=== PATIENT | female | born 1935 | race African-American/Black ===

== ENCOUNTER 2016-03-07 22:12 | Emergency (ER) | payer BC ==
[~2016-03-07] VITALS: Ht 165.1 cm; Wt 87.1 kg
[~2016-03-07 22:12] MED LIST: AML5T PO; CEPH-37 PO
[2016-03-08] MEDS ORDERED: ONDANSETRON HCL 4 MG/2 ML VIAL IV ONE (02:30)
[2016-03-08] MEDS ORDERED: HYDROmorphone HCL 2 MG/ML VL IV ONE (02:30)
[2016-03-08 03:05] LABS: Basophils # (auto) 0.1 uL; Basophils % (auto) 0.9 % (0.0-2.0); Eosinophils # (auto) 0.1 uL; Eosinophils % (auto) 1.3 % (0.0-7.0); Hemoglobin 11.9 g/dL (12.2-16.2); Lymphocytes % (auto) 30.2 % (10.0-50.0); Mean Corpuscular Hemoglobin 28.6 pg (28.0-32.0); Mean Corpuscular Volume 86.6 fL (80.0-100.0); Monocytes # (auto) 0.6 uL; Monocytes % (auto) 9.5 % (0.0-12.0); Neutrophils # (auto) 3.9 uL; Neutrophils % (auto) 58.1 % (37.0-80.0); Platelet Count (auto) 252 10^3/uL (140-450); Red Cell Distribution Width 13.8 % (11.6-16.0); White Blood Cell 6.7 10^3/uL (4.4-10.8)
[2016-03-08 03:25] LABS: BUN/Creatinine Ratio 12.2; Calcium 9.6 mg/dL (8.5-10.1); Potassium 3.5 mmol/L (3.5-5.1)
[2016-03-08 04:18] VITALS: BP 146/80
== END 2016-03-08 04:33 | disposition home or self-care (01) ==
LOC: ER 22:20
DX: M10.9 Gout, unspecified (principal); I10 Essential (primary) hypertension; Z88.5 Allergy status to narcotic agent
CPT/HCPCS: 36415; 73110; 80048; 84550; 85025; 85049; 96374; 96375; 99285; J1170; J2405

== ENCOUNTER → 2016-03-18 | Outpatient (CLI) | payer BC, MEDICARE ==
[~2016-03-18] VITALS: Ht 165.1 cm; Wt 85.7 kg
[~2016-03-18] MED LIST changes: +ASPI81TA27 PO; +HCTZ25T PO; +NOR5T PO
[2016-03-18 09:00] VITALS: BP 155/82
[2016-03-18 09:28] VITALS: BP 115/76
[2016-03-18 12:07] LABS: Basophils # (auto) 0 uL; Basophils % (auto) 0.5 % (0.0-2.0); Eosinophils # (auto) 0.1 uL; Hematocrit 34.1 % (36.0-46.0); Hemoglobin 11.5 g/dL (12.2-16.2); Lymphocytes # (auto) 1.6 uL; Lymphocytes % (auto) 32.1 % (10.0-50.0); Mean Corpuscular Hemoglobin 29.2 pg (28.0-32.0); Mean Corpuscular Hgb Conc. 33.8 g/dL (32.0-36.0); Mean Corpuscular Volume 86.5 fL (80.0-100.0); Mean Platelet Volume 9.5 fL (7.4-10.4); Monocytes # (auto) 0.5 uL; Monocytes % (auto) 9.5 % (0.0-12.0); Neutrophils # (auto) 2.8 uL; Neutrophils % (auto) 55.9 % (37.0-80.0); Platelet Count (auto) 288 10^3/uL (140-450); Red Cell Distribution Width 14.6 % (11.6-16.0); SUSPECT VIEW TRANSMISSION
[2016-03-18 12:25] LABS: Partial Thromboplastin Time 25.5 sec (22.64-33.71); Prothrombin Time 10.3 sec (9.37-12.3)
[2016-03-18 12:40] LABS: BUN/Creatinine Ratio 13.2; Calcium 9.5 mg/dL (8.5-10.1); Potassium 3.3 mmol/L (3.5-5.1)
== END | disposition home or self-care (01) ==
LOC: Rad HDHVI 08:48
PROVIDERS: ATTEND Internal Medicine Cardiovascular Disease
DX: I10 Essential (primary) hypertension (principal); D64.9 Anemia, unspecified; R79.1 Abnormal coagulation profile
CPT/HCPCS: 36415; 71020; 80048; 85025; 85610; 85730; 93005; G0463

== ENCOUNTER → 2016-05-26 | Outpatient (CLI) | payer BC, MEDICARE, OTHER ==
[~2016-05-26] MED LIST changes: -CEPH-37 PO
[2016-05-26 16:45] LABS: BUN/Creatinine Ratio 12.6; Calcium 9.9 mg/dL (8.5-10.1); Potassium 3.6 mmol/L (3.5-5.1); Uric Acid 7.4 mg/dL (2.6-6.0)
== END | disposition home or self-care (01) ==
LOC: LAB 11:32
PROVIDERS: ATTEND Internal Medicine Cardiovascular Disease
DX: I10 Essential (primary) hypertension (principal); M10.9 Gout, unspecified
CPT/HCPCS: 36415; 80048; 84550

== ENCOUNTER → 2016-06-07 | Outpatient (CLI) | payer BC | END | disposition home or self-care (01) | LOC: Rad HDHVI 09:36 | PROVIDERS: ATTEND Internal Medicine Cardiovascular Disease | DX: I20.0 Unstable angina (principal); E78.2 Mixed hyperlipidemia | CPT/HCPCS: 93306 ==

== ENCOUNTER → 2016-09-30 | Outpatient (CLI) | payer BC ==
[~2016-09-30] MED LIST changes: +HYDR-4663 PO; -NOR5T PO
[2016-09-30 16:58] LABS: Basophils # (auto) 0 uL; Basophils % (auto) 0.4 % (0.0-2.0); CONDITION Y; Eosinophils # (auto) 0.1 uL; Eosinophils % (auto) 0.9 % (0.0-7.0); Hematocrit 35.6 % (36.0-46.0); Hemoglobin 12.2 g/dL (12.2-16.2); Lymphocytes # (auto) 1.5 uL; Mean Corpuscular Hemoglobin 30.1 pg (28.0-32.0); Mean Corpuscular Hgb Conc. 34.3 g/dL (32.0-36.0); Mean Corpuscular Volume 87.7 fL (80.0-100.0); Mean Platelet Volume 10.4 fL (7.4-10.4); Monocytes # (auto) 0.7 uL; Monocytes % (auto) 9.3 % (0.0-12.0); Neutrophils # (auto) 5.1 uL; Neutrophils % (auto) 69.4 % (37.0-80.0); Platelet Count (auto) 246 10^3/uL (140-450); White Blood Cell 7.4 10^3/uL (4.4-10.8)
[2016-09-30 17:06] LABS: Urine Bilirubin Negative (Negative); Urine Blood Negative /uL (Negative); Urine Color Yellow (Yellow); Urine Glucose Normal (Normal); Urine Ketone Negative (Negative); Urine Nitrite Negative (Negative); Urine Urobilinogen Normal (Negative)
[2016-09-30 17:23] LABS: Albumin 3.9 g/dL (3.4-5.0); BUN/Creatinine Ratio 14.8; Bilirubin, Total 0.4 mg/dL (0.2-1.0); Calcium 10.2 mg/dL (8.5-10.1); Total Protein 8.4 g/dL (6.4-8.2)
[2016-09-30 17:39] LABS: Potassium 2.9 mmol/L (3.5-5.1)
[2016-09-30 23:06] LABS: Bilirubin, Direct 0.1 mg/dL (0-0.2)
== END | disposition home or self-care (01) ==
LOC: LAB 11:07
PROVIDERS: ATTEND Internal Medicine Cardiovascular Disease
DX: I10 Essential (primary) hypertension (principal); E78.00 Pure hypercholesterolemia, unspecified; K74.1 Hepatic sclerosis; E03.9 Hypothyroidism, unspecified; D64.9 Anemia, unspecified; E55.9 Vitamin D deficiency, unspecified; N39.0 Urinary tract infection, site not specified; M10.9 Gout, unspecified; R73.09 Other abnormal glucose
CPT/HCPCS: 36415; 80048; 80061; 80076; 81003; 82306; 83036; 84443; 84550; 85025

== ENCOUNTER → 2016-10-11 | Outpatient (CLI) | payer BC | END | disposition home or self-care (01) | LOC: LAB 10:33 | PROVIDERS: ATTEND Internal Medicine Cardiovascular Disease | DX: E87.6 Hypokalemia (principal); I11.0 Hypertensive heart disease with heart failure; I25.10 Atherosclerotic heart disease of native coronary artery without angina pectoris; I50.9 Heart failure, unspecified | CPT/HCPCS: 36415; 84132 ==

== ENCOUNTER → 2016-11-04 | Outpatient (CLI) | payer BC | END | disposition home or self-care (01) | LOC: Rad HDHVI 08:09 | PROVIDERS: ATTEND Internal Medicine Cardiovascular Disease | DX: I25.10 Atherosclerotic heart disease of native coronary artery without angina pectoris (principal) | CPT/HCPCS: 93306 ==

== ENCOUNTER → 2016-11-10 | Outpatient (CLI) | payer BC ==
[~2016-11-10] VITALS: Ht 165.1 cm; Wt 82.6 kg
== END | disposition home or self-care (01) ==
LOC: Rad HDHVI 09:16
PROVIDERS: ATTEND Internal Medicine Cardiovascular Disease
DX: Z01.810 Encounter for preprocedural cardiovascular examination (principal); I25.10 Atherosclerotic heart disease of native coronary artery without angina pectoris; M10.9 Gout, unspecified; E78.00 Pure hypercholesterolemia, unspecified; Z95.0 Presence of cardiac pacemaker
CPT/HCPCS: 78452; 93017; 96374; A9500

== ENCOUNTER → 2017-05-29 | Outpatient (CLI) | payer BC ==
[~2017-05-29] MED LIST changes: -HYDR-4663 PO; +HYDR-4683 PO
[2017-05-29 16:08] LABS: Basophils # (auto) 0 uL; Basophils % (auto) 0.8 % (0.0-2.0); Eosinophils # (auto) 0.1 uL; Eosinophils % (auto) 1.8 % (0.0-7.0); Hematocrit 38.2 % (36.0-46.0); Hemoglobin 12.9 g/dL (12.2-16.2); Lymphocytes # (auto) 1.6 uL; Lymphocytes % (auto) 31.3 % (10.0-50.0); Mean Corpuscular Hemoglobin 29.2 pg (28.0-32.0); Mean Corpuscular Hgb Conc. 33.9 g/dL (32.0-36.0); Mean Corpuscular Volume 86.2 fL (80.0-100.0); Monocytes # (auto) 0.5 uL; Neutrophils # (auto) 2.9 uL; Neutrophils % (auto) 56.1 % (37.0-80.0); Nucleated Red Blood Cells % 0.3 %; Platelet Count (auto) 211 10^3/uL (140-450); Red Blood Cells 4.43 10^6/uL (4.0-5.20); Red Cell Distribution Width 16.5 % (11.8-14.3); White Blood Cell 5.2 10^3/uL (4.4-10.8)
[2017-05-29 16:15] LABS: Urine Blood Negative /uL (Negative); Urine Specific Gravity 1.016 (1.001-1.035)
[2017-05-29 16:27] LABS: Alanine Aminotransferase 25 U/L (13-56); Albumin 3.7 g/dL (3.4-5.0); Alkaline Phosphatase 91 U/L (45-117); Anion Gap 5 (5-15); Aspartate Aminotransferase 19 U/L (15-37); BUN/Creatinine Ratio 11.5; Bilirubin, Direct < 0.1 mg/dL (0-0.2); Bilirubin, Total 0.3 mg/dL (0.2-1.0); Blood Urea Nitrogen 18 mg/dL (7-18); Calcium 9.9 mg/dL (8.5-10.1); Carbon Dioxide 29 mmol/L (21-32); Chloride 106 mmol/L (98-107); Cholesterol 200 mg/dL (< 200); GFR African American 41 mL/min; GFR Non-African American 34 mL/min; Glucose 108 mg/dL (74-106); HDL Cholesterol 43 mg/dL (40-59); LDL Cholesterol 139 mg/dL (< 100); Potassium 3.8 mmol/L (3.5-5.1); Sodium 140 mmol/L (136-145); Total Protein 8.3 g/dL (6.4-8.2); Triglycerides 174 mg/dL (< 150); Uric Acid 6.6 mg/dL (2.6-6.0)
== END | disposition home or self-care (01) ==
LOC: LAB 12:44
PROVIDERS: ATTEND Internal Medicine
DX: M10.9 Gout, unspecified (principal); E78.5 Hyperlipidemia, unspecified; D64.9 Anemia, unspecified; I10 Essential (primary) hypertension; E03.9 Hypothyroidism, unspecified; E11.9 Type 2 diabetes mellitus without complications; E55.9 Vitamin D deficiency, unspecified; N39.0 Urinary tract infection, site not specified
CPT/HCPCS: 36415; 80048; 80061; 80076; 81003; 82306; 83036; 84443; 84550; 85025

== ENCOUNTER → 2017-06-20 | Outpatient (CLI) | payer BC ==
[2017-06-20 12:44] LABS: BUN/Creatinine Ratio 12.4; Calcium 9.6 mg/dL (8.5-10.1); Potassium 3.2 mmol/L (3.5-5.1); Uric Acid 7.8 mg/dL (2.6-6.0)
== END | disposition home or self-care (01) ==
LOC: LAB 08:32
PROVIDERS: ATTEND Internal Medicine
DX: M10.9 Gout, unspecified (principal); I10 Essential (primary) hypertension; E11.9 Type 2 diabetes mellitus without complications; E78.5 Hyperlipidemia, unspecified; E03.9 Hypothyroidism, unspecified
CPT/HCPCS: 36415; 80048; 84550

== ENCOUNTER → 2017-10-27 | Outpatient (CLI) | payer BC ==
[2017-10-27 12:21] LABS: Basophils # (auto) 0 uL; Basophils % (auto) 0.9 % (0.0-2.0); Eosinophils # (auto) 0.1 uL; Eosinophils % (auto) 2.6 % (0.0-7.0); Hematocrit 36.2 % (36.0-46.0); Hemoglobin 12.8 g/dL (12.2-16.2); Lymphocytes # (auto) 1.6 uL; Lymphocytes % (auto) 33.7 % (10.0-50.0); Mean Corpuscular Hemoglobin 30.8 pg (28.0-32.0); Mean Corpuscular Hgb Conc. 35.3 g/dL (32.0-36.0); Mean Corpuscular Volume 87.3 fL (80.0-100.0); Monocytes # (auto) 0.5 uL; Monocytes % (auto) 11.4 % (0.0-12.0); Neutrophils # (auto) 2.4 uL; Neutrophils % (auto) 51.4 % (37.0-80.0); Nucleated Red Blood Cells % 0.1 %; Platelet Count (auto) 195 10^3/uL (140-450); Red Blood Cells 4.14 10^6/uL (4.0-5.20); White Blood Cell 4.6 10^3/uL (4.4-10.8)
[2017-10-27 12:53] LABS: Albumin 3.5 g/dL (3.4-5.0); BUN/Creatinine Ratio 10.5; Bilirubin, Total 0.4 mg/dL (0.2-1.0); Calcium 9.7 mg/dL (8.5-10.1); Potassium 3.5 mmol/L (3.5-5.1); Total Protein 7.6 g/dL (6.4-8.2)
== END | disposition home or self-care (01) ==
LOC: LAB 10:51
PROVIDERS: ATTEND Internal Medicine Cardiovascular Disease
DX: E78.5 Hyperlipidemia, unspecified (principal); I10 Essential (primary) hypertension; E11.9 Type 2 diabetes mellitus without complications; D64.9 Anemia, unspecified; M10.9 Gout, unspecified
CPT/HCPCS: 36415; 80053; 80061; 83036; 85025

== ENCOUNTER 2017-11-20 22:21 | Emergency (ER) | payer MEDICARE, OTHER ==
[~2017-11-20] VITALS: Ht 165.1 cm; Wt 88.5 kg
[2017-11-20 23:46] LABS: Basophils # (auto) 0.2 uL; Basophils % (auto) 2.1 % (0.0-2.0); Eosinophils # (auto) 0.1 uL; Eosinophils % (auto) 0.8 % (0.0-7.0); Hematocrit 38.9 % (36.0-46.0); Hemoglobin 13.6 g/dL (12.2-16.2); Lymphocytes # (auto) 1.9 uL; Lymphocytes % (auto) 20.9 % (10.0-50.0); Mean Corpuscular Hemoglobin 30.2 pg (28.0-32.0); Mean Corpuscular Hgb Conc. 34.9 g/dL (32.0-36.0); Mean Corpuscular Volume 86.4 fL (80.0-100.0); Monocytes # (auto) 1.3 uL; Neutrophils # (auto) 5.8 uL; Neutrophils % (auto) 62.2 % (37.0-80.0); Nucleated Red Blood Cells % 0.1 %; Platelet Count (auto) 228 10^3/uL (140-450); Red Blood Cells 4.49 10^6/uL (4.0-5.20); Red Cell Distribution Width 15.4 % (11.8-14.3); White Blood Cell 9.3 10^3/uL (4.4-10.8)
[2017-11-20 23:57] LABS: INR 0.95 (0.9-1.15); Partial Thromboplastin Time 20.3 sec (23.78-33.04); Prothrombin Time 10.2 sec (9.27-12.13)
[2017-11-21] LABS: Albumin 3.6 g/dL (3.4-5.0); Calcium 9.9 mg/dL (8.5-10.1); Magnesium 1.8 mg/dL (1.6-2.6); Potassium 3.1 mmol/L (3.5-5.1)
[2017-11-21 00:08] LABS: Bilirubin, Total 0.3 mg/dL (0.2-1.0); Total Protein 7.9 g/dL (6.4-8.2)
[2017-11-21] MEDS ORDERED: POTASSIUM EFFERVESENT TAB 25 MEQ PO ONE (07:15)
[2017-11-21 07:20] VITALS: BP 127/73
[2017-11-21] MEDS ORDERED: HYDROcodone-ACET 5/325MG TAB PO ONE (08:45)
== END 2017-11-21 12:57 | disposition home or self-care (01) ==
LOC: ER 22:34
DX: R07.89 Other chest pain (principal); R42 Dizziness and giddiness; R51 Headache; I10 Essential (primary) hypertension; M10.9 Gout, unspecified; I25.10 Atherosclerotic heart disease of native coronary artery without angina pectoris; Z88.6 Allergy status to analgesic agent
CPT/HCPCS: 36415; 71046; 80053; 83735; 84484; 85025; 85610; 85730

== ENCOUNTER → 2018-01-02 | Outpatient (CLI) | payer BC, MEDICARE | END | disposition home or self-care (01) | LOC: Rad HDHVI 10:31 | PROVIDERS: ATTEND Internal Medicine Cardiovascular Disease | DX: I65.23 Occlusion and stenosis of bilateral carotid arteries (principal); I10 Essential (primary) hypertension; I49.5 Sick sinus syndrome; R42 Dizziness and giddiness | CPT/HCPCS: 93880 ==

== ENCOUNTER → 2018-01-05 | Outpatient (CLI) | payer BC, MEDICARE ==
[~2018-01-05] MED LIST changes: +IOHEXOL 350 MG/ML 100ML IJ ONE; +SODIUM CHLORIDE 0.9% 250 ML IV ONE
[2018-01-05 08:20] VITALS: BP 150/77
[2018-01-05 10:20] VITALS: BP 150/80
[2018-01-05 14:52] LABS: Potassium 4.5 mmol/L (3.5-5.1)
== END | disposition home or self-care (01) ==
LOC: Rad HDHVI 07:59
PROVIDERS: ATTEND Internal Medicine Cardiovascular Disease
DX: G31.9 Degenerative disease of nervous system, unspecified (principal); G45.9 Transient cerebral ischemic attack, unspecified; I10 Essential (primary) hypertension; I49.5 Sick sinus syndrome; H61.20 Impacted cerumen, unspecified ear; R42 Dizziness and giddiness; E87.6 Hypokalemia; R94.4 Abnormal results of kidney function studies; E55.9 Vitamin D deficiency, unspecified
CPT/HCPCS: 36415; 70496; 82306; 82565; 83735; 84132; 84520; Q9967

== ENCOUNTER → 2018-03-13 | Outpatient (CLI) | payer BC ==
[~2018-03-13] MED LIST changes: -IOHEXOL 350 MG/ML 100ML IJ ONE; -SODIUM CHLORIDE 0.9% 250 ML IV ONE
== END | disposition home or self-care (01) ==
LOC: Rad HDHVI 14:49
PROVIDERS: ATTEND Internal Medicine Cardiovascular Disease
DX: M79.606 Pain in leg, unspecified (principal); M70.52 Other bursitis of knee, left knee; R60.0 Localized edema
CPT/HCPCS: 93970

== ENCOUNTER → 2018-06-11 | Outpatient (CLI) | payer BC ==
[2018-06-11 12:16] LABS: Urine Blood Negative /uL (Negative); Urine Specific Gravity 1.017 (1.001-1.035)
[2018-06-11 12:33] LABS: Basophils # (auto) 0 uL; Basophils % (auto) 0.7 % (0.0-2.0); Eosinophils # (auto) 0.1 uL; Eosinophils % (auto) 1.8 % (0.0-7.0); Hematocrit 39.3 % (36.0-46.0); Hemoglobin 13.3 g/dL (12.2-16.2); Lymphocytes # (auto) 1.7 uL; Lymphocytes % (auto) 34.7 % (10.0-50.0); Mean Corpuscular Hemoglobin 30.1 pg (28.0-32.0); Mean Corpuscular Hgb Conc. 33.7 g/dL (32.0-36.0); Mean Corpuscular Volume 89.2 fL (80.0-100.0); Monocytes # (auto) 0.5 uL; Monocytes % (auto) 10.4 % (0.0-12.0); Neutrophils # (auto) 2.5 uL; Neutrophils % (auto) 52.4 % (37.0-80.0); Nucleated Red Blood Cells % 0.1 %; Platelet Count (auto) 214 10^3/uL (140-450); Red Blood Cells 4.41 10^6/uL (4.0-5.20); White Blood Cell 4.8 10^3/uL (4.4-10.8)
[2018-06-11 12:41] LABS: Free T4 (Free Thyroxine) 0.92 ng/dL (0.89-1.76)
[2018-06-11 18:42] LABS: Chloride 110 mmol/L (98-107); Potassium 3.7 mmol/L (3.5-5.1); Sodium 142 mmol/L (136-145)
[2018-06-11 18:43] LABS: Alanine Aminotransferase 28 U/L (13-56); Albumin 3.9 g/dL (3.4-5.0); Anion Gap 9 (5-15); Aspartate Aminotransferase 22 U/L (15-37); Calcium 10.3 mg/dL (8.5-10.1); Carbon Dioxide 23 mmol/L (21-32); GFR African American 35 mL/min; GFR Non-African American 29 mL/min; Glucose 94 mg/dL (74-106)
[2018-06-11 18:44] LABS: Alkaline Phosphatase 68 U/L (45-117); Bilirubin, Total 0.4 mg/dL (0.2-1.0); Cholesterol 234 mg/dL (< 200); HDL Cholesterol 47 mg/dL (40-59); LDL Cholesterol 149 mg/dL (< 100); Triglycerides 126 mg/dL (< 150)
[2018-06-11 18:45] LABS: Blood Urea Nitrogen 25 mg/dL (7-18)
== END | disposition home or self-care (01) ==
LOC: LAB 09:13
PROVIDERS: ATTEND Internal Medicine Cardiovascular Disease
DX: Z00.00 Encounter for general adult medical examination without abnormal findings (principal); E03.9 Hypothyroidism, unspecified; E55.9 Vitamin D deficiency, unspecified; D51.9 Vitamin B12 deficiency anemia, unspecified; N39.0 Urinary tract infection, site not specified; Z79.899 Other long term (current) drug therapy
CPT/HCPCS: 36415; 80053; 80061; 81003; 82306; 82607; 83036; 84439; 84443; 85025

== ENCOUNTER → 2018-06-19 | Outpatient (CLI) | payer BC | END | disposition home or self-care (01) | LOC: Rad HDHVI 08:03 | PROVIDERS: ATTEND Internal Medicine Cardiovascular Disease | DX: I08.1 Rheumatic disorders of both mitral and tricuspid valves (principal) | CPT/HCPCS: 93306 ==

== ENCOUNTER → 2018-07-05 | Outpatient (CLI) | payer BC ==
[~2018-07-05] VITALS: Ht 165.1 cm; Wt 86.2 kg
== END | disposition home or self-care (01) ==
LOC: Rad HDHVI 07:47
PROVIDERS: ATTEND Internal Medicine Cardiovascular Disease
DX: J40 Bronchitis, not specified as acute or chronic (principal); I10 Essential (primary) hypertension; I73.9 Peripheral vascular disease, unspecified; E78.00 Pure hypercholesterolemia, unspecified; M10.9 Gout, unspecified; R42 Dizziness and giddiness
CPT/HCPCS: 78452; 93017; 96374; A9500

== ENCOUNTER → 2018-08-27 | Outpatient (CLI) | payer BC ==
[~2018-08-27] MED LIST changes: +ASPI-404 PO; -ASPI81TA27 PO; -HYDR-4683 PO; +HYDR-4833 PO
[2018-08-27 12:38] LABS: Alanine Aminotransferase 33 U/L (13-56); Albumin 3.8 g/dL (3.4-5.0); Aspartate Aminotransferase 26 U/L (15-37); Bilirubin, Direct < 0.1 mg/dL (0-0.2); Uric Acid 5.9 mg/dL (2.6-6.0)
[2018-08-27 12:40] LABS: Alkaline Phosphatase 74 U/L (45-117); Bilirubin, Total 0.4 mg/dL (0.2-1.0); Total Protein 8.3 g/dL (6.4-8.2)
== END | disposition home or self-care (01) ==
LOC: Rad HDHVI 09:48
PROVIDERS: ATTEND Internal Medicine
DX: M17.11 Unilateral primary osteoarthritis, right knee (principal); M11.261 Other chondrocalcinosis, right knee; M51.36 Other intervertebral disc degeneration, lumbar region; M51.86 Other intervertebral disc disorders, lumbar region; I70.0 Atherosclerosis of aorta; M10.9 Gout, unspecified; K74.1 Hepatic sclerosis
CPT/HCPCS: 36415; 72100; 73562; 80076; 84550; 93971

== ENCOUNTER → 2018-11-19 | Outpatient (CLI) | payer BC ==
[~2018-11-19] VITALS: Ht 30.5 cm; Wt 87.5 kg
[~2018-11-19] MED LIST changes: +IODIXANOL 320MG/ML 100ML BTL IV ONE; +SODIUM CHLORIDE 0.9% 1,000 ML IV ONE; +SODIUM CHLORIDE 0.9% 1,000 ML IV SCH
[2018-11-19 09:00] VITALS: BP 133/72
--- NOTE | 2018-11-19 09:00 | NUR ---
IN TO CLINIC FOR CT CHEST AFTER EXPERIENCING CHEST DISCOMFORT X 2 WEEKS. DENIES ANY CHEST DISCOMFORT AT THIS TIME. PT HAS KNOWN HISTORY OF RENAL IMPAIRMENT. SAW MONDAY WHEN CT SCAN WAS ORDERED. VS WNL. WITHOUT DISTRESS.
--- NOTE | 2018-11-19 09:30 | NUR ---
START IV HYDRATION TO LEFT AC IV
--- NOTE | 2018-11-19 11:06 | NUR ---
CT PT WENT TO CT SCAN CREA 1.65 MD MAHONEY UPDATED OK TO GO FORWARD WITH CT ORDERED 500ML NS AFTER [address]
[2018-11-19 12:00] VITALS: BP 145/80
--- NOTE | 2018-11-19 12:00 | NUR ---
COMPLETED IV HYDRATION. IV SITE DCD TO LEFT AC, SITE BENIGN. DISCHARGED TO SELF CARE IN NO DISTRESS OR DISCOMFORT. MEDICATION ADMINISTRATION 0.9 NS IV START AT 0933/STOP AT 1150 (TOTAL 750 ML DELIVERED)
== END | disposition home or self-care (01) ==
LOC: Rad HDHVI 08:52
PROVIDERS: ATTEND Internal Medicine Cardiovascular Disease
DX: E07.9 Disorder of thyroid, unspecified (principal); R07.89 Other chest pain; R94.4 Abnormal results of kidney function studies
CPT/HCPCS: 36415; 71260; 82565; G0463; J7030; Q9967; 96360; 96361

== ENCOUNTER → 2018-12-21 | Outpatient (CLI) | payer BC ==
[~2018-12-21] MED LIST changes: -IODIXANOL 320MG/ML 100ML BTL IV ONE; -SODIUM CHLORIDE 0.9% 1,000 ML IV ONE; -SODIUM CHLORIDE 0.9% 1,000 ML IV SCH
[2018-12-21 12:19] LABS: BUN/Creatinine Ratio 11.4; Calcium 10.2 mg/dL (8.5-10.1); Potassium 3.5 mmol/L (3.5-5.1)
== END | disposition home or self-care (01) ==
LOC: LAB 09:24
PROVIDERS: ATTEND Internal Medicine Cardiovascular Disease
DX: I10 Essential (primary) hypertension (principal)
CPT/HCPCS: 36415; 80048

== ENCOUNTER → 2019-01-08 | Outpatient (CLI) | payer BC ==
[2019-01-08 14:31] VITALS: BP 141/69
--- NOTE | 2019-01-08 14:31 | NUR ---
CHF PT ARRIVED TO THE CHF CLINIC FOR ASSESSMENT OF RIGHT KNEE AND CONSTANT PAIN. A/O X 4 0 DISTRESS VSS. BEING TREATED BY PAIN DOCTOR
[2019-01-08 15:33] LABS: Magnesium 1.9 mg/dL (1.6-2.6); Potassium 3.7 mmol/L (3.5-5.1); Uric Acid 5.3 mg/dL (2.6-6.0)
[2019-01-08 15:35] VITALS: BP 140/72
--- NOTE | 2019-01-08 15:35 | NUR ---
Discharge Instructions See e-MAR for any mediations given with this visit. Patient education given on disease process. Patient verbalized understanding. Previous labs reviewed. Patient discharged in stable condition with after care instructions and follow up appointment. SAMPLE OF PAIN OINTMENT APPLIED TO RIGHT KNEE VANCE WRAP ALSO APPLIED TO RIGHT KNEE BY ISAIAS VOSS. PT TO FOLLOW UP TOMORROW AT 1200 FOR U/S OF THE KNEE R/O DVT
== END | disposition home or self-care (01) ==
LOC: CHF HDHVI 14:36
PROVIDERS: ATTEND Internal Medicine Cardiovascular Disease
DX: M10.9 Gout, unspecified (principal); E83.40 Disorders of magnesium metabolism, unspecified; E87.5 Hyperkalemia; R94.4 Abnormal results of kidney function studies; I10 Essential (primary) hypertension; Z98.61 Coronary angioplasty status; Z95.0 Presence of cardiac pacemaker
CPT/HCPCS: 36415; 82565; 83735; 84132; 84520; 84550; G0463

== ENCOUNTER → 2019-01-09 | Outpatient (CLI) | payer BC, MEDICARE ==
[~2019-01-09] VITALS: Ht 165.1 cm; Wt 86.2 kg
[~2019-01-09] MED LIST changes: +KETOROLAC TROMETH 60MG/2ML VIAL ONE; +LIDOCAINE 1% (LOCAL ANESTH.) PF 5ml SDV ONE; +LIDOCAINE 1% HCL (LOCAL ANESTH.) INJ 20ML MDV ID ONE; +TRIAMCINOLONE 40MG/ML 1ML VIAL IX ONE; +TRIAMCINOLONE 40MG/ML 1ML VIAL ONE; +ceFAZolin 1GM 2 GM in D5W 5% 100 ML IV ONE; +ceFAZolin 1GM/50ML 100 ML IV ONE
[2019-01-09 12:00] VITALS: BP 139/72
[2019-01-09 15:58] VITALS: BP 137/81
== END | disposition home or self-care (01) ==
LOC: Rad HDHVI 11:47
PROVIDERS: ATTEND Internal Medicine Cardiovascular Disease
DX: M25.561 Pain in right knee (principal); R60.0 Localized edema; L02.91 Cutaneous abscess, unspecified; I10 Essential (primary) hypertension
CPT/HCPCS: 73700; 87205; 96365; G0463; J0690; J1885; J3301; 87070; J7060

== ENCOUNTER → 2019-11-05 | Outpatient (CLI) | payer BC ==
[~2019-11-05] MED LIST changes: -ASPI-404 PO; +ASPI-543 PO; -KETOROLAC TROMETH 60MG/2ML VIAL ONE; -LIDOCAINE 1% (LOCAL ANESTH.) PF 5ml SDV ONE; -LIDOCAINE 1% HCL (LOCAL ANESTH.) INJ 20ML MDV ID ONE; -TRIAMCINOLONE 40MG/ML 1ML VIAL IX ONE; -TRIAMCINOLONE 40MG/ML 1ML VIAL ONE; -ceFAZolin 1GM 2 GM in D5W 5% 100 ML IV ONE; -ceFAZolin 1GM/50ML 100 ML IV ONE
[2019-11-05 10:39] LABS: BUN/Creatinine Ratio 10.6; Calcium 10.4 mg/dL (8.5-10.1); Magnesium 1.9 mg/dL (1.6-2.6); Potassium 3.9 mmol/L (3.5-5.1)
[2019-11-05 12:09] LABS: Albumin 3.6 g/dL (3.4-5.0); Bilirubin, Direct 0.2 mg/dL (0-0.2)
[2019-11-05 12:12] LABS: Bilirubin, Total 0.4 mg/dL (0.2-1.0)
== END | disposition home or self-care (01) ==
LOC: LAB 09:46
PROVIDERS: ATTEND Internal Medicine Cardiovascular Disease
DX: I10 Essential (primary) hypertension (principal); I49.9 Cardiac arrhythmia, unspecified; E11.9 Type 2 diabetes mellitus without complications; D64.9 Anemia, unspecified; D51.3 Other dietary vitamin B12 deficiency anemia; E55.9 Vitamin D deficiency, unspecified; R00.2 Palpitations; R53.1 Weakness; R30.0 Dysuria
CPT/HCPCS: 36415; 80048; 80061; 80076; 82306; 83036; 83735; 84443

== ENCOUNTER → 2020-05-29 | Outpatient (CLI) | payer BC ==
[~2020-05-29] MED LIST changes: -HCTZ25T PO; +HYDR25TA5 PO
== END | disposition home or self-care (01) ==
LOC: Rad HDHVI 11:15
PROVIDERS: ATTEND Internal Medicine Cardiovascular Disease
DX: I50.33 Acute on chronic diastolic (congestive) heart failure (principal); R00.2 Palpitations
CPT/HCPCS: 93306

== ENCOUNTER → 2020-06-10 | Outpatient (CLI) | payer BC ==
[~2020-06-10] VITALS: Ht 165.1 cm; Wt 86.2 kg
== END | disposition home or self-care (01) ==
LOC: Rad HDHVI 14:02
PROVIDERS: ATTEND Internal Medicine Cardiovascular Disease
DX: I11.0 Hypertensive heart disease with heart failure (principal); I50.33 Acute on chronic diastolic (congestive) heart failure; I25.10 Atherosclerotic heart disease of native coronary artery without angina pectoris; E78.00 Pure hypercholesterolemia, unspecified; R07.9 Chest pain, unspecified; Z95.0 Presence of cardiac pacemaker
CPT/HCPCS: 78452; 93017; 96374; A9500

== ENCOUNTER → 2020-09-21 | Outpatient (CLI) | payer BC ==
[2020-09-21 11:42] LABS: Urine Blood Negative /uL (Negative); Urine Specific Gravity 1.016 (1.001-1.035)
[2020-09-21 11:43] LABS: Basophils # (auto) 0.1 10 ^3/uL (0-0.2); Basophils % (auto) 2.1 % (0.0-2.0); Eosinophils # (auto) 0.1 10 ^3/uL (0-0.8); Eosinophils % (auto) 1.3 % (0.0-7.0); Hematocrit 35.6 % (36.0-46.0); Hemoglobin 12.3 g/dL (12.2-16.2); Lymphocytes # (auto) 2.1 10 ^3/uL (0.4-5.4); Lymphocytes % (auto) 34.7 % (10.0-50.0); Mean Corpuscular Hemoglobin 31.1 pg (28.0-32.0); Mean Corpuscular Hgb Conc. 34.6 g/dL (32.0-36.0); Mean Corpuscular Volume 89.9 fL (80.0-100.0); Monocytes # (auto) 0.6 10 ^3/uL (0-1.3); Monocytes % (auto) 10.7 % (0.0-12.0); Neutrophils % (auto) 51.2 % (37.0-80.0); Nucleated Red Blood Cells % 0.1 %; Red Blood Cells 3.96 10^6/uL (4.0-5.20); Red Cell Distribution Width 15.1 % (11.8-14.3); White Blood Cell 5.9 10^3/uL (4.4-10.8)
[2020-09-21 11:49] LABS: Albumin 3.3 g/dL (3.4-5.0); Calcium 10.3 mg/dL (8.5-10.1); Potassium 4.1 mmol/L (3.5-5.1)
[2020-09-21 11:55] LABS: Bilirubin, Total 0.4 mg/dL (0.2-1.0); Total Protein 7.7 g/dL (6.4-8.2)
[2020-09-21 12:34] LABS: Free T4 (Free Thyroxine) 0.95 ng/dL (0.89-1.76)
== END | disposition home or self-care (01) ==
LOC: LAB 07:59
PROVIDERS: ATTEND Internal Medicine Cardiovascular Disease
DX: D51.3 Other dietary vitamin B12 deficiency anemia (principal); I10 Essential (primary) hypertension; E11.9 Type 2 diabetes mellitus without complications; E55.9 Vitamin D deficiency, unspecified; D64.9 Anemia, unspecified; R00.2 Palpitations; R53.1 Weakness; R30.0 Dysuria
CPT/HCPCS: 36415; 80053; 80061; 81003; 82306; 82607; 83036; 84439; 84443; 85025

== ENCOUNTER → 2021-07-13 | Outpatient (CLI) | payer BC | END | disposition home or self-care (01) | LOC: Rad HDHVI 09:44 | PROVIDERS: ATTEND Internal Medicine Cardiovascular Disease | DX: I08.3 Combined rheumatic disorders of mitral, aortic and tricuspid valves (principal); R07.89 Other chest pain; R06.02 Shortness of breath | CPT/HCPCS: 93306 ==

== ENCOUNTER 2021-07-26 15:49 | Inpatient (IN) | payer MEDICARE, BC ==
[~2021-07-26] VITALS: Ht 165.1 cm; Wt 80.9 kg
[2021-07-26] MEDS: PIPERACILLIN-TAZO 4.5GM 100 ML IV SCH (04:00)
[2021-07-26] MEDS ORDERED: MORPHINE SULFATE 4 MG/ML SYR/VIAL IV ONE (16:30)
[2021-07-26] MEDS ORDERED: SODIUM CHLORIDE 0.9% 500 ML IVB ONE (16:30)
[2021-07-26] MEDS ORDERED: ONDANSETRON HCL 4 MG/2 ML VIAL IV ONE (16:30)
[2021-07-26 16:33] LABS: Basophils # (auto) 0.1 10 ^3/uL (0-0.2); Basophils % (auto) 1.7 % (0.0-2.0); Eosinophils # (auto) 0 10 ^3/uL (0-0.8); Eosinophils % (auto) 0.2 % (0.0-7.0); Hemoglobin 13.5 g/dL (12.2-16.2); Lymphocytes % (auto) 23.1 % (10.0-50.0); Mean Corpuscular Hemoglobin 31.1 pg (28.0-32.0); Mean Corpuscular Hgb Conc. 35.5 g/dL (32.0-36.0); Mean Corpuscular Volume 87.6 fL (80.0-100.0); Monocytes % (auto) 11.9 % (0.0-12.0); Neutrophils # (auto) 5.4 10 ^3/uL (1.6-8.6); Neutrophils % (auto) 63.1 % (37.0-80.0); Nucleated Red Blood Cells % 0.1 %; Red Blood Cells 4.34 10^6/uL (4.0-5.20); Red Cell Distribution Width 14.4 % (11.8-14.3); White Blood Cell 8.5 10^3/uL (4.4-10.8)
[2021-07-26 16:37] LABS: Urine Bacteria FEW /hpf (None Seen); Urine Blood Negative /uL (Negative); Urine Hyaline Cast FEW /lpf (0 - 2); Urine Specific Gravity 1.026 (1.001-1.035); Urine WBC <1 /hpf (0 - 5)
[2021-07-26 16:51] LABS: Albumin 3.6 g/dL (3.4-5.0); Calcium 11.2 mg/dL (8.5-10.1); Potassium 3.6 mmol/L (3.5-5.1)
[2021-07-26 16:55] LABS: BUN/Creatinine Ratio 9.7; Bilirubin, Total 0.6 mg/dL (0.2-1.0)
[2021-07-26] MEDS ORDERED: MORPHINE SULFATE INJ 2 MG/ml SYRG IV PRN (22:00)
[2021-07-26] MEDS ORDERED: D5W/SOD CHL 0.45%/KCL 40MEQ 1,000 ML IV ONE (22:00)
[2021-07-26] MEDS ORDERED: PIPERACILLIN-TAZO 4.5GM 100 ML IV SCH (22:00)
[2021-07-26] MEDS ORDERED: NITROGLYCERIN 0.4 MG SL TAB SL PRN (22:00)
[2021-07-27] MEDS: PIPERACILLIN-TAZO 4.5GM 100 ML IV SCH (04:00)
[2021-07-27 05:00] VITALS: BP_SYST 135; BP_SYST 157; BP_DIAS 59; BP_DIAS 83
[2021-07-27 07:20] VITALS: BP 169/87
[2021-07-27 07:50] VITALS: BP 163/87
[2021-07-27 09:10] VITALS: BP 163/87
[2021-07-27 09:32] LABS: Potassium 3.5 mmol/L (3.5-5.1)
[2021-07-27 09:36] LABS: Albumin 3.3 g/dL (3.4-5.0); BUN/Creatinine Ratio 13.1; Calcium 10.7 mg/dL (8.5-10.1); Phosphorus 2.6 mg/dL (2.5-4.90)
[2021-07-27] MEDS: PANTOPRAZOLE 40 MG/10 ML VIAL INJ IV SCH (09:42)
[2021-07-27] MEDS ORDERED: GASTROGRAFIN 120 ML SOL ONE (10:17)
[2021-07-27 14:39] VITALS: BP 136/69
[2021-07-27] MEDS: PIPERACILLIN-TAZOB 2.25GM 50 ML IV SCH ×2 (16:20→22:31)
[2021-07-27 22:00] VITALS: BP 144/76
[2021-07-28] VITALS (7 sets, daily range): BP systolic 131–168; BP diastolic 58–79
[2021-07-28] MEDS: PIPERACILLIN-TAZOB 2.25GM 50 ML IV SCH ×3 (06:16→23:34)
[2021-07-28] MEDS: PANTOPRAZOLE 40 MG/10 ML VIAL INJ IV SCH (10:38)
[2021-07-28 17:41] LABS: Basophils # (auto) 0.1 10 ^3/uL (0-0.2); Basophils % (auto) 1.4 % (0.0-2.0); Eosinophils # (auto) 0.1 10 ^3/uL (0-0.8); Eosinophils % (auto) 0.6 % (0.0-7.0); Hematocrit 38.5 % (36.0-46.0); Hemoglobin 13.6 g/dL (12.2-16.2); Lymphocytes # (auto) 1.8 10 ^3/uL (0.4-5.4); Lymphocytes % (auto) 19.7 % (10.0-50.0); Mean Corpuscular Hemoglobin 31.3 pg (28.0-32.0); Mean Corpuscular Hgb Conc. 35.4 g/dL (32.0-36.0); Mean Corpuscular Volume 88.5 fL (80.0-100.0); Monocytes # (auto) 1.1 10 ^3/uL (0-1.3); Monocytes % (auto) 12.2 % (0.0-12.0); Neutrophils # (auto) 6.1 10 ^3/uL (1.6-8.6); Neutrophils % (auto) 66.1 % (37.0-80.0); Nucleated Red Blood Cells % 0.1 %; Red Blood Cells 4.35 10^6/uL (4.0-5.20); Red Cell Distribution Width 14.3 % (11.8-14.3); White Blood Cell 9.2 10^3/uL (4.4-10.8)
[2021-07-28 18:02] LABS: Albumin 3.3 g/dL (3.4-5.0); Calcium 10.5 mg/dL (8.5-10.1); Potassium 3.8 mmol/L (3.5-5.1)
[2021-07-28 18:04] LABS: Bilirubin, Total 0.6 mg/dL (0.2-1.0); Total Protein 7.3 g/dL (6.4-8.2)
[2021-07-29 05:00] VITALS: BP 137/71
[2021-07-29 05:58] LABS: Basophils # (auto) 0 10 ^3/uL (0-0.2); Basophils % (auto) 0.6 % (0.0-2.0); Eosinophils # (auto) 0.1 10 ^3/uL (0-0.8); Eosinophils % (auto) 1.8 % (0.0-7.0); Hematocrit 36.3 % (36.0-46.0); Hemoglobin 12.9 g/dL (12.2-16.2); Lymphocytes # (auto) 1.7 10 ^3/uL (0.4-5.4); Lymphocytes % (auto) 26.7 % (10.0-50.0); Mean Corpuscular Hemoglobin 31.7 pg (28.0-32.0); Mean Corpuscular Hgb Conc. 35.5 g/dL (32.0-36.0); Mean Corpuscular Volume 89.3 fL (80.0-100.0); Monocytes # (auto) 0.9 10 ^3/uL (0-1.3); Neutrophils # (auto) 3.7 10 ^3/uL (1.6-8.6); Neutrophils % (auto) 56.9 % (37.0-80.0); Red Blood Cells 4.07 10^6/uL (4.0-5.20); Red Cell Distribution Width 14.4 % (11.8-14.3); White Blood Cell 6.5 10^3/uL (4.4-10.8)
[2021-07-29] MEDS: PIPERACILLIN-TAZOB 2.25GM 50 ML IV SCH ×3 (06:58→23:16)
[2021-07-29 09:00] VITALS: BP 154/80
[2021-07-29] MEDS: PANTOPRAZOLE 40 MG/10 ML VIAL INJ IV SCH (10:18)
[2021-07-29 13:00] VITALS: BP 156/82
[2021-07-29] MEDS ORDERED: MAGNESIUM CITRATE SOLUTION 300 ML BTL PO ONE (15:30)
[2021-07-29 16:51] VITALS: BP 136/73
[2021-07-29 22:00] VITALS: BP 121/67
[2021-07-30 05:00] VITALS: BP 139/65
[2021-07-30] MEDS: PIPERACILLIN-TAZOB 2.25GM 50 ML IV SCH ×3 (07:18→23:29)
[2021-07-30 09:00] VITALS: BP 158/78
[2021-07-30] MEDS: PANTOPRAZOLE 40 MG/10 ML VIAL INJ IV SCH (10:15)
[2021-07-30 13:00] VITALS: BP 128/68
[2021-07-30 17:00] VITALS: BP 127/65
[2021-07-30 21:48] VITALS: BP 142/67
[2021-07-31 05:16] VITALS: BP 138/64
[2021-07-31] MEDS: PIPERACILLIN-TAZOB 2.25GM 50 ML IV SCH (07:01)
[2021-07-31 08:57] VITALS: BP 141/80
[2021-07-31] MEDS: PANTOPRAZOLE 40 MG/10 ML VIAL INJ IV SCH (09:24)
[2021-07-31 11:48] VITALS: BP 141/80
== END 2021-07-31 12:50 | disposition home or self-care (01) | DRG 390 ==
LOC: ER 15:49 → OVERFLOW 21:47 → WEST WING 23:58
PROVIDERS: ADMIT Internal Medicine Cardiovascular Disease; ATTEND Internal Medicine Cardiovascular Disease
PROC: 0D9670Z Drainage of Stomach with Drainage Device, Via Natural or Artificial Opening (ICD-10-PCS; principal; 2021-07-27)
DX: K56.609 Unspecified intestinal obstruction, unspecified as to partial versus complete obstruction (principal); I12.9 Hypertensive chronic kidney disease with stage 1 through stage 4 chronic kidney disease, or unspecified chronic kidney disease; I49.5 Sick sinus syndrome; N18.30 Chronic kidney disease, stage 3 unspecified; Z20.822 Contact with and (suspected) exposure to COVID-19; M10.9 Gout, unspecified; Z82.3 Family history of stroke; Z90.710 Acquired absence of both cervix and uterus
CPT/HCPCS: 36415; 74018; 74176; 74250; 80053; 80069; 81001; 83690; 85025; 93005; 97163; C9113; G0378; J2543

== ENCOUNTER → 2021-08-11 | Outpatient (CLI) | payer BC, MEDICARE ==
[2021-08-11 11:23] LABS: Basophils # (auto) 0 10 ^3/uL (0-0.2); Basophils % (auto) 0.7 % (0.0-2.0); Eosinophils # (auto) 0.1 10 ^3/uL (0-0.8); Eosinophils % (auto) 1.4 % (0.0-7.0); Hematocrit 38.6 % (36.0-46.0); Lymphocytes # (auto) 1.8 10 ^3/uL (0.4-5.4); Lymphocytes % (auto) 34.8 % (10.0-50.0); Mean Corpuscular Hemoglobin 30.4 pg (28.0-32.0); Mean Corpuscular Hgb Conc. 33.8 g/dL (32.0-36.0); Mean Corpuscular Volume 89.9 fL (80.0-100.0); Monocytes # (auto) 0.6 10 ^3/uL (0-1.3); Monocytes % (auto) 10.7 % (0.0-12.0); Neutrophils # (auto) 2.7 10 ^3/uL (1.6-8.6); Neutrophils % (auto) 52.4 % (37.0-80.0); Nucleated Red Blood Cells % 0.1 %; Red Blood Cells 4.29 10^6/uL (4.0-5.20); Red Cell Distribution Width 15.3 % (11.8-14.3); White Blood Cell 5.2 10^3/uL (4.4-10.8)
[2021-08-11 11:51] LABS: Calcium 10.2 mg/dL (8.5-10.1); Potassium 4.2 mmol/L (3.5-5.1)
[2021-08-11 11:53] LABS: BUN/Creatinine Ratio 9.1
== END | disposition home or self-care (01) ==
LOC: LAB 10:44
PROVIDERS: ATTEND Internal Medicine Cardiovascular Disease
DX: D64.9 Anemia, unspecified (principal); I10 Essential (primary) hypertension
CPT/HCPCS: 36415; 80048; 85025

== ENCOUNTER → 2021-08-13 | Outpatient (CLI) | payer BC, MEDICARE ==
[~2021-08-13] MED LIST changes: +READI-CAT 2 (BARIUM SULF)(VANILLA SMOOTHIE) 450ML ONE
== END | disposition home or self-care (01) ==
LOC: Rad HDHVI 09:35
PROVIDERS: ATTEND Internal Medicine Cardiovascular Disease
DX: N28.1 Cyst of kidney, acquired (principal); N28.89 Other specified disorders of kidney and ureter; M47.816 Spondylosis without myelopathy or radiculopathy, lumbar region; R10.9 Unspecified abdominal pain
CPT/HCPCS: 74176

== ENCOUNTER → 2021-10-04 | Outpatient (CLI) | payer BC, MEDICARE ==
[~2021-10-04] MED LIST changes: -READI-CAT 2 (BARIUM SULF)(VANILLA SMOOTHIE) 450ML ONE
[2021-10-04 12:30] VITALS: BP 118/64
[2021-10-04 12:48] VITALS: BP 118/64
== END | disposition home or self-care (01) ==
LOC: CHF HDHVI 10:21
PROVIDERS: ATTEND Internal Medicine Cardiovascular Disease
DX: I25.118 Atherosclerotic heart disease of native coronary artery with other forms of angina pectoris (principal); I10 Essential (primary) hypertension; I73.9 Peripheral vascular disease, unspecified; K21.9 Gastro-esophageal reflux disease without esophagitis; E78.5 Hyperlipidemia, unspecified; M10.9 Gout, unspecified; Z68.31 Body mass index [BMI] 31.0-31.9, adult
CPT/HCPCS: G0166

== ENCOUNTER → 2021-10-06 | Outpatient (CLI) | payer BC, MEDICARE ==
[2021-10-06 10:52] VITALS: BP 146/72
[2021-10-06 11:01] VITALS: BP 134/72
== END | disposition home or self-care (01) ==
LOC: CHF HDHVI 08:33
PROVIDERS: ATTEND Internal Medicine Cardiovascular Disease
DX: I25.118 Atherosclerotic heart disease of native coronary artery with other forms of angina pectoris (principal); I10 Essential (primary) hypertension; M19.90 Unspecified osteoarthritis, unspecified site; M10.9 Gout, unspecified; K21.9 Gastro-esophageal reflux disease without esophagitis; E78.5 Hyperlipidemia, unspecified; I73.9 Peripheral vascular disease, unspecified; Z68.31 Body mass index [BMI] 31.0-31.9, adult
CPT/HCPCS: G0166

== ENCOUNTER → 2021-10-07 | Outpatient (CLI) | payer BC, MEDICARE ==
[2021-10-07 09:19] VITALS: BP 152/78
[2021-10-07 09:47] VITALS: BP 126/78
== END | disposition home or self-care (01) ==
LOC: CHF HDHVI 08:38
PROVIDERS: ATTEND Internal Medicine Cardiovascular Disease
DX: I25.118 Atherosclerotic heart disease of native coronary artery with other forms of angina pectoris (principal); I10 Essential (primary) hypertension; M19.90 Unspecified osteoarthritis, unspecified site; M10.9 Gout, unspecified; K21.9 Gastro-esophageal reflux disease without esophagitis; E78.5 Hyperlipidemia, unspecified; I73.9 Peripheral vascular disease, unspecified; Z86.31 Personal history of diabetic foot ulcer
CPT/HCPCS: G0166

== ENCOUNTER → 2021-10-11 | Outpatient (CLI) | payer BC, MEDICARE ==
[2021-10-11 10:53] VITALS: BP 130/70
[2021-10-11 10:58] VITALS: BP 122/66
== END | disposition home or self-care (01) ==
LOC: CHF HDHVI 08:41
PROVIDERS: ATTEND Internal Medicine Cardiovascular Disease
DX: I25.118 Atherosclerotic heart disease of native coronary artery with other forms of angina pectoris (principal); I10 Essential (primary) hypertension; I73.9 Peripheral vascular disease, unspecified; E78.5 Hyperlipidemia, unspecified; K21.9 Gastro-esophageal reflux disease without esophagitis; M10.9 Gout, unspecified; M19.90 Unspecified osteoarthritis, unspecified site
CPT/HCPCS: G0166

== ENCOUNTER → 2021-10-13 | Outpatient (CLI) | payer BC, MEDICARE ==
[2021-10-13 09:12] VITALS: BP 140/70
[2021-10-13 09:57] VITALS: BP 120/74
== END | disposition home or self-care (01) ==
LOC: CHF HDHVI 08:40
PROVIDERS: ATTEND Internal Medicine Cardiovascular Disease
DX: I25.118 Atherosclerotic heart disease of native coronary artery with other forms of angina pectoris (principal); M19.90 Unspecified osteoarthritis, unspecified site; M10.9 Gout, unspecified; K21.9 Gastro-esophageal reflux disease without esophagitis; E78.5 Hyperlipidemia, unspecified; I73.9 Peripheral vascular disease, unspecified; I10 Essential (primary) hypertension; Z68.31 Body mass index [BMI] 31.0-31.9, adult
CPT/HCPCS: G0166

== ENCOUNTER → 2021-10-14 | Outpatient (CLI) | payer BC, MEDICARE ==
[2021-10-14 11:39] VITALS: BP 136/74
[2021-10-14 11:48] VITALS: BP 120/66
== END | disposition home or self-care (01) ==
LOC: CHF HDHVI 08:35
PROVIDERS: ATTEND Internal Medicine Cardiovascular Disease
DX: I25.118 Atherosclerotic heart disease of native coronary artery with other forms of angina pectoris (principal); I12.9 Hypertensive chronic kidney disease with stage 1 through stage 4 chronic kidney disease, or unspecified chronic kidney disease; N18.30 Chronic kidney disease, stage 3 unspecified; M19.90 Unspecified osteoarthritis, unspecified site; M10.9 Gout, unspecified; K21.9 Gastro-esophageal reflux disease without esophagitis; E78.5 Hyperlipidemia, unspecified; I73.9 Peripheral vascular disease, unspecified; Z68.31 Body mass index [BMI] 31.0-31.9, adult
CPT/HCPCS: G0166

== ENCOUNTER → 2021-10-18 | Outpatient (CLI) | payer BC, MEDICARE ==
[2021-10-18 09:10] VITALS: BP 130/70
[2021-10-18 09:52] VITALS: BP 124/76
== END | disposition home or self-care (01) ==
LOC: CHF HDHVI 08:34
PROVIDERS: ATTEND Internal Medicine Cardiovascular Disease
DX: I25.118 Atherosclerotic heart disease of native coronary artery with other forms of angina pectoris (principal); I10 Essential (primary) hypertension; M19.90 Unspecified osteoarthritis, unspecified site; M10.9 Gout, unspecified; K21.9 Gastro-esophageal reflux disease without esophagitis; E78.5 Hyperlipidemia, unspecified; I73.9 Peripheral vascular disease, unspecified; Z68.31 Body mass index [BMI] 31.0-31.9, adult
CPT/HCPCS: G0166

== ENCOUNTER → 2021-10-27 | Outpatient (CLI) | payer BC, MEDICARE ==
[2021-10-27 11:35] VITALS: BP 140/72
[2021-10-27 11:40] VITALS: BP 122/70
== END | disposition home or self-care (01) ==
LOC: CHF HDHVI 08:28
PROVIDERS: ATTEND Internal Medicine Cardiovascular Disease
DX: I25.118 Atherosclerotic heart disease of native coronary artery with other forms of angina pectoris (principal); I10 Essential (primary) hypertension; M19.90 Unspecified osteoarthritis, unspecified site; M10.9 Gout, unspecified; K21.9 Gastro-esophageal reflux disease without esophagitis; E78.5 Hyperlipidemia, unspecified; I73.9 Peripheral vascular disease, unspecified; Z68.31 Body mass index [BMI] 31.0-31.9, adult
CPT/HCPCS: G0166

== ENCOUNTER → 2021-10-28 | Outpatient (CLI) | payer BC, MEDICARE ==
[2021-10-28 09:10] VITALS: BP 152/78
[2021-10-28 11:27] VITALS: BP 122/66
== END | disposition home or self-care (01) ==
LOC: CHF HDHVI 08:20
PROVIDERS: ATTEND Internal Medicine Cardiovascular Disease
DX: I25.118 Atherosclerotic heart disease of native coronary artery with other forms of angina pectoris (principal); I10 Essential (primary) hypertension; I25.5 Ischemic cardiomyopathy; E78.5 Hyperlipidemia, unspecified; I73.9 Peripheral vascular disease, unspecified; M19.90 Unspecified osteoarthritis, unspecified site; M10.9 Gout, unspecified; K21.9 Gastro-esophageal reflux disease without esophagitis; Z68.31 Body mass index [BMI] 31.0-31.9, adult
CPT/HCPCS: G0166

== ENCOUNTER → 2022-03-28 | Outpatient (CLI) | payer MEDICARE, BC ==
[~2022-03-28] MED LIST changes: +ALLO100T PO; +ASPI-378 OR; +ATOR40TA52 PO; +CARV6.25 PO; +FURO40TA4 PO; +LINA1CAP2 PO; +MECL25TA18 PO; +NORT25CA PO; +PANT1INJ3 PO; +POTA-180 PO; +POTA10TA51 PO; +SACU1TAB PO; +TIMO0.5S28 EACHEYE
== END | disposition home or self-care (01) ==
LOC: Rad HDHVI 09:25
PROVIDERS: ATTEND Internal Medicine Cardiovascular Disease
DX: I10 Essential (primary) hypertension (principal); R07.89 Other chest pain
CPT/HCPCS: 93880

== ENCOUNTER → 2022-04-14 | Outpatient (CLI) | payer BC, MEDICARE | END | disposition home or self-care (01) | LOC: Rad HDHVI 08:54 | PROVIDERS: ATTEND Internal Medicine Cardiovascular Disease | DX: I08.0 Rheumatic disorders of both mitral and aortic valves (principal); R00.2 Palpitations; R06.02 Shortness of breath | CPT/HCPCS: 93306 ==

== ENCOUNTER → 2022-11-01 14:47 | Emergency (ER) | payer MEDICARE, BC ==
[~2022-11-01] VITALS: Ht 165.1 cm; Wt 77.7 kg
[~2022-11-01 14:47] MED LIST changes: +HYDROcodone-ACET 10/325MG TAB PO ONE; +MECL1TAB32 PO; -MECL25TA18 PO; +ONDANSETRON ODT 4 MG TAB PO ONE
[2022-11-01 15:27] VITALS: BP 111/64; PULSE 70; RESP 18; TEMP 98; O2SAT 100
== END | disposition home or self-care (01) ==
LOC: ER 14:47
DX: S39.012A Strain of muscle, fascia and tendon of lower back, initial encounter (principal); I11.0 Hypertensive heart disease with heart failure; I50.9 Heart failure, unspecified; E78.5 Hyperlipidemia, unspecified; R51.9 Headache, unspecified; Z86.73 Personal history of transient ischemic attack (TIA), and cerebral infarction without residual deficits; Z88.6 Allergy status to analgesic agent; W18.09XA Striking against other object with subsequent fall, initial encounter; Y93.89 Activity, other specified; Y92.89 Other specified places as the place of occurrence of the external cause; Y99.8 Other external cause status
CPT/HCPCS: 70450; 72131; 73562; 99284; Q0162

== ENCOUNTER 2022-12-20 16:38 | Inpatient (IN) | payer MEDICARE, BC ==
[~2022-12-20] VITALS: Ht 165.1 cm; Wt 75.0 kg
[~2022-12-20 16:38] MED LIST changes: -HYDROcodone-ACET 10/325MG TAB PO ONE; -ONDANSETRON ODT 4 MG TAB PO ONE
[2022-12-20 17:26] LABS: Basophils # (auto) 0.1 10 ^3/uL (0-0.2); Eosinophils # (auto) 0 10 ^3/uL (0-0.8); Eosinophils % (auto) 0.4 % (0.0-7.0); Hematocrit 37.5 % (36.0-46.0); Hemoglobin 12.8 g/dL (12.2-16.2); Lymphocytes # (auto) 1.2 10 ^3/uL (0.4-5.4); Mean Corpuscular Hemoglobin 30.9 pg (28.0-32.0); Mean Corpuscular Hgb Conc. 34.2 g/dL (32.0-36.0); Mean Corpuscular Volume 90.3 fL (80.0-100.0); Monocytes # (auto) 0.5 10 ^3/uL (0-1.3); Monocytes % (auto) 10.8 % (0.0-12.0); Neutrophils # (auto) 3.2 10 ^3/uL (1.6-8.6); Neutrophils % (auto) 63.8 % (37.0-80.0); Nucleated Red Blood Cells % 0.1 %; Red Blood Cells 4.16 10^6/uL (4.0-5.20)
[2022-12-20 17:44] LABS: Alanine Aminotransferase 21 U/L (7-40); Albumin 4.7 g/dL (3.2-4.8); Alkaline Phosphatase 83 U/L (46-116); Anion Gap 12 (5-15); Aspartate Aminotransferase 30 U/L (13-40); BUN/Creatinine Ratio 6.9 (10.0-20.0); Bilirubin, Total 0.8 mg/dL (0.2-1.0); Blood Urea Nitrogen 21 mg/dL (9-23); Calcium 11.2 mg/dL (8.5-10.1); Carbon Dioxide 24 mmol/L (20-30); Chloride 106 mmol/L (98-107); Glucose 146 mg/dL (74-106); Sodium 142 mmol/L (136-145); Total Protein 7.9 g/dL (5.7-8.2)
[2022-12-20] MEDS ORDERED: MORPHINE SULFATE INJ 2 MG/ml SYRG IV PRN (18:45)
[2022-12-20] MEDS ORDERED: DOCUSATE SOD 100 MG CAP PO PRN (18:45)
[2022-12-20] MEDS ORDERED: NITROGLYCERIN 0.4 MG SL TAB SL PRN (18:45)
[2022-12-20] MEDS ORDERED: HYDROcodone-ACET 5/325MG TAB PO PRN (18:45)
[2022-12-20] MEDS ORDERED: ONDANSETRON HCL 4 MG/2 ML VIAL IV PRN (18:45)
[2022-12-20] MEDS ORDERED: LACTULOSE 20Gm/30ML SOLN PO ONE (18:45)
[2022-12-20] MEDS ORDERED: ACETAMINOPHEN 325 MG TAB PO PRN (18:45)
[2022-12-20] MEDS ORDERED: HYDROcodone-ACET 10/325MG TAB PO PRN (18:45)
[2022-12-20] MEDS ORDERED: MECLIZINE HCL 25 MG TAB PO PRN (19:15)
[2022-12-20] MEDS ORDERED: APIX2.5T PO (19:42)
[2022-12-20] MEDS ORDERED: CARVEDILOL 3.125 MG TAB PO SCH (22:00)
[2022-12-20] MEDS ORDERED: SACUBITRIL-VALSARTAN 24mg/26mg TAB PO SCH (22:00)
[2022-12-20] MEDS ORDERED: SENNA 8.6 MG TAB PO SCH (22:00)
[2022-12-20] MEDS ORDERED: APIXABAN 2.5 MG TAB PO SCH (22:00)
[2022-12-20] MEDS ORDERED: ATORVASTATIN 20 MG TAB PO SCH (22:00)
[2022-12-21 03:32] VITALS: TEMP 97.4; O2SAT 98
[2022-12-21 06:19] LABS: Basophils # (auto) 0.1 10 ^3/uL (0-0.2); Basophils % (auto) 1.2 % (0.0-2.0); Eosinophils # (auto) 0 10 ^3/uL (0-0.8); Eosinophils % (auto) 0.6 % (0.0-7.0); Hematocrit 35.1 % (36.0-46.0); Hemoglobin 12.1 g/dL (12.2-16.2); Lymphocytes # (auto) 1.9 10 ^3/uL (0.4-5.4); Lymphocytes % (auto) 32.6 % (10.0-50.0); Mean Corpuscular Hemoglobin 31.1 pg (28.0-32.0); Mean Corpuscular Hgb Conc. 34.5 g/dL (32.0-36.0); Mean Corpuscular Volume 90.2 fL (80.0-100.0); Monocytes # (auto) 0.6 10 ^3/uL (0-1.3); Monocytes % (auto) 10.1 % (0.0-12.0); Neutrophils # (auto) 3.2 10 ^3/uL (1.6-8.6); Neutrophils % (auto) 55.5 % (37.0-80.0); Nucleated Red Blood Cells % 0.1 %; Red Blood Cells 3.89 10^6/uL (4.0-5.20); Red Cell Distribution Width 14.8 % (11.8-14.3); White Blood Cell 5.7 10^3/uL (4.4-10.8)
[2022-12-21 06:20] LABS: Alanine Aminotransferase 20 U/L (7-40); Albumin 4.5 g/dL (3.2-4.8); Alkaline Phosphatase 84 U/L (46-116); Anion Gap 9 (5-15); Aspartate Aminotransferase 25 U/L (13-40); BUN/Creatinine Ratio 9.3 (10.0-20.0); Bilirubin, Total 0.6 mg/dL (0.2-1.0); Blood Urea Nitrogen 29 mg/dL (9-23); Carbon Dioxide 24 mmol/L (20-30); Chloride 105 mmol/L (98-107); Glucose 117 mg/dL (74-106); Sodium 138 mmol/L (136-145)
[2022-12-21 06:21] LABS: Total Protein 7.6 g/dL (5.7-8.2)
[2022-12-21 06:43] VITALS: BP 123/69; PULSE 69; RESP 18
[2022-12-21] MEDS ORDERED: NORTRIPTYLINE HCL 10 MG CAP PO SCH (10:00)
[2022-12-21] MEDS ORDERED: PANTOPRAZOLE 40 MG TAB PO SCH (10:00)
[2022-12-21] MEDS ORDERED: ASPirin-EC 81 mg tab PO SCH (10:00)
[2022-12-21] MEDS ORDERED: POTASSIUM CHL 20 Meq TABLET PO SCH (10:00)
[2022-12-21] MEDS ORDERED: FUROSEMIDE 40 MG TAB PO SCH (10:00)
== END 2022-12-21 09:32 | disposition left against medical advice (07) | DRG 682 ==
LOC: ER 16:38 → TELE 19:06
PROVIDERS: ADMIT Nurse Practitioner Family; ATTEND Nurse Practitioner Family
DX: N17.9 Acute kidney failure, unspecified (principal); G93.41 Metabolic encephalopathy; I13.0 Hypertensive heart and chronic kidney disease with heart failure and stage 1 through stage 4 chronic kidney disease, or unspecified chronic kidney disease; K56.41 Fecal impaction; N18.4 Chronic kidney disease, stage 4 (severe); R29.6 Repeated falls; I25.10 Atherosclerotic heart disease of native coronary artery without angina pectoris; I50.9 Heart failure, unspecified; E78.5 Hyperlipidemia, unspecified; Z53.29 Procedure and treatment not carried out because of patient's decision for other reasons; M54.50 Low back pain, unspecified; R26.9 Unspecified abnormalities of gait and mobility; M10.9 Gout, unspecified; Z86.73 Personal history of transient ischemic attack (TIA), and cerebral infarction without residual deficits; Z88.5 Allergy status to narcotic agent; Z79.899 Other long term (current) drug therapy; Z79.82 Long term (current) use of aspirin; Z90.710 Acquired absence of both cervix and uterus; Z95.0 Presence of cardiac pacemaker
CPT/HCPCS: 36415; 70450; 72100; 74176; 80053; 83735; 83880; 85025; 93005; G0378

== ENCOUNTER 2024-02-07 15:51 | Inpatient (IN) | payer OTHER, MEDICARE, BC ==
[~2024-02-07] VITALS: Ht 165.1 cm; Wt 65.1 kg
[~2024-02-07 15:51] MED LIST changes: +APIX2.5T PO; -CARV6.25 PO; +CARV6.2517 PO; +MECL-90 PO; -MECL1TAB32 PO; +POTA-36 PO; -POTA10TA51 PO
--- NOTE | 2024-02-07 16:40 | ED.PDOC ---
Altered Mental Status HPI Comments 88Y F with PMHx CHF, HLD, VT, CKD stage 4, CVA with lt sided deficits, parathyroid nodule, and UTI presents to ED via EMS for chief complaint ALOC. Per family, pt has been on hospice for one year. Today, family decided to call 911 because pt's mental status has been deteriorating for one week. Systolic BP began to decrease to 80s today and urine output has decreased as well. Pt was discharged from [facility] on 01/03/2024 after being admitted for seven days for UTI. Pt was given Rocephin injection. Per pt's granddaughter, pt returned back to normal mental status after the discharge and was able to communicate. Now, pt is unable to communicate and has not been able to feed herself for one week. Pt's granddaughter is the fish boning machine feeder and the hospice nurse visits biweekly. Allergies include Codeine. Chief Complaint: ALOC Time Seen by MD: 16:15 Primary Care Provider: UTO Reviewed Notes: Nurses Notes, Client Care Coordinator Notes, Medications, Allergies Allergies: Coded Allergies: Codeine (Verified Allergy, Unknown, 11/10/16) Home Meds Active Scripts Amlodipine Besylate (NORVASC TABLET) 5 Mg Tb, 10 MG PO DAILY, #30 Prov:PAULINO WATSON MD 10/13/15 Reported Medications Apixaban Base (ELIQUIS) 2.5 Mg Tab, 1 TAB PO BID 12/20/22 Pantoprazole Sodium (PANTOPRAZOLE SODIUM) 40 Mg Inj, 20 MG PO DAILY, INJ 01/18/22 Furosemide (Furosemide) 40 Mg Tab, 40 MG PO DAILY for 30 Days 01/18/22 Aspirin (Aspir-Low) 81 Mg Tab, 81 MG PO DAILY for 30 Days, MG 01/18/22 Potassium Chloride (POTASSIUM CHLORIDE CR) 10 Meq Tb, 40 MEQ PO DAILY, TAB 01/18/22 Timolol Maleate (Timolol Maleate Ophthalmi) 0.5 % Elayne, 1 DROP EACHEYE QAM, #5 ML 5 Refills 01/18/22 Aspirin (JEANNE ASPIRIN EC LOW DOSE) 81 Mg Tab, 325 MG OR, TAB 01/18/22 Allopurinol (Allopurinol) 100 Mg Tab, 100 MG PO DAILY for 30 Days, MG 01/18/22 Linaclotide Base (Linzess) 72 Mcg Cap, 145 MCG PO, CAP 01/18/22 Atorvastatin Calcium (ATORVASTATIN CALCIUM) 40 Mg Tab, 1 TAB PO DAILY, #30 TAB 5 Refills 01/18/22 Nortriptyline Hcl (PAMELOR CAPSULE) 25 Mg Cp, 10 MG PO DAILY, CAP 01/18/22 Meclizine Hcl (Meclizine Hcl) 25 Mg Tab, 25 MG PO DAILYPRN PRN for DIZZINESS for 30 Days, MG 01/18/22 Carvedilol (Coreg) 6.25 Mg Tab, 1 TAB PO BID, #180 TAB 3 Refills 01/18/22 Potassium Chloride (Potassium Chloride ER) 20 Meq Tab, 1 TAB PO BID 01/16/22 Furosemide (Furosemide) 40 Mg Tab, 1 TAB PO DAILY 01/16/22 Sacubitril-Valsartan (Entresto 24-26 mg) 1 Tab Tab, 1 TAB PO BID 01/16/22 Hydrocodone-Acetaminophen ([place] 5/325MG) 1 Tab Tb, 1 TAB PO Q4HPRN PRN for MILD PAIN 03/18/16 Hctz (Hydrochlorothiazide) 25 Mg Tab, 50 MG PO, TAB 03/18/16 Aspirin (Aspir-Low) 81 Mg Tab, 81 MG PO DAILY for 30 Days, MG 03/18/16 Information Source: Patient, Relative (GrandChild), Emergency Med Personnel Mode of Arrival: EMS Brought in by: EMS Severity: Moderate, Unable to Care for Self Timing: Days Duration: Since onset Prehospital treatment: Oxygen Quality: Decreased Alertness, Change in Behavior, Not Eating Recent: None History of: CVA, Indwelling Bustos Associated Signs and Symptoms: Other Past Medical History PAST MEDICAL HISTORY: CHF, CKF, CVA, Gout, High Lipids, HTN, VT, Thyroid, UTI'S Surgical History: Hysterectomy, Pacemaker, PTCA SPRAY STAINER History: No Pertinent SPRAY STAINER History Family History Family History: Unknown Social History Smoker: Non-Smoker Alcohol: Denies ETOH Use Drugs: Denies Drug Use Lives In: Home Unable to Obtain due to: Altered Mental Status Physical Exam General Appearance: Cachectic, Other (Patient moribund comatose not responsive) HEENT: Other (Very dry) Neck: Normal Inspection Respiratory: Lungs Clear, No Accessory Muscle Use, No Respiratory Distress, Normal Breath Sounds Cardiovascular: No Edema, No JVD, No Murmur, No Gallop, Normal Peripheral Pulses, Regular Rate/Rhythm Breast Exam: Deferred Gastrointestinal: No Organomegaly, Non Tender, No Pulsatile Mass, Normal Bowel Sounds, Soft Genitalia: Deferred Pelvic: Deferred Rectal: Deferred Extremities: Decreased range of motion, Normal capillary refill, Normal inspection, No pedal edema, Other (Right-sided deficits from a stroke) Musculoskeletal : Apperance: Normal Neurologic: Alert, Flacid, Motor Weakness, Normal Affect, Normal Mood, No Sensory Deficits, Other (Patient unconscious) Cerebellar Function: Normal, Unable to Test Reflexes: Normal, None Skin: Dry, Normal Color, Warm Peripheral Pulses: 1+ carotid (R), 1+ carotid (L) Lymphatic: No Adenopathy EKG EKG : Pulse Rate (adult): 79 Cardiac Rhythm: Paced Was a procedure done? Was a procedure done?: No Differential Diagnosis (ALOC) Differential Diagnosis: Dehydration, Hypoglycemia, DKA, Encephalopathy, Sepsis, Seizure, CVA, Mass Lesion, Drug Overdose, Heart Failure, Renal Failure X-Ray, Labs, Meds, VS Vital Signs Date Time Temp Pulse Resp B/P (MAP) Pulse Ox O2 Delivery O2 Flow Rate FiO2 02/07/24 18:12 79 02/07/24 17:10 78 02/07/24 16:44 81 30 98 Nasal Cannula* 5 40 02/07/24 16:09 79 02/07/24 15:51 96.3 90 12 63/45 (51) 100 Lab Test 02/07/24 17:56 02/07/24 17:26 Range/Units White Blood Count 10.5 4.4-10.8 10^3/uL Red Blood Count 3.51 L 4.0-5.20 10^6/uL Hemoglobin 10.9 L 12.2-16.2 g/dL Hematocrit 33.3 L 36.0-46.0 % Mean Corpuscular Volume 94.8 80.0-100.0 fL Mean Corpuscular Hemoglobin 30.9 28.0-32.0 pg Mean Corpuscular Hemoglobin Concent 32.6 32.0-36.0 g/dL Red Cell Distribution Width 16.2 H 11.8-14.3 % Platelet Count 185 140-450 10^3/uL Mean Platelet Volume 11.2 H 6.9-10.8 fL Neutrophils (%) (Auto) 81.4 H 37.0-80.0 % Lymphocytes (%) (Auto) 7.3 L 10.0-50.0 % Monocytes (%) (Auto) 11.1 0.0-12.0 % Eosinophils (%) (Auto) 0.0 0.0-7.0 % Basophils (%) (Auto) 0.2 0.0-2.0 % Neutrophils # (Auto) 8.6 1.6-8.6 10 ^3/uL Lymphocytes # (Auto) 0.8 0.4-5.4 10 ^3/uL Monocytes # (Auto) 1.2 0-1.3 10 ^3/uL Eosinophils # (Auto) 0 0-0.8 10 ^3/uL Basophils # (Auto) 0 0-0.2 10 ^3/uL Nucleated Red Blood Cells 0.4 % Sodium Level Pending Potassium Level Pending Chloride Level Pending Carbon Dioxide Level Pending Anion Gap Pending Blood Urea Nitrogen Pending Creatinine Pending Glomerular Filtration Rate Calc Pending BUN/Creatinine Ratio Pending Serum Glucose Pending Calcium Level Pending Magnesium Level Pending Total Bilirubin Pending Aspartate Amino Transferase (AST) Pending Alanine Aminotransferase (ALT) Pending Alkaline Phosphatase Pending Total Protein Pending Albumin Pending Troponin I High Sensitivity 311 *H </=34 ng/L Current Medications Medications (Trade) Dose Ordered Sig/Sheila Route Start Time Stop Time Status Last Admin Sodium Chloride 500 ml @ 500 mls/hr Q1H ONCE IVB 02/07/24 16:45 02/07/24 17:44 DC 02/07/24 17:06 Sodium Chloride 1,000 ml @ 150 mls/hr Q6H40M ONCE IV 02/07/24 16:45 02/07/24 23:24 02/07/24 18:18 [place] [id number] Ph: [phone] DIAGNOSTIC IMAGING Diagnostic Imaging Report : [id number] Signed PATIENT: MAY MARLOW ACCT: [id number] UNIT: [id number] : 1935 LOC: ER ROOM / BED: / AGE / SEX: 88 / F ADM STATUS: REG ER SERVICE [id number] ORDERING PHYSICIAN: NARGIS WEAVER MD PROCEDURE(s): CXRP - CHEST PORTABLE REASON: Altered level of consciousness ORDER NUMBER(s): [id number], ACCESSION NUMBER(s): [id number] EXAM: XY CHEST PORTABLE TECHNIQUE: Single frontal chest radiograph CLINICAL HISTORY: Altered level of consciousness COMPARISON: CXRP on DOS: 01/16/22 Findings/Impression: Frontal chest radiograph demonstrates no acute osseous or superficial soft tissue abnormalities. Left chest wall dual chamber pacemaker. The trachea is midline. The cardiac silhouette and mediastinum are within normal limits. No pneumothorax, pleural effusions, or consolidations. ATED BY: MICHELLE HILL DO DICTATED DATE/TIME: 02/07/241717 SIGNED BY: MICHELLE HILL DO SIGNED DATE/TIME: 02/07/241717 CC: [place] [id number] Ph: [phone] DIAGNOSTIC IMAGING Diagnostic Imaging Report : [id number] Signed PATIENT: MAY MARLOW ACCT: [id number] UNIT: [id number] : 1935 LOC: ER ROOM / BED: / AGE / SEX: 88 / F ADM STATUS: REG ER SERVICE 33 ORDERING PHYSICIAN: NARGIS WEAVER MD PROCEDURE(s): HWOCT - HEAD WITHOUT CONTRAST REASON: Altered level of consciousness ORDER NUMBER(s): [id number], ACCESSION NUMBER(s): [id number] EXAM: CT HEAD WITHOUT CONTRAST HISTORY: Altered level of consciousness COMPARISON: CT HEAD WITHOUT CONTRAST on DOS: 12/20/22, CT LS SPINE WO CONTRAST on DOS: 11/01/22 TECHNIQUE: Axial images of the head were obtained and reformatted in coronal and sagittal planes. All CT scans at this medical facility are performed using dose modulation techniques as appropriate to a performed exam including the following: Automated exposure control was utilized; adjustment of the MA and/or KV according to patient size; and use of iterative reconstruction technique. CT Dose: CTDI volume is 51 mGy. Dose-length product is 817 mGy*cm FINDINGS: There is stable small chronic infarct in the right basal ganglia. There are severe chronic small-vessel white matter ischemic changes. There is no evidence of acute intracranial hemorrhage, mass, mass effect midline shift. There is no hydrocephalus or extra-axial fluid collection. The visualized paranasal sinuses and mastoid air cells are clear. The calvarium is intact. 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 IMPRESSION: 1. No acute intracranial process. 2. Stable small chronic infarct in the right basal ganglia. HS:Y ATED BY: GEORGE TUCKER MD DICTATED DATE/TIME: 02/07/241716 SIGNED BY: GEORGE TUCKER MD SIGNED DATE/TIME: 02/07/241716 CC: X-Ray, Labs, Meds, VS Comment Course in the emergency department patient came by ambulance because of altered level of consciousness Her blood pressure is 63/45 she has a pacemaker and multiple issue like hypertension CHF myocardial infarction chronic UTIs glaucoma GERD she had a st roke with a right deficit and pacemaker At this time patient is moribund and unconscious The chest x-ray is negative except for pacemaker EKG is paced at [address] shows an old infarct of the right basilar ganglia Laboratory [place] [id number] with 81% neutrophils H&H 10.9 and 33 and a platelet count 185 Troponin 311 The rest is pending Dr. Dempsey to follow up Time of 1ST Reevaluation: 16:45 Reevaluation 1ST: Unchanged Time of 2ND Reevaluation: 18:26 Reevaluation 2ND: Unchanged Patient Education/Counseling: Diagnosis, Treatment, Prognosis, Other Family Education/Counseling: Diagnosis, Treatment, Prognosis, No Family Present Departure 1 Departure Time of Disposition: 18:28 Impression: Primary Impression: Altered mental status Qualified Codes: R40.1 - Stupor Additional Impressions: Metabolic encephalopathy Cachexia Cardiac pacemaker in situ History of CVA with residual deficit History of myocardial infarction Elevated troponin Disposition: ADMITTED INPATIENT Admit to: Tele Condition: Guarded Critical Care Note Critical Care Time?: Yes (30 min-critical care time only) Stability Stability form required: Yes Unstable for transfer: Telemetry monitoring (Telemetry monitoring required), May require CPR (possible rapid decline) Heart Score Heart Score: Heart Score Response (Comments) Value History Moderate Suspicious 1 EKG Repolarization Disturb 1 Age >65 2 Risk Factors >3 or Hx ASHD 2 Troponin >3 x's Normal limit 2 Total 8 I personally scribed for NARGIS WEAVER MD ([email or web address]) on 02/07/24 at 16:39. Electronically submitted by Anna Lozoya ([email or web address]). I personally scribed for NARGIS WEAVER MD ([email or web address]) on 02/07/24 at 17:49. Electronically submitted by Cherry Shah ([email or web address]). NARGIS WEAVER MD Feb 07, 2024 16:39
[2024-02-07 16:44] VITALS: PULSE 81; RESP 30; O2SAT 98
[2024-02-07] MEDS: SODIUM CHLORIDE 0.9% 500 ML IVB ONE (17:06)
--- NOTE | 2024-02-07 17:18 | DVH ---
EXAM: CT HEAD WITHOUT CONTRAST HISTORY: Altered level of consciousness COMPARISON: CT HEAD WITHOUT CONTRAST on DOS: 12/20/22, CT LS SPINE WO CONTRAST on DOS: 11/01/22 TECHNIQUE: Axial images of the head were obtained and reformatted in coronal and sagittal planes. All CT scans at this medical facility are performed using dose modulation techniques as appropriate t o a performed exam including the following: Automated exposure control was utilized; adjustment of th e MA and/or KV according to patient size; and use of iterative reconstruction technique. CT Dose: CTDI volume is 51 mGy. Dose-length product is 817 mGy*cm FINDINGS: There is stable small chronic infarct in the right basal ganglia. There are severe chronic small-vess el white matter ischemic changes. There is no evidence of acute intracranial hemorrhage, mass, mass e ffect midline shift. There is no hydrocephalus or extra-axial fluid collection. The visualized paranasal sinuses and mastoid air cells are clear. The calvarium is intact. 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 IMPRESSION: 1. No acute intracranial process. 2. Stable small chronic infarct in the right basal ganglia. HS:Y
--- NOTE | 2024-02-07 17:20 | DVH ---
EXAM: XY CHEST PORTABLE TECHNIQUE: Single frontal chest radiograph CLINICAL HISTORY: Altered level of consciousness COMPARISON: CXRP on DOS: 01/16/22 Findings/Impression: Frontal chest radiograph demonstrates no acute osseous or superficial soft tissue abnormalities. Left chest wall dual chamber pacemaker. The trachea is midline. The cardiac silhouette and mediastinum are within normal limits. No pneumothorax, pleural effusions, or consolidations.
[2024-02-07 18:11] LABS: Basophils # (auto) 0 10 ^3/uL (0-0.2); Basophils % (auto) 0.2 % (0.0-2.0); Eosinophils # (auto) 0 10 ^3/uL (0-0.8); Hematocrit 33.3 % (36.0-46.0); Hemoglobin 10.9 g/dL (12.2-16.2); Lymphocytes # (auto) 0.8 10 ^3/uL (0.4-5.4); Lymphocytes % (auto) 7.3 % (10.0-50.0); Mean Corpuscular Hemoglobin 30.9 pg (28.0-32.0); Mean Corpuscular Hgb Conc. 32.6 g/dL (32.0-36.0); Mean Corpuscular Volume 94.8 fL (80.0-100.0); Monocytes # (auto) 1.2 10 ^3/uL (0-1.3); Monocytes % (auto) 11.1 % (0.0-12.0); Neutrophils # (auto) 8.6 10 ^3/uL (1.6-8.6); Neutrophils % (auto) 81.4 % (37.0-80.0); Nucleated Red Blood Cells % 0.4 %; Platelet Count (auto) 185 10^3/uL (140-450); Red Blood Cells 3.51 10^6/uL (4.0-5.20); Red Cell Distribution Width 16.2 % (11.8-14.3); White Blood Cell 10.5 10^3/uL (4.4-10.8)
[2024-02-07] MEDS: SODIUM CHLORIDE 0.9% 1,000 ML IV ONE (18:18)
[2024-02-07 18:23] LABS: Albumin 4.3 g/dL (3.2-4.8); Alkaline Phosphatase 56 U/L (46-116); Anion Gap 15 (5-15); Aspartate Aminotransferase 15 U/L (13-40); Bilirubin, Total 0.5 mg/dL (0.2-1.0); Carbon Dioxide 25 mmol/L (20-31); Potassium 4.7 mmol/L (3.5-5.1); Total Protein 7.5 g/dL (5.7-8.2)
[2024-02-07 18:30] LABS: BUN/Creatinine Ratio 40.1 (10.0-20.0)
[2024-02-07 19:00] LABS: Alanine Aminotransferase < 9 U/L (7-40); Chloride 124 mmol/L (98-107); Glucose 106 mg/dL (74-106); Magnesium 3.5 mg/dL (1.6-2.6)
[2024-02-07 19:03] LABS: Blood Urea Nitrogen 160 mg/dL (9-23); Calcium 20.2 mg/dL (8.7-10.4); Sodium 164 mmol/L (136-145)
[2024-02-07] MEDS ORDERED: ONDANSETRON HCL 4 MG/2 ML VIAL IV PRN (19:45)
[2024-02-07] MEDS ORDERED: ACETAMINOPHEN 325 MG TAB PO PRN (19:45)
[2024-02-07 21:03] LABS: Urine Bacteria MANY /hpf (None Seen); Urine Blood TRACE /uL (Negative); Urine Budding Yeast MODERATE /hpf (None Seen); Urine Clarity Turbid (Clear); Urine Color Colorless (Yellow); Urine Mucus FEW (None Seen); Urine Protein, UAD TRACE (Negative); Urine Specific Gravity 1.015 (1.001-1.035); Urine Squamous Epithelial Cell FEW /hpf (<5); Urine Urobilinogen Normal (Negative); Urine WBC 129 /hpf (0 - 5)
[2024-02-07] MEDS: cefTRIAXone 1GM/50ML D5W 50 ML IV ONE (21:03)
[2024-02-07] MEDS: SOD CHL 0.45% 1,000 ML IV ONE (21:03)
[2024-02-07 21:14] LABS: Amphetamine Screen, Urine Neg (NEGATIVE); Barbiturate Scree,Urine Neg (NEGATIVE); Benzodiazephine Screen, Urine Neg (NEGATIVE); Cannabinoid Screen, Urine Neg (NEGATIVE); Cocaine Screen, Urine Neg (NEGATIVE); Opiate Scree,Urine Neg (NEGATIVE); Phencyclidine Screen, Urine Neg (NEGATIVE)
[2024-02-07] MEDS: APIXABAN 2.5 MG TAB PO SCH (21:35)
[2024-02-07] MEDS: ATORVASTATIN 20 MG TAB PO SCH (21:35)
[2024-02-07] MEDS: ALBUMIN 5% 250 ML IV ONE (23:17)
[2024-02-07 23:37] LABS: Base Excess -3.4 mmol/L (-2.0-3.0)
[2024-02-08] VITALS (37 sets, daily range): BP systolic 84–230; BP diastolic 49–91; PULSE 60–115; RESP 18–28; TEMP 96.8–99.1; O2SAT 91–100
[2024-02-08] MEDS: D5W/SOD CHL 0.45% 1,000 ML IV SCH (04:37)
--- NOTE | 2024-02-08 04:47 | DVHHP2 ---
History of Present Illness Reason for Visit: Altered mental status History of Present Illness 80-year-old female presents for evaluation of altered mental status. Patient is currently on hospice. Per ED records patient been deteriorating over the past one-week and family opted to cancel hospice services and bring patient for evaluation. Patient reportedly has been having decreased urine output and oral intake. Patient is lethargic oriented x1. No further history could be obtained at the moment. Past Medical History dyslipidemia, gallop, CVA, chronic kidney disease, CHF, hypertension, Past Surgical History Pacemaker, PTCA and hysterectomy Family History Noncontributory Smoke: No ALCOHOL: none Drugs: None Lives: with Family Review of Systems Review of Systems Review of systems are currently negative otherwise addressed in HPI Allergies: Coded Allergies: Codeine (Verified Allergy, Unknown, 11/10/16) Medications Current Medications Medications Dose Ordered Sig/Sheila Route Start Time Stop Time Status Last Admin Dose Admin Ceftriaxone Sodium 50 ml @ 100 mls/hr DAILY@09 IV 02/08/24 09:00 Aspirin 162 mg DAILY PO 02/08/24 10:00 Apixaban 2.5 mg BID PO 02/07/24 22:00 Atorvastatin Calcium 40 mg HS PO 02/07/24 22:00 Ondansetron HCl 4 mg Q4HP PRN IV 02/07/24 19:45 Acetaminophen 650 mg Q6HP PRN PO 02/07/24 19:45 Dextrose/Sodium Chloride 1,000 ml @ 80 mls/hr [id number] IV 02/08/24 04:30 Exam Vital Signs Vital Signs Date Time Temp Pulse Resp B/P (MAP) Pulse Ox O2 Delivery O2 Flow Rate FiO2 02/08/24 03:26 97.9 60 25 103/52 (69) 97 97.9 02/07/24 19:25 Nasal Cannula* 4 36 Exam Gen: 88-year-old female in mild distress, lethargic Skin: Warm, dry, normal color and texture, no rash. HEENT: Normocephalic atraumatic, mucous membranes moist and pink. Neck: Cervical and supraclavicular nodes normal without enlargement, trachea is midline, thyroid gland is normal without masses. Pulmonary: Clear to auscultation and percussion bilaterally. Cardiac: Regular rate and rhythm. No murmur Abdomen: Soft, nontender, nondistended, bowel sounds present all 4 quadrants, no guarding, no rigidity, no organomegaly. Extremities: No cyanosis, clubbing, no edema Neuro: Cranial nerves II through XII grossly intact, normal affect and speech, no focal motor deficits. Labs/Xrays ORDERING PHYSICIAN: NARGIS WEAVER MD PROCEDURE(s): CXRP - CHEST PORTABLE REASON: Altered level of consciousness ORDER NUMBER(s): [id number], ACCESSION NUMBER(s): [id number] EXAM: XY CHEST PORTABLE TECHNIQUE: Single frontal chest radiograph CLINICAL HISTORY: Altered level of consciousness COMPARISON: CXRP on DOS: 01/16/22 Findings/Impression: Frontal chest radiograph demonstrates no acute osseous or superficial soft tissue abnormalities. Left chest wall dual chamber pacemaker. The trachea is midline. The cardiac silhouette and mediastinum are within normal limits. No pneumothorax, pleural effusions, or consolidations. RING PHYSICIAN: NARGIS WEAVER MD PROCEDURE(s): HWOCT - HEAD WITHOUT CONTRAST REASON: Altered level of consciousness ORDER NUMBER(s): [id number], ACCESSION NUMBER(s): [id number] EXAM: CT HEAD WITHOUT CONTRAST HISTORY: Altered level of consciousness COMPARISON: CT HEAD WITHOUT CONTRAST on DOS: 12/20/22, CT LS SPINE WO CONTRAST on DOS: 11/01/22 TECHNIQUE: Axial images of the head were obtained and reformatted in coronal and sagittal planes. All CT scans at this medical facility are performed using dose modulation techniques as appropriate to a performed exam including the following: Automated exposure control was utilized; adjustment of the MA and/or KV according to patient size; and use of iterative reconstruction technique. CT Dose: CTDI volume is 51 mGy. Dose-length product is 817 mGy*cm FINDINGS: There is stable small chronic infarct in the right basal ganglia. There are severe chronic small-vessel white matter ischemic changes. There is no evidence of acute intracranial hemorrhage, mass, mass effect midline shift. There is no hydrocephalus or extra-axial fluid collection. The visualized paranasal sinuses and mastoid air cells are clear. The calvarium is intact. 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 IMPRESSION: 1. No acute intracranial process. 2. Stable small chronic infarct in the right basal ganglia. HS:Y Labs Test 02/08/24 00:17 02/07/24 23:29 02/07/24 23:05 02/07/24 17:56 Range/Units Sodium Level 164 *H 136-145 mmol/L Blood Gas Specimen Type Arterial Blood Gas Sample Site Right radial Blood Gas Patient Temperature 37.0 Arterial Blood Date Drawn [id number] Arterial Blood pH 7.421 7.350-7.450 Arterial Blood Partial Pressure CO2 32.0 32.0-45.0 mmHg Arterial Blood Partial Pressure O2 67.2 L 83.0-108.0 mmHg Arterial Blood HCO3 20.3 L 21.0-28.0 mmol/L Arterial Blood Oxygen Saturation 91.6 L 94.0-98.0 % Arterial Blood Base Excess -3.4 L -2.0-3.0 mmol/L Arterial Blood Oxyhemoglobin 90.8 L 94.0-98.0 % Arterial Blood Carboxyhemoglobin 0.3 L 0.5-1.5 % Arterial Blood Methemoglobin 0.6 0.0-1.5 % Jonas Test Modified Blood Gas Total Hemoglobin 10.20 L 12.0-16.0 g/dL Blood Gas Liter Flow 4.00 Blood Gas Modality Nasal cannula FiO2 % 36.0 Troponin I High Sensitivity 283 *H </=34 ng/L White Blood Count 10.5 4.4-10.8 10^3/uL Red Blood Count 3.51 L 4.0-5.20 10^6/uL Hemoglobin 10.9 L 12.2-16.2 g/dL Hematocrit 33.3 L 36.0-46.0 % Mean Corpuscular Volume 94.8 80.0-100.0 fL Mean Corpuscular Hemoglobin 30.9 28.0-32.0 pg Mean Corpuscular Hemoglobin Concent 32.6 32.0-36.0 g/dL Red Cell Distribution Width 16.2 H 11.8-14.3 % Platelet Count 185 140-450 10^3/uL Mean Platelet Volume 11.2 H 6.9-10.8 fL Neutrophils (%) (Auto) 81.4 H 37.0-80.0 % Lymphocytes (%) (Auto) 7.3 L 10.0-50.0 % Monocytes (%) (Auto) 11.1 0.0-12.0 % Eosinophils (%) (Auto) 0.0 0.0-7.0 % Basophils (%) (Auto) 0.2 0.0-2.0 % Neutrophils # (Auto) 8.6 1.6-8.6 10 ^3/uL Lymphocytes # (Auto) 0.8 0.4-5.4 10 ^3/uL Monocytes # (Auto) 1.2 0-1.3 10 ^3/uL Eosinophils # (Auto) 0 0-0.8 10 ^3/uL Basophils # (Auto) 0 0-0.2 10 ^3/uL Nucleated Red Blood Cells 0.4 % Potassium Level 4.7 3.5-5.1 mmol/L Chloride Level 124 H 98-107 mmol/L Carbon Dioxide Level 25 20-31 mmol/L Anion Gap 15 5-15 Blood Urea Nitrogen 160 *H 9-23 mg/dL Creatinine 3.99 H 0.550-1.02 mg/dL Glomerular Filtration Rate Calc 10 >90 mL/min BUN/Creatinine Ratio 40.1 H 10.0-20.0 Serum Glucose 106 74-106 mg/dL Calcium Level 20.2 *H 8.7-10.4 mg/dL Magnesium Level 3.5 H 1.6-2.6 mg/dL Total Bilirubin 0.5 0.2-1.0 mg/dL Aspartate Amino Transferase (AST) 15 13-40 U/L Alanine Aminotransferase (ALT) < 9 7-40 U/L Alkaline Phosphatase 56 46-116 U/L Total Protein 7.5 5.7-8.2 g/dL Albumin 4.3 3.2-4.8 g/dL Test 02/07/24 17:43 Range/Units Urine Color Colorless Yellow Urine Clarity Turbid H Clear Urine pH 5.0 5.0-9.0 Urine Specific [place] 1.015 1.001-1.035 Urine Protein Trace H Negative Urine Ketones Negative Negative Urine Blood Trace H Negative /uL Urine Nitrite Negative Negative Urine Bilirubin Negative Negative Urine Urobilinogen Normal Negative mg/dL Urine Leukocyte Esterase 3+ Negative /uL Urine RBC 1 0 - 4 /hpf Urine WBC 129 0 - 5 /hpf Urine Squamous Epithelial Cells Few <5 /hpf Urine Bacteria Many H None Seen /hpf Urine Mucus Few None Seen Urine Yeast (Budding) Moderate None Seen /hpf Urine Glucose Normal Normal mg/dL Urine Opiates Screen Neg NEGATIVE Urine Fentanyl Screen Neg NEGATIVE Urine Barbiturates Screen Neg NEGATIVE Urine Phencyclidine Screen Neg NEGATIVE Urine Amphetamines Screen Neg NEGATIVE Urine Benzodiazepines Screen Neg NEGATIVE Urine Cocaine Screen Neg NEGATIVE Urine Cannabinoids Screen Neg NEGATIVE Assessment/Plan Assessment/Plan Assessment Metabolic encephalopathy Acute on chronic renal failure Electrolyte imbalance History of CVA with left-sided deficits Plan Admit the patient to [facility] to the hospitalist Nephrology consultation Maintenance IV fluids Q.6 hours sodium checks Continue treatment per orders. Plan discussed with: Other My Orders Orders - PALAK PERRY Procedure Category Date Status Time Ceftriaxone 1gm/50ml PHA 02/08/24 In Process D5w (Rocephin) 09:00 Urine Bacterial DAGMAR 02/07/24 In Process Culture 19:31 Sodium LAB 02/08/24 Logged 06:00 Sodium LAB 02/08/24 Logged 12:00 Sodium LAB 02/08/24 Logged 18:00 Aspirin Tablet PHA 02/08/24 In Process 10:00 Apixaban (Eliquis) PHA 02/07/24 In Process 22:00 Atorvastatin (Lipitor) PHA 02/07/24 In Process 22:00 Admit ADMIT 02/07/24 Transmitted 19:31 Renal DIET 02/08/24 Transmitted Standard(2gna,3gk,Lopho) Breakfast Ondansetron Hcl PHA 02/07/24 In Process (Zofran) 19:45 Complete Blood Count LAB 02/08/24 Logged 04:00 Comprehensive LAB 02/08/24 Logged Metabolic Panel 04:00 Condition: Fair REAL 02/07/24 In Process 19:31 Acetaminophen Tablet PHA 02/07/24 In Process (Tylenol Tablet) 19:45 Bedrest With Bathroom REAL 02/07/24 In Process Privileg 19:31 Abg W/ Co-Ox RT 02/07/24 Logged 23:09 D5w/Sod Chl 0.45% PHA 02/08/24 In Process (D5w 1/2ns) 04:30 Free Water REAL 02/08/24 In Process 04:18 *Dr. [facility] CONS 02/08/24 Transmitted -[place] 04:20 * Wound Consult CONS 02/08/24 Transmitted Date of Service: Feb 07, 2024 Billing Provider: PERRY,OZIEL AGACNP Common Visit Codes: [id number] INP/OBS CARE (HIGH) [facility] Feb 08, 2024 04:47
[2024-02-08 06:58] LABS: Basophils # (auto) 0 10 ^3/uL (0-0.2); Eosinophils # (auto) 0 10 ^3/uL (0-0.8); Hematocrit 32.2 % (36.0-46.0); Hemoglobin 10.7 g/dL (12.2-16.2); Lymphocytes # (auto) 0.7 10 ^3/uL (0.4-5.4); Lymphocytes % (auto) 10.8 % (10.0-50.0); Mean Corpuscular Hemoglobin 32.2 pg (28.0-32.0); Mean Corpuscular Hgb Conc. 33.1 g/dL (32.0-36.0); Mean Corpuscular Volume 97.3 fL (80.0-100.0); Monocytes # (auto) 0.7 10 ^3/uL (0-1.3); Monocytes % (auto) 10.9 % (0.0-12.0); Neutrophils # (auto) 4.8 10 ^3/uL (1.6-8.6); Neutrophils % (auto) 78.3 % (37.0-80.0); Nucleated Red Blood Cells % 0.1 %; Platelet Count (auto) 114 10^3/uL (140-450); Red Blood Cells 3.31 10^6/uL (4.0-5.20); White Blood Cell 6.1 10^3/uL (4.4-10.8)
[2024-02-08 07:07] LABS: Alanine Aminotransferase 14 U/L (7-40); Albumin 3.8 g/dL (3.2-4.8); Anion Gap 16 (5-15); Aspartate Aminotransferase 19 U/L (13-40); BUN/Creatinine Ratio 37.8 (10.0-20.0); Bilirubin, Total 0.4 mg/dL (0.2-1.0); Carbon Dioxide 21 mmol/L (20-31); Glucose 104 mg/dL (74-106); Total Protein 6.3 g/dL (5.7-8.2)
[2024-02-08 07:08] LABS: Alkaline Phosphatase 44 U/L (46-116); Chloride 126 mmol/L (98-107)
[2024-02-08 07:10] LABS: Blood Urea Nitrogen 142 mg/dL (9-23); Sodium 163 mmol/L (136-145)
[2024-02-08 07:11] LABS: Calcium 18.3 mg/dL (8.7-10.4)
--- NOTE | 2024-02-08 09:52 | DVHINCON2 ---
Date of service: Feb 08, 2024 Referring Physician Oswald Seo, nurse practitioner Reason for Consultation Acute kidney injury History of Present Illness Patient is 88-year-old female with past medical history of CHF, CKD, CVA, Gout, High Lipids, HTN, [place], Thyroid, and UTI'S who was admitted to the hospital for altered level of consciousness. On admission patient found to have elevated BUN creatinine nephrology is consulted for acute kidney injury Past Medical History CHF, CKD, CVA, Gout, High Lipids, HTN, [place], Thyroid, and UTI'S Past Surgical History Surgical History: Hysterectomy, Pacemaker, PTCA Allergies: Coded Allergies: Codeine (Verified Allergy, Unknown, 11/10/16) Home Meds Active Scripts Amlodipine Besylate (NORVASC TABLET) 5 Mg Tb, 10 MG PO DAILY, #30 Prov:PAULINO WATSON MD 10/13/15 Reported Medications Apixaban Base (ELIQUIS) 2.5 Mg Tab, 1 TAB PO BID 12/20/22 Pantoprazole Sodium (PANTOPRAZOLE SODIUM) 40 Mg Inj, 20 MG PO DAILY, INJ 01/18/22 Furosemide (Furosemide) 40 Mg Tab, 40 MG PO DAILY for 30 Days 01/18/22 Aspirin (Aspir-Low) 81 Mg Tab, 81 MG PO DAILY for 30 Days, MG 01/18/22 Potassium Chloride (POTASSIUM CHLORIDE CR) 10 Meq Tb, 40 MEQ PO DAILY, TAB 01/18/22 Timolol Maleate (Timolol Maleate Ophthalmi) 0.5 % Elayne, 1 DROP EACHEYE QAM, #5 ML 5 Refills 01/18/22 Aspirin (JEANNE ASPIRIN EC LOW DOSE) 81 Mg Tab, 325 MG OR, TAB 01/18/22 Allopurinol (Allopurinol) 100 Mg Tab, 100 MG PO DAILY for 30 Days, MG 01/18/22 Linaclotide Base (Linzess) 72 Mcg Cap, 145 MCG PO, CAP 01/18/22 Atorvastatin Calcium (ATORVASTATIN CALCIUM) 40 Mg Tab, 1 TAB PO DAILY, #30 TAB 5 Refills 01/18/22 Nortriptyline Hcl (PAMELOR CAPSULE) 25 Mg Cp, 10 MG PO DAILY, CAP 01/18/22 Meclizine Hcl (Meclizine Hcl) 25 Mg Tab, 25 MG PO DAILYPRN PRN for DIZZINESS for 30 Days, MG 01/18/22 Carvedilol (Coreg) 6.25 Mg Tab, 1 TAB PO BID, #180 TAB 3 Refills 01/18/22 Potassium Chloride (Potassium Chloride ER) 20 Meq Tab, 1 TAB PO BID 01/16/22 Furosemide (Furosemide) 40 Mg Tab, 1 TAB PO DAILY 01/16/22 Sacubitril-Valsartan (Entresto 24-26 mg) 1 Tab Tab, 1 TAB PO BID 01/16/22 Hydrocodone-Acetaminophen ([place] 5/325MG) 1 Tab Tb, 1 TAB PO Q4HPRN PRN for MILD PAIN 03/18/16 Hctz (Hydrochlorothiazide) 25 Mg Tab, 50 MG PO, TAB 03/18/16 Aspirin (Aspir-Low) 81 Mg Tab, 81 MG PO DAILY for 30 Days, MG 03/18/16 Current Medications Current Medications Medications (Trade) Dose Ordered Sig/Sheila Route PRN Reason Start Time Stop Time Status Last Admin Ceftriaxone Sodium 50 ml @ 100 mls/hr DAILY@09 IV 02/08/24 09:00 02/08/24 11:38 Aspirin 162 mg DAILY PO 02/08/24 10:00 Apixaban (Eliquis) 2.5 mg BID PO 02/07/24 22:00 Atorvastatin Calcium (Lipitor) 40 mg HS PO 02/07/24 22:00 Ondansetron HCl (Zofran) 4 mg Q4HP PRN IV NAUSEA / VOMITING 02/07/24 19:45 Acetaminophen (Tylenol Tablet) 650 mg Q6HP PRN PO PAIN SCALE 1-3 OR TEMP>100.4 02/07/24 19:45 Dextrose/Sodium Chloride 1,000 ml @ 80 mls/hr [id number] IV 02/08/24 04:30 02/08/24 09:43 DC 02/08/24 04:37 Dextrose 1,000 ml @ 100 mls/hr Q10H IV 02/08/24 09:45 02/08/24 11:38 Norepinephrine Bitartrate 250 ml @ 1.875 mls/ hr Q24H IV 02/08/24 14:00 Ipratropium Nuevo (Atrovent Medneb) 0.5 mg Q6HPRN PRN NEB SHORTNESS OF BREATH 02/08/24 14:30 Family History: Cancer G8 BROTHER (BONE) Stroke G8 FATHER Review of Systems Can not be obtain H&P Exam Vital Signs/I&O Vital Sign Date Time Temp Pulse Resp B/P (MAP) Pulse Ox O2 Delivery O2 Flow Rate FiO2 02/08/24 13:57 70 18 92 Nasal Cannula* 4 36 02/08/24 09:00 98.8 106/58 (74) 98.8 Intake and Output 02/07/24 02/08/24 19:00 07:00 Intake Total 500 ml 2230 ml Output Total 250 ml Balance 500 ml 1980 ml Intake Oral 0 ml IV Total 500 ml 2230 ml Output Urine Total 250 ml # Bowel Movements 1 Physical Exam Patient is nonresponsive Lungs clear to auscultation bilaterally Cardiac exam regular rate and rhythm GI soft nontender Bustos catheter Extremities no clubbing cyanosis or edema Neuro patient unresponsive Labs/Diagnostic Data Labs/Diagnostic Data Laboratory Tests Test 02/08/24 15:00 02/08/24 14:20 02/08/24 13:10 02/08/24 13:00 Range/Units Prothrombin Time 11.9 H 9.3-11.8 sec Prothrombin Time INR 1.13 0.9-1.15 Activated Partial Thromboplast Time 20.2 L 24.5-34.5 SEC White Blood Count 10.5 # 4.4-10.8 10^3/uL Red Blood Count 3.38 L 4.0-5.20 10^6/uL Hemoglobin 10.5 L 12.2-16.2 g/dL Hematocrit 35.1 L 36.0-46.0 % Mean Corpuscular Volume 103.7 #H 80.0-100.0 fL Mean Corpuscular Hemoglobin 31.1 28.0-32.0 pg Mean Corpuscular Hemoglobin Concent 29.9 L 32.0-36.0 g/dL Red Cell Distribution Width 17.5 H 11.8-14.3 % Platelet Count 120 L 140-450 10^3/uL Mean Platelet Volume 11.5 H 6.9-10.8 fL Neutrophils (%) (Auto) 80.3 H 37.0-80.0 % Lymphocytes (%) (Auto) 9.6 L 10.0-50.0 % Monocytes (%) (Auto) 9.9 0.0-12.0 % Eosinophils (%) (Auto) 0.1 0.0-7.0 % Basophils (%) (Auto) 0.1 0.0-2.0 % Neutrophils # (Auto) 8.5 1.6-8.6 10 ^3/uL Lymphocytes # (Auto) 1.0 0.4-5.4 10 ^3/uL Monocytes # (Auto) 1.0 0-1.3 10 ^3/uL Eosinophils # (Auto) 0 0-0.8 10 ^3/uL Basophils # (Auto) 0 0-0.2 10 ^3/uL Nucleated Red Blood Cells 0.3 % Sodium Level 160 H 136-145 mmol/L Potassium Level 4.1 3.5-5.1 mmol/L Chloride Level 126 H 98-107 mmol/L Carbon Dioxide Level 20 20-31 mmol/L Anion Gap 14 5-15 Blood Urea Nitrogen 147 *H 9-23 mg/dL Creatinine 3.81 H 0.550-1.02 mg/dL Glomerular Filtration Rate Calc 11 >90 mL/min BUN/Creatinine Ratio 38.6 H 10.0-20.0 Serum Glucose 101 74-106 mg/dL Lactic Acid Level 3.1 *H 0.4-2.0 mmol/L Calcium Level 17.9 *H 8.7-10.4 mg/dL Total Bilirubin 0.3 0.2-1.0 mg/dL Aspartate Amino Transferase (AST) 18 13-40 U/L Alanine Aminotransferase (ALT) 13 7-40 U/L Alkaline Phosphatase 45 L 46-116 U/L Total Protein 6.0 5.7-8.2 g/dL Albumin 3.5 3.2-4.8 g/dL Blood Gas Specimen Type Arterial Blood Gas Sample Site Left radial Blood Gas Patient Temperature 37.0 Arterial Blood Date Drawn [id number] Arterial Blood pH 7.380 7.350-7.450 Arterial Blood Partial Pressure CO2 27.9 L 32.0-45.0 mmHg Arterial Blood Partial Pressure O2 60.3 L 83.0-108.0 mmHg Arterial Blood HCO3 16.1 L 21.0-28.0 mmol/L Arterial Blood Oxygen Saturation 89.5 L 94.0-98.0 % Arterial Blood Base Excess -7.8 L -2.0-3.0 mmol/L Arterial Blood Oxyhemoglobin 89.1 L 94.0-98.0 % Arterial Blood Carboxyhemoglobin 0.1 L 0.5-1.5 % Arterial Blood Methemoglobin 0.4 0.0-1.5 % Jonas Test Modified Blood Gas Total Hemoglobin 10.20 L 12.0-16.0 g/dL Blood Gas Liter Flow 15.00 Blood Gas Modality Mask - nrb FiO2 % 100.0 POC Glucose 102 70-106 mg/dl Test 02/08/24 12:10 02/08/24 12:00 02/08/24 05:50 02/08/24 05:40 Range/Units Sodium Level 160 H 163 *H 136-145 mmol/L Vitamin D 25-Hydroxy 66.4 30.0-100 ng/mL Lactic Acid Level 2.6 *H 0.4-2.0 mmol/L White Blood Count 6.1 # 4.4-10.8 10^3/uL Red Blood Count 3.31 L 4.0-5.20 10^6/uL Hemoglobin 10.7 L 12.2-16.2 g/dL Hematocrit 32.2 L 36.0-46.0 % Mean Corpuscular Volume 97.3 80.0-100.0 fL Mean Corpuscular Hemoglobin 32.2 H 28.0-32.0 pg Mean Corpuscular Hemoglobin Concent 33.1 32.0-36.0 g/dL Red Cell Distribution Width 16.0 H 11.8-14.3 % Platelet Count 114 L 140-450 10^3/uL Mean Platelet Volume 11.3 H 6.9-10.8 fL Neutrophils (%) (Auto) 78.3 37.0-80.0 % Lymphocytes (%) (Auto) 10.8 10.0-50.0 % Monocytes (%) (Auto) 10.9 0.0-12.0 % Eosinophils (%) (Auto) 0.0 0.0-7.0 % Basophils (%) (Auto) 0.0 0.0-2.0 % Neutrophils # (Auto) 4.8 1.6-8.6 10 ^3/uL Lymphocytes # (Auto) 0.7 0.4-5.4 10 ^3/uL Monocytes # (Auto) 0.7 0-1.3 10 ^3/uL Eosinophils # (Auto) 0 0-0.8 10 ^3/uL Basophils # (Auto) 0 0-0.2 10 ^3/uL Nucleated Red Blood Cells 0.1 % Potassium Level 4.0 3.5-5.1 mmol/L Chloride Level 126 H 98-107 mmol/L Carbon Dioxide Level 21 20-31 mmol/L Anion Gap 16 H 5-15 Blood Urea Nitrogen 142 #*H 9-23 mg/dL Creatinine 3.76 H 0.550-1.02 mg/dL Glomerular Filtration Rate Calc 11 >90 mL/min BUN/Creatinine Ratio 37.8 H 10.0-20.0 Serum Glucose 104 74-106 mg/dL Uric Acid 13.6 H 3.1-7.8 mg/dL Calcium Level 18.3 *H 8.7-10.4 mg/dL Phosphorus Level 2.5 2.4-5.1 mg/dL Magnesium Level 3.1 H 1.6-2.6 mg/dL Total Bilirubin 0.4 0.2-1.0 mg/dL Aspartate Amino Transferase (AST) 19 13-40 U/L Alanine Aminotransferase (ALT) 14 7-40 U/L Alkaline Phosphatase 44 L 46-116 U/L B-Type Natriuretic Peptide 244.96 0-100 pg/mL Total Protein 6.3 5.7-8.2 g/dL Albumin 3.8 3.2-4.8 g/dL Parathyroid Hormone (Intact) 616.5 H 18.4-80.1 pg/mL Test 02/08/24 00:17 02/07/24 23:29 02/07/24 23:05 02/07/24 21:09 Range/Units Sodium Level 164 *H 136-145 mmol/L Blood Gas Specimen Type Arterial Blood Gas Sample Site Right radial Blood Gas Patient Temperature 37.0 Arterial Blood Date Drawn [id number] Arterial Blood pH 7.421 7.350-7.450 Arterial Blood Partial Pressure CO2 32.0 32.0-45.0 mmHg Arterial Blood Partial Pressure O2 67.2 L 83.0-108.0 mmHg Arterial Blood HCO3 20.3 L 21.0-28.0 mmol/L Arterial Blood Oxygen Saturation 91.6 L 94.0-98.0 % Arterial Blood Base Excess -3.4 L -2.0-3.0 mmol/L Arterial Blood Oxyhemoglobin 90.8 L 94.0-98.0 % Arterial Blood Carboxyhemoglobin 0.3 L 0.5-1.5 % Arterial Blood Methemoglobin 0.6 0.0-1.5 % Jonas Test Modified Blood Gas Total Hemoglobin 10.20 L 12.0-16.0 g/dL Blood Gas Liter Flow 4.00 Blood Gas Modality Nasal cannula FiO2 % 36.0 Troponin I High Sensitivity 283 *H 281 *H </=34 ng/L Test 02/07/24 17:56 02/07/24 17:43 02/07/24 17:26 Range/Units White Blood Count 10.5 4.4-10.8 10^3/uL Red Blood Count 3.51 L 4.0-5.20 10^6/uL Hemoglobin 10.9 L 12.2-16.2 g/dL Hematocrit 33.3 L 36.0-46.0 % Mean Corpuscular Volume 94.8 80.0-100.0 fL Mean Corpuscular Hemoglobin 30.9 28.0-32.0 pg Mean Corpuscular Hemoglobin Concent 32.6 32.0-36.0 g/dL Red Cell Distribution Width 16.2 H 11.8-14.3 % Platelet Count 185 140-450 10^3/uL Mean Platelet Volume 11.2 H 6.9-10.8 fL Neutrophils (%) (Auto) 81.4 H 37.0-80.0 % Lymphocytes (%) (Auto) 7.3 L 10.0-50.0 % Monocytes (%) (Auto) 11.1 0.0-12.0 % Eosinophils (%) (Auto) 0.0 0.0-7.0 % Basophils (%) (Auto) 0.2 0.0-2.0 % Neutrophils # (Auto) 8.6 1.6-8.6 10 ^3/uL Lymphocytes # (Auto) 0.8 0.4-5.4 10 ^3/uL Monocytes # (Auto) 1.2 0-1.3 10 ^3/uL Eosinophils # (Auto) 0 0-0.8 10 ^3/uL Basophils # (Auto) 0 0-0.2 10 ^3/uL Nucleated Red Blood Cells 0.4 % Sodium Level 164 *H 136-145 mmol/L Potassium Level 4.7 3.5-5.1 mmol/L Chloride Level 124 H 98-107 mmol/L Carbon Dioxide Level 25 20-31 mmol/L Anion Gap 15 5-15 Blood Urea Nitrogen 160 *H 9-23 mg/dL Creatinine 3.99 H 0.550-1.02 mg/dL Glomerular Filtration Rate Calc 10 >90 mL/min BUN/Creatinine Ratio 40.1 H 10.0-20.0 Serum Glucose 106 74-106 mg/dL Calcium Level 20.2 *H 8.7-10.4 mg/dL Magnesium Level 3.5 H 1.6-2.6 mg/dL Total Bilirubin 0.5 0.2-1.0 mg/dL Aspartate Amino Transferase (AST) 15 13-40 U/L Alanine Aminotransferase (ALT) < 9 7-40 U/L Alkaline Phosphatase 56 46-116 U/L Total Protein 7.5 5.7-8.2 g/dL Albumin 4.3 3.2-4.8 g/dL Urine Color Colorless Yellow Urine Clarity Turbid H Clear Urine pH 5.0 5.0-9.0 Urine Specific [place]gil 1.015 1.001-1.035 Urine Protein Trace H Negative Urine Ketones Negative Negative Urine Blood Trace H Negative /uL Urine Nitrite Negative Negative Urine Bilirubin Negative Negative Urine Urobilinogen Normal Negative mg/dL Urine Leukocyte Esterase 3+ Negative /uL Urine RBC 1 0 - 4 /hpf Urine WBC 129 0 - 5 /hpf Urine Squamous Epithelial Cells Few <5 /hpf Urine Bacteria Many H None Seen /hpf Urine Mucus Few None Seen Urine Yeast (Budding) Moderate None Seen /hpf Urine Glucose Normal Normal mg/dL Urine Opiates Screen Neg NEGATIVE Urine Fentanyl Screen Neg NEGATIVE Urine Barbiturates Screen Neg NEGATIVE Urine Phencyclidine Screen Neg NEGATIVE Urine Amphetamines Screen Neg NEGATIVE Urine Benzodiazepines Screen Neg NEGATIVE Urine Cocaine Screen Neg NEGATIVE Urine Cannabinoids Screen Neg NEGATIVE Troponin I High Sensitivity 311 *H </=34 ng/L Assessment Acute kidney injury superimposed Chronic Kidney Disease stage IV secondary hemodynamic mediated Hypernatremia due to dehydration Encephalopathy Hypercalcemia Dehydration CVA NSTEMI Anemia of chronic kidney disease Recommendations Closely monitor fluid and electrolytes Avoid nephrotoxic medications Consents for Shmuel catheter and hemodialysis Hemodialysis tomorrow with low calcium bath Bustos catheter Strict I&Os IVF D5W at 100 cc/hour Avoid rapid correction of serum sodium Check urine electrolytes and urine protein excretion Check kidney ultrasound Check 25 hydroxyvitamin D and PTH level Cardiology consult Urology consult We will continue to follow Patient seen and examined by myself in the day OU. I discussed my plan of care with the patient's daughter and the primary nurse at the bedside I would like to thank Oswald for the consult, will follow up Plan discussed with: Spouse, Other (Nurse) OVI REYNOLDS MD Feb 08, 2024 09:52
[2024-02-08] MEDS: ASPirin 81 mg TAB PO SCH (10:00)
[2024-02-08 10:22] LABS: Phosphorus 2.5 mg/dL (2.4-5.1)
--- NOTE | 2024-02-08 10:22 | DVH ---
INDICATION: grayson TECHNIQUE: Multiple real-time sonographic images of the kidneys and bladder were obtained. COMPARISON: Renal ultrasound 12/27/2022 FINDINGS: The right kidney measures 7.5 cm in length. There is increased echogenicity of the right kidney. Thin merry cortex. No hydronephrosis. Right mid and upper pole renal cysts, the largest measuring 3.4 cm. The left kidney measures 6.4 cm in length. There is increased al echogenicity of the left kidney. No hydronephrosis. No large intraluminal masses are seen in the bladder. Bustos catheter within the urinary bladder. IMPRESSION: 1. No hydronephrosis bilaterally. 2. Findings suggestive of CKD. 3. Right renal simple appearing cysts measuring up to 3.4 cm. HS:Y
[2024-02-08 10:40] LABS: Magnesium 3.1 mg/dL (1.6-2.6)
[2024-02-08] MEDS ORDERED: CALCITONIN 200 UNIT/SPRAY NASAL ONE (11:15)
[2024-02-08] MEDS: D5W 5% 1,000 ML IV SCH (11:38)
[2024-02-08] MEDS: cefTRIAXone 1GM/50ML D5W 50 ML IV SCH (11:38)
--- NOTE | 2024-02-08 12:01 | DVHPNRES ---
Progress Note Date Seen: Feb 08, 2024 Resident Creating Document: JARROD CONLEY RESIDENT Has the PT tested + for MRSA If YES, has PT been informed?: No Medical Necessity Reason Pt with a Central, PICC or Fol: Yes The following are medically ne: Central Line, Lowery Catheter Reason for lowery catheter: Bladder Retention/Obstruc, Strict I&O, Total Immobilization Subjective Patient reports: Other (Unable to determine) Other Systems: Ros unavailable as patient remained disoriented. Objective vital signs Vital Sign Date Time Temp Pulse Resp B/P (MAP) Pulse Ox O2 Delivery O2 Flow Rate FiO2 02/08/24 09:00 98.8 70 19 106/58 (74) 92 98.8 02/08/24 04:26 Nasal Cannula* 4 36 Total Intake and Output 02/07/24 02/07/24 02/08/24 15:00 23:00 07:00 Intake Total 1080 ml 1650 ml Output Total 250 ml Balance 1080 ml 1400 ml medications Current Medications Medications Dose Ordered Sig/Sheila Route Start Time Stop Time Status Last Admin Dose Admin Ceftriaxone Sodium 50 ml @ 100 mls/hr DAILY@09 IV 02/08/24 09:00 02/08/24 11:38 100 MLS/HR Aspirin 162 mg DAILY PO 02/08/24 10:00 Apixaban 2.5 mg BID PO 02/07/24 22:00 Atorvastatin Calcium 40 mg HS PO 02/07/24 22:00 Ondansetron HCl 4 mg Q4HP PRN IV 02/07/24 19:45 Acetaminophen 650 mg Q6HP PRN PO 02/07/24 19:45 Dextrose 1,000 ml @ 100 mls/hr Q10H IV 02/08/24 09:45 02/08/24 11:38 100 MLS/HR Examination: GENERAL:Normal (Sedated and intubated), HEENT:Normal, NECK:Normal, LUNGS:Abnormal (Basal rales), CVS:Abnormal (Hypovolemia, low volume pulse.), ABDOMEN:Normal, MSK:Abnormal (Gross diffuse loss of muscle mass), SKIN:Abnormal (Dry, low turgor,), NEURO:Abnormal (Negative Babinski, positive for light reflex and corneal reflex, intact brainstem and reflexes. Otherwise patient's GCS less than 8. Can not communicate on verbal stimulation and pain stimulation. ), :Abnormal (On Lowery's catheter, home catheter change) laboratory and microbiology Laboratory Tests 02/08/24 05:50 Test 02/08/24 05:50 Range/Units Serum Glucose 104 74-106 mg/dL Microbiology Date/Time Source Procedure Growth Status 02/07/24 17:43 Voided Urine Urine Culture - Preliminary Resulted Labs and/or images reviewed: Labs reviewed by me, Image(s) reviewed by me Problem List/Assessment/Plan Problem List/Assessment/Plan Assessment: Ms. Godfrey, An 88-year-old female with a history of CHF, CKD, CVA, gout, high lipids, HTN, CA, thyroid issues, parathyroid mass and recurrent UTIs, who was currently on hospice, presented with altered mental status progressively developing over the past week, her condition had been deteriorating, with decreased urine output and oral intake. The family decided to revoke hospice services for the 2nd time ( previously for similar situation) and brought her in to ED for further evaluation. Her surgical history includes a hysterectomy, pacemaker implantation, and PTCA. On admission, she was found to be lethargic and oriented to person only: During the course of the hospitalization patient became even more lethargic brainstem functions intact yet GCS was less than 8. Elevated BUN and creatinine levels were noted, prompting a nephrology consult for acute kidney injury. She could not provide any history, further limited history/ROS obtained at the moment was extracted from family discussion. she was found to have septic shock hypotensive, needing pressor and unable to maintain /protect airways needing intubation sedation and higher level of care. Patient remains in the COLT level of care. Plan: #1 urinary tract infection : No microbiology in file, patient was on Lowery's catheter, catheter change, patient IV ceftriaxone, follow up blood culture and urine culture. #2 severe sepsis secondary to above : Lactic acidosis, SIRS response. Other workup unremarkable. Likely developing sepsis since last week as patient's family describes gradually progressive encephalopathy. #3 septic shock needing vasopressor support: status post sepsis dose of IV fluid. Was On Levophed 20, weaned down to Levophed 6 at this point, several failed Tries A-line was not in place but target MAP above 65 Mm of Hg. #4 Altered level of conscious secondary to toxic/metabolic encephalopathy: M ultifactorial, could be due to poor hydration, uremia, sepsis, electrolyte disturbances. UDS negative. #5 JOSE due to VMN> Progress to acute renal failure: Nephrology on board appreciate input, temporary dialysis catheter in and needs further dialysis. #6 known CKD: baseline of creatinine around 3.1 #7 sick sinus syndrome status post Biotronik pacemaker : Dual-chamber, atrial sensed ventricular paced, noted in the EKG/ telemetry paced around 60-70. #8 Type 2 NSTEMI, demand mediated: mildly elevated troponin without EKG changes likely due to septic shock and intravascular volume depletion #9 thrombocytopenia, mild: >100 K. Could be due to uremic thrombocytopenia. Trend thrombocytopenia, patient on Lovenox, if platelet trend further down hold Lovenox. #10 mixed normochromic/ hypochromic, normocytic/ macrocytic anemia: Likely anemia of chronic disease complexed with multivitamin deficiency. #11 Severe hypercalcemia: IV fluid, calcitonin subcutaneous to continue, likely dialysis we will be helpful, check phosphate, avoid l Ringer l lactate #12 lactic acidosis: Likely due to end-organ damage, hypoxia and hypovolemia. Status post IV fluid, lipase is trending up likely will benefit from hemodialysis, renal failure, hypotension likely contributory. #13 uremic encephalopathy: elevated uric acid , BUN 147 , likely encephalopathy related to that, check TTE/echo for uremic pericarditis. #14 history of recurrent stroke: Last stroke in September 09, 2023, previously patient has several stroke. Unable to assess further #15 Chronic bed-bound: Air mattress, Q 2hr position change to avoid pressure ulcers. #16 moderate protein energy malnutrition : Patient has been ongoing weight loss, poor oral intake. Continue multivitamin, multimodal and high-protein supplemented diet when possible. #17 patient intubated and sedated : D.O.U status, target RASS -1. Likelysedated. #18 known dyslipidemia: Atorvastatin 40 mg daily. #19 Known coronary artery disease status post PTCA : Type 2 NSTEMI, no recent history of chest pain noted by the family. No EKG changes continue telemetry. #20 history of hysterectomy #21 left-sided hemiparesis status post partial recovery: Known residual weakness. continue aspirin and atorvastatin , patient is bed-bound already poor prognosis and poor muscle mass. #22 Hypovolemic hypernatremia : Slow correction of sodium with Slow free water 100 cc/hour of D5 water, presented with 164, improved to 158 continue similar treatment. Not to exceed correction more than 8 mEq in 24 hour to avoid cerebral edema. #23 history of gout: No recent flare-up. Uric acid is high, needs hemodialysis. #24 right parathyroid mass: Noted by patient's family, needs further workup if family decides to aggressive treatment as compared to retrieval of hospice. #25 likely atrial fibrillation: On apixaban 2.5 p.o. b.i.d. Status post pacemaker. #26 Acute hemorrhagic stroke ruled out: CT negative for any intracranial bleeding or acute pathology. But further workup needed including repeat MRI to classify stroke. Unable to do physical exam/ neurological exam, GCS less than 8 as per patient's family for past 3 days. #27 extremely poor prognosis: Based on multiple organ failure and comorbidities , life expectancy in days to weeks. had extensive discussion with the family but family is considering aggressive treatment even if it prolonged patient's suffering. Continue ongoing goals of care discussion with the family. #28 Secondary hyperphosphatemia: likely due to multiorgan failure and renal insufficiency , PTH to monitor. #29 Hypermagnesemia likely due to renal failure. PUD prophylaxis: protonix 40mg IV daily. DVT prophylaxis: Therapeutic dose Levonox 40mg/ B.i.d.. In lieu of home apixaban Barriers to discharge: Medical diagnosis and managment in progress. Patient lives with family. Independent/need supportive device/wheelchair/person support for ADL. PT and SW consult as needed. PCP: Has not followed with PCP for past 3 years as patient was on hospice care. Specialist Relevent To Admission: Hospice , Dr. Karimi. Case discussed with Dr. Solis. Code Status: Full Code. Discussion needed total 29 minutes bedside. Critical care time spent 47 minutes. POA: granddaughter Ray. Plan discussed with: Patient, Other (Granddaughter, POA, family, primary team, RN.) My Orders My Orders Orders - JARROD CONLEY RESIDENT Procedure Category Date Status Time Blood Culture DAGMAR 02/08/24 Logged 09:17 Calcitonin Nasal PHA 02/08/24 Pending [place] (Fortical Nasal 11:15 Swallow Eval Follow Up REAL 02/08/24 Transmitted 11:58 * Swallow Request ST 02/08/24 Transmitted 11:58 Npo (Nothing By DIET 02/08/24 Transmitted Mouth) Diet Lunch Transfer Orders XFER 02/08/24 Transmitted 11:58 Coding Note Date of Service: Feb 08, 2024 Comment #1 : No microbiology in file, patient was on Lowery's catheter, catheter change, patient IV ceftriaxone, follow up blood culture and urine culture. #2 severe sepsis secondary to above : Lactic acidosis, SIRS response. Other workup unremarkable. Likely developing sepsis since last week as patient's family describes gradually progressive encephalopathy. #3 : status post sepsis dose of IV fluid. Was On Levophed 20, weaned down to Levophed 6 at this point, several failed Tries A-line was not in place but target MAP above 65 Mm of Hg. #4 Altered level of conscious secondary to toxic/metabolic encephalopathy: M ultifactorial, could be due to poor hydration, uremia, sepsis, electrolyte disturbances. UDS negative. #5 : Nephrology on board appreciate input, temporary dialysis catheter in and needs further dialysis. #6 : baseline of creatinine around 3.1 #7 : Dual-chamber, atrial sensed ventricular paced, noted in the EKG/ telemetry paced around 60-70. Neuro #Acute toxic metabolic encephalopathy #uremic encephalopathy #history of recurrent stroke #left-sided hemiparesis status post partial recovery #Acute hemorrhagic stroke ruled out Pulm # acute hypoxemic respiratory failure #patient intubated and sedated Card #distributive shock from septic shock requiring vasopressor support #Type 2 NSTEMI, demand mediated #likely atrial fibrillation #known dyslipidemia #Known coronary artery disease status post PTCA #sick sinus syndrome status post Biotronik pacemaker Renal #JOSE due to VMN> Progress to acute renal failure #Oligouria # lactic acidosis #Hypovolemic hypernatremia #Secondary hyperphosphatemia #known CKD #Hypermagnesemia LELE #Severe hypercalcemia #moderate protein energy malnutrition ID #urinary tract infection / Urosepsis #septic shock needing vasopressor support Heme/Onc # thrombocytopenia, mild # mixed normochromic/ hypochromic, normocytic/ macrocytic anemia #right parathyroid mass Endo/Rheum/Skin #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
[2024-02-08 13:04] LABS: Lactic Acid w/Reflex 2.6 mmol/L (0.4-2.0)
[2024-02-08] MEDS: SODIUM CHLORIDE 0.9% 1,700 ML IV ONE (13:10)
[2024-02-08] MEDS: NOREPINEPHRINE 8 MG/250ML KIT 250 ML IV ONE (13:15)
[2024-02-08] MEDS: NOREPINEPHRINE 8 MG/250ML KIT 250 ML IV SCH (13:15)
[2024-02-08 13:18] LABS: Base Excess -7.8 mmol/L (-2.0-3.0)
[2024-02-08 14:34] LABS: Basophils # (auto) 0 10 ^3/uL (0-0.2); Basophils % (auto) 0.1 % (0.0-2.0); Eosinophils # (auto) 0 10 ^3/uL (0-0.8); Eosinophils % (auto) 0.1 % (0.0-7.0); Hematocrit 35.1 % (36.0-46.0); Hemoglobin 10.5 g/dL (12.2-16.2); Lymphocytes % (auto) 9.6 % (10.0-50.0); Mean Corpuscular Hemoglobin 31.1 pg (28.0-32.0); Mean Corpuscular Hgb Conc. 29.9 g/dL (32.0-36.0); Mean Corpuscular Volume 103.7 fL (80.0-100.0); Monocytes % (auto) 9.9 % (0.0-12.0); Neutrophils # (auto) 8.5 10 ^3/uL (1.6-8.6); Neutrophils % (auto) 80.3 % (37.0-80.0); Nucleated Red Blood Cells % 0.3 %; Platelet Count (auto) 120 10^3/uL (140-450); Red Blood Cells 3.38 10^6/uL (4.0-5.20); Red Cell Distribution Width 17.5 % (11.8-14.3); White Blood Cell 10.5 10^3/uL (4.4-10.8)
[2024-02-08 14:46] LABS: Alanine Aminotransferase 13 U/L (7-40); Albumin 3.5 g/dL (3.2-4.8); Anion Gap 14 (5-15); Aspartate Aminotransferase 18 U/L (13-40); BUN/Creatinine Ratio 38.6 (10.0-20.0); Carbon Dioxide 20 mmol/L (20-31); Glucose 101 mg/dL (74-106); Potassium 4.1 mmol/L (3.5-5.1)
[2024-02-08 14:47] LABS: Bilirubin, Total 0.3 mg/dL (0.2-1.0)
[2024-02-08 14:49] LABS: Alkaline Phosphatase 45 U/L (46-116); Chloride 126 mmol/L (98-107); Sodium 160 mmol/L (136-145)
[2024-02-08 14:50] LABS: Blood Urea Nitrogen 147 mg/dL (9-23); Calcium 17.9 mg/dL (8.7-10.4)
[2024-02-08 15:26] LABS: INR 1.13 (0.9-1.15); Partial Thromboplastin Time 20.2 SEC (24.5-34.5); Prothrombin Time 11.9 sec (9.3-11.8)
[2024-02-08] MEDS: ETOMIDATE (2MG/ML) 20ML VIAL IV ONE ×2 (16:33→16:37)
[2024-02-08] MEDS: ROCURONIUM 10MG/ML 10ML VIAL IV ONE (16:38)
[2024-02-08] MEDS ORDERED: LORazepam 2MG/ML-1ML VIAL IV PRN (17:00)
[2024-02-08] MEDS ORDERED: fentaNYL Drip 2500mCg/250mlNS 250 ML IV SCH (17:00)
[2024-02-08] MEDS ORDERED: MIDAZOLAM DRIP 50 mg/50mL 50 ML IV SCH (17:00)
[2024-02-08] MEDS ORDERED: MORPHINE SULFATE 4 MG/ML SYR/VIAL IV PRN (17:00)
--- NOTE | 2024-02-08 17:05 | DVH ---
EXAM: XY CHEST XRAY 1 VIEW TECHNIQUE: Single frontal chest radiograph CLINICAL HISTORY: pt intubated and right medhat placement. COMPARISON: XY CHEST PORTABLE on DOS: 02/07/24, CXRP on DOS: 01/16/22 Findings/Impression: Frontal chest radiograph demonstrates no acute osseous or superficial soft tissue abnormalities. Left chest wall dual chamber pacemaker. Endotracheal tube terminates 5.1 cm from the zeny. Right sided IJ catheter terminates near the supe rior cavoatrial junction. The trachea is midline. The cardiac silhouette and mediastinum are within normal limits. Left mid to lower lung field patchy airspace opacities may be due an infectious etiology and/or aspir ation. No pneumothorax, pleural effusions, or consolidations.
[2024-02-08] MEDS: fentaNYL Drip 2500mCg/250mlNS 250 ML IV SCH (17:34)
[2024-02-08 17:36] LABS: Protein, Urine 37.8 mg/dL (1-14)
[2024-02-08 17:38] LABS: Creatinine, Urine 16.13 mg/dL (30.0-125.0); Urine Protein/Creatinine Ratio 2.34
[2024-02-08] MEDS: LIDOCAINE 2% (LOCAL ANESTH.) PF 5ml SDV ONE (17:56)
[2024-02-08] MEDS: CALCITONIN 400unit/2ml Vial (200unit/ml) SC SCH (19:03)
--- NOTE | 2024-02-08 20:30 | DVHNC2 ---
Intubation Indication: Altered Mental Status, Airway Protection Prep: Preoxygenation Pretreated with: Sedation Medicated with: Other Intubation Approach: Orotracheal Intubation size: cm (7) Informed consent obtained: Yes Risks/benefits/alt described: Yes Notes ~4pm patient hypoxic requiring bag mask. bag mask able to get max 87% spO2. intubated with etom 0.3mg/kg and concepcion 1mg/kg. 7cm ETT tube inserted via aid of video laryngoscopy. large amounts of gastric contents observed in larynx. observed ETT pass vocal cords into trachea. successful intubation in 1st try. AC vent 400/20/5/100% and started versed/fent for sedation with RASS -3 goal - Caesar Solis MD Date of Service: Feb 08, 2024 Billing Provider: CAESAR MCQUEEN MD Common Visit Codes: PROCEDURE ONLY Procedure Codes: [id number] CAESAR MCQUEEN MD Feb 08, 2024 20:30
[2024-02-08 20:41] LABS: Base Excess -8.7 mmol/L (-2.0-3.0)
--- NOTE | 2024-02-08 20:46 | DVHNC2 ---
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 Physician Indication: Hypotension, Other Room prepared for procedure: Yes Tie Binder performed hand hygien: Yes Maximal sterile barrier precau: Mask/Eye shield, Cap, Sterlie gloves, Large sterlie drape Skin Preparation: Chlorhexidine gluconate Skin preparation completely dr: Yes Insertion site: Right, Internal jugular Central line catheter type: Dialysis non-tunneled Number of lumens: 2, Other (HD medhat catheter) Central line exchanged over a: No Antiseptic ointment applied to: Yes Post Assessment: Chest X-Ray, Proper placement Informed consent obtained: Yes Risks/benefits/alt described: Yes Notes ULTRASOUND-GUIDED RIGHT INTERNAL JUGULAR CENTRAL VENOUS CANNULATION CPT Codes: 01029 (ultrasound guidance) 82422 (insertion of non-tunneled centrally inserted central venous catheter) 20141 (CXR interpretation) DATE: 02/08/24 PHYSICIAN: Caesar Solis PREOPERATIVE DIAGNOSIS: hypotensive shock, Azotemia POSTOPERATIVE DIAGNOSIS: hypotensive shock, Azotemia PROCEDURE PERFORMED: Limited Ultrasound-guided Right internal jugular central line placement. ANESTHESIA: 2 mL of 1% lidocaine plain. ESTIMATED BLOOD LOSS: less than 5 mL. SPECIMENS: None. COMPLICATIONS: None. INDICATIONS FOR PROCEDURE: The patient is in need of HD reynaldo cath for likey HD during this admission. DESCRIPTION OF PROCEDURE IN DETAIL: The patient was lying in the Trendelenburg position with head turned 30 degrees away from the insertion site. The skin was thoroughly sponged with chlorhexidine and allowed to dry. All persons involved were shielded with hair nets, face masks and sterile gowns. With sterile-gloved hands the right neck area was draped with the large disposable sterile field provided in the pre-manufactured kit. The skin and subcutaneous tissues superficial to the RIGHT internal jugular vein were anesthetized with 2 mL of 1% lidocaine. The RIGHT internal jugular vein was identified on ultrasound from the angle of the mandible down into the supraclavicular fossa using the linear ultrasound probe in the transverse orientation. The carotid artery was identified and avoided utilizing color-flow. The internal jugular vein was then placed in the center of the ultrasound field and compressed for patency. A movement artifact was identified as the needle was advanced through the skin and advanced toward the vessel. A real time hyperechoic signal revealed visualization of vascular needle entry into the lumen as blood was noted to flashback in the syringe. The needle was then held in place while the guide wire was advanced. The needle was then removed. Direct visualization of guide wire location within the vein was noted on ultrasound indicating proper placement and was document in the electronic medical record chart. A skin dilator was advanced over the guidewire and removed, and the Reynaldo HD catheter double-lumen catheter was then advanced over the guide wire into proper position. The guide wire was removed and discarded. The ports were aspirated which showed good blood return and then carefully flushed with normal saline. The catheter was stabilized and sutured to the skin with 2-0 silk at 4 anchor points. A sterile bio-patch and dressing was placed over the catheter, including the insertion site. The patient tolerated the procedure well. A chest x-ray was ordered for position confirmation. I reviewed the image immediately after it was taken at bedside. Post-procedure chest x-ray demonstrates the central line in the superior vena and no evidence of any pneumothorax. Caesar Solis MD Date of Service: Feb 08, 2024 Billing Provider: CAESAR MCQUEEN MD Common Visit Codes: PROCEDURE ONLY Procedure Codes: [id number] NON-TUNNEL CV CATH CAESAR MCQUEEN MD Feb 08, 2024 20:46
--- NOTE | 2024-02-08 21:52 | DVH ---
CHEST RADIOGRAPH Indication: right IJ cath for HD access,OGT placement Technique: Single frontal view of the chest was obtained Comparison: XY CHEST XRAY 1 VIEW on DOS: 02/08/24, XY CHEST PORTABLE on DOS: 02/07/24, CXRP on DOS: 1 03/18/21 Findings/ IMPRESSION: Left-sided cardiac device with intact leads. Enteric tube appears in proper position. Right IJ CVC p rojects terminating in the SVC. Endotracheal tube projects terminating 5 cm superior to the zeny.. Patchy opacities throughout the left lung concerning for multifocal pneumonia.
[2024-02-08] MEDS: PANTOPRAZOLE 40 MG/10 ML VIAL INJ IV ONE (22:22)
[2024-02-08 22:24] LABS: Potassium 4.2 mmol/L (3.5-5.1)
[2024-02-08 22:25] LABS: Anion Gap 13 (5-15)
[2024-02-08 22:39] LABS: BUN/Creatinine Ratio 41.5 (10.0-20.0)
[2024-02-08 22:42] LABS: Carbon Dioxide 20 mmol/L (20-31); Chloride 121 mmol/L (98-107); Glucose 241 mg/dL (74-106); Sodium 154 mmol/L (136-145)
[2024-02-08 22:45] LABS: Blood Urea Nitrogen 158 mg/dL (9-23); Lactic Acid w/Reflex 3.2 mmol/L (0.4-2.0)
[2024-02-09] VITALS (78 sets, daily range): BP systolic 80–122; BP diastolic 50–80; PULSE 83–114; RESP 16–24; TEMP 97.7–99; O2SAT 92–100
[2024-02-09] MEDS: NOREPINEPHRINE 8 MG/250ML KIT 250 ML IV SCH (02:40)
[2024-02-09] MEDS: VASOPRESSIN 20 UNITS in SODIUM CHL 0.9% 99 ML IV SCH (04:07)
[2024-02-09 05:07] LABS: Basophils # (auto) 0 10 ^3/uL (0-0.2); Basophils % (auto) 0.1 % (0.0-2.0); Eosinophils # (auto) 0 10 ^3/uL (0-0.8); Hematocrit 29.1 % (36.0-46.0); Hemoglobin 9.3 g/dL (12.2-16.2); Lymphocytes % (auto) 8.1 % (10.0-50.0); Mean Corpuscular Hemoglobin 30.9 pg (28.0-32.0); Mean Corpuscular Hgb Conc. 31.8 g/dL (32.0-36.0); Mean Corpuscular Volume 97.1 fL (80.0-100.0); Monocytes # (auto) 0.8 10 ^3/uL (0-1.3); Monocytes % (auto) 6.3 % (0.0-12.0); Neutrophils # (auto) 10.8 10 ^3/uL (1.6-8.6); Neutrophils % (auto) 85.5 % (37.0-80.0); Nucleated Red Blood Cells % 0.1 %; Platelet Count (auto) 115 10^3/uL (140-450); Red Cell Distribution Width 16.3 % (11.8-14.3); White Blood Cell 12.7 10^3/uL (4.4-10.8)
[2024-02-09 05:09] LABS: Potassium 4.2 mmol/L (3.5-5.1)
[2024-02-09 05:10] LABS: Anion Gap 13 (5-15)
[2024-02-09 05:23] LABS: BUN/Creatinine Ratio 40.3 (10.0-20.0)
--- NOTE | 2024-02-09 05:28 | DVH ---
CHEST RADIOGRAPH Indication: MECHANICALLY VENTILATED, INTUBATED Technique: Single frontal view of the chest was obtained Comparison: XY CHEST PORTABLE on DOS: 02/08/24 FINDINGS: Lines and Tubes: Endotracheal tube terminates 4.3 cm above the zeny. Right central venous catheter terminates in the superior vena cava. There is a dual lead pacemaker with right atrial and ventricul ar leads. The enteric tube courses below the left hemidiaphragm and the tip extends outside the field of view. Lungs: Patchy left upper and lower lobe airspace disease. Right lung is clear. Pleura: No effusion. No pneumothorax. Cardiomediastinal contours: Unremarkable Bones: No acute osseous abnormality. IMPRESSION: 1. No significant change in left upper and lower lung zone airspace disease. 2. Support lines and tubes unchanged.
[2024-02-09 05:30] LABS: Carbon Dioxide 18 mmol/L (20-31); Chloride 117 mmol/L (98-107); Glucose 287 mg/dL (74-106); Magnesium 2.8 mg/dL (1.6-2.6); Sodium 148 mmol/L (136-145)
[2024-02-09 05:32] LABS: Blood Urea Nitrogen 153 mg/dL (9-23); Calcium 15.3 mg/dL (8.7-10.4)
[2024-02-09 06:45] LABS: Base Excess -9.5 mmol/L (-2.0-3.0)
[2024-02-09] MEDS: SODIUM CHL 0.9% 1000 ML BAG XX ONE ×2 (07:00)
[2024-02-09] MEDS: ENOXAPARIN SOD 60 MG/0.6 ML SYRINGE SC SCH (08:50)
[2024-02-09] MEDS: PANTOPRAZOLE 40 MG/10 ML VIAL INJ IV SCH (08:50)
--- NOTE | 2024-02-09 11:22 | MEDREC ---
[facility] Intervention Section I [facility] Intervention: Review courses of therapy (PATIENT IS INTUBATED IN THE ICU, CURRENTLY ON PRESSORS. PATIENT HAS ELEVATED LACTIC ACID, WBC, AND HEART RATE. THE PRELIMINARY CULTURE SHOWS GRAM NEGATIVE RODS. THE CHEST X-RAY TODAY SHOWS PATCHY LEFT UPPER AND LOWER AIRSPACE DISEASE. PLEASE CONSIDER ESCALATING ANTIBIOTIC TO BROAD SPECTRUM FOR EMPIRIC TREATMENT GIVEN PATIENT'S CURRENT CONDITIONS) CROW HANKS Feb 09, 2024 11:22
--- NOTE | 2024-02-09 13:42 | ECG ---
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
--- NOTE | 2024-02-09 14:12 | DVHPN2 ---
Progress Note Date Seen: Feb 09, 2024 Has the PT tested + for MRSA If YES, has PT been informed?: No Medical Necessity Reason Pt with a Central, PICC or Fol: Yes The following are medically ne: Central Line, Lowery Catheter Reason for lowery catheter: Bladder Retention/Obstruc, Strict I&O, Total Immobilization Subjective Review of Systems: RESPIRATORY:Abnormal Other Systems: Patient seen and examined by myself today in follow-up, patient remained intubated on ventilator Objective vital signs Vital Sign Date Time Temp Pulse Resp B/P (MAP) Pulse Ox O2 Delivery O2 Flow Rate FiO2 02/09/24 12:25 110 20 122/80 (94) 97 40 02/09/24 12:00 Mechanical Ventilator+ 02/09/24 11:00 98.6 209.5 02/08/24 14:51 4 Total Intake and Output 02/08/24 02/08/24 02/09/24 15:00 23:00 07:00 Intake Total 22.50 ml 815.00 ml 975.000 ml Output Total 300 ml 320 ml Balance 22.50 ml 515.00 ml 655.000 ml medications Current Medications Medications Dose Ordered Sig/Sheila Route Start Time Stop Time Status Last Admin Dose Admin Ceftriaxone Sodium 50 ml @ 100 mls/hr DAILY@09 IV 02/08/24 09:00 02/09/24 08:47 100 MLS/HR Aspirin 162 mg DAILY PO 02/08/24 10:00 02/09/24 10:27 162 MG Atorvastatin Calcium 40 mg HS PO 02/07/24 22:00 02/08/24 22:22 40 MG Ondansetron HCl 4 mg Q4HP PRN IV 02/07/24 19:45 Acetaminophen 650 mg Q6HP PRN PO 02/07/24 19:45 Norepinephrine Bitartrate 250 ml @ 1.875 mls/ hr Q24H IV 02/08/24 14:00 02/09/24 05:33 16.875 MLS/HR Ipratropium [place] 0.5 mg Q6HPRN PRN NEB 02/08/24 14:30 Norepinephrine Bitartrate 250 ml @ 3.75 mls/hr Q24H IV 02/08/24 17:00 Vasopressin 20 units/Sodium Chloride 100 ml @ 9 mls/hr Q11H7M IV 02/08/24 17:00 Midazolam HCl 50 ml @ 1 mls/hr Q24H IV 02/08/24 17:00 Fentanyl Citrate 250 ml @ 2.5 mls/hr Q24H IV 02/08/24 17:00 02/08/24 17:34 2.5 MLS/HR Lorazepam 2 mg Q2HP PRN IV 02/08/24 17:00 Morphine Sulfate 2 mg Q4HP PRN IV 02/08/24 17:00 Pantoprazole Sodium 40 mg DAILY IV 02/09/24 10:00 02/09/24 08:50 40 MG Enoxaparin Sodium 50 mg DAILY SC 02/09/24 10:00 02/09/24 08:50 50 MG Enteral Nutritional Formula 1,000 ml 30ML/HR GT 02/09/24 13:30 UNV Purified Water 160 ml Q6HR GT 02/09/24 18:00 UNV Sodium Bicarbonate 50 ml/ Dextrose 1,050 ml @ 100 mls/hr [id number] IV 02/09/24 14:15 UNV Examination: LUNGS:Normal, CVS:Normal, MSK:Normal laboratory and microbiology Laboratory Tests 02/09/24 04:34 Test 02/09/24 04:34 Range/Units Serum Glucose 287 H 74-106 mg/dL Microbiology Date/Time Source Procedure Growth Status 02/08/24 17:17 Sputum Gram Stain Pending Resulted 02/08/24 17:17 Sputum Respiratory Culture - Preliminary Resulted 02/08/24 12:10 Blood Blood Culture - Preliminary NO GROWTH AFTER 24 HOURS OF INCUBATION. 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 Recommendations Hemodialysis today Hypernatremia appropriately improving Lowery catheter Strict I&Os IVF D5W with 50 mEq sodium bicarb at 100 cc/hour Avoid rapid correction of serum sodium kidney ultrasound reported bilateral small echogenic kidney Cardiology consult We will continue to follow Plan discussed with: Daughter, Other (Nurse) My Orders My Orders Orders - OVI REYNOLDS MD Procedure Category Date Status Time Dialysis Nursing [facility] 02/09/24 In Process Message 07:00 Document Fluid Input REAL 02/09/24 In Process And Outpu 07:00 Epoetin Kuldip-Epbx PHA 02/09/24 In Process (Retacrit) 21:00 Hemodialysis Orders ORDERS 02/09/24 Transmitted 07:00 Dialysis Nursing REAL 02/09/24 In Process Message 07:00 Document Fluid Input REAL 02/09/24 In Process And Outpu 07:00 Epoetin Kuldip-Epbx PHA 02/09/24 In Process (Retacrit) 21:00 D5w 5% (Dextrose 5%) PHA 02/09/24 Logged W/Sodium Bicarb 50m 14:15 OVI REYNOLDS MD Feb 09, 2024 14:12
[2024-02-09] MEDS ORDERED: VANCOMYCIN PER PHARMACY 0 MG IV SCH (14:15)
[2024-02-09] MEDS: SODIUM BICARB 50mEq/50ml Vial 50 ML in D5W 5% 1,000 ML IV SCH (15:32)
[2024-02-09] MEDS: VANCOMYCIN 750MG VIAL 750 MG in D5W 5% 100 ML IV ONE (15:33)
[2024-02-09] MEDS: MIDAZOLAM DRIP 50 mg/50mL 50 ML IV SCH (16:38)
[2024-02-09] MEDS: PIPERACILLIN-TAZOB 2.25GM 50 ML IV SCH (16:38)
[2024-02-09] MEDS: CALCITONIN 400unit/2ml Vial (200unit/ml) SC SCH (17:20)
[2024-02-09] MEDS: FREE WATER GT SCH (17:20)
--- NOTE | 2024-02-09 17:29 | DVHNC2 ---
DEVIN CONLEY RESIDENT 02/09/24 1729: Procedure - ULTRASOUND-GUIDED RIGHT Femoral Vein CENTRAL VENOUS CANNULATION CPT Codes: 91395 (ultrasound guidance) 17773 (insertion of non-tunneled centrally inserted central venous catheter) PHYSICIAN: Devin Conley MD PREOPERATIVE DIAGNOSIS: Severe sepsis with poor venous access POSTOPERATIVE DIAGNOSIS: Severe sepsis with poor venous access PROCEDURE PERFORMED: Limited Ultrasound-guided Right femoral central line placement. ANESTHESIA: 2 mL of 1% lidocaine plain. ESTIMATED BLOOD LOSS: less than 5 mL. SPECIMENS: None. COMPLICATIONS: None. INDICATIONS FOR PROCEDURE: The patient is in need of large bore IV access for administration of fluids, including blood products and vasoactive drugs, and possibly CVP monitoring for hemodynamic instability. DESCRIPTION OF PROCEDURE IN DETAIL: The patient was lying in the reverse Trendelenburg position. The skin was thoroughly sponged with chlorhexidine and allowed to dry. All persons involved were shielded with hair nets, face masks and sterile gowns. With sterile-gloved hands the right neck area was draped with the large disposable sterile field provided in the pre-manufactured kit. The skin and subcutaneous tissues superficial to the RIGHT femoral vein were anesthetized with 2 mL of 1% lidocaine. The RIGHT femoral vein was identified on ultrasound using the linear ultrasound probe in the transverse orientation. The femoral artery was identified and avoided utilizing color-flow. The femoral vein was then placed in the center of the ultrasound field and compressed for patency. A movement artifact was identified as the needle was advanced through the skin and advanced toward the vessel. A real time hyperechoic signal revealed visualization of vascular needle entry into the lumen as blood was noted to flashback in the syringe. The needle was then held in place while the guide wire was advanced. The needle was then removed. Direct visualization of guide wire location within the vein was noted on ultrasound indicating proper placement and was document in the electronic medical record chart. A skin dilator was advanced over the guidewire and removed, and the triple-lumen catheter was then advanced over the guide wire into proper position. The guide wire was removed and discarded. The ports were aspirated which showed good blood return and then carefully flushed with normal saline. The catheter was stabilized and sutured to the skin with 2-0 silk at 2 anchor points. A sterile bio-patch and dressing was placed over the catheter, including the insertion site. The patient tolerated the procedure well. An image recording of the procedure accompanies the chart. CAESAR MCQUEEN MD 02/12/24 1138: Procedure - R femoral CVC Date of Service: Feb 08, 2024 Billing Provider: CAESAR MCQUEEN MD Common Visit Codes: PROCEDURE ONLY Procedure Codes: [id number] NON-TUNNEL CV CATH DEVIN CONLEY Feb 09, 2024 17:29 CAESAR CMQUEEN MD Feb 12, 2024 11:38
[2024-02-09 17:59] LABS: Rapid Influenza A Negative (Negative); Rapid Influenza B Negative (Negative)
[2024-02-09] MEDS: EPOETIN ALFA-EPBX 10,000 UNIT/1ML VIAL SC ONE (21:00)
[2024-02-09] MEDS: EPOETIN ALFA-EPBX 4,000 UNIT/ML VIAL SC ONE (21:00)
--- NOTE | 2024-02-09 22:14 | DVHPNRES ---
Progress Note Date Seen: Feb 09, 2024 Resident Creating Document: MARIS CASTRO RESIDENT Has the PT tested + for MRSA If YES, has PT been informed?: No Medical Necessity Reason Pt with a Central, PICC or Fol: Yes The following are medically ne: Central Line, Lowery Catheter Reason for lowery catheter: Strict I&O Subjective Review of Systems Ms. Godfrey, An 88-year-old female with a history of CHF, CKD, CVA, gout, high lipids, HTN, NH, thyroid issues, parathyroid mass and recurrent UTIs, who was currently on hospice, presented with altered mental status progressively developing over the past week, her condition had been deteriorating, with decreased urine output and oral intake. The family decided to revoke hospice services for the 2nd time ( previously for similar situation) and brought her in to ED for further evaluation. Her surgical history includes a hysterectomy, pacemaker implantation, and PTCA. On admission, she was found to be lethargic and oriented to person only: During the course of the hospitalization patient became even more lethargic brainstem functions intact yet GCS was less than 8. Elevated BUN and creatinine levels were noted, prompting a nephrology consult for acute kidney injury. She could not provide any history, further limited history/ROS obtained at the moment was extracted from family discussion. she was found to have septic shock hypotensive, needing pressor and unable to maintain /protect airways needing intubation sedation and higher level of care. On arrival patient's temperature was 96.3 F, pulse 90 bpm, respiratory rate 12, blood pressure 63/45, 92 on room air. She received IV fluids and her blood pressure improved 103/55. Patient was saturating 99 on 5 L supplementation. 02/07 around noon patient's blood pressure dropped to 65/42 mmHg and therefore she was intubated right femoral CVC was placed in right IJ CVC for hemodialysis was placed. Patient received SC calcitonin 2 doses of 200 mg on 02/07. She has been receiving D5W for the correction of hypernatremia. Patient seen and examined at bedside. She is tachycardic at 109 beats per minute, saturating 95 on FiO2 of 30%. Blood pressure is 107/68. Patient's hypernatremia was overcorrected more than 10 for 24 hours, DC D5W. Started free water through NG 150 mL q.6 hour. Chest x-ray shows left-sided pneumonia, possible aspiration as it was not present on arrival. Started IV Zosyn and vancomycin. Vanco DC ed based on culture results. Started calcitonin 200 units SC q.12. Hepatitis panel pending. Hemodialysis tomorrow 02/09 Objective vital signs Vital Sign Date Time Temp Pulse Resp B/P (MAP) Pulse Ox O2 Delivery O2 Flow Rate FiO2 02/09/24 20:07 84/54 02/09/24 19:59 100 20 100 30 02/09/24 17:52 Mechanical Ventilator+ 02/09/24 11:00 98.6 209.5 02/08/24 14:51 4 Total Intake and Output 02/08/24 02/08/24 02/09/24 15:00 23:00 07:00 Intake Total 22.50 ml 815.00 ml 975.000 ml Output Total 300 ml 320 ml Balance 22.50 ml 515.00 ml 655.000 ml medications Current Medications Medications Dose Ordered Sig/Sheila Route Start Time Stop Time Status Last Admin Dose Admin Aspirin 162 mg DAILY PO 02/08/24 10:00 02/09/24 10:27 162 MG Atorvastatin Calcium 40 mg HS PO 02/07/24 22:00 02/08/24 22:22 40 MG Ondansetron HCl 4 mg Q4HP PRN IV 02/07/24 19:45 Acetaminophen 650 mg Q6HP PRN PO 02/07/24 19:45 Norepinephrine Bitartrate 250 ml @ 1.875 mls/ hr Q24H IV 02/08/24 14:00 02/09/24 05:33 16.875 MLS/HR Ipratropium [place] 0.5 mg Q6HPRN PRN NEB 02/08/24 14:30 Norepinephrine Bitartrate 250 ml @ 3.75 mls/hr Q24H IV 02/08/24 17:00 02/09/24 20:07 15 MLS/HR Vasopressin 20 units/Sodium Chloride 100 ml @ 9 mls/hr Q11H7M IV 02/08/24 17:00 Midazolam HCl 50 ml @ 1 mls/hr Q24H IV 02/08/24 17:00 Fentanyl Citrate 250 ml @ 2.5 mls/hr Q24H IV 02/08/24 17:00 02/08/24 17:34 2.5 MLS/HR Lorazepam 2 mg Q2HP PRN IV 02/08/24 17:00 Morphine Sulfate 2 mg Q4HP PRN IV 02/08/24 17:00 Pantoprazole Sodium 40 mg DAILY IV 02/09/24 10:00 02/09/24 08:50 40 MG Enoxaparin Sodium 50 mg DAILY SC 02/09/24 10:00 02/09/24 08:50 50 MG Enteral Nutritional Formula 1,000 ml 30ML/HR GT 02/09/24 13:30 Purified Water 160 ml Q6HR GT 02/09/24 18:00 02/09/24 17:20 160 ML Sodium Bicarbonate 50 ml/ Dextrose 1,050 ml @ 100 mls/hr [id number] IV 02/09/24 14:15 02/09/24 15:32 100 MLS/HR Piperacillin Sod/ Tazobactam Sod 50 ml @ 12.5 mls/hr Q12HR IV 02/09/24 14:15 02/09/24 16:38 12.5 MLS/HR Calcitonin [place] 200 unit Q12H SC 02/09/24 18:00 02/09/24 17:20 200 UNIT Examination Patient lying in bed, intubated and sedated. General: Thin looking, cachectic, afebrile, palor, mucosae are dry Cardiovascular: Regular S1 and S2. No murmurs, gallops or rubs. No JVD elevation. No pedal edema Respiratory: Left-sided crepitations heard. Saturating 95 on FiO2 of 20%. Abdomen: Soft, nontender, nondistended, normoactive bowel sounds, no rebound tenderness, no organomegaly, no masses. Lowery catheter seen. Genitourinary: Deferred MSK/skin: Skin is dry and warm Neurological: Pupils are isocoric and reactive. laboratory and microbiology Laboratory Tests 02/09/24 04:34 Test 02/09/24 04:34 Range/Units Serum Glucose 287 H 74-106 mg/dL Microbiology Date/Time Source Procedure Growth Status 02/08/24 17:17 Sputum Gram Stain - Final Resulted 02/08/24 17:17 Sputum Respiratory Culture - Preliminary Resulted 02/08/24 14:05 Nose MRSA Screen - Final Complete 02/08/24 12:10 Blood Blood Culture - Preliminary NO GROWTH AFTER 24 HOURS OF INCUBATION. 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 Continue aspirin [address] Stable small chronic infarct in the right basal ganglia. No acute intracranial process. 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 EF 45%. RESPIRATORY Left-sided lobar pneumonia, possible aspiration, Gram-positive and Gram-negative Sepsis secondary to pneumonia and UTI Prelim respiratory culture shows Gram-negative rods G stain shows Gram-positive cocci in chains and pairs, Gram-positive rods DC vanco, continue Zosyn starting 02/08 MRSA screen negative Continue ipratropium nebulized treatment q.6 p.r.n. GI F/U hepatitis panel Hx of 1.0 cm left adrenal nodule Steatosis /KIDNEY Acute cystitis JOSE likely secondary to VMN on ESRD Acute tubular necrosis Prelim urine culture shows greater than 1 lac CFU mixed melissa 3 colony types possible contamination. Repeat urine culture ordered. FENA greater than 2% Right renal simple appearing cysts measuring up to 3.4 cm. Hemodialysis tomorrow 02/09 ENDOCRINE Right parathyroid mass METABOLIC Non-anion gap metabolic acidosis likely secondary to hyperchloremia and uremia with the respiratory alkalosis Hypovolemic hypernatremia Humoral Hypercalcemia of malignancy Secondary hyperphosphatemia due to ESRD Hypomagnesemia Gout vs CPPD - chondrocalcinosis seen in knee x-ray in 2022 Patient received IV fluid D5W with 50 mEq sodium bicarb at 100 cc/hour on 02/07 morning of 02/08. Discontinued on 02/08 since over-correction of hyponatremia was noticed. Continue with free water through NG 150 mL q.6 hourly. Patient received 2 doses of SC calcitonin 200 mg on 02/07. Continue calcitonin 200 mg sc twice daily Continue bicarb at 100 mL/hour ID Sepsis secondary to pneumonia and the UTI HEM-ONCO Right parathyroid mass Thrombocytopenia Anemia, likely normocytic due to ESRD OBGYN History of Hysterectomy Protein energy malnutrition LINES Intubated on 02/07 Right IJ CVC for hemodialysis placed 02/07 Right-sided Femoral CVC placed 02/07 Lowery catheter NUTRITION: Nepro started 02/08 DVT: Renal dosing Lovenox Goals of care/advance care planning; discussed with the daughter and granddaughter at the bedside, modified DNR, PUD prophylaxis: Pantoprazole 40 mg IV daily DVT prophylaxis enoxaparin 50 mg sc daily renal dosing, patient takes Eliquis at home Plan discussed with Dr. Salazar. Hemodialysis tomorrow 02/09. DC D5w, free water supplementation 160ml q6hr Plan discussed with patient's daughter and granddaughter over the bedside for more than 30 minutes which all questions have been answered Goals of care have been discussed with the patient's family at the bedside for more than 25 minutes, modified DNR status Critical time including chart review, discussion with the patient's family excluding procedures included 86 minutes Plan discussed with: Patient, Daughter (At the bedside), Other (Granddaughter at the bedside) My Orders My Orders Orders - MARIS CASTRO Procedure Category Date Status Time Piperacillin-Tazob PHA 02/09/24 In Process 2.25gm (Zosyn 2.25gm) 14:15 Consult For Nutrition NOURISH 02/09/24 Transmitted 14:04 Mrsa Screen DAGMAR 02/09/24 Logged 14:04 Calcitonin Injectable PHA 02/09/24 In Process (Miacalcin Injecta 18:00 Vancomycin Per REAL 02/09/24 In Process Pharmacy Protoc 15:07 Date of Service: Feb 09, 2024 Billing Provider: RAYMOND SALAZAR MD Common Visit Codes: [id number] CARE 30-74 MIN MARIS CASTRO Feb 09, 2024 22:14 RAYMOND SALAZAR MD Feb 10, 2024 00:11
[2024-02-10] VITALS (101 sets, daily range): BP systolic 68–209; BP diastolic 27–86; PULSE 61–113; RESP 16–21; TEMP 95.9–99.7; O2SAT 87–100
[2024-02-10] MEDS: IPRATROPIUM BROM 0.5 MG/2.5ML INH SOL NEB PRN (05:37)
--- NOTE | 2024-02-10 05:43 | DVH ---
CHEST RADIOGRAPH Indication: f/u Technique: Single frontal view of the chest was obtained Comparison: XY CHEST PORTABLE on DOS: 02/09/24, XY CHEST PORTABLE on DOS: 02/08/24, XY CHEST XRAY 1 V IEW on DOS: 02/08/24 IMPRESSION: Heart appears normal in size. Support lines and tubes appear unchanged in satisfactory position. Th e right lung appears relatively clear. Patchy opacities in the left lung appear similar to prior exam ination. No sizable effusion. Dual lead left cardiac device.
[2024-02-10 05:57] LABS: Base Excess -6.6 mmol/L (-2.0-3.0)
[2024-02-10 06:01] LABS: Basophils # (auto) 0.1 10 ^3/uL (0-0.2); Basophils % (auto) 0.4 % (0.0-2.0); Eosinophils # (auto) 0.1 10 ^3/uL (0-0.8); Eosinophils % (auto) 0.6 % (0.0-7.0); Hematocrit 26.3 % (36.0-46.0); Hemoglobin 8.6 g/dL (12.2-16.2); Lymphocytes % (auto) 6.9 % (10.0-50.0); Mean Corpuscular Hemoglobin 31.1 pg (28.0-32.0); Mean Corpuscular Hgb Conc. 32.6 g/dL (32.0-36.0); Mean Corpuscular Volume 95.4 fL (80.0-100.0); Monocytes # (auto) 1.2 10 ^3/uL (0-1.3); Neutrophils # (auto) 12.4 10 ^3/uL (1.6-8.6); Neutrophils % (auto) 84.1 % (37.0-80.0); Nucleated Red Blood Cells % 0.1 %; Platelet Count (auto) 99 10^3/uL (140-450); Red Blood Cells 2.75 10^6/uL (4.0-5.20); Red Cell Distribution Width 15.8 % (11.8-14.3); White Blood Cell 14.8 10^3/uL (4.4-10.8)
[2024-02-10 06:43] LABS: Alanine Aminotransferase 11 U/L (7-40); Alkaline Phosphatase 57 U/L (46-116); Anion Gap 15 (5-15); Aspartate Aminotransferase 19 U/L (13-40); BUN/Creatinine Ratio 42.2 (10.0-20.0); Glucose 94 mg/dL (74-106); Magnesium 2.6 mg/dL (1.6-2.6); Potassium 3.9 mmol/L (3.5-5.1)
[2024-02-10 06:52] LABS: Albumin 3.1 g/dL (3.2-4.8); Bilirubin, Total 0.3 mg/dL (0.2-1.0); Carbon Dioxide 19 mmol/L (20-31); Chloride 113 mmol/L (98-107); Phosphorus 1.8 mg/dL (2.4-5.1); Sodium 147 mmol/L (136-145); Total Protein 5.5 g/dL (5.7-8.2)
[2024-02-10 06:54] LABS: Blood Urea Nitrogen 145 mg/dL (9-23); Calcium 14.2 mg/dL (8.7-10.4)
--- NOTE | 2024-02-10 09:23 | DVHPN2 ---
Progress Note Date Seen: Feb 10, 2024 Has the PT tested + for MRSA If YES, has PT been informed?: No Medical Necessity Reason Pt with a Central, PICC or Fol: Yes The following are medically ne: Central Line, Lowery Catheter Reason for lowery catheter: Strict I&O Subjective Other Systems: Patient seen and examined by myself today in follow-up, patient remained intubated on ventilator Patient examined hemodialysis, blood pressure stable Objective vital signs Vital Sign Date Time Temp Pulse Resp B/P (MAP) Pulse Ox O2 Delivery O2 Flow Rate FiO2 02/10/24 09:08 96 20 92/58 (69) 99 30 02/10/24 07:00 98.2 208.8 02/10/24 06:00 Mechanical Ventilator+ 02/08/24 14:51 4 Total Intake and Output 02/09/24 02/09/24 02/10/24 15:00 23:00 07:00 Intake Total 519.375 ml 710.0 ml 125.0 ml Output Total 200 ml Balance 519.375 ml 510.0 ml 125.0 ml medications Current Medications Medications Dose Ordered Sig/Sheila Route Start Time Stop Time Status Last Admin Dose Admin Aspirin 162 mg DAILY PO 02/08/24 10:00 02/10/24 09:09 162 MG Atorvastatin Calcium 40 mg HS PO 02/07/24 22:00 02/09/24 21:44 40 MG Ondansetron HCl 4 mg Q4HP PRN IV 02/07/24 19:45 Acetaminophen 650 mg Q6HP PRN PO 02/07/24 19:45 Norepinephrine Bitartrate 250 ml @ 1.875 mls/ hr Q24H IV 02/08/24 14:00 02/09/24 05:33 16.875 MLS/HR Ipratropium [place] 0.5 mg Q6HPRN PRN NEB 02/08/24 14:30 02/10/24 05:37 0.5 MG Norepinephrine Bitartrate 250 ml @ 3.75 mls/hr Q24H IV 02/08/24 17:00 02/09/24 20:07 15 MLS/HR Vasopressin 20 units/Sodium Chloride 100 ml @ 9 mls/hr Q11H7M IV 02/08/24 17:00 Midazolam HCl 50 ml @ 1 mls/hr Q24H IV 02/08/24 17:00 Fentanyl Citrate 250 ml @ 2.5 mls/hr Q24H IV 02/08/24 17:00 02/08/24 17:34 2.5 MLS/HR Lorazepam 2 mg Q2HP PRN IV 02/08/24 17:00 Morphine Sulfate 2 mg Q4HP PRN IV 02/08/24 17:00 Pantoprazole Sodium 40 mg DAILY IV 02/09/24 10:00 02/10/24 09:08 40 MG Enoxaparin Sodium 50 mg DAILY SC 02/09/24 10:00 02/10/24 09:08 50 MG Enteral Nutritional Formula 1,000 ml 30ML/HR GT 02/09/24 13:30 Piperacillin Sod/ Tazobactam Sod 50 ml @ 12.5 mls/hr Q12HR IV 02/09/24 14:15 02/10/24 09:09 12.5 MLS/HR Calcitonin [place] 200 unit Q12H SC 02/09/24 18:00 02/10/24 06:14 200 UNIT Examination: LUNGS:Normal, CVS:Normal, MSK:Normal laboratory and microbiology Laboratory Tests 02/10/24 05:29 Test 02/10/24 05:29 Range/Units Serum Glucose 94 74-106 mg/dL Microbiology Date/Time Source Procedure Growth Status 02/09/24 02:25 Urine - [place] Urine Culture - Preliminary Resulted 02/08/24 17:17 Sputum Gram Stain - Final Resulted 02/08/24 17:17 Sputum Respiratory Culture - Preliminary Resulted 02/08/24 14:05 Nose MRSA Screen - Final Complete 02/08/24 12:10 Blood Blood Culture - Preliminary NO GROWTH AFTER 24 HOURS OF INCUBATION. 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
[2024-02-10] MEDS: PHENYLEPHRINE IV 250 ML IV ONE (12:58)
--- NOTE | 2024-02-10 12:59 | DVHPN2 ---
Subjective Intubated and sedated Changes from previous H/P or p: Changes Objective Vitals Vital Signs Date Time Temp Pulse Resp B/P (MAP) Pulse Ox O2 Delivery O2 Flow Rate FiO2 02/10/24 11:27 98 20 140/73 (95) 97 30 02/10/24 10:45 97.2 207.0 02/10/24 10:00 Mechanical Ventilator+ 02/08/24 14:51 4 Intake/Output Intake and Output 02/10/24 07:00 Intake Total 1354.375 ml Output Total 200 ml Balance 1154.375 ml Intake Oral 160 ml IV Total 1194.375 ml Output Urine Total 200 ml # Bowel Movements 2 General Appearance: Other (Sedated) Lungs: Clear to auscultation, Normal air movement Cardiovascular: Regular rate, Normal S1, Normal S2 Extremities: No edema Medications Current Medications Medications Dose Ordered Sig/Sheila Route Start Time Stop Time Status Last Admin Dose Admin Aspirin 162 mg DAILY PO 02/08/24 10:00 02/10/24 09:09 162 MG Atorvastatin Calcium 40 mg HS PO 02/07/24 22:00 02/09/24 21:44 40 MG Ondansetron HCl 4 mg Q4HP PRN IV 02/07/24 19:45 Acetaminophen 650 mg Q6HP PRN PO 02/07/24 19:45 Norepinephrine Bitartrate 250 ml @ 1.875 mls/ hr Q24H IV 02/08/24 14:00 02/09/24 05:33 16.875 MLS/HR Ipratropium [place] 0.5 mg Q6HPRN PRN NEB 02/08/24 14:30 02/10/24 05:37 0.5 MG Norepinephrine Bitartrate 250 ml @ 3.75 mls/hr Q24H IV 02/08/24 17:00 02/09/24 20:07 15 MLS/HR Vasopressin 20 units/Sodium Chloride 100 ml @ 9 mls/hr Q11H7M IV 02/08/24 17:00 Midazolam HCl 50 ml @ 1 mls/hr Q24H IV 02/08/24 17:00 Fentanyl Citrate 250 ml @ 2.5 mls/hr Q24H IV 02/08/24 17:00 02/08/24 17:34 2.5 MLS/HR Lorazepam 2 mg Q2HP PRN IV 02/08/24 17:00 Morphine Sulfate 2 mg Q4HP PRN IV 02/08/24 17:00 Pantoprazole Sodium 40 mg DAILY IV 02/09/24 10:00 02/10/24 09:08 40 MG Enoxaparin Sodium 50 mg DAILY SC 02/09/24 10:00 02/10/24 09:08 50 MG Enteral Nutritional Formula 1,000 ml 30ML/HR GT 02/09/24 13:30 Piperacillin Sod/ Tazobactam Sod 50 ml @ 12.5 mls/hr Q12HR IV 02/09/24 14:15 02/10/24 09:09 12.5 MLS/HR Calcitonin [place] 200 unit Q12H SC 02/09/24 18:00 02/10/24 06:14 200 UNIT Laboratory Results Laboratory Tests 02/10/24 05:29 Chemistry Test 02/09/24 22:22 02/10/24 05:29 Calcium Level 11.5 mg/dL (8.7-10.4) H 14.2 mg/dL (8.7-10.4) *H Albumin 3.1 g/dL (3.2-4.8) L Magnesium Level 2.6 mg/dL (1.6-2.6) Phosphorus Level 1.8 mg/dL (2.4-5.1) L Total Protein 5.5 g/dL (5.7-8.2) L Cardiac Markers Test 02/09/24 22:22 B-Type Natriuretic Peptide 506.89 pg/mL (0-100) LFT Test 02/10/24 05:29 Alanine Aminotransferase (ALT) 11 U/L (7-40) Alkaline Phosphatase 57 U/L (46-116) Aspartate Amino Transferase (AST) 19 U/L (13-40) Total Bilirubin 0.3 mg/dL (0.2-1.0) Urinalysis Test 02/07/24 17:43 02/08/24 17:16 Urine Color Colorless (Yellow) Urine Clarity Turbid (Clear) H Urine pH 5.0 (5.0-9.0) Urine Specific [place] 1.015 (1.001-1.035) Urine Protein Trace (Negative) H Urine Ketones Negative (Negative) Urine Blood Trace /uL (Negative) H Urine Nitrite Negative (Negative) Urine Bilirubin Negative (Negative) Urine Urobilinogen Normal mg/dL (Negative) Urine Leukocyte Esterase 3+ /uL (Negative) Urine RBC 1 /hpf (0 - 4) Urine WBC 129 /hpf (0 - 5) Urine Squamous Epithelial Cells Few /hpf (<5) Urine Bacteria Many /hpf (None Seen) H Urine Mucus Few (None Seen) Urine Yeast (Budding) Moderate /hpf (None Seen) Urine Glucose Normal mg/dL (Normal) Urine Creatinine 16.13 mg/dL (30.0-125.0) L Urine Protein/Creatinine Ratio 2.34 Urine Sodium 117 mmol/L (40-220) Urine Total Protein 37.8 mg/dL (1-14) H Blood Gas Results Test 02/10/24 05:49 Arterial Blood pH 7.400 (7.350-7.450) FiO2 % 30.0 Microbiology Microbiology Date/Time Source Procedure Growth Status 02/09/24 02:25 Urine - [place] Urine Culture - Preliminary Resulted 02/08/24 17:17 Sputum Gram Stain - Final Resulted 02/08/24 17:17 Sputum Respiratory Culture - Preliminary Resulted 02/08/24 14:05 Nose MRSA Screen - Final Complete 02/08/24 12:10 Blood Blood Culture - Preliminary NO GROWTH AFTER 48 HOURS OF INCUBATION. Resulted Assessment/Plan Assessment/Plan Acute hypoxic respiratory failure Acute kidney injury due to possibly acute tubular necrosis/end-stage kidney disease, needs dialysis Right parathyroid hormone Metabolic acidosis Sepsis and septic shock due to UTI and pneumonia UTI Pneumonia Thrombocytopenia due to sepsis Protein calorie malnutrition Hypernatremia Hypercalcemia Plan The patient needs dialysis Dialysis catheter to be replaced today since the current 1 is malfunctioning Vasopressors as needed Sedation as needed Discussed with her grand daughter at the bedside Full code IV antibiotics: Zosyn Plan discussed with: Daughter Date of Service: Feb 10, 2024 Billing Provider: LUNA DENIS MD Common Visit Codes: [id number] CARE 30-74 MIN LUNA DENIS MD Feb 10, 2024 12:59
[2024-02-10] MEDS: PHENYLEPHRINE IV 250 ML IV SCH (13:45)
[2024-02-10 14:06] LABS: Eosinophils # (auto) 0.1 10 ^3/uL (0-0.8); Eosinophils % (auto) 0.7 % (0.0-7.0); Mean Corpuscular Hgb Conc. 33.3 g/dL (32.0-36.0); Monocytes # (auto) 0.4 10 ^3/uL (0-1.3); Red Cell Distribution Width 15.8 % (11.8-14.3)
[2024-02-10 14:08] LABS: Basophils # (auto) 0 10 ^3/uL (0-0.2); Basophils % (auto) 0.4 % (0.0-2.0); Hematocrit 23.9 % (36.0-46.0); Hemoglobin 7.9 g/dL (12.2-16.2); Lymphocytes # (auto) 1.1 10 ^3/uL (0.4-5.4); Lymphocytes % (auto) 9.4 % (10.0-50.0); Mean Corpuscular Volume 93.1 fL (80.0-100.0); Monocytes % (auto) 3.7 % (0.0-12.0); Neutrophils # (auto) 9.9 10 ^3/uL (1.6-8.6); Neutrophils % (auto) 85.8 % (37.0-80.0); Nucleated Red Blood Cells % 0.2 %; Platelet Count (auto) 31 10^3/uL (140-450); Red Blood Cells 2.56 10^6/uL (4.0-5.20); White Blood Cell 11.5 10^3/uL (4.4-10.8)
[2024-02-10 14:37] LABS: Platelet Estimate Decreased
[2024-02-10 14:38] LABS: Anisocytosis Slight
--- NOTE | 2024-02-10 15:52 | DVHNC2 ---
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 Indication: Hypotension, CVP monitoring Room prepared for procedure: Yes Manager [employer] performed hand hygien: Yes Maximal sterile barrier precau: Mask/Eye shield, Sterile gown Skin Preparation: Chlorhexidine gluconate Skin preparation completely dr: Yes Insertion site: Right, Femoral Central line catheter type: Dialysis non-tunneled Number of lumens: 2 Central line exchanged over a: Yes Antiseptic ointment applied to: Yes Date of Service: Feb 10, 2024 Billing Provider: CARLOS GARCIA MD Common Visit Codes: [id number] INP/OBS CARE (HIGH) Secondary Visit Codes: [id number] STANDBY SERVICE Consultation Codes: [id number] CONSULT <35MIN Procedure Codes: [id number] NON-TUNNEL CV CATH CARLOS GARCIA MD Feb 10, 2024 15:52
--- NOTE | 2024-02-10 15:53 | DVHNC2 ---
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 Indication: Hypotension Room prepared for procedure: Yes Skirt Clipper performed hand hygien: Yes Maximal sterile barrier precau: Mask/Eye shield, Sterile gown Skin Preparation: Chlorhexidine gluconate Skin preparation completely dr: Yes Insertion site: Right, Internal jugular Central line catheter type: Dialysis non-tunneled Number of lumens: 2 Central line exchanged over a: Yes Antiseptic ointment applied to: Yes Post Assessment: Chest X-Ray Date of Service: Feb 10, 2024 Billing Provider: CARLOS GARCIA MD Common Visit Codes: [id number] INP/OBS CARE (HIGH) Secondary Visit Codes: [id number] STANDBY SERVICE Consultation Codes: [id number] CONSULT <35MIN Procedure Codes: [id number] NON-TUNNEL CV CATH CARLOS GARCIA MD Feb 10, 2024 15:53
--- NOTE | 2024-02-10 15:54 | DVHNC2 ---
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 Indication: Hypotension, CVP monitoring Room prepared for procedure: Yes Child Psychology Teacher performed hand hygien: Yes Maximal sterile barrier precau: Mask/Eye shield, Sterile gown Skin Preparation: Chlorhexidine gluconate Skin preparation completely dr: Yes Insertion site: Left, Femoral Central line catheter type: [id number] dialysis Number of lumens: 3 Antiseptic ointment applied to: Yes Date of Service: Feb 10, 2024 Billing Provider: CARLOS GARCIA MD Common Visit Codes: [id number] INP/OBS CARE (HIGH) Secondary Visit Codes: [id number] STANDBY SERVICE Consultation Codes: [id number] CONSULT <35MIN Procedure Codes: [id number] NON-TUNNEL CV CATH CARLOS GARCIA MD Feb 10, 2024 15:54
[2024-02-10] MEDS: PIPERACILLIN-TAZOB 2.25GM 50 ML IV SCH (17:00)
[2024-02-10 17:35] LABS: Sodium 144 mmol/L (136-145)
[2024-02-10 17:36] LABS: Anion Gap 9 (5-15); Carbon Dioxide 24 mmol/L (20-31)
[2024-02-10 17:41] LABS: BUN/Creatinine Ratio 37.3 (10.0-20.0)
[2024-02-10 17:48] LABS: Chloride 111 mmol/L (98-107); Glucose 158 mg/dL (74-106); Potassium 3.3 mmol/L (3.5-5.1)
[2024-02-10 17:49] LABS: Blood Urea Nitrogen 76 mg/dL (9-23); Calcium 10.9 mg/dL (8.7-10.4)
--- NOTE | 2024-02-10 17:55 | DVHINCON2 ---
Date of service: Feb 10, 2024 Referring Physician Sera Salazar MD Reason for Consultation Acute hypoxic respiratory failure requiring mechanical ventilator. History of Present Illness An 88-year-old woman with PMHx of congestive heart failure, CKD, CVA, Gout, hyperlipidemia, hypertension, WI, thyroid, and UTIs who presented to ED on 02/07/24 for evaluation of altered mental status. Patient is currently on hospice. Per ED records, patient had been deteriorating over the past one-week and family opted to cancel hospice services and bring patient for evaluation. Patient reportedly has been having decreased urine output and oral intake. On admission patient was found to have acute kidney injury w/ elevated BUN and creatinine. Patient was admitted for further care, and pulmonary consultation is requested for evaluation and management of acute hypoxic respiratory failure requiring mechanical ventilator. Review of Systems: 14-point review of systems negative unless otherwise noted above. Past Medical History: Congestive heart failure, CKD, CVA, Gout, hyperlipidemia, hypertension, WI, thyroid, and UTIs Past Surgical History: Pacemaker, PTCA and hysterectomy Medications: Reviewed. Allergies: Codeine. Family History: Cancer and stroke. Social History: Nonsmoker. No alcohol or illicit drug use. Family History: Cancer G8 BROTHER (BONE) Stroke G8 FATHER Allergies: Coded Allergies: Codeine (Verified Allergy, Unknown, 11/10/16) Home Meds Active Scripts Amlodipine Besylate (NORVASC TABLET) 5 Mg Tb, 10 MG PO DAILY, #30 Prov:PAULINO WATSON MD 10/13/15 Reported Medications Apixaban Base (ELIQUIS) 2.5 Mg Tab, 1 TAB PO BID 12/20/22 Pantoprazole Sodium (PANTOPRAZOLE SODIUM) 40 Mg Inj, 20 MG PO DAILY, INJ 01/18/22 Furosemide (Furosemide) 40 Mg Tab, 40 MG PO DAILY for 30 Days 01/18/22 Aspirin (Aspir-Low) 81 Mg Tab, 81 MG PO DAILY for 30 Days, MG 01/18/22 Potassium Chloride (POTASSIUM CHLORIDE CR) 10 Meq Tb, 40 MEQ PO DAILY, TAB 01/18/22 Timolol Maleate (Timolol Maleate Ophthalmi) 0.5 % Elayne, 1 DROP EACHEYE QAM, #5 ML 5 Refills 01/18/22 Aspirin (JEANNE ASPIRIN EC LOW DOSE) 81 Mg Tab, 325 MG OR, TAB 01/18/22 Allopurinol (Allopurinol) 100 Mg Tab, 100 MG PO DAILY for 30 Days, MG 01/18/22 Linaclotide Base (Linzess) 72 Mcg Cap, 145 MCG PO, CAP 01/18/22 Atorvastatin Calcium (ATORVASTATIN CALCIUM) 40 Mg Tab, 1 TAB PO DAILY, #30 TAB 5 Refills 01/18/22 Nortriptyline Hcl (PAMELOR CAPSULE) 25 Mg Cp, 10 MG PO DAILY, CAP 01/18/22 Meclizine Hcl (Meclizine Hcl) 25 Mg Tab, 25 MG PO DAILYPRN PRN for DIZZINESS for 30 Days, MG 01/18/22 Carvedilol (Coreg) 6.25 Mg Tab, 1 TAB PO BID, #180 TAB 3 Refills 01/18/22 Potassium Chloride (Potassium Chloride ER) 20 Meq Tab, 1 TAB PO BID 01/16/22 Furosemide (Furosemide) 40 Mg Tab, 1 TAB PO DAILY 01/16/22 Sacubitril-Valsartan (Entresto 24-26 mg) 1 Tab Tab, 1 TAB PO BID 01/16/22 Hydrocodone-Acetaminophen ([place] 5/325MG) 1 Tab Tb, 1 TAB PO Q4HPRN PRN for MILD PAIN 03/18/16 Hctz (Hydrochlorothiazide) 25 Mg Tab, 50 MG PO, TAB 03/18/16 Aspirin (Aspir-Low) 81 Mg Tab, 81 MG PO DAILY for 30 Days, MG 03/18/16 Current Medications Current Medications Medications (Trade) Dose Ordered Sig/Sheila Route PRN Reason Start Time Stop Time Status Last Admin Purified Water 160 ml Q6HR GT 02/09/24 18:00 02/09/24 23:04 DC 02/09/24 17:20 Calcitonin Immaculata (Miacalcin Injectable) 200 unit Q12H SC 02/09/24 18:00 02/10/24 06:14 Piperacillin Sod/ Tazobactam Sod 50 ml @ 12.5 mls/hr Q8H IV 02/10/24 17:00 Phenylephrine HCl 250 ml @ 30 mls/hr Q8H20M IV 02/10/24 13:45 02/10/24 13:45 Vital Signs Vital Signs Date Time Temp Pulse Resp B/P (MAP) Pulse Ox O2 Delivery O2 Flow Rate FiO2 02/10/24 17:24 111/52 02/10/24 15:32 80 20 100 30 02/10/24 14:00 Mechanical Ventilator+ 02/10/24 13:45 96.6 205.9 02/08/24 14:51 4 Physical Exam Gen.: Patient lying in bed in medical ICU. Sedated, intubated on mechanical ventilator. Head: Normocephalic, atraumatic. Eyes: PERRLA. Ears: Normal external anatomy. Throat: Endotracheal tube and orogastric tube in place. Neck: Supple, trachea midline. Chest: Transmitted breath sounds bilaterally. Decreased air entry bilaterally. No wheezing. Bibasilar crackles. Cardiovascular: Positive S1, positive S2. Regular rate and rhythm. Abdomen: Positive bowel sounds in all 4 quadrants. Soft, nontender, nondistended. : Bustos in place. Normal external genitalia. Rectal: Deferred. Skin: Warm, dry. Intact. Extremities: 2+ radial pulses bilaterally. No lower extremity edema. Neuro: Sedated. Labs/Diagnostic Data Labs Test 02/10/24 17:15 02/10/24 13:39 02/10/24 05:49 02/10/24 05:29 Range/Units White Blood Count 11.5 H 4.4-10.8 10^3/uL Red Blood Count 2.56 L 4.0-5.20 10^6/uL Hemoglobin 7.9 L 12.2-16.2 g/dL Hematocrit 23.9 L 36.0-46.0 % Mean Corpuscular Volume 93.1 80.0-100.0 fL Mean Corpuscular Hemoglobin 31.0 28.0-32.0 pg Mean Corpuscular Hemoglobin Concent 33.3 32.0-36.0 g/dL Red Cell Distribution Width 15.8 H 11.8-14.3 % Platelet Count 31 L 140-450 10^3/uL Mean Platelet Volume 8.4 6.9-10.8 fL Neutrophils (%) (Auto) 85.8 H 37.0-80.0 % Lymphocytes (%) (Auto) 9.4 L 10.0-50.0 % Monocytes (%) (Auto) 3.7 0.0-12.0 % Eosinophils (%) (Auto) 0.7 0.0-7.0 % Basophils (%) (Auto) 0.4 0.0-2.0 % Neutrophils # (Auto) 9.9 H 1.6-8.6 10 ^3/uL Lymphocytes # (Auto) 1.1 0.4-5.4 10 ^3/uL Monocytes # (Auto) 0.4 0-1.3 10 ^3/uL Eosinophils # (Auto) 0.1 0-0.8 10 ^3/uL Basophils # (Auto) 0 0-0.2 10 ^3/uL Nucleated Red Blood Cells 0.2 % Platelet Estimate Decreased Anisocytosis (manual) Slight Doug Cells Many Blood Gas Specimen Type Arterial Blood Gas Sample Site Left radial Blood Gas Patient Temperature 37.0 Arterial Blood Date Drawn [id number] Arterial Blood pH 7.400 7.350-7.450 Arterial Blood Partial Pressure CO2 28.6 L 32.0-45.0 mmHg Arterial Blood Partial Pressure O2 93.7 83.0-108.0 mmHg Arterial Blood HCO3 17.3 L 21.0-28.0 mmol/L Arterial Blood Oxygen Saturation 96.7 94.0-98.0 % Arterial Blood Base Excess -6.6 L -2.0-3.0 mmol/L Arterial Blood Oxyhemoglobin 95.8 94.0-98.0 % Arterial Blood Carboxyhemoglobin 0.3 L 0.5-1.5 % Arterial Blood Methemoglobin 0.6 0.0-1.5 % Jonas Test Modified Blood Gas Total Hemoglobin 8.80 L 12.0-16.0 g/dL Blood Gas Set Respiration Rate 20.0 Blood Gas Modality Vent - ac FiO2 % 30.0 Blood Gas Tidal Volume 400.0 Blood Gas PEEP or CPAP 5.0 Lactic Acid Level 2.0 0.4-2.0 mmol/L Phosphorus Level 1.8 L 2.4-5.1 mg/dL Magnesium Level 2.6 1.6-2.6 mg/dL Total Bilirubin 0.3 0.2-1.0 mg/dL Aspartate Amino Transferase (AST) 19 13-40 U/L Alanine Aminotransferase (ALT) 11 7-40 U/L Alkaline Phosphatase 57 46-116 U/L Total Protein 5.5 L 5.7-8.2 g/dL Albumin 3.1 L 3.2-4.8 g/dL Test 02/09/24 22:22 02/09/24 17:09 02/09/24 04:34 02/08/24 20:23 Range/Units B-Type Natriuretic Peptide 506.89 0-100 pg/mL Influenza Type A Antigen Negative Negative Influenza Type B Antigen Negative Negative Blood Gas Spontaneous Rate 20 Specimen Drawn By plumber maintenance agustina whatley Blood Gas Critical Value Read Back yes Blood Gas Notified Whom Blood Gas Notified Time [id number] Blood Gas Notified By plumber maintenance agustina whatley Test 02/08/24 17:31 02/08/24 17:16 02/08/24 15:00 02/08/24 13:10 Range/Units POC Glucose 110 H 70-106 mg/dl Urine Creatinine 16.13 L 30.0-125.0 mg/dL Urine Protein/Creatinine Ratio 2.34 Urine Sodium 117 40-220 mmol/L Urine Total Protein 37.8 H 1-14 mg/dL Prothrombin Time 11.9 H 9.3-11.8 sec Prothrombin Time INR 1.13 0.9-1.15 Activated Partial Thromboplast Time 20.2 L 24.5-34.5 SEC Blood Gas Liter Flow 15.00 Test 02/08/24 12:10 02/08/24 05:50 02/08/24 05:40 02/07/24 23:05 Range/Units Vitamin D 25-Hydroxy 66.4 30.0-100 ng/mL Uric Acid 13.6 H 3.1-7.8 mg/dL Parathyroid Hormone (Intact) 616.5 H 18.4-80.1 pg/mL Troponin I High Sensitivity 283 *H </=34 ng/L Test 02/07/24 17:43 Range/Units Urine Color Colorless Yellow Urine Clarity Turbid H Clear Urine pH 5.0 5.0-9.0 Urine Specific [place] 1.015 1.001-1.035 Urine Protein Trace H Negative Urine Ketones Negative Negative Urine Blood Trace H Negative /uL Urine Nitrite Negative Negative Urine Bilirubin Negative Negative Urine Urobilinogen Normal Negative mg/dL Urine Leukocyte Esterase 3+ Negative /uL Urine RBC 1 0 - 4 /hpf Urine WBC 129 0 - 5 /hpf Urine Squamous Epithelial Cells Few <5 /hpf Urine Bacteria Many H None Seen /hpf Urine Mucus Few None Seen Urine Yeast (Budding) Moderate None Seen /hpf Urine Glucose Normal Normal mg/dL Urine Opiates Screen Neg NEGATIVE Urine Fentanyl Screen Neg NEGATIVE Urine Barbiturates Screen Neg NEGATIVE Urine Phencyclidine Screen Neg NEGATIVE Urine Amphetamines Screen Neg NEGATIVE Urine Benzodiazepines Screen Neg NEGATIVE Urine Cocaine Screen Neg NEGATIVE Urine Cannabinoids Screen Neg NEGATIVE Microbiology Date/Time Source Procedure Growth Status 02/09/24 02:25 Urine - [place] Urine Culture - Preliminary Resulted 02/08/24 17:17 Sputum Gram Stain - Final Resulted 02/08/24 17:17 Sputum Respiratory Culture - Preliminary Resulted 02/08/24 14:05 Nose MRSA Screen - Final Complete 02/08/24 12:10 Blood Blood Culture - Preliminary NO GROWTH AFTER 48 HOURS OF INCUBATION. Resulted Assessment Impression: Acute hypoxic respiratory failure On mechanical ventilator Metabolic encephalopathy Acute on chronic renal failure History of CVA with left-sided deficits Metabolic acidosis Plan: s/p intubation on mechanical ventilator. CXR image and report reviewed. Devices in place. Patchy opacities in the left lung. ABG reviewed, compensated. Metabolic acidosis w/ respiratory compensation. On AC mode; RR 20, VT 400, PEEP 5, FiO2 30% Titrate FIO2 to keep O2 saturation above 90%. VAP bundle. Daily ABG and CXR while intubated Sedate for ventilator synchrony - on Fentanyl Antibiotics - Zosyn. F/u cultures. Monitor WBC - 14.8 K IV fluid hydration D5 + bicarb Monitor lactic acid -2.0 On pressors for hemodynamic support Levophed 6 mcg/min Titrate to keep mean arterial pressure greater than 65 mmHg. Plan for hemodialysis today Follow up Nephrology recs Monitor renal function Monitor electrolytes. Supplement as necessary. Monitor ins and outs. GI prophylaxis. DVT prophylaxis. Prognosis: Poor given patient's multiple co-morbidities. Condition: Critical Rest of plan per hospitalist and other consultants. A total of 35 minutes of critical care time was spent reviewing the patient record, examining the patient, making a diagnostic and therapeutic plan, discussing this plan with the medical personnel, following up on diagnostic studies and following the patient for clinical stability excluding any and all procedures. At least 50% of this time was spent in direct, [id number] contact. Thank you, Dr. Salazar, for allowing me to participate in this patient's care. Further recommendations will depend on the patient's clinical course. Please do not hesitate to contact me if you have any questions or concerns. This medical document was created using an electronic medical record system with [employer] dictation system. Although these documentations are being carefully reviewed, there may still be some phonetic and typographical changes. The errors are purely typographical, due to imperfection on the software program, and do not reflect any compromise in the patient's medical care. Plan discussed with: Daughter, Other (SHANIKA Bains/MD Salazar) LAKSHMI LAYTON MD Feb 10, 2024 17:55
--- NOTE | 2024-02-10 19:19 | DVH ---
EXAM: XY CHEST PORTABLE TECHNIQUE: Single frontal chest radiograph CLINICAL HISTORY: CHECK PLACEMENT OF ET AND OG TUBE COMPARISON: XY CHEST XRAY 1 VIEW on DOS: 02/10/24, XY CHEST PORTABLE on DOS: 02/09/24, XY CHEST CARINA BLE on DOS: 02/08/24 Findings/Impression: Frontal chest radiograph demonstrates no acute osseous or superficial soft tissue abnormalities. Left chest wall dual chamber pacemaker. Endotracheal tube terminates 5.4 cm from the zeny. Enteric tube is overlying the plane of the stoma ch. Right sided IJ catheter terminates near the superior cavoatrial junction. The trachea is midline. The cardiac silhouette and mediastinum are within normal limits. Simiar opacities in the left lung. No pneumothorax or pleural effusions.
[2024-02-10 19:31] LABS: Hematocrit 22.7 % (36.0-46.0); Hemoglobin 7.4 g/dL (12.2-16.2)
[2024-02-10 19:45] LABS: INR 1.11 (0.9-1.15); Prothrombin Time 11.7 sec (9.3-11.8)
[2024-02-10] MEDS: EPOETIN ALFA-EPBX 10,000 UNIT/1ML VIAL SC ONE (21:00)
[2024-02-10] MEDS: EPOETIN ALFA-EPBX 4,000 UNIT/ML VIAL SC ONE (21:00)
[2024-02-10] MEDS: POTASSIUM CHL 20MEQ/100ML 100 ML IV ONE (22:27)
[2024-02-11] VITALS (117 sets, daily range): BP systolic 74–205; BP diastolic 26–95; PULSE 61–121; RESP 15–21; TEMP 96.1–99.1; O2SAT 71–100
[2024-02-11 00:57] LABS: Hematocrit 25.6 % (36.0-46.0); Hemoglobin 8.1 g/dL (12.2-16.2)
--- NOTE | 2024-02-11 05:49 | DVH ---
CHEST RADIOGRAPH Indication: vent Technique: Single frontal view of the chest was obtained Comparison: XY CHEST PORTABLE on DOS: 02/10/24, XY CHEST XRAY 1 VIEW on DOS: 02/10/24, XY CHEST [place]INA BLE on DOS: 02/09/24 IMPRESSION: The heart appears normal in size with a dual lead left cardiac device. Support lines and tubes appea r unchanged in satisfactory position. There appears to be possible gastric distention of the stomach. Patchy airspace opacities in the left lung appear similar to mildly improved. No discrete pneumothor ax. The right lung appears clear.
[2024-02-11 07:30] LABS: Base Excess -5.1 mmol/L (-2.0-3.0)
[2024-02-11 09:23] LABS: Basophils # (auto) 0 10 ^3/uL (0-0.2)
[2024-02-11 09:30] LABS: Basophils % (auto) 0.2 % (0.0-2.0); Eosinophils # (auto) 0.2 10 ^3/uL (0-0.8); Eosinophils % (auto) 1.5 % (0.0-7.0); Hematocrit 21.8 % (36.0-46.0); Lymphocytes # (auto) 1.4 10 ^3/uL (0.4-5.4); Lymphocytes % (auto) 9.5 % (10.0-50.0); Mean Corpuscular Hemoglobin 31.4 pg (28.0-32.0); Mean Corpuscular Hgb Conc. 30.7 g/dL (32.0-36.0); Mean Corpuscular Volume 102.3 fL (80.0-100.0); Neutrophils # (auto) 11.6 10 ^3/uL (1.6-8.6); Neutrophils % (auto) 81.8 % (37.0-80.0); Nucleated Red Blood Cells % 0.3 %; Platelet Count (auto) 66 10^3/uL (140-450); Red Blood Cells 2.13 10^6/uL (4.0-5.20); Red Cell Distribution Width 16.8 % (11.8-14.3); White Blood Cell 14.2 10^3/uL (4.4-10.8)
[2024-02-11 09:36] LABS: Hemoglobin 6.7 g/dL (12.2-16.2)
[2024-02-11 09:50] LABS: Alanine Aminotransferase 14 U/L (7-40); Alkaline Phosphatase 89 U/L (46-116); Anion Gap 12 (5-15); Aspartate Aminotransferase 40 U/L (13-40); BUN/Creatinine Ratio 26.7 (10.0-20.0); Bilirubin, Total 0.3 mg/dL (0.2-1.0); Glucose 103 mg/dL (74-106); Magnesium 2.2 mg/dL (1.6-2.6); Potassium 4.9 mmol/L (3.5-5.1); Sodium 143 mmol/L (136-145)
[2024-02-11 09:51] LABS: Albumin 2.5 g/dL (3.2-4.8); Blood Urea Nitrogen 64 mg/dL (9-23); Carbon Dioxide 19 mmol/L (20-31); Chloride 112 mmol/L (98-107); Total Protein 4.8 g/dL (5.7-8.2)
--- NOTE | 2024-02-11 11:30 | DVHPN2 ---
Subjective Intubated and sedated Hb 6.7 Changes from previous H/P or p: Changes Objective Vitals Vital Signs Date Time Temp Pulse Resp B/P (MAP) Pulse Ox O2 Delivery O2 Flow Rate FiO2 02/11/24 11:22 96.8 101 20 112/55 96.8 02/11/24 09:35 99 30 02/11/24 08:00 Mechanical Ventilator+ Intake/Output Intake and Output 02/11/24 07:00 Intake Total 4967.75 ml Output Total 425 ml Balance 4542.75 ml Intake Oral 30 ml IV Total 4937.75 ml Output Urine Total 425 ml # Bowel Movements 1 General Appearance: Other (Sedated) Lungs: Clear to auscultation, Normal air movement Cardiovascular: Regular rate, Normal S1, Normal S2 Extremities: No edema Medications Current Medications Medications Dose Ordered Sig/Sheila Route Start Time Stop Time Status Last Admin Dose Admin Aspirin 162 mg DAILY PO 02/08/24 10:00 02/10/24 09:09 162 MG Atorvastatin Calcium 40 mg HS PO 02/07/24 22:00 02/10/24 22:27 40 MG Ondansetron HCl 4 mg Q4HP PRN IV 02/07/24 19:45 Acetaminophen 650 mg Q6HP PRN PO 02/07/24 19:45 Norepinephrine Bitartrate 250 ml @ 1.875 mls/ hr Q24H IV 02/08/24 14:00 02/11/24 06:33 56.25 MLS/HR Ipratropium [place] 0.5 mg Q6HPRN PRN NEB 02/08/24 14:30 02/10/24 05:37 0.5 MG Norepinephrine Bitartrate 250 ml @ 3.75 mls/hr Q24H IV 02/08/24 17:00 02/11/24 02:28 56.25 MLS/HR Vasopressin 20 units/Sodium Chloride 100 ml @ 9 mls/hr Q11H7M IV 02/08/24 17:00 Midazolam HCl 50 ml @ 1 mls/hr Q24H IV 02/08/24 17:00 02/11/24 05:19 4 MLS/HR Fentanyl Citrate 250 ml @ 2.5 mls/hr Q24H IV 02/08/24 17:00 02/11/24 07:45 12.5 MLS/HR Lorazepam 2 mg Q2HP PRN IV 02/08/24 17:00 Morphine Sulfate 2 mg Q4HP PRN IV 02/08/24 17:00 Pantoprazole Sodium 40 mg DAILY IV 02/09/24 10:00 02/11/24 10:08 40 MG Enoxaparin Sodium 50 mg DAILY SC 02/09/24 10:00 02/10/24 09:08 50 MG Enteral Nutritional Formula 1,000 ml 30ML/HR GT 02/09/24 13:30 Calcitonin [place] 200 unit Q12H SC 02/09/24 18:00 02/10/24 06:14 200 UNIT Piperacillin Sod/ Tazobactam Sod 50 ml @ 12.5 mls/hr Q8H IV 02/10/24 17:00 02/11/24 10:09 12.5 MLS/HR Phenylephrine HCl 250 ml @ 30 mls/hr Q8H20M IV 02/10/24 13:45 02/11/24 01:25 30 MLS/HR Laboratory Results Laboratory Tests 02/11/24 08:33 Chemistry Test 02/10/24 17:15 02/11/24 08:33 Calcium Level 10.9 mg/dL (8.7-10.4) H 11.0 mg/dL (8.7-10.4) H Albumin 2.5 g/dL (3.2-4.8) L Magnesium Level 2.2 mg/dL (1.6-2.6) Total Protein 4.8 g/dL (5.7-8.2) L Coagulation Test 02/10/24 18:57 Prothrombin Time 11.7 sec (9.3-11.8) Prothrombin Time INR 1.11 (0.9-1.15) LFT Test 02/11/24 08:33 Alanine Aminotransferase (ALT) 14 U/L (7-40) Alkaline Phosphatase 89 U/L (46-116) Aspartate Amino Transferase (AST) 40 U/L (13-40) Total Bilirubin 0.3 mg/dL (0.2-1.0) Urinalysis Test 02/07/24 17:43 02/08/24 17:16 Urine Color Colorless (Yellow) Urine Clarity Turbid (Clear) H Urine pH 5.0 (5.0-9.0) Urine Specific [place] 1.015 (1.001-1.035) Urine Protein Trace (Negative) H Urine Ketones Negative (Negative) Urine Blood Trace /uL (Negative) H Urine Nitrite Negative (Negative) Urine Bilirubin Negative (Negative) Urine Urobilinogen Normal mg/dL (Negative) Urine Leukocyte Esterase 3+ /uL (Negative) Urine RBC 1 /hpf (0 - 4) Urine WBC 129 /hpf (0 - 5) Urine Squamous Epithelial Cells Few /hpf (<5) Urine Bacteria Many /hpf (None Seen) H Urine Mucus Few (None Seen) Urine Yeast (Budding) Moderate /hpf (None Seen) Urine Glucose Normal mg/dL (Normal) Urine Creatinine 16.13 mg/dL (30.0-125.0) L Urine Protein/Creatinine Ratio 2.34 Urine Sodium 117 mmol/L (40-220) Urine Total Protein 37.8 mg/dL (1-14) H Blood Gas Results Test 02/11/24 06:54 Arterial Blood pH 7.428 (7.350-7.450) FiO2 % 30.0 Microbiology Microbiology Date/Time Source Procedure Growth Status 02/09/24 02:25 Urine - [place] Urine Culture - Preliminary Resulted 02/08/24 17:17 Sputum Gram Stain - Final Resulted 02/08/24 17:17 Sputum Respiratory Culture - Preliminary Resulted 02/08/24 14:05 Nose MRSA Screen - Final Complete 02/08/24 12:10 Blood Blood Culture - Preliminary NO GROWTH AFTER 48 HOURS OF INCUBATION. Resulted Assessment/Plan Assessment/Plan Acute hypoxic respiratory failure Acute kidney injury due to possibly acute tubular necrosis/end-stage kidney disease, needs dialysis Right parathyroid hormone Metabolic acidosis Sepsis and septic shock due to UTI and pneumonia UTI Pneumonia Thrombocytopenia due to sepsis Protein calorie malnutrition Hypernatremia Hypercalcemia Plan 02/10/24: The patient needs dialysis Dialysis catheter to be replaced today since the current 1 is malfunctioning Vasopressors as needed Sedation as needed Discussed with her grand daughter at the bedside Full code IV antibiotics: Zosyn 02/11/24: Transfuse one unit RBCs HD per nephrology Sedation as needed Vasopressors as needed Discussed with granddaughter at the bedside Plan discussed with: Daughter My Orders Orders - LUNA DENIS MD Procedure Category Date Status Time Chest Portable XY 02/11/24 Resulted 06:00 Abg W/ Co-Ox RT 02/11/24 Logged 06:00 Phenylephrine Iv PHA 02/10/24 In Process (Phenylephrine/Ns) 13:45 Chest Portable XY 02/10/24 Resulted 16:13 Date of Service: Feb 11, 2024 Billing Provider: LUNA DENIS MD Common Visit Codes: [id number] INP/OBS CARE(HIGH) LUNA DENIS MD Feb 11, 2024 11:30
--- NOTE | 2024-02-11 11:55 | DVHPN2 ---
Progress Note Date Seen: Feb 11, 2024 Has the PT tested + for MRSA If YES, has PT been informed?: No Medical Necessity Reason Pt with a Central, PICC or Fol: Yes The following are medically ne: Central Line, Lowery Catheter Reason for lowery catheter: Strict I&O Subjective Review of Systems: RESPIRATORY:Abnormal Other Systems: Patient seen and examined by myself in follow-up today, patient remained intubated on ventilator Objective vital signs Vital Sign Date Time Temp Pulse Resp B/P (MAP) Pulse Ox O2 Delivery O2 Flow Rate FiO2 02/11/24 11:28 106 20 137/61 (86) 100 30 02/11/24 11:22 96.8 96.8 02/11/24 08:00 Mechanical Ventilator+ Total Intake and Output 02/10/24 02/10/24 02/11/24 15:00 23:00 07:00 Intake Total 1752.75 ml 1133.25 ml 2081.75 ml Output Total 325 ml 100 ml Balance 1752.75 ml 808.25 ml 1981.75 ml medications Current Medications Medications Dose Ordered Sig/Sheila Route Start Time Stop Time Status Last Admin Dose Admin Aspirin 162 mg DAILY PO 02/08/24 10:00 02/10/24 09:09 162 MG Atorvastatin Calcium 40 mg HS PO 02/07/24 22:00 02/10/24 22:27 40 MG Ondansetron HCl 4 mg Q4HP PRN IV 02/07/24 19:45 Acetaminophen 650 mg Q6HP PRN PO 02/07/24 19:45 Norepinephrine Bitartrate 250 ml @ 1.875 mls/ hr Q24H IV 02/08/24 14:00 02/11/24 06:33 56.25 MLS/HR Ipratropium [place] 0.5 mg Q6HPRN PRN NEB 02/08/24 14:30 02/10/24 05:37 0.5 MG Norepinephrine Bitartrate 250 ml @ 3.75 mls/hr Q24H IV 02/08/24 17:00 02/11/24 02:28 56.25 MLS/HR Vasopressin 20 units/Sodium Chloride 100 ml @ 9 mls/hr Q11H7M IV 02/08/24 17:00 Midazolam HCl 50 ml @ 1 mls/hr Q24H IV 02/08/24 17:00 02/11/24 05:19 4 MLS/HR Fentanyl Citrate 250 ml @ 2.5 mls/hr Q24H IV 02/08/24 17:00 02/11/24 07:45 12.5 MLS/HR Lorazepam 2 mg Q2HP PRN IV 02/08/24 17:00 Morphine Sulfate 2 mg Q4HP PRN IV 02/08/24 17:00 Pantoprazole Sodium 40 mg DAILY IV 02/09/24 10:00 02/11/24 10:08 40 MG Enoxaparin Sodium 50 mg DAILY SC 02/09/24 10:00 02/10/24 09:08 50 MG Enteral Nutritional Formula 1,000 ml 30ML/HR GT 02/09/24 13:30 Calcitonin [place] 200 unit Q12H SC 02/09/24 18:00 02/10/24 06:14 200 UNIT Piperacillin Sod/ Tazobactam Sod 50 ml @ 12.5 mls/hr Q8H IV 02/10/24 17:00 02/11/24 10:09 12.5 MLS/HR Phenylephrine HCl 250 ml @ 30 mls/hr Q8H20M IV 02/10/24 13:45 02/11/24 01:25 30 MLS/HR Examination: LUNGS:Normal, CVS:Normal, MSK:Normal laboratory and microbiology Laboratory Tests 02/11/24 08:33 Test 02/11/24 08:33 Range/Units Serum Glucose 103 74-106 mg/dL Microbiology Date/Time Source Procedure Growth Status 02/09/24 02:25 Urine - [place] Urine Culture - Preliminary Resulted 02/08/24 17:17 Sputum Gram Stain - Final Resulted 02/08/24 17:17 Sputum Respiratory Culture - Preliminary Resulted 02/08/24 14:05 Nose MRSA Screen - Final Complete 02/08/24 12:10 Blood Blood Culture - Preliminary NO GROWTH AFTER 48 HOURS OF INCUBATION. 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
[2024-02-11] MEDS: Nepro With Carb Steady 1 Liter Bottle GT SCH (12:18)
--- NOTE | 2024-02-11 12:21 | DVHSR ---
APPROVED REPORT EXAM: LIMITED Two-dimensional and M-mode echocardiogram with Doppler and color Doppler. Blood Pressure: 131/74 mmHg INDICATION PPM, last ef 45 Surgery/Intervention Pacemaker: RISK FACTORS Height: 5'5", Weight: 107 DIMENSIONS LVDd3.4 (3.8-5.7cm)LA (2D) (1.9-4.0cm)Aortic Root3.7 (2.0-3.7cm) LVDs2.5 (2.5-4.0cm)LA (MM) (1.9-4.0cm)Aortic Cusp Exc1.5 (1.5-2.0cm) EF (%) 55.0 (55-70%)Rt. Atrium (1.9-4.0cm)Asc. Aorta cm IVSd1.7 (0.7-1.1cm)RV (D) (1.8-2.4cm) PWd1.4 (0.7-1.1cm) Mitral Valve MitralMitral Stenosis E wave1.34m/sMV Mean GR.mmHg E/A ratio0.02D MVAcm2 Aortic Valve Aortic ValveAortic Stenosis LVOT Diameter1.7 (1.8-2.4cm)Doppler AVAcm2 Tricuspid Valve TR Velocity3.33m/s [id number] Other Information Quality : Technically LimitedRhythm : Technically limited study due to body habitus, patient position and on vent. Conclusion MODERATE DEGREE LVH AND MODERATE DEGREE LV DIASTOLIC DYSFUNCTION LV EJECTION FRACTION IS 65% DYSKINESIS OF IVS MODERATELY DILATED RV AND IS HYPOKINETIC NORMAL VALVES NO EFFUSION MODERATE DEGREE PULMONARY HYPERTENSION RVSP IS 52 MM OF HG AND IS VERY HIGH PACEMAKER IN RIGHT CARDIAC CHAMBERS
--- NOTE | 2024-02-11 12:38 | MEDREC ---
[facility] Intervention Section I [facility] Intervention: Review courses of therapy (PRELIMINARY URINE CULTURE RESULTS ( >100,000 CFU/mL Yeast) - PLASE CONSIDER ADDING ANTIFUNGAL AGENT) KADE FENTON PHARMACIST Feb 11, 2024 12:38
--- NOTE | 2024-02-11 21:13 | DVHPN2 ---
Progress Note - Dictate Date Seen: Feb 11, 2024 Has the PT tested + for MRSA If YES, has PT been informed?: No Medical Necessity Reason Pt with a Central, PICC or Fol: Yes The following are medically ne: Central Line, Lowery Catheter Reason for lowery catheter: Strict I&O Subjective Patient seen and examined at bedside. Sedated, intubated on mechanical ventilator. Overnight events reviewed. vital signs Vital Sign Date Time Temp Pulse Resp B/P (MAP) Pulse Ox O2 Delivery O2 Flow Rate FiO2 02/11/24 20:30 97.3 95 20 123/55 (77) 100 207.1 02/11/24 20:14 30 02/11/24 20:00 Mechanical Ventilator+ Total Intake and Output 02/10/24 02/10/24 02/11/24 15:00 23:00 07:00 Intake Total 1752.75 ml 1133.25 ml 2262.95 ml Output Total 325 ml 100 ml Balance 1752.75 ml 808.25 ml 2162.95 ml medications Current Medications Medications Dose Ordered Sig/Sheila Route Start Time Stop Time Status Last Admin Dose Admin Aspirin 162 mg DAILY PO 02/08/24 10:00 02/10/24 09:09 162 MG Atorvastatin Calcium 40 mg HS PO 02/07/24 22:00 02/10/24 22:27 40 MG Ondansetron HCl 4 mg Q4HP PRN IV 02/07/24 19:45 Acetaminophen 650 mg Q6HP PRN PO 02/07/24 19:45 Norepinephrine Bitartrate 250 ml @ 1.875 mls/ hr Q24H IV 02/08/24 14:00 02/11/24 12:09 26.25 MLS/HR Ipratropium [place] 0.5 mg Q6HPRN PRN NEB 02/08/24 14:30 02/10/24 05:37 0.5 MG Norepinephrine Bitartrate 250 ml @ 3.75 mls/hr Q24H IV 02/08/24 17:00 02/11/24 02:28 56.25 MLS/HR Vasopressin 20 units/Sodium Chloride 100 ml @ 9 mls/hr Q11H7M IV 02/08/24 17:00 Midazolam HCl 50 ml @ 1 mls/hr Q24H IV 02/08/24 17:00 02/11/24 17:43 4 MLS/HR Fentanyl Citrate 250 ml @ 2.5 mls/hr Q24H IV 02/08/24 17:00 02/11/24 07:45 12.5 MLS/HR Lorazepam 2 mg Q2HP PRN IV 02/08/24 17:00 Morphine Sulfate 2 mg Q4HP PRN IV 02/08/24 17:00 Pantoprazole Sodium 40 mg DAILY IV 02/09/24 10:00 02/11/24 10:08 40 MG Enoxaparin Sodium 50 mg DAILY SC 02/09/24 10:00 02/10/24 09:08 50 MG Enteral Nutritional Formula 1,000 ml 30ML/HR GT 02/09/24 13:30 02/11/24 12:18 1,000 ML Calcitonin [place] 200 unit Q12H SC 02/09/24 18:00 02/11/24 17:55 200 UNIT Piperacillin Sod/ Tazobactam Sod 50 ml @ 12.5 mls/hr Q8H IV 02/10/24 17:00 02/11/24 17:45 12.5 MLS/HR Phenylephrine HCl 250 ml @ 30 mls/hr Q8H20M IV 02/10/24 13:45 02/11/24 01:25 30 MLS/HR Dexmedetomidine HCl 400 mcg/ Dextrose 100 ml @ 2.435 mls/ hr Q24H IV 02/11/24 20:30 objective Gen.: Patient lying in bed in medical ICU. Sedated, intubated on mechanical ventilator. Head: Normocephalic, atraumatic. Eyes: PERRLA. Ears: Normal external anatomy. Throat: Endotracheal tube and orogastric tube in place. Neck: Supple, trachea midline. Chest: Transmitted breath sounds bilaterally. Decreased air entry bilaterally. No wheezing. Bibasilar crackles. Cardiovascular: Positive S1, positive S2. Regular rate and rhythm. Abdomen: Positive bowel sounds in all 4 quadrants. Soft, nontender, nondistended. : Lowery in place. Normal external genitalia. Rectal: Deferred. Skin: Warm, dry. Intact. Extremities: 2+ radial pulses bilaterally. No lower extremity edema. Neuro: Sedated. laboratory and microbiology Laboratory Tests 02/11/24 08:33 Test 02/11/24 08:33 Range/Units Serum Glucose 103 74-106 mg/dL Assessment/Plan Impression: Acute hypoxic respiratory failure On mechanical ventilator Metabolic encephalopathy Acute on chronic renal failure History of CVA with left-sided deficits Metabolic acidosis Events: Remains on vent support On AC mode; RR 20, VT 400, PEEP 5, FiO2 30% Sedated on Fentanyl, Versed On pressors for hemodynamic support Levophed 12 mcg/min Titrate to keep mean arterial pressure greater than 65 mmHg. Off Bernard-Synephrine ABG reviewed, compensated. Hemodialysis in the AM. Continue antibiotics Taper sedation as tolerated CPAP with PS 8, PEEP 5 in AM. Precedex OK for agitation Labs and imaging reviewed. Rest of plan as noted below. Plan: s/p intubation on mechanical ventilator. CXR image and report reviewed. Devices in place. Patchy opacities in the left lung. ABG reviewed, compensated. Metabolic acidosis w/ respiratory compensation. On AC mode; RR 20, VT 400, PEEP 5, FiO2 30% Titrate FIO2 to keep O2 saturation above 90%. VAP bundle. Daily ABG and CXR while intubated Sedate for ventilator synchrony Antibiotics - Zosyn. F/u cultures. Monitor WBC - 14.2 K IV fluid hydration D5 + bicarb Monitor lactic acid On pressors for hemodynamic support Titrate to keep mean arterial pressure greater than 65 mmHg. Hemodialysis per Nephrology Nephrology recs appreciated Monitor renal function Monitor electrolytes. Supplement as necessary. Monitor ins and outs. GI prophylaxis. DVT prophylaxis. Prognosis: Poor given patient's multiple co-morbidities. Condition: Critical Rest of plan per hospitalist and other consultants. A total of 35 minutes of critical care time was spent reviewing the patient record, examining the patient, making a diagnostic and therapeutic plan, discussing this plan with the medical personnel, following up on diagnostic studies and following the patient for clinical stability excluding any and all procedures. At least 50% of this time was spent in direct, [id number] contact. Thank you, Dr. Salazar, for allowing me to participate in this patient's care. Further recommendations will depend on the patient's clinical course. Please do not hesitate to contact me if you have any questions or concerns. This medical document was created using an electronic medical record system with [employer] system. Although these documentations are being carefully reviewed, there may still be some phonetic and typographical changes. The errors are purely typographical, due to imperfection on the software program, and do not reflect any compromise in the patient's medical care. Dietary Evaluation Review Comments: 1. Continue TF as tolerated 2. Consider adding Cheng BID and Prostat QDAY once medically appropriate for wound healing Expected Outcomes/Goals: 1. Pt will meet >75% estimated needs within 2-3 days Plan discussed with: Other (SHANIKA Cardona) Critical Care Time(min): 35 LAKSHMI LAYTON MD Feb 11, 2024 21:13
[2024-02-12] VITALS (105 sets, daily range): BP systolic 81–209; BP diastolic 30–81; PULSE 77–113; RESP 18–27; TEMP 97–99.1; O2SAT 91–100
--- NOTE | 2024-02-12 04:45 | DVH ---
CHEST RADIOGRAPH Indication: vent Technique: Single frontal view of the chest was obtained Comparison: XY CHEST PORTABLE on DOS: 02/11/24 FINDINGS: Lines and Tubes: The endotracheal tube terminates 5.3 cm above the zeny. Right central venous jacinto ter terminates in the superior vena cava. Dual lead pacemaker with right atrial and ventricular leads . The enteric tube terminates stomach. Lungs: Patchy left upper and lower lobe airspace disease, decreased since prior study. The right lung remains clear. Pleura: No effusion. No pneumothorax. Cardiomediastinal contours: Unremarkable Bones: No acute osseous abnormality. IMPRESSION: 1. Stable position of the support lines and tubes. 2. Patchy left airspace disease, decreased since prior study.
[2024-02-12 05:22] LABS: Basophils # (auto) 0 10 ^3/uL (0-0.2); Eosinophils # (auto) 0.1 10 ^3/uL (0-0.8); White Blood Cell 12.1 10^3/uL (4.4-10.8)
[2024-02-12 05:24] LABS: Eosinophils % (auto) 0.5 % (0.0-7.0); Hematocrit 24.1 % (36.0-46.0); Hemoglobin 7.9 g/dL (12.2-16.2); Lymphocytes # (auto) 0.6 10 ^3/uL (0.4-5.4); Lymphocytes % (auto) 5.3 % (10.0-50.0); Mean Corpuscular Hemoglobin 31.3 pg (28.0-32.0); Mean Corpuscular Volume 94.9 fL (80.0-100.0); Monocytes # (auto) 0.8 10 ^3/uL (0-1.3); Monocytes % (auto) 6.9 % (0.0-12.0); Neutrophils # (auto) 10.5 10 ^3/uL (1.6-8.6); Neutrophils % (auto) 87.3 % (37.0-80.0); Nucleated Red Blood Cells % 0.2 %; Platelet Count (auto) 60 10^3/uL (140-450); Red Blood Cells 2.53 10^6/uL (4.0-5.20); Red Cell Distribution Width 15.2 % (11.8-14.3)
[2024-02-12 05:39] LABS: Alanine Aminotransferase 12 U/L (7-40); Anion Gap 13 (5-15); Aspartate Aminotransferase 19 U/L (13-40); BUN/Creatinine Ratio 34.3 (10.0-20.0); Bilirubin, Total 0.4 mg/dL (0.2-1.0); Carbon Dioxide 21 mmol/L (20-31); Glucose 97 mg/dL (74-106); Potassium 3.8 mmol/L (3.5-5.1)
[2024-02-12 06:08] LABS: Albumin 2.6 g/dL (3.2-4.8); Alkaline Phosphatase 164 U/L (46-116); Calcium 10.9 mg/dL (8.7-10.4); Chloride 112 mmol/L (98-107); Sodium 146 mmol/L (136-145); Total Protein 4.7 g/dL (5.7-8.2)
[2024-02-12 06:09] LABS: Blood Urea Nitrogen 87 mg/dL (9-23)
[2024-02-12] MEDS: SODIUM CHL 0.9% 1000 ML BAG XX ONE (08:00)
[2024-02-12 09:24] LABS: Hepatitis A Ab IgM Negative; Hepatitis B Core IgM Negative (Negative); Hepatitis B Surface Antigen Negative (Negative); Hepatitis C Antibody Negative (Negative)
[2024-02-12] MEDS ORDERED: ALBUMIN 25% 100 ML IV SCH (10:00)
[2024-02-12] MEDS: ALBUMIN 25% 50 ML IV SCH (10:19)
[2024-02-12] MEDS: SOD CHL 0.45% 1,000 ML IV SCH (10:30)
--- NOTE | 2024-02-12 10:34 | DVHPN2 ---
Progress Note Date Seen: Feb 12, 2024 Has the PT tested + for MRSA If YES, has PT been informed?: No Medical Necessity Reason Pt with a Central, PICC or Fol: Yes The following are medically ne: Central Line, Lowery Catheter Reason for lowery catheter: Strict I&O Subjective Patient reports: Feels worse, Other Review of Systems: HEENT:Abnormal Objective vital signs Vital Sign Date Time Temp Pulse Resp B/P (MAP) Pulse Ox O2 Delivery O2 Flow Rate FiO2 02/12/24 09:54 77 22 114/46 (68) 100 30 02/12/24 08:45 98.8 209.8 02/12/24 08:00 Mechanical Ventilator+ Total Intake and Output 02/11/24 02/11/24 02/12/24 15:00 23:00 07:00 Intake Total 367.50 ml 871.750 ml 335.00 ml Output Total 150 ml 860 ml Balance 367.50 ml 721.750 ml -525.00 ml medications Current Medications Medications Dose Ordered Sig/Sheila Route Start Time Stop Time Status Last Admin Dose Admin Atorvastatin Calcium 40 mg HS PO 02/07/24 22:00 02/11/24 21:33 40 MG Ondansetron HCl 4 mg Q4HP PRN IV 02/07/24 19:45 Acetaminophen 650 mg Q6HP PRN PO 02/07/24 19:45 Norepinephrine Bitartrate 250 ml @ 1.875 mls/ hr Q24H IV 02/08/24 14:00 02/12/24 07:02 26.25 MLS/HR Ipratropium [place] 0.5 mg Q6HPRN PRN NEB 02/08/24 14:30 02/10/24 05:37 0.5 MG Norepinephrine Bitartrate 250 ml @ 3.75 mls/hr Q24H IV 02/08/24 17:00 02/11/24 02:28 56.25 MLS/HR Vasopressin 20 units/Sodium Chloride 100 ml @ 9 mls/hr Q11H7M IV 02/08/24 17:00 Midazolam HCl 50 ml @ 1 mls/hr Q24H IV 02/08/24 17:00 02/11/24 17:43 4 MLS/HR Fentanyl Citrate 250 ml @ 2.5 mls/hr Q24H IV 02/08/24 17:00 02/11/24 07:45 12.5 MLS/HR Lorazepam 2 mg Q2HP PRN IV 02/08/24 17:00 Morphine Sulfate 2 mg Q4HP PRN IV 02/08/24 17:00 Pantoprazole Sodium 40 mg DAILY IV 02/09/24 10:00 02/11/24 10:08 40 MG Enoxaparin Sodium 50 mg DAILY SC 02/09/24 10:00 02/10/24 09:08 50 MG Enteral Nutritional Formula 1,000 ml 30ML/HR GT 02/09/24 13:30 02/11/24 12:18 1,000 ML Calcitonin [place] 200 unit Q12H SC 02/09/24 18:00 02/12/24 05:54 200 UNIT Piperacillin Sod/ Tazobactam Sod 50 ml @ 12.5 mls/hr Q8H IV 02/10/24 17:00 02/12/24 01:06 12.5 MLS/HR Phenylephrine HCl 250 ml @ 30 mls/hr Q8H20M IV 02/10/24 13:45 02/11/24 01:25 30 MLS/HR Dexmedetomidine HCl 400 mcg/ Dextrose 100 ml @ 2.435 mls/ hr Q24H IV 02/11/24 20:30 Albumin Human 100 ml @ 100 mls/hr Q1HR IV 02/12/24 10:00 02/12/24 11:59 Cancel Albumin Human 50 ml @ 100 mls/hr Q8H IV 02/12/24 10:00 02/12/24 18:29 Examination: GENERAL:Abnormal, HEENT:Abnormal, CVS:Abnormal laboratory and microbiology Laboratory Tests 02/12/24 04:46 Test 02/12/24 04:46 Range/Units Serum Glucose 97 74-106 mg/dL Microbiology Date/Time Source Procedure Growth Status 02/09/24 02:25 Urine - Lowery Port Urine Culture - Preliminary Resulted 02/08/24 17:17 Sputum Gram Stain - Final Complete 02/08/24 17:17 Respiratory Culture - Final Enterobacter hormaechei Complete 02/08/24 14:05 Nose MRSA Screen - Final Complete 02/08/24 12:10 Blood Blood Culture - Preliminary NO GROWTH AFTER 72 HOURS OF INCUBATION. Resulted Problem List/Assessment/Plan Problem List/Assessment/Plan Acute kidney injury superimposed Chronic Kidney Disease stage IV secondary hemodynamic mediated, ATN, feNa > 2% Hypernatremia due to dehydration Encephalopathy Hypercalcemia due to primary hyperparathyroidism rule out parathyroid adenoma Dehydration Septic shock CVA NSTEMI Anemia of chronic kidney disease primary Hyperparathyroidism continue HD, no evidence of renal recovery HD today hypotonic fluids clinically volume depleted BP pressor support high ca and high PTH concerning for primary hyperparathyroid c/p calcitonin rec NM parathyroid scan if not done palliative /hospice candidate Plan discussed with: Other My Orders My Orders Orders - KEENAN TRUONG MD Procedure Category Date Status Time Albumin 25% (Albutein) PHA 02/12/24 In Process 10:00 Dietary Evaluation Review Comments: 1. Continue TF as tolerated 2. Consider adding Cheng BID and Prostat QDAY once medically appropriate for wound healing Expected Outcomes/Goals: 1. Pt will meet >75% estimated needs within 2-3 days Critical Care Time (mins): 35 KEENAN TRUONG MD Feb 12, 2024 10:34
[2024-02-12 13:49] LABS: Base Excess -1.8 mmol/L (-2.0-3.0)
--- NOTE | 2024-02-12 14:44 | MEDREC ---
[facility] Intervention Section I [facility] Intervention: Deescalate AB based on CS (PLEASE CONSIDER TO SWITCH ANTIBIOTIC ACCORDING TO SPUTUM CULTURE RESULTS) KADE FENTON PHARMACIST Feb 12, 2024 14:44
[2024-02-12] MEDS: FLUCONAZOLE 200MG/100ML 100 ML IV SCH (17:30)
[2024-02-12] MEDS: FLUCONAZOLE 200MG/100ML 100 ML IV ONE (18:38)
--- NOTE | 2024-02-12 19:03 | DVHPNRES ---
Progress Note Date Seen: Feb 12, 2024 Resident Creating Document: MARIS CASTRO RESIDENT Has the PT tested + for MRSA If YES, has PT been informed?: No Medical Necessity Reason Pt with a Central, PICC or Fol: Yes The following are medically ne: Central Line, Lowery Catheter Reason for lowery catheter: Strict I&O Subjective Review of Systems Ms. Godfrey, An 88-year-old female with a history of CHF, CKD, CVA, gout, high lipids, HTN, HI, thyroid issues, parathyroid mass and recurrent UTIs, who was currently on hospice, presented with altered mental status progressively developing over the past week, her condition had been deteriorating, with decreased urine output and oral intake. The family decided to revoke hospice services for the 2nd time ( previously for similar situation) and brought her in to ED for further evaluation. Her surgical history includes a hysterectomy, pacemaker implantation, and PTCA. On admission, she was found to be lethargic and oriented to person only: During the course of the hospitalization patient became even more lethargic brainstem functions intact yet GCS was less than 8. Elevated BUN and creatinine levels were noted, prompting a nephrology consult for acute kidney injury. She could not provide any history, further limited history/ROS obtained at the moment was extracted from family discussion. she was found to have septic shock hypotensive, needing pressor and unable to maintain /protect airways needing intubation sedation and higher level of care. On arrival patient's temperature was 96.3 F, pulse 90 bpm, respiratory rate 12, blood pressure 63/45, 92 on room air. She received IV fluids and her blood pressure improved 103/55. Patient was saturating 99 on 5 L supplementation. 02/07 around noon patient's blood pressure dropped to 65/42 mmHg and therefore she was intubated right femoral CVC was placed in right IJ CVC for hemodialysis was placed. Patient received SC calcitonin 2 doses of 200 mg on 02/07. She has been receiving D5W for the correction of hypernatremia. 02/08 - Patient seen and examined at bedside. She is tachycardic at 109 beats per minute, saturating 95 on FiO2 of 30%. Blood pressure is 107/68. Patient's hypernatremia was overcorrected more than 10 for 24 hours, DC D5W. Started free water through NG 150 mL q.6 hour. Chest x-ray shows left-sided pneumonia, possible aspiration as it was not present on arrival. Started IV Zosyn and vancomycin. Vanco DC ed based on culture results. Started calcitonin 200 units SC q.12. Hepatitis panel pending. Hemodialysis tomorrow 02/09 02/11 - seen and examined over the bedside. She underwent hemodialysis on 02/09 and 02/11. She was transfused 1 packed RBC over the weekend. She has been off sedation since 4:00 a.m.. Safe 500 mL bolus during the hemodialysis session. Occult blood is positive. DC aspirin. Pending parathyroid scan. Echo completed 02/10 shows LVEF 65%. Moderate degree LV diastolic dysfunction. Moderate degree LVH. Moderately dilated RV. Normal valves. RVSP is 52 mmHg. Objective vital signs Vital Sign Date Time Temp Pulse Resp B/P (MAP) Pulse Ox O2 Delivery O2 Flow Rate FiO2 02/12/24 16:40 141/60 02/12/24 16:10 97 20 100 30 02/12/24 16:00 Mechanical Ventilator+ 02/12/24 15:45 97.3 207.1 Total Intake and Output 02/11/24 02/11/24 02/12/24 14:59 22:59 06:59 Intake Total 517.45 ml 873.625 ml 338.125 ml Output Total 150 ml 860 ml Balance 517.45 ml 723.625 ml -521.875 ml medications Current Medications Medications Dose Ordered Sig/Sheila Route Start Time Stop Time Status Last Admin Dose Admin Acetaminophen 650 mg Q6HP PRN PO 02/07/24 19:45 Ipratropium [place] 0.5 mg Q6HPRN PRN NEB 02/08/24 14:30 02/10/24 05:37 0.5 MG Norepinephrine Bitartrate 250 ml @ 3.75 mls/hr Q24H IV 02/08/24 17:00 02/12/24 16:40 18.75 MLS/HR Vasopressin 20 units/Sodium Chloride 100 ml @ 9 mls/hr Q11H7M IV 02/08/24 17:00 Midazolam HCl 50 ml @ 1 mls/hr Q24H IV 02/08/24 17:00 02/11/24 17:43 4 MLS/HR Fentanyl Citrate 250 ml @ 2.5 mls/hr Q24H IV 02/08/24 17:00 02/11/24 07:45 12.5 MLS/HR Morphine Sulfate 2 mg Q4HP PRN IV 02/08/24 17:00 Pantoprazole Sodium 40 mg DAILY IV 02/09/24 10:00 02/12/24 10:24 40 MG Enoxaparin Sodium 50 mg DAILY SC 02/09/24 10:00 02/10/24 09:08 50 MG Enteral Nutritional Formula 1,000 ml 30ML/HR GT 02/09/24 13:30 02/12/24 17:10 1,000 ML Piperacillin Sod/ Tazobactam Sod 50 ml @ 12.5 mls/hr Q8H IV 02/10/24 17:00 02/12/24 16:39 12.5 MLS/HR Dexmedetomidine HCl 400 mcg/ Dextrose 100 ml @ 2.435 mls/ hr Q24H IV 02/11/24 20:30 Albumin Human 100 ml @ 100 mls/hr Q1HR IV 02/12/24 10:00 02/12/24 11:59 Cancel Sodium Chloride 1,000 ml @ 75 mls/hr [id number] IV 02/12/24 10:30 02/12/24 10:30 75 MLS/HR Fluconazole 100 ml @ 100 mls/hr DAILY IV 02/12/24 17:30 Examination Patient lying in bed, intubated and sedated. RASS -4. General: Thin looking, cachectic, afebrile, palor, mucosae are dry Cardiovascular: Regular S1 and S2. No murmurs, gallops or rubs. No JVD elevation. 1+ pitting edema. Right IJ Shmuel seen. Respiratory: Left-sided crepitations heard. Saturating 95 on FiO2 of 20%. Abdomen: Soft, nontender, nondistended, normoactive bowel sounds, no rebound tenderness, no organomegaly, no masses. Lowery catheter seen. Stage II decubitus ulcer. Erythema noticed. Genitourinary: Deferred MSK/skin: Skin is dry and warm Neurological: Pupils are isocoric and reactive. laboratory and microbiology Laboratory Tests 02/12/24 04:46 Test 02/12/24 04:46 Range/Units Serum Glucose 97 74-106 mg/dL Microbiology Date/Time Source Procedure Growth Status 02/09/24 02:25 Urine - Lowery Port Urine Culture - Preliminary Resulted 02/08/24 17:17 Sputum Gram Stain - Final Complete 02/08/24 17:17 Respiratory Culture - Final Enterobacter hormaechei Complete 02/08/24 14:05 Nose MRSA Screen - Final Complete 02/08/24 12:10 Blood Blood Culture - Preliminary NO GROWTH AFTER 72 HOURS OF INCUBATION. 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 Discontinued aspirin 162 mg daily given the positive occult blood and the low hemoglobin Head CT Stable small chronic infarct in the right basal ganglia. No acute intracranial process. 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 Moderate degree LV diastolic dysfunction. Moderate degree LVH. Moderately dilated RV. Normal valves. RVSP is 52 mmHg. RESPIRATORY Left-sided lobar pneumonia, possible aspiration, Gram-positive and Gram-negative with Enterobacter Sepsis secondary to pneumonia and UTI Final respiratory culture shows Enterobacter sensitive to Cipro, levofloxacin, meropenem, TMP SMX G stain shows Gram-positive cocci in chains and pairs, Gram-positive rods DC vanco, discontinue Zosyn starting 02/08 till 02/11 Started meropenem 02/11 MRSA screen negative Continue ipratropium nebulized treatment q.6 p.r.n. GI F/U hepatitis panel Hx of 1.0 cm left adrenal nodule Steatosis Positive occult blood Continue pantoprazole 40 mg IV daily /KIDNEY Acute cystitis JOSE likely secondary to VMN on ESRD undergoing hemodialysis Acute tubular necrosis Prelim urine culture shows greater than 1 lac CFU mixed melissa 3 colony types possible contamination. Repeat urine culture ordered. Repeat urine culture 02/08 shows >100,000 CFU/mL Yeast Identification to follow. FENA greater than 2% Right renal simple appearing cysts measuring up to 3.4 cm. Hemodialysis 02/09 and 02/11 ENDOCRINE Right parathyroid mass Hypercalcemia Parathyroid scan pending Corrected Calcium 12, downtrending METABOLIC Non-anion gap metabolic acidosis likely secondary to hyperchloremia and uremia with the respiratory alkalosis Hypovolemic hypernatremia Humoral Hypercalcemia of malignancy Secondary hyperphosphatemia due to ESRD Hypomagnesemia Gout vs CPPD - chondrocalcinosis seen in knee x-ray in 2022 Patient received IV fluid D5W with 50 mEq sodium bicarb at 100 cc/hour on 02/07 morning of 02/08. Discontinued on 02/08 since over-correction of hyponatremia was noticed. Continue with free water through NG 150 mL q.6 hourly. Patient received 2 doses of SC calcitonin 200 mg on 02/07. Continue calcitonin 200 mg sc twice daily Continue bicarb at 100 mL/hour ID Sepsis secondary to pneumonia and the UTI HEM-ONCO Right parathyroid mass Thrombocytopenia Anemia, likely normocytic due to ESRD OBGYN History of Hysterectomy Protein energy malnutrition LINES Intubated on 02/07 Right IJ CVC for hemodialysis placed 02/09 Right-sided Femoral dialysis non tunneled placed 02/09 Left Femoral CVC 02/09 Lowery catheter Drips: Levophed 8, patient is off sedation NUTRITION: Nepro started 02/08 DVT: Renal dosing Lovenox Goals of care/advance care planning; discussed with the daughter and granddaughter at the bedside, modified DNR, PUD prophylaxis: Pantoprazole 40 mg IV daily DVT prophylaxis enoxaparin 50 mg sc daily renal dosing, patient takes Eliquis at home Plan discussed with Dr. Machuca. Plan discussed with patient's granddaughter over the bedside for more than 30 minutes which all questions have been answered Goals of care have been discussed with the patient's family at the bedside for more than 25 minutes, modified DNR status Critical time including chart review, discussion with the patient's family excluding procedures included 86 minutes Plan discussed with: Patient, Other (Granddaughter at the bedside) My Orders My Orders Orders - MARIS CASTRO RESIDENT Procedure Category Date Status Time Abg W/ Co-Ox RT 02/12/24 Logged 09:30 Cover Wound With Foam REAL 02/12/24 In Process Dressing 13:34 Parathyroid NM 02/12/24 Logged 16:57 Dietary Evaluation Review Comments: 1. Continue TF as tolerated 2. Consider adding Cheng BID and Prostat QDAY once medically appropriate for wound healing Expected Outcomes/Goals: 1. Pt will meet >75% estimated needs within 2-3 days Date of Service: Feb 12, 2024 Billing Provider: PALAK MACHUCA MD Common Visit Codes: 10195-[id number] CARE 30-74 MIN, 55103-[id number] CARE-EACH +30MIN MARIS CASTRO Feb 12, 2024 19:03 PALAK MACHUCA MD Feb 13, 2024 13:17
[2024-02-12] MEDS: EPOETIN ALFA-EPBX 10,000 UNIT/1ML VIAL SC ONE (21:09)
[2024-02-12] MEDS: MEROPENEM 500MG IVPB 50 ML IV SCH (22:00)
[2024-02-13] VITALS (111 sets, daily range): BP systolic 99–155; BP diastolic 30–67; PULSE 67–84; RESP 11–30; TEMP 97–98.6; O2SAT 95–100
--- NOTE | 2024-02-13 04:55 | DVH ---
CHEST RADIOGRAPH Indication: f/u Technique: Single frontal view of the chest was obtained Comparison: XY CHEST PORTABLE on DOS: 02/12/24, XY CHEST PORTABLE on DOS: 02/11/24, XY CHEST PORTABLE on DOS: 02/10/24, XY CHEST XRAY 1 VIEW on DOS: 02/10/24, XY CHEST PORTABLE on DOS: 02/09/24, XY CHES T PORTABLE on DOS: 02/12/24 FINDINGS: Lines and Tubes: The endotracheal tube terminates 5.3 cm above the zeny. Right central venous jacinto ter terminates in the superior vena cava. Dual lead pacemaker with right atrial and ventricular leads . The enteric tube terminates stomach. Lungs: Patchy left upper and lower lobe airspace disease, decreased since prior study. The right lung remains clear. Pleura: No effusion. No pneumothorax. Cardiomediastinal contours: Unremarkable Bones: No acute osseous abnormality. IMPRESSION: 1. Stable position of the support lines and tubes. 2. Patchy left airspace disease, decreased since prior study.
[2024-02-13 06:16] LABS: Alanine Aminotransferase 11 U/L (7-40); Anion Gap 8 (5-15); Aspartate Aminotransferase 19 U/L (13-40); BUN/Creatinine Ratio 26.4 (10.0-20.0); Bilirubin, Total 0.4 mg/dL (0.2-1.0); Calcium 9.9 mg/dL (8.7-10.4); Carbon Dioxide 25 mmol/L (20-31); Magnesium 1.7 mg/dL (1.6-2.6); Sodium 141 mmol/L (136-145)
[2024-02-13 06:17] LABS: Base Excess -2.2 mmol/L (-2.0-3.0)
[2024-02-13 06:22] LABS: Albumin 2.6 g/dL (3.2-4.8); Alkaline Phosphatase 216 U/L (46-116); Blood Urea Nitrogen 48 mg/dL (9-23); Chloride 108 mmol/L (98-107); Glucose 123 mg/dL (74-106); Potassium 2.6 mmol/L (3.5-5.1); Total Protein 4.5 g/dL (5.7-8.2)
[2024-02-13] MEDS: MAGNESIUM SULFATE 1GM/100ML 100 ML IV ONE (09:31)
[2024-02-13] MEDS: POTASSIUM CHL 20MEQ/100ML 100 ML IV SCH (09:46)
[2024-02-13 10:50] LABS: Hematocrit 19.1 % (36.0-46.0); Mean Corpuscular Hemoglobin 31.3 pg (28.0-32.0); Mean Corpuscular Hgb Conc. 33.4 g/dL (32.0-36.0); Mean Corpuscular Volume 93.7 fL (80.0-100.0); Platelet Count (auto) 34 10^3/uL (140-450); Red Blood Cells 2.03 10^6/uL (4.0-5.20); White Blood Cell 7.4 10^3/uL (4.4-10.8)
[2024-02-13 10:54] LABS: Hemoglobin 6.4 g/dL (12.2-16.2)
[2024-02-13 10:55] LABS: Basophils % (manual) 0 (0.0-2.0); Blast Cells 0; Eosinophils % (manual) 0 (0-7); Metamyelocytes % 0; Myelocytes % 0; Promyelocytes % 0; Reactive Lymphocytes 0
--- NOTE | 2024-02-13 10:56 | DVHPN2 ---
Progress Note Date Seen: Feb 13, 2024 Has the PT tested + for MRSA If YES, has PT been informed?: No Medical Necessity Reason Pt with a Central, PICC or Fol: Yes The following are medically ne: Central Line, Lowery Catheter Reason for lowery catheter: Strict I&O Subjective Patient reports: Other (Remains intubated currently undergoing CPAP trial) Review of Systems: RESPIRATORY:Abnormal, GI:Abnormal Objective vital signs Vital Sign Date Time Temp Pulse Resp B/P (MAP) Pulse Ox O2 Delivery O2 Flow Rate FiO2 02/13/24 10:01 76 20 133/49 (77) 100 30 02/13/24 09:00 97.7 207.9 02/13/24 08:00 Mechanical Ventilator+ Total Intake and Output 02/12/24 02/12/24 02/13/24 15:00 23:00 07:00 Intake Total 646.25 ml 926.25 ml 840.0 ml Output Total 150 ml 175 ml Balance 646.25 ml 776.25 ml 665.0 ml medications Current Medications Medications Dose Ordered Sig/Sheila Route Start Time Stop Time Status Last Admin Dose Admin Acetaminophen 650 mg Q6HP PRN PO 02/07/24 19:45 Ipratropium [place] 0.5 mg Q6HPRN PRN NEB 02/08/24 14:30 02/10/24 05:37 0.5 MG Norepinephrine Bitartrate 250 ml @ 3.75 mls/hr Q24H IV 02/08/24 17:00 02/12/24 16:40 18.75 MLS/HR Vasopressin 20 units/Sodium Chloride 100 ml @ 9 mls/hr Q11H7M IV 02/08/24 17:00 Midazolam HCl 50 ml @ 1 mls/hr Q24H IV 02/08/24 17:00 02/11/24 17:43 4 MLS/HR Fentanyl Citrate 250 ml @ 2.5 mls/hr Q24H IV 02/08/24 17:00 02/11/24 07:45 12.5 MLS/HR Morphine Sulfate 2 mg Q4HP PRN IV 02/08/24 17:00 Pantoprazole Sodium 40 mg DAILY IV 02/09/24 10:00 02/13/24 10:05 40 MG Enoxaparin Sodium 50 mg DAILY SC 02/09/24 10:00 02/10/24 09:08 50 MG Enteral Nutritional Formula 1,000 ml 30ML/HR GT 02/09/24 13:30 02/12/24 17:10 1,000 ML Dexmedetomidine HCl 400 mcg/ Dextrose 100 ml @ 2.435 mls/ hr Q24H IV 02/11/24 20:30 Albumin Human 100 ml @ 100 mls/hr Q1HR IV 02/12/24 10:00 02/12/24 11:59 Cancel Sodium Chloride 1,000 ml @ 75 mls/hr [id number] IV 02/12/24 10:30 02/12/24 23:50 75 MLS/HR Fluconazole 100 ml @ 100 mls/hr DAILY IV 02/12/24 17:30 02/13/24 10:05 100 MLS/HR Meropenem 50 ml @ 17 mls/hr Q12HR IV 02/12/24 22:00 02/13/24 09:58 17 MLS/HR Potassium Chloride 100 ml @ 50 mls/hr Q2H IV 02/13/24 08:00 02/13/24 13:59 02/13/24 09:46 50 MLS/HR Examination: GENERAL:Abnormal, LUNGS:Abnormal, CVS:Abnormal, ABDOMEN:Abnormal laboratory and microbiology Laboratory Tests 02/13/24 04:50 Test 02/13/24 04:50 Range/Units Serum Glucose 123 H 74-106 mg/dL Microbiology Date/Time Source Procedure Growth Status 02/09/24 02:25 Urine - [place]y [place] Urine Culture - Final Yeast, not Ellen albicans Complete 02/08/24 17:17 Sputum Gram Stain - Final Complete 02/08/24 17:17 Respiratory Culture - Final Enterobacter hormaechei Complete 02/08/24 14:05 Nose MRSA Screen - Final Complete 02/08/24 12:10 Blood Blood Culture - Preliminary NO GROWTH AFTER 72 HOURS OF INCUBATION. Resulted Problem List/Assessment/Plan Problem List/Assessment/Plan Acute kidney injury superimposed Chronic Kidney Disease stage IV secondary hemodynamic mediated, ATN, feNa > 2% Hypernatremia due to dehydration Encephalopathy Hypercalcemia due to primary hyperparathyroidism rule out parathyroid adenoma Dehydration Septic shock CVA NSTEMI Anemia of chronic kidney disease primary Hyperparathyroidism continue HD, no evidence of renal recovery-> next treatment is tentatively Monday or based on clinical assessment Blood pressure improved yesterday with IV fluids. We will hold off today and evaluate. Patient undergoing CPAP trial today. BP pressor support high ca and high PTH concerning for primary hyperparathyroid c/p calcitonin rec NM parathyroid scan if not done palliative /hospice candidate Plan discussed with: Other My Orders My Orders Orders - KEENAN TRUONG MD Procedure Category Date Status Time Potassium Chl PHA 02/13/24 In Process 20meq/100ml 08:00 Dietary Evaluation Review Comments: 1. Continue TF as tolerated 2. Consider adding Cheng BID and Prostat QDAY once medically appropriate for wound healing Expected Outcomes/Goals: 1. Pt will meet >75% estimated needs within 2-3 days Critical Care Time (mins): 33 KEENAN TRUONG MD Feb 13, 2024 10:56
[2024-02-13 11:53] LABS: Band Neutrophils % (manual) 1; Lymphocytes % (manual) 7 (10.0-50.0); Monocytes % (manual) 8 (0-12); Platelet Estimate Decreased
[2024-02-13] MEDS: SODIUM CHL 0.9% 1000 ML BAG XX ONE (14:30)
--- NOTE | 2024-02-13 15:30 | DVH ---
ULTRASOUND SOFT TISSUE HEAD AND NECK CLINICAL INDICATION: Parathyroid disease TECHNIQUE: Multiple real time sonographic images of the thyroid were obtained. Comparison: None FINDINGS: The right thyroid gland is suboptimally visualized secondary to overlying catheter and bandage. The left thyroid gland measures approximately 3.3 x 1.5 x 2.1 cm. The isthmus measures 0.5 cm. IMPRESSION: Right thyroid gland is suboptimally visualized. Heterogeneous left thyroid gland and isthmus with inspector publications discrete nodule. [employer] TI-RADS Categories and Recommendations (2017): TR1: 0 points, Benign, No FNA TR2: 2 points, Not suspicious, No FNA TR3: 3 points, Mildly suspicious, FNA if > or = 2.5 cm, Follow if > or = 1.5 cm TR4: 4-6 points, Moderately Suspicious, FNA if > or = 1.5 cm, Follow if > or = 1.0 cm TR5: 7+ points, Highly Suspicious, FNA if > or = 1.0 cm, Follow if > or = 0.5 cm Follow-up ultrasound guidelines: TR5: yearly for 5 years, if no growth or change in TI-RADS level TR4: at 1, 2, 3 and 5 years, if no growth or change in TI-RADS level TR3: at 1, 3 and 5 years, if no growth or change in TI-RADS level If increased but below threshold for FNA, repeat in one year. Source: ACR Thyroid Imaging, Reporting and Data System (TI-RADS): White Paper of the ACR TI-RADS Committee. Harinder et al., J Am Dashawn Radiol 2017;14:587-595.
--- NOTE | 2024-02-13 15:32 | DVHPNRES ---
Progress Note Date Seen: Feb 13, 2024 Resident Creating Document: MARIS CASTRO RESIDENT Has the PT tested + for MRSA If YES, has PT been informed?: No Medical Necessity Reason Pt with a Central, PICC or Fol: Yes The following are medically ne: Central Line, Lowery Catheter Reason for lowery catheter: Strict I&O Subjective Review of Systems Ms. Godfrey, An 88-year-old female with a history of CHF, CKD, CVA, gout, high lipids, HTN, MD, thyroid issues, parathyroid mass and recurrent UTIs, who was currently on hospice, presented with altered mental status progressively developing over the past week, her condition had been deteriorating, with decreased urine output and oral intake. The family decided to revoke hospice services for the 2nd time ( previously for similar situation) and brought her in to ED for further evaluation. Her surgical history includes a hysterectomy, pacemaker implantation, and PTCA. On admission, she was found to be lethargic and oriented to person only: During the course of the hospitalization patient became even more lethargic brainstem functions intact yet GCS was less than 8. Elevated BUN and creatinine levels were noted, prompting a nephrology consult for acute kidney injury. She could not provide any history, further limited history/ROS obtained at the moment was extracted from family discussion. she was found to have septic shock hypotensive, needing pressor and unable to maintain /protect airways needing intubation sedation and higher level of care. On arrival patient's temperature was 96.3 F, pulse 90 bpm, respiratory rate 12, blood pressure 63/45, 92 on room air. She received IV fluids and her blood pressure improved 103/55. Patient was saturating 99 on 5 L supplementation. 02/07 around noon patient's blood pressure dropped to 65/42 mmHg and therefore she was intubated right femoral CVC was placed in right IJ CVC for hemodialysis was placed. Patient received SC calcitonin 2 doses of 200 mg on 02/07. She has been receiving D5W for the correction of hypernatremia. 02/08 - Patient seen and examined at bedside. She is tachycardic at 109 beats per minute, saturating 95 on FiO2 of 30%. Blood pressure is 107/68. Patient's hypernatremia was overcorrected more than 10 for 24 hours, DC D5W. Started free water through NG 150 mL q.6 hour. Chest x-ray shows left-sided pneumonia, possible aspiration as it was not present on arrival. Started IV Zosyn and vancomycin. Vanco DC ed based on culture results. Started calcitonin 200 units SC q.12. Hepatitis panel pending. Hemodialysis tomorrow 02/09 02/11 - seen and examined over the bedside. She underwent hemodialysis on 02/09 and 02/11. She was transfused 1 packed RBC over the weekend. She has been off sedation since 4:00 a.m.. Safe 500 mL bolus during the hemodialysis session. Occult blood is positive. DC aspirin. Pending parathyroid scan. Echo completed 02/10 shows LVEF 65%. Moderate degree LV diastolic dysfunction. Moderate degree LVH. Moderately dilated RV. Normal valves. RVSP is 52 mmHg. 02/12 - patient seen and examined at bedside. She is on Levophed for, off sedation. Underwent CPAP trial today from 10:00 a.m. to 2:00 p.m.. She is not responding to commands. Chest x-ray shows stable left-sided infiltrate. Thyroid ultrasound is pending. 1 unit of packed RBCs ordered. ABG showed respiratory alkalosis with metabolic compensation. Received Mag and K supplementation. Repeat CBC, Mag, K pending Objective vital signs Vital Sign Date Time Temp Pulse Resp B/P (MAP) Pulse Ox O2 Delivery O2 Flow Rate FiO2 02/13/24 15:06 97.5 77 24 155/67 97.5 02/13/24 14:13 100 30 02/13/24 08:00 Mechanical Ventilator+ Total Intake and Output 02/12/24 02/12/24 02/13/24 15:00 23:00 07:00 Intake Total 646.25 ml 926.25 ml 840.0 ml Output Total 150 ml 175 ml Balance 646.25 ml 776.25 ml 665.0 ml medications Current Medications Medications Dose Ordered Sig/Sheila Route Start Time Stop Time Status Last Admin Dose Admin Acetaminophen 650 mg Q6HP PRN PO 02/07/24 19:45 Ipratropium [place] 0.5 mg Q6HPRN PRN NEB 02/08/24 14:30 02/10/24 05:37 0.5 MG Norepinephrine Bitartrate 250 ml @ 3.75 mls/hr Q24H IV 02/08/24 17:00 02/12/24 16:40 18.75 MLS/HR Vasopressin 20 units/Sodium Chloride 100 ml @ 9 mls/hr Q11H7M IV 02/08/24 17:00 Midazolam HCl 50 ml @ 1 mls/hr Q24H IV 02/08/24 17:00 02/11/24 17:43 4 MLS/HR Fentanyl Citrate 250 ml @ 2.5 mls/hr Q24H IV 02/08/24 17:00 02/11/24 07:45 12.5 MLS/HR Morphine Sulfate 2 mg Q4HP PRN IV 02/08/24 17:00 Pantoprazole Sodium 40 mg DAILY IV 02/09/24 10:00 02/13/24 10:05 40 MG Enoxaparin Sodium 50 mg DAILY SC 02/09/24 10:00 Hold 02/10/24 09:08 50 MG Enteral Nutritional Formula 1,000 ml 30ML/HR GT 02/09/24 13:30 02/12/24 17:10 1,000 ML Dexmedetomidine HCl 400 mcg/ Dextrose 100 ml @ 2.435 mls/ hr Q24H IV 02/11/24 20:30 Albumin Human 100 ml @ 100 mls/hr Q1HR IV 02/12/24 10:00 02/12/24 11:59 Cancel Sodium Chloride 1,000 ml @ 75 mls/hr [id number] IV 02/12/24 10:30 02/13/24 13:26 75 MLS/HR Fluconazole 100 ml @ 100 mls/hr DAILY IV 02/12/24 17:30 02/13/24 10:05 100 MLS/HR Meropenem 50 ml @ 17 mls/hr Q12HR IV 02/12/24 22:00 02/13/24 09:58 17 MLS/HR Examination Patient lying in bed, intubated and sedated. RASS -4. General: Thin looking, cachectic, afebrile, palor, mucosae are dry Cardiovascular: Regular S1 and S2. No murmurs, gallops or rubs. No JVD elevation. 1+ pitting edema. Right IJ Shmuel seen. Respiratory: Left-sided crepitations heard. Saturating 99 on FiO2 of 30%. Abdomen: Soft, nontender, nondistended, absent bowel sounds, no rebound tenderness, no organomegaly, no masses. Lowery catheter seen. Stage II decubitus ulcer. Erythema noticed. Genitourinary: Deferred MSK/skin: Skin is dry and warm Neurological: Pupils are isocoric and reactive. laboratory and microbiology Laboratory Tests 02/13/24 10:10 02/13/24 04:50 Test 02/13/24 04:50 Range/Units Serum Glucose 123 H 74-106 mg/dL Microbiology Date/Time Source Procedure Growth Status 02/09/24 02:25 Urine - [place] Urine Culture - Final Yeast, not Ellen albicans Complete 02/08/24 17:17 Sputum Gram Stain - Final Complete 02/08/24 17:17 Respiratory Culture - Final Enterobacter hormaechei Complete 02/08/24 14:05 Nose MRSA Screen - Final Complete 02/08/24 12:10 Blood Blood Culture - Final NO GROWTH AFTER 5 DAYS OF INCUBATION. 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 Discontinued aspirin 162 mg daily given the positive occult blood and the low hemoglobin Head CT Stable small chronic infarct in the right basal ganglia. No acute intracranial process. 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 Moderate degree LV diastolic dysfunction. Moderate degree LVH. Moderately dilated RV. Normal valves. RVSP is 52 mmHg. RESPIRATORY Left-sided lobar pneumonia, possible aspiration, Gram-positive and Gram-negative with Enterobacter Sepsis secondary to pneumonia and UTI Final respiratory culture shows Enterobacter sensitive to Cipro, levofloxacin, meropenem, TMP SMX G stain shows Gram-positive cocci in chains and pairs, Gram-positive rods DC vanco, discontinue Zosyn starting 02/08 till 02/11 Started meropenem 02/11 MRSA screen negative Continue ipratropium nebulized treatment q.6 p.r.n. Underwent CPAP trial 02/12 from 10:00 a.m. to 2:00 p.m.. Patient is nonresponsive to commands. GI F/U hepatitis panel Hx of 1.0 cm left adrenal nodule Steatosis Positive occult blood Continue pantoprazole 40 mg IV daily /KIDNEY Acute cystitis JOSE likely secondary to VMN on ESRD undergoing hemodialysis Acute tubular necrosis Prelim urine culture shows greater than 1 lac CFU mixed melissa 3 colony types possible contamination. Repeat urine culture ordered. Repeat urine culture 02/08 shows >100,000 CFU/mL Yeast Identification to follow. FENA greater than 2% Right renal simple appearing cysts measuring up to 3.4 cm. Hemodialysis 02/09 and 02/11, receiving Retacrit 36288 units post dialysis. ENDOCRINE Right parathyroid mass Hypercalcemia Thyroid ultrasound pending Corrected Calcium 12, downtrending METABOLIC Non-anion gap metabolic acidosis likely secondary to hyperchloremia and uremia with the respiratory alkalosis Hypovolemic hypernatremia Humoral Hypercalcemia of malignancy Secondary hyperphosphatemia due to ESRD Hypomagnesemia, hypokalemia Gout vs CPPD - chondrocalcinosis seen in knee x-ray in 2022 Patient received IV fluid D5W with 50 mEq sodium bicarb at 100 cc/hour on 02/07 morning of 02/08. Discontinued on 02/08 since over-correction of hyponatremia was noticed. Continue with free water through NG 150 mL q.6 hourly. Patient received 2 doses of SC calcitonin 200 mg on 02/07. Continue calcitonin 200 mg sc twice daily Continue bicarb at 100 mL/hour ID Sepsis secondary to pneumonia and the UTI HEM-ONCO Right parathyroid mass Thrombocytopenia Anemia, likely normocytic due to ESRD - transfused 1 packed RBC 02/12 and 02/10 OBGYN History of Hysterectomy Protein energy malnutrition LINES Intubated on 02/07 Right IJ CVC for hemodialysis placed 02/09 Right-sided Femoral dialysis non tunneled placed 02/09 Left Femoral CVC 02/09 Lowery catheter Drips: Levophed 4 from 8, patient is off sedation NUTRITION: Nepro started 02/08 DVT: Renal dosing Lovenox on hold given the low hemoglobin and positive occult Goals of care/advance care planning; discussed with the daughter and granddaughter at the bedside, modified DNR, PUD prophylaxis: Pantoprazole 40 mg IV daily DVT prophylaxis on hold-enoxaparin 50 mg sc daily renal dosing, patient takes Eliquis at home Plan discussed with Dr. Machuca. Plan discussed with patient's granddaughter over the phone in which all questions have been answered Goals of care have been discussed with the patient's family at the bedside for more than 25 minutes, modified DNR status Critical time including chart review, CPAP trial, discussion with the patient's family excluding procedures included 83 minutes Plan discussed with: Patient, Other (Granddaughter over the phone) My Orders My Orders Orders - MARIS CASTRO Procedure Category Date Status Time Chest Xray 1 View XY 02/13/24 Resulted 04:00 Abg W/ Co-Ox RT 02/13/24 Logged 04:00 Meropenem 500mg Ivpb PHA 02/12/24 In Process (Merrem 500mg/Ns) 22:00 Thyroid US 02/13/24 Taken 14:09 Dietary Evaluation Review Comments: 1. Nepr @30ml/hr is supporting 100% of pt's protein needs, and 116% of pt's energy needs. 2. Advance to Renal Standard 2 gNa 3K low Phos diet when pt is off vent and pass speech eval. Expected Outcomes/Goals: Improved nutrition status and Gradual weight gains Date of Service: Feb 13, 2024 Billing Provider: PALAK MACHUCA MD Common Visit Codes: 18314-[id number] CARE 30-74 MIN, 22284-XLANDNHA CARE-EACH +30MIN MARIS CASTRO Feb 13, 2024 15:32 PALAK MACHUCA MD Feb 14, 2024 15:12
[2024-02-13 16:51] LABS: Basophils # (auto) 0 10 ^3/uL (0-0.2); Basophils % (auto) 0.1 % (0.0-2.0); Hemoglobin 8.9 g/dL (12.2-16.2); Lymphocytes # (auto) 0.4 10 ^3/uL (0.4-5.4); Lymphocytes % (auto) 5.1 % (10.0-50.0)
[2024-02-13 16:53] LABS: Eosinophils # (auto) 0.1 10 ^3/uL (0-0.8); Eosinophils % (auto) 0.7 % (0.0-7.0); Hematocrit 25.8 % (36.0-46.0); Mean Corpuscular Hemoglobin 31.5 pg (28.0-32.0); Mean Corpuscular Hgb Conc. 34.7 g/dL (32.0-36.0); Mean Corpuscular Volume 90.7 fL (80.0-100.0); Monocytes # (auto) 0.4 10 ^3/uL (0-1.3); Monocytes % (auto) 4.9 % (0.0-12.0); Neutrophils # (auto) 7.7 10 ^3/uL (1.6-8.6); Neutrophils % (auto) 89.2 % (37.0-80.0); Nucleated Red Blood Cells % 0.1 %; Platelet Count (auto) 35 10^3/uL (140-450); Red Blood Cells 2.84 10^6/uL (4.0-5.20); Red Cell Distribution Width 15.3 % (11.8-14.3); White Blood Cell 8.6 10^3/uL (4.4-10.8)
[2024-02-13 16:58] LABS: Potassium 4.2 mmol/L (3.5-5.1)
[2024-02-13 17:05] LABS: Magnesium 1.9 mg/dL (1.6-2.6)
[2024-02-13] MEDS: EPOETIN ALFA-EPBX 10,000 UNIT/1ML VIAL SC ONE (21:00)
[2024-02-14] VITALS (105 sets, daily range): BP systolic 86–164; BP diastolic 38–76; PULSE 60–144; RESP 10–25; TEMP 95.2–99.3; O2SAT 85–100
[2024-02-14 05:20] LABS: Basophils # (auto) 0 10 ^3/uL (0-0.2); Basophils % (auto) 0.1 % (0.0-2.0); Eosinophils # (auto) 0.1 10 ^3/uL (0-0.8); Hemoglobin 8.4 g/dL (12.2-16.2); Lymphocytes # (auto) 0.5 10 ^3/uL (0.4-5.4); Nucleated Red Blood Cells % 0.1 %
[2024-02-14 05:22] LABS: Eosinophils % (auto) 0.9 % (0.0-7.0); Lymphocytes % (auto) 5.7 % (10.0-50.0); Mean Corpuscular Hemoglobin 31.5 pg (28.0-32.0); Mean Corpuscular Hgb Conc. 34.8 g/dL (32.0-36.0); Mean Corpuscular Volume 90.6 fL (80.0-100.0); Monocytes # (auto) 0.5 10 ^3/uL (0-1.3); Monocytes % (auto) 5.2 % (0.0-12.0); Neutrophils # (auto) 8.1 10 ^3/uL (1.6-8.6); Neutrophils % (auto) 88.1 % (37.0-80.0); Platelet Count (auto) 34 10^3/uL (140-450); Red Blood Cells 2.65 10^6/uL (4.0-5.20); Red Cell Distribution Width 16.2 % (11.8-14.3); White Blood Cell 9.2 10^3/uL (4.4-10.8)
[2024-02-14 05:38] LABS: Alanine Aminotransferase 14 U/L (7-40); Anion Gap 9 (5-15); Aspartate Aminotransferase 19 U/L (13-40); BUN/Creatinine Ratio 24.7 (10.0-20.0); Bilirubin, Total 0.6 mg/dL (0.2-1.0); Calcium 10.1 mg/dL (8.7-10.4); Carbon Dioxide 23 mmol/L (20-31); Glucose 103 mg/dL (74-106); Magnesium 1.8 mg/dL (1.6-2.6); Potassium 3.7 mmol/L (3.5-5.1); Sodium 140 mmol/L (136-145)
--- NOTE | 2024-02-14 05:40 | DVH ---
CHEST RADIOGRAPH Indication: Follow up Technique: Single frontal view of the chest was obtained Comparison: XY CHEST XRAY 1 VIEW on DOS: 02/13/24, XY CHEST PORTABLE on DOS: 02/12/24, XY CHEST CARINA BLE on DOS: 02/11/24, XY CHEST PORTABLE on DOS: 02/10/24, XY CHEST XRAY 1 VIEW on DOS: 02/10/24, XY C HEST XRAY 1 VIEW on DOS: 02/13/24 FINDINGS: Lines and Tubes: The endotracheal tube terminates 5.3 cm above the zeny. Right central venous jacinto ter terminates in the superior vena cava. Dual lead pacemaker with right atrial and ventricular leads . The enteric tube terminates stomach. Lungs: Patchy left upper and lower lobe airspace disease, decreased since prior study. The right lung remains clear. Pleura: No effusion. No pneumothorax. Cardiomediastinal contours: Unremarkable Bones: No acute osseous abnormality. IMPRESSION: 1. Stable position of the support lines and tubes. 2. Patchy left airspace disease, decreased since prior study.
[2024-02-14 07:00] LABS: Albumin 2.4 g/dL (3.2-4.8); Alkaline Phosphatase 190 U/L (46-116); Blood Urea Nitrogen 49 mg/dL (9-23); Chloride 108 mmol/L (98-107); Total Protein 4.3 g/dL (5.7-8.2)
[2024-02-14] MEDS: POTASSIUM CHL 20MEQ/100ML 100 ML IV ONE (08:39)
--- NOTE | 2024-02-14 09:17 | DVHPN2 ---
Progress Note Date Seen: Feb 14, 2024 Has the PT tested + for MRSA If YES, has PT been informed?: No Medical Necessity Reason Pt with a Central, PICC or Fol: Yes The following are medically ne: Central Line, Lowery Catheter Reason for lowery catheter: Strict I&O Subjective Review of Systems: RESPIRATORY:Abnormal Other Systems: Patient seen and examined by myself today in follow-up Patient examined hemodialysis, blood pressure stable Objective vital signs Vital Sign Date Time Temp Pulse Resp B/P (MAP) Pulse Ox O2 Delivery O2 Flow Rate FiO2 02/14/24 08:00 76 20 118/52 (74) 95 30 02/14/24 06:45 99.1 210.4 02/14/24 06:00 Mechanical Ventilator+ Total Intake and Output 02/13/24 02/13/24 02/14/24 15:00 23:00 07:00 Intake Total 1080.0 ml 1000.00 ml 701.25 ml Output Total 200 ml 350 ml Balance 1080.0 ml 800.00 ml 351.25 ml medications Current Medications Medications Dose Ordered Sig/Sheila Route Start Time Stop Time Status Last Admin Dose Admin Acetaminophen 650 mg Q6HP PRN PO 02/07/24 19:45 Ipratropium [place] 0.5 mg Q6HPRN PRN NEB 02/08/24 14:30 02/10/24 05:37 0.5 MG Norepinephrine Bitartrate 250 ml @ 3.75 mls/hr Q24H IV 02/08/24 17:00 02/13/24 17:40 3.75 MLS/HR Vasopressin 20 units/Sodium Chloride 100 ml @ 9 mls/hr Q11H7M IV 02/08/24 17:00 Midazolam HCl 50 ml @ 1 mls/hr Q24H IV 02/08/24 17:00 02/11/24 17:43 4 MLS/HR Fentanyl Citrate 250 ml @ 2.5 mls/hr Q24H IV 02/08/24 17:00 02/11/24 07:45 12.5 MLS/HR Morphine Sulfate 2 mg Q4HP PRN IV 02/08/24 17:00 Pantoprazole Sodium 40 mg DAILY IV 02/09/24 10:00 02/14/24 08:40 40 MG Enoxaparin Sodium 50 mg DAILY SC 02/09/24 10:00 Hold 02/10/24 09:08 50 MG Enteral Nutritional Formula 1,000 ml 30ML/HR GT 02/09/24 13:30 02/12/24 17:10 1,000 ML Dexmedetomidine HCl 400 mcg/ Dextrose 100 ml @ 2.435 mls/ hr Q24H IV 02/11/24 20:30 Albumin Human 100 ml @ 100 mls/hr Q1HR IV 02/12/24 10:00 02/12/24 11:59 Cancel Sodium Chloride 1,000 ml @ 75 mls/hr [id number] IV 02/12/24 10:30 02/14/24 06:17 75 MLS/HR Fluconazole 100 ml @ 100 mls/hr DAILY IV 02/12/24 17:30 02/14/24 08:39 100 MLS/HR Meropenem 50 ml @ 17 mls/hr Q12HR IV 02/12/24 22:00 02/13/24 21:53 17 MLS/HR Examination: LUNGS:Normal, CVS:Normal, MSK:Normal laboratory and microbiology Laboratory Tests 02/14/24 04:48 Test 02/14/24 04:48 Range/Units Serum Glucose 103 74-106 mg/dL Microbiology Date/Time Source Procedure Growth Status 02/09/24 02:25 Urine - [place] Urine Culture - Final Yeast, not Ellen albicans Complete 02/08/24 17:17 Sputum Gram Stain - Final Complete 02/08/24 17:17 Respiratory Culture - Final Enterobacter hormaechei Complete 02/08/24 14:05 Nose MRSA Screen - Final Complete 02/08/24 12:10 Blood Blood Culture - Final NO GROWTH AFTER 5 DAYS OF INCUBATION. Complete Problem List/Assessment/Plan Problem List/Assessment/Plan Acute kidney injury superimposed Chronic Kidney Disease stage IV secondary hemodynamic mediated, ATN, feNa > 2% Acute respiratory failure, intubated on ventilator Hypernatremia due to dehydration Encephalopathy Hypercalcemia due to primary hyperparathyroidism rule out parathyroid adenoma Dehydration Septic shock Metabolic acidosis CVA NSTEMI Anemia of chronic kidney disease Hyperparathyroidism secondary to chronic kidney disease Recommendations Continue with UF 1-2 L as tolerated Epogen 37115 IV with hemodialysis Lowery catheter Strict I&Os kidney ultrasound reported bilateral small echogenic kidney Cardiology consult We will continue to follow Plan discussed with: Daughter, Other (Nurse) Dietary Evaluation Review Comments: 1. Nepr @30ml/hr is supporting 100% of pt's protein needs, and 116% of pt's energy needs. 2. Advance to Renal Standard 2 gNa 3K low Phos diet when pt is off vent and pass speech eval. Expected Outcomes/Goals: Improved nutrition status and Gradual weight gains OVI REYNOLDS MD Feb 14, 2024 09:17
[2024-02-14] MEDS: HEPARIN SODIUM (PORCINE) 5000 UNITS/ML 1ML VIAL IV ONE (09:45)
[2024-02-14] MEDS: NOREPINEPHRINE 8 MG/250ML KIT 250 ML IV SCH (10:00)
[2024-02-14 11:10] LABS: Base Excess -1.3 mmol/L (-2.0-3.0)
--- NOTE | 2024-02-14 13:57 | DVHPNRES ---
Progress Note Date Seen: Feb 14, 2024 Resident Creating Document: MARIS CASTRO RESIDENT Has the PT tested + for MRSA If YES, has PT been informed?: No Medical Necessity Reason Pt with a Central, PICC or Fol: Yes The following are medically ne: Central Line, Lowery Catheter Reason for lowery catheter: Strict I&O Subjective Review of Systems Ms. Godfrey, An 88-year-old female with a history of CHF, CKD, CVA, gout, high lipids, HTN, AL, thyroid issues, parathyroid mass and recurrent UTIs, who was currently on hospice, presented with altered mental status progressively developing over the past week, her condition had been deteriorating, with decreased urine output and oral intake. The family decided to revoke hospice services for the 2nd time ( previously for similar situation) and brought her in to ED for further evaluation. Her surgical history includes a hysterectomy, pacemaker implantation, and PTCA. On admission, she was found to be lethargic and oriented to person only: During the course of the hospitalization patient became even more lethargic brainstem functions intact yet GCS was less than 8. Elevated BUN and creatinine levels were noted, prompting a nephrology consult for acute kidney injury. She could not provide any history, further limited history/ROS obtained at the moment was extracted from family discussion. she was found to have septic shock hypotensive, needing pressor and unable to maintain /protect airways needing intubation sedation and higher level of care. On arrival patient's temperature was 96.3 F, pulse 90 bpm, respiratory rate 12, blood pressure 63/45, 92 on room air. She received IV fluids and her blood pressure improved 103/55. Patient was saturating 99 on 5 L supplementation. 02/07 around noon patient's blood pressure dropped to 65/42 mmHg and therefore she was intubated right femoral CVC was placed in right IJ CVC for hemodialysis was placed. Patient received SC calcitonin 2 doses of 200 mg on 02/07. She has been receiving D5W for the correction of hypernatremia. 02/08 - Patient seen and examined at bedside. She is tachycardic at 109 beats per minute, saturating 95 on FiO2 of 30%. Blood pressure is 107/68. Patient's hypernatremia was overcorrected more than 10 for 24 hours, DC D5W. Started free water through NG 150 mL q.6 hour. Chest x-ray shows left-sided pneumonia, possible aspiration as it was not present on arrival. Started IV Zosyn and vancomycin. Maritzao ND ed based on culture results. Started calcitonin 200 units SC q.12. Hepatitis panel pending. Hemodialysis tomorrow 02/09 02/11 - seen and examined over the bedside. She underwent hemodialysis on 02/09 and 02/11. She was transfused 1 packed RBC over the weekend. She has been off sedation since 4:00 a.m.. Safe 500 mL bolus during the hemodialysis session. Occult blood is positive. DC aspirin. Pending parathyroid scan. Echo completed 02/10 shows LVEF 65%. Moderate degree LV diastolic dysfunction. Moderate degree LVH. Moderately dilated RV. Normal valves. RVSP is 52 mmHg. 02/12 - patient seen and examined at bedside. She is on Levophed for, off sedation. Underwent CPAP trial today from 10:00 a.m. to 2:00 p.m.. She is not responding to commands. Chest x-ray shows stable left-sided infiltrate. Thyroid ultrasound is pending. 1 unit of packed RBCs ordered. ABG showed respiratory alkalosis with metabolic compensation. Received Mag and K supplementation. Repeat CBC, Mag, K wnl 02/14 - night temperature 99.1. Patient is satting 91 on 30%. Undergoing hemodialysis today. WBC trending down to 9.2. Chest x-ray shows stable left- sided opacity. Thyroid ultrasound shows heterogeneous left thyroid gland and isthmus with discrete nodule. Patient is on Levophed to off sedation. CPAP trial for exercise today. Lactulose started 30 mL once daily Objective vital signs Vital Sign Date Time Temp Pulse Resp B/P (MAP) Pulse Ox O2 Delivery O2 Flow Rate FiO2 02/14/24 11:59 30 02/14/24 11:59 20 93 Mechanical Ventilator+ 02/14/24 11:45 98.1 77 100/46 (64) 208.6 Total Intake and Output 02/13/24 02/13/24 02/14/24 15:00 23:00 07:00 Intake Total 1080.0 ml 1000.00 ml 701.25 ml Output Total 200 ml 350 ml Balance 1080.0 ml 800.00 ml 351.25 ml medications Current Medications Medications Dose Ordered Sig/Sheila Route Start Time Stop Time Status Last Admin Dose Admin Acetaminophen 650 mg Q6HP PRN PO 02/07/24 19:45 Ipratropium Foss 0.5 mg Q6HPRN PRN NEB 02/08/24 14:30 02/10/24 05:37 0.5 MG Vasopressin 20 units/Sodium Chloride 100 ml @ 9 mls/hr Q11H7M IV 02/08/24 17:00 Midazolam HCl 50 ml @ 1 mls/hr Q24H IV 02/08/24 17:00 02/11/24 17:43 4 MLS/HR Fentanyl Citrate 250 ml @ 2.5 mls/hr Q24H IV 02/08/24 17:00 02/11/24 07:45 12.5 MLS/HR Morphine Sulfate 2 mg Q4HP PRN IV 02/08/24 17:00 Pantoprazole Sodium 40 mg DAILY IV 02/09/24 10:00 02/14/24 08:40 40 MG Enoxaparin Sodium 50 mg DAILY SC 02/09/24 10:00 Hold 02/10/24 09:08 50 MG Enteral Nutritional Formula 1,000 ml 30ML/HR GT 02/09/24 13:30 02/12/24 17:10 1,000 ML Dexmedetomidine HCl 400 mcg/ Dextrose 100 ml @ 2.435 mls/ hr Q24H IV 02/11/24 20:30 Albumin Human 100 ml @ 100 mls/hr Q1HR IV 02/12/24 10:00 02/12/24 11:59 Cancel Sodium Chloride 1,000 ml @ 75 mls/hr [id number] IV 02/12/24 10:30 02/14/24 06:17 75 MLS/HR Fluconazole 100 ml @ 100 mls/hr DAILY IV 02/12/24 17:30 02/14/24 08:39 100 MLS/HR Meropenem 50 ml @ 17 mls/hr Q12HR IV 02/12/24 22:00 02/14/24 12:00 17 MLS/HR Norepinephrine Bitartrate 250 ml @ 3.75 mls/hr Q24H IV 02/14/24 10:00 02/14/24 10:00 3.75 MLS/HR Heparin Sodium (Porcine) 5,000 units LACIE PRN XX 02/14/24 11:00 Lactulose 30 ml DAILY PO 02/15/24 10:00 Examination Patient lying in bed, intubated and sedated. RASS -5. General: Thin looking, cachectic, afebrile, palor, mucosae are dry Cardiovascular: Regular S1 and S2. No murmurs, gallops or rubs. No JVD elevation. 1+ pitting edema. Right IJ Shmuel seen. Respiratory: Left-sided crepitations heard. Saturating 91 on FiO2 of 30%. Abdomen: Soft, nontender, nondistended, absent bowel sounds, no rebound tenderness, no organomegaly, no masses. Lowery catheter seen. Stage II decubitus ulcer. Erythema noticed. Genitourinary: Deferred MSK/skin: Skin is dry and warm Neurological: Pupils are isocoric and reactive. laboratory and microbiology Laboratory Tests 02/14/24 04:48 Test 02/14/24 04:48 Range/Units Serum Glucose 103 74-106 mg/dL Microbiology Date/Time Source Procedure Growth Status 02/09/24 02:25 Urine - Lowery Port Urine Culture - Final Yeast, not Ellen albicans Complete 02/08/24 17:17 Sputum Gram Stain - Final Complete 02/08/24 17:17 Respiratory Culture - Final Enterobacter hormaechei Complete 02/08/24 14:05 Nose MRSA Screen - Final Complete 02/08/24 12:10 Blood Blood Culture - Final NO GROWTH AFTER 5 DAYS OF INCUBATION. 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 Discontinued aspirin 162 mg daily given the positive occult blood and the low hemoglobin Head CT Stable small chronic infarct in the right basal ganglia. No acute intracranial process. 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 Moderate degree LV diastolic dysfunction. Moderate degree LVH. Moderately dilated RV. Normal valves. RVSP is 52 mmHg. RESPIRATORY Left-sided lobar pneumonia, possible aspiration, Gram-positive and Gram-negative with Enterobacter Sepsis secondary to pneumonia and UTI Final respiratory culture shows Enterobacter sensitive to Cipro, levofloxacin, meropenem, TMP SMX G stain shows Gram-positive cocci in chains and pairs, Gram-positive rods DC vanco, discontinue Zosyn starting 02/08 till 02/11 Started meropenem 02/11 and started IV fluconazole 02/11 MRSA screen negative Continue ipratropium nebulized treatment q.6 p.r.n. Underwent CPAP trial 02/12 and 02/13 from 10:00 a.m. to 2:00 p.m.. Patient is nonresponsive to commands. GI F/U hepatitis panel Hx of 1.0 cm left adrenal nodule Steatosis Positive occult blood Continue pantoprazole 40 mg IV daily Lactulose 30 mL once daily /KIDNEY Acute cystitis JOSE likely secondary to VMN on ESRD undergoing hemodialysis Acute tubular necrosis Prelim urine culture shows greater than 1 lac CFU mixed melissa 3 colony types possible contamination. Repeat urine culture ordered. Repeat urine culture 02/08 shows >100,000 CFU/mL Yeast Identification to follow. FENA greater than 2% Right renal simple appearing cysts measuring up to 3.4 cm. Hemodialysis 02/09 and 02/11, 02/13 receiving Retacrit 91624 units post dialysis. ENDOCRINE Right parathyroid mass Hypercalcemia Left-sided thyroid nodule Thyroid ultrasound 02/12 shows heterogeneous left thyroid gland and isthmus with a discrete nodule Corrected Calcium 11, downtrending METABOLIC Non-anion gap metabolic acidosis likely secondary to hyperchloremia and uremia with the respiratory alkalosis Hypovolemic hypernatremia Humoral Hypercalcemia of malignancy Secondary hyperphosphatemia due to ESRD Hypomagnesemia, hypokalemia Gout vs CPPD - chondrocalcinosis seen in knee x-ray in 2022 Patient received IV fluid D5W with 50 mEq sodium bicarb at 100 cc/hour on 02/07 morning of 02/08. Discontinued on 02/08 since over-correction of hyponatremia was noticed. Continue with free water through NG 150 mL q.6 hourly. Patient received 2 doses of SC calcitonin 200 mg on 02/07. Received calcitonin 200 mg sc twice daily from 01/21 till 02/11 Discontinued IV bicarb at 100 mL/hour ID Sepsis secondary to pneumonia and the UTI HEM-ONCO Right parathyroid mass Thrombocytopenia Anemia, likely normocytic due to ESRD - transfused 1 packed RBC 02/12 and 02/10 OBGYN History of Hysterectomy Protein energy malnutrition LINES Intubated on 02/07 Right IJ CVC for hemodialysis placed 02/09 Right-sided Femoral dialysis non tunneled placed 02/09 Left Femoral CVC 02/09 Lowery catheter Drips: Levophed 2, patient is off sedation NUTRITION: Nepro started 02/08 DVT: Renal dosing Lovenox on hold given the low hemoglobin and positive occult Goals of care/advance care planning; discussed with the daughter and granddaughter at the bedside, modified DNR, PUD prophylaxis: Pantoprazole 40 mg IV daily DVT prophylaxis on hold-enoxaparin 50 mg sc daily renal dosing, patient takes Eliquis at home Plan discussed with Dr. Sanderson Plan discussed with patient's granddaughter over the bedside in which all questions have been answered Goals of care have been discussed with the patient's family at the bedside for more than 25 minutes, modified DNR status Critical time including chart review, CPAP trial, discussion with the patient's family excluding procedures included 86 minutes Plan discussed with: Patient, Other (Granddaughter at the bedside) My Orders My Orders Orders - MARIS CASTRO Procedure Category Date Status Time Thyroid US 02/13/24 Resulted 14:09 Chest Xray 1 View XY 02/14/24 Resulted 04:00 Abg W/ Co-Ox RT 02/14/24 Logged 04:00 Norepinephrine 8 PHA 02/14/24 In Process Mg/250ml Kit 10:00 Lactulose Oral PHA 02/15/24 In Process 10:00 Abg W/ Co-Ox RT 02/14/24 Logged 13:14 Dietary Evaluation Review Comments: 1. Nepr @30ml/hr is supporting 100% of pt's protein needs, and 116% of pt's energy needs. 2. Advance to Renal Standard 2 gNa 3K low Phos diet when pt is off vent and pass speech eval. Expected Outcomes/Goals: Improved nutrition status and Gradual weight gains Date of Service: Feb 14, 2024 Billing Provider: RONIT SANDERSON MD Common Visit Codes: [id number] CARE 30-74 MIN MARIS CASTRO Feb 14, 2024 13:57 RONIT SANDERSON MD Feb 14, 2024 22:28
--- NOTE | 2024-02-14 21:06 | DVHPN2 ---
Progress Note - Dictate Date Seen: Feb 14, 2024 Has the PT tested + for MRSA If YES, has PT been informed?: No Medical Necessity Reason Pt with a Central, PICC or Fol: Yes The following are medically ne: Central Line, Lowery Catheter Reason for lowery catheter: Strict I&O Subjective Patient seen and examined at bedside. Sedated, intubated on mechanical ventilator. Overnight events reviewed. vital signs Vital Sign Date Time Temp Pulse Resp B/P (MAP) Pulse Ox O2 Delivery O2 Flow Rate FiO2 02/14/24 20:15 97.7 70 20 125/60 (81) 100 207.9 02/14/24 20:10 30 02/14/24 20:00 Mechanical Ventilator+ Total Intake and Output 02/13/24 02/13/24 02/14/24 15:00 23:00 07:00 Intake Total 1080.0 ml 1000.00 ml 780.00 ml Output Total 200 ml 350 ml Balance 1080.0 ml 800.00 ml 430.00 ml medications Current Medications Medications Dose Ordered Sig/Sheila Route Start Time Stop Time Status Last Admin Dose Admin Acetaminophen 650 mg Q6HP PRN PO 02/07/24 19:45 Ipratropium [place] 0.5 mg Q6HPRN PRN NEB 02/08/24 14:30 02/10/24 05:37 0.5 MG Vasopressin 20 units/Sodium Chloride 100 ml @ 9 mls/hr Q11H7M IV 02/08/24 17:00 Midazolam HCl 50 ml @ 1 mls/hr Q24H IV 02/08/24 17:00 02/11/24 17:43 4 MLS/HR Fentanyl Citrate 250 ml @ 2.5 mls/hr Q24H IV 02/08/24 17:00 02/11/24 07:45 12.5 MLS/HR Morphine Sulfate 2 mg Q4HP PRN IV 02/08/24 17:00 Pantoprazole Sodium 40 mg DAILY IV 02/09/24 10:00 02/14/24 08:40 40 MG Enoxaparin Sodium 50 mg DAILY SC 02/09/24 10:00 Hold 02/10/24 09:08 50 MG Enteral Nutritional Formula 1,000 ml 30ML/HR GT 02/09/24 13:30 02/14/24 19:33 1,000 ML Dexmedetomidine HCl 400 mcg/ Dextrose 100 ml @ 2.435 mls/ hr Q24H IV 02/11/24 20:30 Albumin Human 100 ml @ 100 mls/hr Q1HR IV 02/12/24 10:00 02/12/24 11:59 Cancel Sodium Chloride 1,000 ml @ 75 mls/hr [id number] IV 02/12/24 10:30 02/14/24 17:43 75 MLS/HR Fluconazole 100 ml @ 100 mls/hr DAILY IV 02/12/24 17:30 02/14/24 08:39 100 MLS/HR Meropenem 50 ml @ 17 mls/hr Q12HR IV 02/12/24 22:00 02/14/24 12:00 17 MLS/HR Norepinephrine Bitartrate 250 ml @ 3.75 mls/hr Q24H IV 02/14/24 10:00 02/14/24 10:00 3.75 MLS/HR Heparin Sodium (Porcine) 5,000 units LACIE PRN XX 02/14/24 11:00 Lactulose 30 ml DAILY PO 02/15/24 10:00 objective Gen.: Patient lying in bed in medical ICU. Sedated, intubated on mechanical ventilator. Head: Normocephalic, atraumatic. Eyes: PERRLA. Ears: Normal external anatomy. Throat: Endotracheal tube and orogastric tube in place. Neck: Supple, trachea midline. Chest: Transmitted breath sounds bilaterally. Decreased air entry bilaterally. No wheezing. Bibasilar crackles. Cardiovascular: Positive S1, positive S2. Regular rate and rhythm. Abdomen: Positive bowel sounds in all 4 quadrants. Soft, nontender, nondistended. : Lowery in place. Normal external genitalia. Rectal: Deferred. Skin: Warm, dry. Intact. Extremities: 2+ radial pulses bilaterally. No lower extremity edema. Neuro: Sedated. laboratory and microbiology Laboratory Tests 02/14/24 04:48 Test 02/14/24 04:48 Range/Units Serum Glucose 103 74-106 mg/dL Assessment/Plan Impression: Acute hypoxic respiratory failure On mechanical ventilator Metabolic encephalopathy Acute on chronic renal failure History of CVA with left-sided deficits Metabolic acidosis Events: Remains on vent support On AC mode; RR 20, VT 400, PEEP 5, FiO2 30% ABG reviewed. Alkalemia. Pt overbreathing the ventilator. Off sedation. On pressors for hemodynamic support On Levophed Titrate to keep mean arterial pressure greater than 65 mmHg. ABG reviewed, compensated. Hemodialysis per Nephrology Continue antibiotics and antifungals. Taper sedation as tolerated CPAP with PS 8, PEEP 5 in AM. Precedex OK for agitation Labs and imaging reviewed. Rest of plan as noted below. Plan: s/p intubation on mechanical ventilator. CXR image and report reviewed. Devices in place. Patchy opacities in the left lung. ABG reviewed, compensated. Metabolic acidosis w/ respiratory compensation. On AC mode; RR 20, VT 400, PEEP 5, FiO2 30% Titrate FIO2 to keep O2 saturation above 90%. VAP bundle. Daily ABG and CXR while intubated Sedate for ventilator synchrony Antibiotics - Zosyn. F/u cultures. Monitor WBC - 14.2 K IV fluid hydration D5 + bicarb Monitor lactic acid On pressors for hemodynamic support Titrate to keep mean arterial pressure greater than 65 mmHg. Hemodialysis per Nephrology Nephrology recs appreciated Monitor renal function Monitor electrolytes. Supplement as necessary. Monitor ins and outs. GI prophylaxis. DVT prophylaxis. Prognosis: Poor given patient's multiple co-morbidities. Condition: Critical Rest of plan per hospitalist and other consultants. A total of 35 minutes of critical care time was spent reviewing the patient record, examining the patient, making a diagnostic and therapeutic plan, discussing this plan with the medical personnel, following up on diagnostic studies and following the patient for clinical stability excluding any and all procedures. At least 50% of this time was spent in direct, [id number] contact. Thank you, Dr. Salazar, for allowing me to participate in this patient's care. Further recommendations will depend on the patient's clinical course. Please do not hesitate to contact me if you have any questions or concerns. This medical document was created using an electronic medical record system with [employer] dictation system. Although these documentations are being carefully reviewed, there may still be some phonetic and typographical changes. The errors are purely typographical, due to imperfection on the software program, and do not reflect any compromise in the patient's medical care. Dietary Evaluation Review Comments: 1. Nepr @30ml/hr is supporting 100% of pt's protein needs, and 116% of pt's energy needs. 2. Advance to Renal Standard 2 gNa 3K low Phos diet when pt is off vent and pass speech eval. Expected Outcomes/Goals: Improved nutrition status and Gradual weight gains Plan discussed with: Other (RN Gem, RT, MD) Critical Care Time(min): 35 LAKSHMI LAYTON MD Feb 14, 2024 21:06
[2024-02-15] VITALS (101 sets, daily range): BP systolic 109–163; BP diastolic 48–81; PULSE 60–191; RESP 12–22; TEMP 96.4–97.7; O2SAT 99–100
[2024-02-15 05:29] LABS: Platelet Count (auto) 30 10^3/uL (140-450)
[2024-02-15 05:31] LABS: Hematocrit 22.1 % (36.0-46.0); Hemoglobin 7.8 g/dL (12.2-16.2); Mean Corpuscular Hemoglobin 31.8 pg (28.0-32.0); Mean Corpuscular Hgb Conc. 35.1 g/dL (32.0-36.0); Mean Corpuscular Volume 90.7 fL (80.0-100.0); Red Blood Cells 2.44 10^6/uL (4.0-5.20); Red Cell Distribution Width 15.8 % (11.8-14.3); White Blood Cell 9.2 10^3/uL (4.4-10.8)
[2024-02-15 05:42] LABS: Alanine Aminotransferase 10 U/L (7-40); Anion Gap 8 (5-15); Aspartate Aminotransferase 19 U/L (13-40); BUN/Creatinine Ratio 20.9 (10.0-20.0); Calcium 9.6 mg/dL (8.7-10.4); Carbon Dioxide 25 mmol/L (20-31); Chloride 106 mmol/L (98-107); Glucose 82 mg/dL (74-106); Magnesium 1.7 mg/dL (1.6-2.6); Sodium 139 mmol/L (136-145)
[2024-02-15 05:43] LABS: Bilirubin, Total 0.4 mg/dL (0.2-1.0)
[2024-02-15 05:44] LABS: Basophils % (manual) 0 (0.0-2.0); Blast Cells 0; Eosinophils % (manual) 0 (0-7); Metamyelocytes % 0; Myelocytes % 0; Promyelocytes % 0; Reactive Lymphocytes 0
[2024-02-15 05:46] LABS: Blood Urea Nitrogen 32 mg/dL (9-23); Potassium 3.4 mmol/L (3.5-5.1)
[2024-02-15 05:47] LABS: Albumin 2.4 g/dL (3.2-4.8); Alkaline Phosphatase 155 U/L (46-116); Total Protein 4.2 g/dL (5.7-8.2)
--- NOTE | 2024-02-15 06:03 | DVH ---
CHEST RADIOGRAPH Indication: Follow up Technique: Single frontal view of the chest was obtained COMPARISON: XY CHEST XRAY 1 VIEW on DOS: 02/14/24, XY CHEST XRAY 1 VIEW on DOS: 02/13/24, XY CHEST PO RTABLE on DOS: 02/12/24, XY CHEST PORTABLE on DOS: 02/11/24, XY CHEST PORTABLE on DOS: 02/10/24 FINDINGS: Lines and Tubes: Endotracheal tube and enteric catheter and right central venous catheter in satisfac tory position. Left chest wall pacemaker. Lungs: Patchy bilateral airspace disease, [id number]. Pleura: No effusion. No pneumothorax. Cardiomediastinal contours: Unremarkable Bones: Unremarkable IMPRESSION: Lines and tubes in satisfactory position. No significant interval change.
[2024-02-15] MEDS: MAGNESIUM SULFATE 1GM/100ML 100 ML IV ONE (06:26)
[2024-02-15] MEDS: POTASSIUM CHL 20MEQ/100ML 100 ML IV ONE (06:26)
[2024-02-15 06:37] LABS: Base Excess -0.4 mmol/L (-2.0-3.0)
[2024-02-15 07:58] LABS: Band Neutrophils % (manual) 1; Lymphocytes % (manual) 17 (10.0-50.0); Monocytes % (manual) 1 (0-12)
[2024-02-15 07:59] LABS: Platelet Estimate Decreased
[2024-02-15] MEDS: LACTULOSE 20Gm/30ML SOLN PO SCH (10:37)
--- NOTE | 2024-02-15 12:47 | DVH ---
US BI LAT UPPER DVT 02/15/2024 11:52 AM Clinical History: R/O DVT LEFT UPPER ARM, SWELLING Comparison: None TECHNIQUE: Duplex Doppler evaluation of the venous systems of the upper extremities including color D oppler and spectral/pulsed waveform analysis was performed. FINDINGS: RIGHT UPPER EXTREMITY: The internal jugular vein is not seen due to overlying bandage. The subclavian vein is patent on color Doppler evaluation without intraluminal thrombus and demonstra jennie waveform variability. The visualized portion of the brachiocephalic vein is patent on color Doppler evaluation without intr aluminal thrombus and demonstrates waveform variability. The axillary vein demonstrates appropriate compressibility and waveform variability. The brachial veins demonstrate appropriate compressibility and patency on Doppler evaluation. The radial and ulnar veins show patency on doppler evaluation. The basilic vein demonstrates appropriate compressibility and patency on Doppler evaluation. The cephalic vein was not identified. LEFT UPPER EXTREMITY: The internal jugular vein demonstrates appropriate compressibility and waveform variability. The subclavian vein is patent on color Doppler evaluation without intraluminal thrombus and demonstra jennie waveform variability. The visualized portion of the brachiocephalic vein is patent on color Doppler evaluation without intr aluminal thrombus and demonstrates waveform variability. The axillary vein demonstrates appropriate compressibility and waveform variability. The brachial veins demonstrate appropriate compressibility and patency on Doppler evaluation. The radial and ulnar veins show patency on doppler evaluation. The basilic vein demonstrates appropriate compressibility and patency on Doppler evaluation. The cephalic vein demonstrates occlusive thrombophlebitis. IMPRESSION: Right upper extremity: No DVT. The internal jugular and cephalic vein could not be evaluated. Left upper extremity: Occlusive thrombophlebitis of the cephalic vein with moderate subcutaneous risa a in the arm noted. The findings were discussed the nurse in charge of the patient by the electronics engineering technologist upon co mpletion of the exam.
--- NOTE | 2024-02-15 12:57 | DVHPN2 ---
Progress Note Date Seen: Feb 15, 2024 Has the PT tested + for MRSA If YES, has PT been informed?: No Medical Necessity Reason Pt with a Central, PICC or Fol: Yes The following are medically ne: Central Line, Lowery Catheter Reason for lowery catheter: Strict I&O Subjective Review of Systems: RESPIRATORY:Abnormal Other Systems: Since lap by myself today in follow-up, patient remained intubated on ventilator Objective vital signs Vital Sign Date Time Temp Pulse Resp B/P (MAP) Pulse Ox O2 Delivery O2 Flow Rate FiO2 02/15/24 11:56 70 20 150/68 (95) 100 30 02/15/24 08:00 97.7 207.9 02/15/24 08:00 Mechanical Ventilator+ Total Intake and Output 02/14/24 02/14/24 02/15/24 15:00 23:00 07:00 Intake Total 766.000 ml 600 ml 695 ml Output Total 300 ml 300 ml Balance 766.000 ml 300 ml 395 ml medications Current Medications Medications Dose Ordered Sig/Sheila Route Start Time Stop Time Status Last Admin Dose Admin Acetaminophen 650 mg Q6HP PRN PO 02/07/24 19:45 Ipratropium Center 0.5 mg Q6HPRN PRN NEB 02/08/24 14:30 02/10/24 05:37 0.5 MG Vasopressin 20 units/Sodium Chloride 100 ml @ 9 mls/hr Q11H7M IV 02/08/24 17:00 Midazolam HCl 50 ml @ 1 mls/hr Q24H IV 02/08/24 17:00 02/11/24 17:43 4 MLS/HR Fentanyl Citrate 250 ml @ 2.5 mls/hr Q24H IV 02/08/24 17:00 02/11/24 07:45 12.5 MLS/HR Morphine Sulfate 2 mg Q4HP PRN IV 02/08/24 17:00 Pantoprazole Sodium 40 mg DAILY IV 02/09/24 10:00 02/15/24 10:36 40 MG Enoxaparin Sodium 50 mg DAILY SC 02/09/24 10:00 Hold 02/10/24 09:08 50 MG Enteral Nutritional Formula 1,000 ml 30ML/HR GT 02/09/24 13:30 02/14/24 19:33 1,000 ML Dexmedetomidine HCl 400 mcg/ Dextrose 100 ml @ 2.435 mls/ hr Q24H IV 02/11/24 20:30 Albumin Human 100 ml @ 100 mls/hr Q1HR IV 02/12/24 10:00 02/12/24 11:59 Cancel Sodium Chloride 1,000 ml @ 75 mls/hr [id number] IV 02/12/24 10:30 02/15/24 06:26 75 MLS/HR Fluconazole 100 ml @ 100 mls/hr DAILY IV 02/12/24 17:30 02/15/24 10:37 100 MLS/HR Meropenem 50 ml @ 17 mls/hr Q12HR IV 02/12/24 22:00 02/15/24 10:51 17 MLS/HR Norepinephrine Bitartrate 250 ml @ 3.75 mls/hr Q24H IV 02/14/24 10:00 02/14/24 10:00 3.75 MLS/HR Heparin Sodium (Porcine) 5,000 units LACIE PRN XX 02/14/24 11:00 Lactulose 30 ml DAILY PO 02/15/24 10:00 02/15/24 10:37 30 ML Bumetanide 1 mg DAILY IV 02/16/24 10:00 UNV Examination: LUNGS:Normal, CVS:Normal, MSK:Normal laboratory and microbiology Laboratory Tests 02/15/24 04:50 Test 02/15/24 04:50 Range/Units Serum Glucose 82 74-106 mg/dL Microbiology Date/Time Source Procedure Growth Status 02/09/24 02:25 Urine - Lowery Port Urine Culture - Final Yeast, not Ellen albicans Complete 02/08/24 17:17 Sputum Gram Stain - Final Complete 02/08/24 17:17 Respiratory Culture - Final Enterobacter hormaechei Complete 02/08/24 14:05 Nose MRSA Screen - Final Complete 02/08/24 12:10 Blood Blood Culture - Final NO GROWTH AFTER 5 DAYS OF INCUBATION. 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 Nepr @30ml/hr is supporting 100% of pt's protein needs, and 116% of pt's energy needs. 2. Advance to Renal Standard 2 gNa 3K low Phos diet when pt is off vent and pass speech eval. Expected Outcomes/Goals: Improved nutrition status and Gradual weight gains OVI REYNOLDS MD Feb 15, 2024 12:57
--- NOTE | 2024-02-15 13:17 | DVHPNRES ---
Progress Note Date Seen: Feb 15, 2024 Resident Creating Document: MARIS CASTRO RESIDENT Has the PT tested + for MRSA If YES, has PT been informed?: No Medical Necessity Reason Pt with a Central, PICC or Fol: Yes The following are medically ne: Central Line, Lowery Catheter Reason for lowery catheter: Strict I&O Subjective Review of Systems Ms. Godfrey, An 88-year-old female with a history of CHF, CKD, CVA, gout, high lipids, HTN, PA, thyroid issues, parathyroid mass and recurrent UTIs, who was currently on hospice, presented with altered mental status progressively developing over the past week, her condition had been deteriorating, with decreased urine output and oral intake. The family decided to revoke hospice services for the 2nd time ( previously for similar situation) and brought her in to ED for further evaluation. Her surgical history includes a hysterectomy, pacemaker implantation, and PTCA. On admission, she was found to be lethargic and oriented to person only: During the course of the hospitalization patient became even more lethargic brainstem functions intact yet GCS was less than 8. Elevated BUN and creatinine levels were noted, prompting a nephrology consult for acute kidney injury. She could not provide any history, further limited history/ROS obtained at the moment was extracted from family discussion. she was found to have septic shock hypotensive, needing pressor and unable to maintain /protect airways needing intubation sedation and higher level of care. On arrival patient's temperature was 96.3 F, pulse 90 bpm, respiratory rate 12, blood pressure 63/45, 92 on room air. She received IV fluids and her blood pressure improved 103/55. Patient was saturating 99 on 5 L supplementation. 02/07 around noon patient's blood pressure dropped to 65/42 mmHg and therefore she was intubated right femoral CVC was placed in right IJ CVC for hemodialysis was placed. Patient received SC calcitonin 2 doses of 200 mg on 02/07. She has been receiving D5W for the correction of hypernatremia. 02/08 - Patient seen and examined at bedside. She is tachycardic at 109 beats per minute, saturating 95 on FiO2 of 30%. Blood pressure is 107/68. Patient's hypernatremia was overcorrected more than 10 for 24 hours, DC D5W. Started free water through NG 150 mL q.6 hour. Chest x-ray shows left-sided pneumonia, possible aspiration as it was not present on arrival. Started IV Zosyn and vancomycin. Vanco DC ed based on culture results. Started calcitonin 200 units SC q.12. Hepatitis panel pending. Hemodialysis tomorrow 02/09 02/11 - seen and examined over the bedside. She underwent hemodialysis on 02/09 and 02/11. She was transfused 1 packed RBC over the weekend. She has been off sedation since 4:00 a.m.. Safe 500 mL bolus during the hemodialysis session. Occult blood is positive. DC aspirin. Pending parathyroid scan. Echo completed 02/10 shows LVEF 65%. Moderate degree LV diastolic dysfunction. Moderate degree LVH. Moderately dilated RV. Normal valves. RVSP is 52 mmHg. 02/12 - patient seen and examined at bedside. She is on Levophed for, off sedation. Underwent CPAP trial today from 10:00 a.m. to 2:00 p.m.. She is not responding to commands. Chest x-ray shows stable left-sided infiltrate. Thyroid ultrasound is pending. 1 unit of packed RBCs ordered. ABG showed respiratory alkalosis with metabolic compensation. Received Mag and K supplementation. Repeat CBC, Mag, K wnl 02/13 - night temperature 99.1. Patient is satting 91 on 30%. Undergoing hemodialysis today. WBC trending down to 9.2. Chest x-ray shows stable left- sided opacity. Thyroid ultrasound shows heterogeneous left thyroid gland and isthmus with discrete nodule. Patient is on Levophed to off sedation. No CPAP trial. Lactulose started 30 mL once daily 02/14 - not responsive to commands. Off sedation since 02/11. CPAP trial terminated within 1 minute due to apnea. CT head completed, shows new age indeterminate referral right cerebellum infarct. patient is Left upper extremity: Occlusive thrombophlebitis of the cephalic vein with moderate subcutaneous edema in the arm noted. Started nystatin 5 cc swish and swallow. Decreased respiratory rate to 18. Patient had a bowel movement overnight. Objective vital signs Vital Sign Date Time Temp Pulse Resp B/P (MAP) Pulse Ox O2 Delivery O2 Flow Rate FiO2 02/15/24 11:56 70 20 150/68 (95) 100 30 02/15/24 08:00 97.7 207.9 02/15/24 08:00 Mechanical Ventilator+ Total Intake and Output 02/14/24 02/14/24 02/15/24 15:00 23:00 07:00 Intake Total 766.000 ml 600 ml 695 ml Output Total 300 ml 300 ml Balance 766.000 ml 300 ml 395 ml medications Current Medications Medications Dose Ordered Sig/Sheila Route Start Time Stop Time Status Last Admin Dose Admin Acetaminophen 650 mg Q6HP PRN PO 02/07/24 19:45 Ipratropium [place] 0.5 mg Q6HPRN PRN NEB 02/08/24 14:30 02/10/24 05:37 0.5 MG Vasopressin 20 units/Sodium Chloride 100 ml @ 9 mls/hr Q11H7M IV 02/08/24 17:00 Midazolam HCl 50 ml @ 1 mls/hr Q24H IV 02/08/24 17:00 02/11/24 17:43 4 MLS/HR Fentanyl Citrate 250 ml @ 2.5 mls/hr Q24H IV 02/08/24 17:00 02/11/24 07:45 12.5 MLS/HR Morphine Sulfate 2 mg Q4HP PRN IV 02/08/24 17:00 Pantoprazole Sodium 40 mg DAILY IV 02/09/24 10:00 02/15/24 10:36 40 MG Enoxaparin Sodium 50 mg DAILY SC 02/09/24 10:00 Hold 02/10/24 09:08 50 MG Enteral Nutritional Formula 1,000 ml 30ML/HR GT 02/09/24 13:30 02/14/24 19:33 1,000 ML Dexmedetomidine HCl 400 mcg/ Dextrose 100 ml @ 2.435 mls/ hr Q24H IV 02/11/24 20:30 Albumin Human 100 ml @ 100 mls/hr Q1HR IV 02/12/24 10:00 02/12/24 11:59 Cancel Sodium Chloride 1,000 ml @ 75 mls/hr [id number] IV 02/12/24 10:30 02/15/24 06:26 75 MLS/HR Fluconazole 100 ml @ 100 mls/hr DAILY IV 02/12/24 17:30 02/15/24 10:37 100 MLS/HR Meropenem 50 ml @ 17 mls/hr Q12HR IV 02/12/24 22:00 02/15/24 10:51 17 MLS/HR Norepinephrine Bitartrate 250 ml @ 3.75 mls/hr Q24H IV 02/14/24 10:00 02/14/24 10:00 3.75 MLS/HR Heparin Sodium (Porcine) 5,000 units LACIE PRN XX 02/14/24 11:00 Lactulose 30 ml DAILY PO 02/15/24 10:00 02/15/24 10:37 30 ML Bumetanide 1 mg DAILY IV 02/16/24 10:00 Examination Patient lying in bed, intubated and sedated. RASS -5. General: Thin looking, cachectic, afebrile, palor, mucosae are dry. Oral thrush on tongue. Cardiovascular: Regular S1 and S2. No murmurs, gallops or rubs. No JVD elevation. 1+ pitting edema. Right IJ Shmuel seen. Respiratory: Left-sided crepitations heard. Saturating 91 on FiO2 of 30%. Abdomen: Soft, nontender, nondistended, absent bowel sounds, no rebound tenderness, no organomegaly, no masses. Lowery catheter seen. Stage II decubitus ulcer. Erythema noticed. Genitourinary: Deferred MSK/skin: Skin is dry and warm Neurological: Pupils are isocoric and reactive. laboratory and microbiology Laboratory Tests 02/15/24 04:50 Test 02/15/24 04:50 Range/Units Serum Glucose 82 74-106 mg/dL Microbiology Date/Time Source Procedure Growth Status 02/09/24 02:25 Urine - [place] Urine Culture - Final Yeast, not Ellen albicans Complete 02/08/24 17:17 Sputum Gram Stain - Final Complete 02/08/24 17:17 Respiratory Culture - Final Enterobacter hormaechei Complete 02/08/24 14:05 Nose MRSA Screen - Final Complete 02/08/24 12:10 Blood Blood Culture - Final NO GROWTH AFTER 5 DAYS OF INCUBATION. 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 Discontinued aspirin 162 mg daily given the positive occult blood and the low hemoglobin Head CT Stable small chronic infarct in the right basal ganglia. No acute intracranial process. 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 Moderate degree LV diastolic dysfunction. Moderate degree LVH. Moderately dilated RV. Normal valves. RVSP is 52 mmHg. RESPIRATORY Left-sided lobar pneumonia, possible aspiration, Gram-positive and Gram-negative with Enterobacter Sepsis secondary to pneumonia and UTI Final respiratory culture shows Enterobacter sensitive to Cipro, levofloxacin, meropenem, TMP SMX G stain shows Gram-positive cocci in chains and pairs, Gram-positive rods DC vanco, discontinue Zosyn starting 02/08 till 02/11 Started meropenem 02/11 and started IV fluconazole 02/14 MRSA screen negative Continue ipratropium nebulized treatment q.6 p.r.n. Underwent CPAP trial 02/12 from 10:00 a.m. to 2:00 p.m.. Patient is nonresponsive to commands. 02/14 CPAP trial terminated within 1 minute due to apnea. GI F/U hepatitis panel Hx of 1.0 cm left adrenal nodule Steatosis Positive occult blood Continue pantoprazole 40 mg IV daily Lactulose 30 mL once daily /KIDNEY Acute cystitis JOSE likely secondary to VMN on ESRD undergoing hemodialysis Acute tubular necrosis Prelim urine culture shows greater than 1 lac CFU mixed melissa 3 colony types possible contamination. Repeat urine culture ordered. Repeat urine culture 02/08 shows >100,000 CFU/mL Yeast Identification to follow. FENA greater than 2% Right renal simple appearing cysts measuring up to 3.4 cm. Hemodialysis 02/09 and 02/11, 02/13 receiving Retacrit 25280 units post dialysis. ENDOCRINE Right parathyroid mass Hypercalcemia Left-sided thyroid nodule Thyroid ultrasound 02/12 shows heterogeneous left thyroid gland and isthmus with a discrete nodule Corrected Calcium 11, downtrending METABOLIC Non-anion gap metabolic acidosis likely secondary to hyperchloremia and uremia with the respiratory alkalosis Hypovolemic hypernatremia Humoral Hypercalcemia of malignancy Secondary hyperphosphatemia due to ESRD Hypomagnesemia, hypokalemia Gout vs CPPD - chondrocalcinosis seen in knee x-ray in 2022 Patient received IV fluid D5W with 50 mEq sodium bicarb at 100 cc/hour on 02/07 morning of 02/08. Discontinued on 02/08 since over-correction of hyponatremia was noticed. Continue with free water through NG 150 mL q.6 hourly. Patient received 2 doses of SC calcitonin 200 mg on 02/07. Received calcitonin 200 mg sc twice daily from 01/21 till 02/11 Discontinued IV bicarb at 100 mL/hour ID Sepsis secondary to pneumonia and the UTI Oral thrush Started nystatin swish and swallow 5 cc 02/14 HEM-ONCO Right parathyroid mass Thrombocytopenia Anemia, likely normocytic due to ESRD - transfused 1 packed RBC 02/12 and 02/10 OBGYN History of Hysterectomy Protein energy malnutrition LINES Intubated on 02/07 Right IJ CVC for hemodialysis placed 02/09 Right-sided Femoral dialysis non tunneled placed 02/09 Left Femoral CVC 02/09 Lowery catheter Drips: Levophed 0, patient is off sedation NUTRITION: Nepro started 02/08 DVT: Renal dosing Lovenox on hold given the low hemoglobin and positive occult Goals of care/advance care planning; discussed with the daughter and granddaughter at the bedside, modified DNR, PUD prophylaxis: Pantoprazole 40 mg IV daily DVT prophylaxis on hold-enoxaparin 50 mg sc daily renal dosing, patient takes Eliquis at home Plan discussed with Dr. Machuca. Hemodialysis tomorrow Plan discussed with patient's granddaughter over the bedside in which all questions have been answered Goals of care have been discussed with the patient's family at the bedside for more than 25 minutes, modified DNR status Critical time including chart review, discussion with the patient's family excluding procedures included 54 minutes Plan discussed with: Patient, Other (Granddaughter at the bedside) My Orders My Orders Orders - MARIS CASTRO RESIDENT Procedure Category Date Status Time Chest Portable XY 02/15/24 Resulted 04:00 Abg W/ Co-Ox RT 02/15/24 Logged 04:00 Bi Lat Upper Dvt US 02/15/24 Resulted 11:16 Dietary Evaluation Review Comments: 1. Nepr @30ml/hr is supporting 100% of pt's protein needs, and 116% of pt's energy needs. 2. Advance to Renal Standard 2 gNa 3K low Phos diet when pt is off vent and pass speech eval. Expected Outcomes/Goals: Improved nutrition status and Gradual weight gains Date of Service: Feb 15, 2024 Billing Provider: PALAK MACHUCA MD Common Visit Codes: 45831-[id number] CARE 30-74 MIN MARIS CASTRO RESIDENT Feb 15, 2024 13:17 PALAK MACHUCA MD Feb 16, 2024 14:39
--- NOTE | 2024-02-15 15:47 | DVH ---
EXAM: CT HEAD WITHOUT CONTRAST HISTORY: ALOC COMPARISON: CT HEAD WITHOUT CONTRAST on DOS: 02/07/24, CT HEAD WITHOUT CONTRAST on DOS: 12/20/22 TECHNIQUE: Axial images of the head were obtained and reformatted in coronal and sagittal planes. All CT scans at this medical facility are performed using dose modulation techniques as appropriate t o a performed exam including the following: Automated exposure control was utilized; adjustment of th e MA and/or KV according to patient size; and use of iterative reconstruction technique. CT Dose: CTDI volume is 54 mGy. Dose-length product is 957 mGy*cm FINDINGS: There is a small hypodense area in the peripheral right cerebellum compatible with an age-indetermina te infarct ( axial image 15). There is a stable small chronic infarct in the right basal ganglia. The re are severe chronic small-vessel white matter ischemic changes. There is no evidence of acute intra cranial hemorrhage, mass, mass effect midline shift. There is no hydrocephalus or extra-axial fluid c ollection. The visualized paranasal sinuses and mastoid air cells are clear. The calvarium is intact. 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 IMPRESSION: 1. Small hypodense area in the peripheral right cerebellum compatible with an age-indeterminate infa rct. Further evaluation with MRI brain with diffusion-weighted imaging is recommended. 2. Chronic ischemic changes as described above. HS:Y
[2024-02-15] MEDS: BUMETANIDE 2.5mg/10ml (0.25 mg/ml) INJ IV ONE (16:05)
[2024-02-15] MEDS ORDERED: DEXTROSE (50%) 50ML SYRG IV PRN (18:45)
[2024-02-15] MEDS ORDERED: FLUCONAZOLE 200MG/100ML 100 ML IV ONE (19:00)
[2024-02-15] MEDS: NYSTATIN (MOUTH-THROAT) 500,000 UNITS/5 ML SUSP MT ONE (20:20)
[2024-02-15] MEDS: NYSTATIN (MOUTH-THROAT) 500,000 UNITS/5 ML SUSP MT SCH (22:14)
[2024-02-16] VITALS (106 sets, daily range): BP systolic 100–172; BP diastolic 45–98; PULSE 60–76; RESP 10–25; TEMP 97.2–99.3; O2SAT 95–100
[2024-02-16] MEDS: ACCU-CHEK COMFORT CURVE STRIP VI SCH
--- NOTE | 2024-02-16 05:18 | DVH ---
CHEST RADIOGRAPH Indication: Portable Technique: Single frontal view of the chest was obtained COMPARISON: XY CHEST PORTABLE on DOS: 02/15/24, XY CHEST XRAY 1 VIEW on DOS: 02/14/24, XY CHEST XRAY 1 VIEW on DOS: 02/13/24, XY CHEST PORTABLE on DOS: 02/12/24, XY CHEST PORTABLE on DOS: 02/11/24, XY C HEST PORTABLE on DOS: 02/15/24 FINDINGS: Lines and Tubes: Endotracheal tube and enteric catheter and right central venous catheter in satisfac tory position. Left chest wall pacemaker. Lungs: Patchy bilateral airspace disease, [id number]. Pleura: No effusion. No pneumothorax. Cardiomediastinal contours: Unremarkable Bones: Unremarkable IMPRESSION: Lines and tubes in satisfactory position. No significant interval change.
[2024-02-16 06:52] LABS: Basophils # (auto) 0 10 ^3/uL (0-0.2); Eosinophils # (auto) 0 10 ^3/uL (0-0.8); Eosinophils % (auto) 0.4 % (0.0-7.0); Mean Corpuscular Volume 93.2 fL (80.0-100.0); Monocytes # (auto) 0.4 10 ^3/uL (0-1.3); Nucleated Red Blood Cells % 0.1 %
[2024-02-16 06:58] LABS: Basophils % (auto) 0.2 % (0.0-2.0); Hematocrit 26.2 % (36.0-46.0); Hemoglobin 8.9 g/dL (12.2-16.2); Lymphocytes # (auto) 0.9 10 ^3/uL (0.4-5.4); Lymphocytes % (auto) 9.5 % (10.0-50.0); Mean Corpuscular Hemoglobin 31.7 pg (28.0-32.0); Monocytes % (auto) 3.9 % (0.0-12.0); Neutrophils # (auto) 7.7 10 ^3/uL (1.6-8.6); Red Blood Cells 2.81 10^6/uL (4.0-5.20); Red Cell Distribution Width 16.1 % (11.8-14.3)
[2024-02-16] MEDS: SODIUM CHL 0.9% 1000 ML BAG XX ONE (07:00)
[2024-02-16 07:11] LABS: Alanine Aminotransferase 13 U/L (7-40); Anion Gap 10 (5-15); BUN/Creatinine Ratio 17.3 (10.0-20.0); Carbon Dioxide 22 mmol/L (20-31); Glucose 92 mg/dL (74-106); Magnesium 2.1 mg/dL (1.6-2.6); Sodium 139 mmol/L (136-145)
[2024-02-16 07:12] LABS: Aspartate Aminotransferase 21 U/L (13-40)
[2024-02-16 07:16] LABS: Albumin 2.6 g/dL (3.2-4.8); Alkaline Phosphatase 152 U/L (46-116); Bilirubin, Total 0.3 mg/dL (0.2-1.0); Blood Urea Nitrogen 31 mg/dL (9-23); Chloride 107 mmol/L (98-107); Potassium 3.3 mmol/L (3.5-5.1); Total Protein 4.8 g/dL (5.7-8.2)
[2024-02-16 08:33] LABS: Base Excess -1.7 mmol/L (-2.0-3.0)
[2024-02-16] MEDS: BUMETANIDE 2.5mg/10ml (0.25 mg/ml) INJ IV SCH (08:48)
[2024-02-16] MEDS: POTASSIUM CHL 20MEQ/100ML 100 ML IV SCH (09:05)
[2024-02-16 09:16] LABS: Platelet Count (auto) 44 10^3/uL (140-450); Platelet Estimate Decreased
[2024-02-16] MEDS ORDERED: FLUCONAZOLE 200MG/100ML 100 ML IV SCH (10:00)
--- NOTE | 2024-02-16 15:45 | DVHPN2 ---
Progress Note Date Seen: Feb 16, 2024 Has the PT tested + for MRSA If YES, has PT been informed?: No Medical Necessity Reason Pt with a Central, PICC or Fol: Yes The following are medically ne: Central Line, Lowery Catheter Reason for lowery catheter: Strict I&O Subjective Review of Systems Pt is intubated on mechanical ventilator. HD today Objective vital signs Vital Sign Date Time Temp Pulse Resp B/P (MAP) Pulse Ox O2 Delivery O2 Flow Rate FiO2 02/16/24 14:12 70 18 139/71 (93) 100 30 02/16/24 12:00 Mechanical Ventilator+ 02/16/24 08:00 99.0 99.0 Total Intake and Output 02/15/24 02/15/24 02/16/24 15:00 23:00 07:00 Intake Total 851 ml 600 ml 833 ml Output Total 500 ml 550 ml Balance 851 ml 100 ml 283 ml medications Current Medications Medications Dose Ordered Sig/Sheila Route Start Time Stop Time Status Last Admin Dose Admin Acetaminophen 650 mg Q6HP PRN PO 02/07/24 19:45 Ipratropium [place] 0.5 mg Q6HPRN PRN NEB 02/08/24 14:30 02/10/24 05:37 0.5 MG Midazolam HCl 50 ml @ 1 mls/hr Q24H IV 02/08/24 17:00 02/11/24 17:43 4 MLS/HR Fentanyl Citrate 250 ml @ 2.5 mls/hr Q24H IV 02/08/24 17:00 02/11/24 07:45 12.5 MLS/HR Morphine Sulfate 2 mg Q4HP PRN IV 02/08/24 17:00 Pantoprazole Sodium 40 mg DAILY IV 02/09/24 10:00 02/16/24 08:47 40 MG Enteral Nutritional Formula 1,000 ml 30ML/HR GT 02/09/24 13:30 02/14/24 19:33 1,000 ML Dexmedetomidine HCl 400 mcg/ Dextrose 100 ml @ 2.435 mls/ hr Q24H IV 02/11/24 20:30 Albumin Human 100 ml @ 100 mls/hr Q1HR IV 02/12/24 10:00 02/12/24 11:59 Cancel Sodium Chloride 1,000 ml @ 75 mls/hr [id number] IV 02/12/24 10:30 02/16/24 11:23 75 MLS/HR Fluconazole 100 ml @ 100 mls/hr DAILY IV 02/12/24 17:30 02/16/24 08:47 100 MLS/HR Norepinephrine Bitartrate 250 ml @ 3.75 mls/hr Q24H IV 02/14/24 10:00 02/14/24 10:00 3.75 MLS/HR Heparin Sodium (Porcine) 5,000 units LACIE PRN XX 02/14/24 11:00 Lactulose 30 ml DAILY PO 02/15/24 10:00 02/15/24 10:37 30 ML Bumetanide 1 mg DAILY IV 02/16/24 10:00 02/16/24 08:48 1 MG Epoetin Kuldip-epbx 10,000 unit [id number]@2100 SC 02/16/24 21:00 Diagnostic Test (Pha) 1 strip Q6HR 02/16/24 00:00 02/16/24 11:35 1 STRIP Dextrose 50 ml UD PRN IV 02/15/24 18:45 Nystatin 5 ml QID MT 02/15/24 22:00 02/16/24 11:35 5 ML Fluconazole 100 ml @ 100 mls/hr DAILY IV 02/16/24 10:00 UNV Potassium Chloride 100 ml @ 50 mls/hr Q2H IV 02/16/24 08:45 02/16/24 11:12 50 MLS/HR Levofloxacin 50 ml @ 50 mls/hr Q48H IV 02/16/24 16:00 Examination Gen: Intubated on mechanical ventilation Pulm: Decreased air entry bilaterally. CVS: RRR Ext: + edema Neuro: unable to follow commands, no longer on sedation laboratory and microbiology Laboratory Tests 02/16/24 05:35 Test 02/16/24 05:35 Range/Units Serum Glucose 92 74-106 mg/dL Microbiology Date/Time Source Procedure Growth Status 02/09/24 02:25 Urine - [place] Urine Culture - Final Yeast, not Ellen albicans Complete 02/08/24 17:17 Sputum Gram Stain - Final Complete 02/08/24 17:17 Respiratory Culture - Final Enterobacter hormaechei Complete 02/08/24 14:05 Nose MRSA Screen - Final Complete 02/08/24 12:10 Blood Blood Culture - Final NO GROWTH AFTER 5 DAYS OF INCUBATION. Complete Labs and/or images reviewed: Labs reviewed by me Problem List/Assessment/Plan Problem List/Assessment/Plan IMP Acute kidney injury superimposed Chronic Kidney Disease stage IV secondary hemodynamic mediated, ATN, feNa > 2%-ongoing on HD Acute respiratory failure, intubated on ventilator Hypernatremia due to dehydration- resolved Encephalopathy Hypercalcemia due to primary hyperparathyroidism rule out parathyroid adenoma Dehydration Septic shock Metabolic acidosis CVA NSTEMI Anemia of chronic kidney disease-ongoing Hyperparathyroidism secondary to chronic kidney disease REC Chemistry panel- monitor electrolytes Potassium supplementation as needed HD today Lowery catheter Strict I&Os Avoid nephrotoxins We will continue to follow Plan discussed with: Other Dietary Evaluation Review Comments: 1. Nepr @30ml/hr is supporting 100% of pt's protein needs, and 116% of pt's energy needs. 2. Advance to Renal Standard 2 gNa 3K low Phos diet when pt is off vent and pass speech eval. Expected Outcomes/Goals: Improved nutrition status and Gradual weight gains MYRTLE COLLINS Feb 16, 2024 15:45
[2024-02-16] MEDS: levoFLOXacin 250MG 50 ML IV SCH (16:15)
--- NOTE | 2024-02-16 19:19 | DVHPNRES ---
Progress Note Date Seen: Feb 16, 2024 Resident Creating Document: MARIS CASTRO RESIDENT Has the PT tested + for MRSA If YES, has PT been informed?: No Medical Necessity Reason Pt with a Central, PICC or Fol: Yes The following are medically ne: Central Line, Lowery Catheter Reason for lowery catheter: Strict I&O Subjective Review of Systems Ms. Godfrey, An 88-year-old female with a history of CHF, CKD, CVA, gout, high lipids, HTN, GA, thyroid issues, parathyroid mass and recurrent UTIs, who was currently on hospice, presented with altered mental status progressively developing over the past week, her condition had been deteriorating, with decreased urine output and oral intake. The family decided to revoke hospice services for the 2nd time ( previously for similar situation) and brought her in to ED for further evaluation. Her surgical history includes a hysterectomy, pacemaker implantation, and PTCA. On admission, she was found to be lethargic and oriented to person only: During the course of the hospitalization patient became even more lethargic brainstem functions intact yet GCS was less than 8. Elevated BUN and creatinine levels were noted, prompting a nephrology consult for acute kidney injury. She could not provide any history, further limited history/ROS obtained at the moment was extracted from family discussion. she was found to have septic shock hypotensive, needing pressor and unable to maintain /protect airways needing intubation sedation and higher level of care. On arrival patient's temperature was 96.3 F, pulse 90 bpm, respiratory rate 12, blood pressure 63/45, 92 on room air. She received IV fluids and her blood pressure improved 103/55. Patient was saturating 99 on 5 L supplementation. 02/07 around noon patient's blood pressure dropped to 65/42 mmHg and therefore she was intubated right femoral CVC was placed in right IJ CVC for hemodialysis was placed. Patient received SC calcitonin 2 doses of 200 mg on 02/07. She has been receiving D5W for the correction of hypernatremia. 02/08 - Patient seen and examined at bedside. She is tachycardic at 109 beats per minute, saturating 95 on FiO2 of 30%. Blood pressure is 107/68. Patient's hypernatremia was overcorrected more than 10 for 24 hours, DC D5W. Started free water through NG 150 mL q.6 hour. Chest x-ray shows left-sided pneumonia, possible aspiration as it was not present on arrival. Started IV Zosyn and vancomycin. Vanco DC ed based on culture results. Started calcitonin 200 units SC q.12. Hepatitis panel pending. Hemodialysis tomorrow 02/09 02/11 - seen and examined over the bedside. She underwent hemodialysis on 02/09 and 02/11. She was transfused 1 packed RBC over the weekend. She has been off sedation since 4:00 a.m.. Safe 500 mL bolus during the hemodialysis session. Occult blood is positive. DC aspirin. Pending parathyroid scan. Echo completed 02/10 shows LVEF 65%. Moderate degree LV diastolic dysfunction. Moderate degree LVH. Moderately dilated RV. Normal valves. RVSP is 52 mmHg. 02/12 - patient seen and examined at bedside. She is on Levophed for, off sedation. Underwent CPAP trial today from 10:00 a.m. to 2:00 p.m.. She is not responding to commands. Chest x-ray shows stable left-sided infiltrate. Thyroid ultrasound is pending. 1 unit of packed RBCs ordered. ABG showed respiratory alkalosis with metabolic compensation. Received Mag and K supplementation. Repeat CBC, Mag, K wnl 02/13 - night temperature 99.1. Patient is satting 91 on 30%. Undergoing hemodialysis today. WBC trending down to 9.2. Chest x-ray shows stable left- sided opacity. Thyroid ultrasound shows heterogeneous left thyroid gland and isthmus with discrete nodule. Patient is on Levophed to off sedation. No CPAP trial. Lactulose started 30 mL once daily 02/14 - not responsive to commands. Off sedation since 02/11. CPAP trial terminated within 1 minute due to apnea. CT head completed, shows new age indeterminate referral right cerebellum infarct. patient is Left upper extremity: Occlusive thrombophlebitis of the cephalic vein with moderate subcutaneous edema in the arm noted. Started nystatin 5 cc swish and swallow. Decreased respiratory rate to 18. Patient had a bowel movement overnight. 02/15 - overnight patient's temperature was 99.3, patient is off sedation and not responding to commands for opening eyes spontaneously. Repeat urine culture and respiratory culture ordered. MRI brain pending. Switched meropenem to Levaquin. Corrected calcium 11.1. Objective vital signs Vital Sign Date Time Temp Pulse Resp B/P (MAP) Pulse Ox O2 Delivery O2 Flow Rate FiO2 02/16/24 18:20 70 18 154/70 (98) 100 30 02/16/24 18:00 Mechanical Ventilator+ 02/16/24 16:00 97.2 97.2 Total Intake and Output 02/15/24 02/15/24 02/16/24 15:00 23:00 07:00 Intake Total 851 ml 600 ml 833 ml Output Total 500 ml 550 ml Balance 851 ml 100 ml 283 ml medications Current Medications Medications Dose Ordered Sig/Sheila Route Start Time Stop Time Status Last Admin Dose Admin Acetaminophen 650 mg Q6HP PRN PO 02/07/24 19:45 Ipratropium [place] 0.5 mg Q6HPRN PRN NEB 02/08/24 14:30 02/10/24 05:37 0.5 MG Midazolam HCl 50 ml @ 1 mls/hr Q24H IV 02/08/24 17:00 02/11/24 17:43 4 MLS/HR Fentanyl Citrate 250 ml @ 2.5 mls/hr Q24H IV 02/08/24 17:00 02/16/24 15:35 2.5 MLS/HR Morphine Sulfate 2 mg Q4HP PRN IV 02/08/24 17:00 Pantoprazole Sodium 40 mg DAILY IV 02/09/24 10:00 02/16/24 08:47 40 MG Enteral Nutritional Formula 1,000 ml 30ML/HR GT 02/09/24 13:30 02/14/24 19:33 1,000 ML Dexmedetomidine HCl 400 mcg/ Dextrose 100 ml @ 2.435 mls/ hr Q24H IV 02/11/24 20:30 Albumin Human 100 ml @ 100 mls/hr Q1HR IV 02/12/24 10:00 02/12/24 11:59 Cancel Sodium Chloride 1,000 ml @ 75 mls/hr [id number] IV 02/12/24 10:30 02/16/24 11:23 75 MLS/HR Fluconazole 100 ml @ 100 mls/hr DAILY IV 02/12/24 17:30 02/16/24 08:47 100 MLS/HR Norepinephrine Bitartrate 250 ml @ 3.75 mls/hr Q24H IV 02/14/24 10:00 02/14/24 10:00 3.75 MLS/HR Heparin Sodium (Porcine) 5,000 units LACIE PRN XX 02/14/24 11:00 Lactulose 30 ml DAILY PO 02/15/24 10:00 02/15/24 10:37 30 ML Bumetanide 1 mg DAILY IV 02/16/24 10:00 02/16/24 08:48 1 MG Epoetin Kuldip-epbx 10,000 unit MoWeFr@2100 SC 02/16/24 21:00 Diagnostic Test (Pha) 1 strip Q6HR 02/16/24 00:00 02/16/24 18:06 1 STRIP Dextrose 50 ml UD PRN IV 02/15/24 18:45 Nystatin 5 ml QID MT 02/15/24 22:00 02/16/24 18:06 5 ML Fluconazole 100 ml @ 100 mls/hr DAILY IV 02/16/24 10:00 UNV Levofloxacin 50 ml @ 50 mls/hr Q48H IV 02/16/24 16:00 02/16/24 16:15 50 MLS/HR Examination Patient lying in bed, intubated and off sedated. RASS -5. General: Thin looking, cachectic, afebrile, palor, mucosae are dry. Oral thrush on tongue. Cardiovascular: Regular S1 and S2. No murmurs, gallops or rubs. No JVD elevation. 1+ pitting edema. Right IJ Shmuel seen. Respiratory: Left-sided crepitations heard. Saturating 99 on FiO2 of 30%. Abdomen: Soft, nontender, nondistended, absent bowel sounds, no rebound tenderness, no organomegaly, no masses. Lowery catheter seen. Stage II decubitus ulcer. Erythema noticed. Genitourinary: Deferred MSK/skin: Skin is dry and warm Neurological: Pupils are isocoric and reactive. laboratory and microbiology Laboratory Tests 02/16/24 05:35 Test 02/16/24 05:35 Range/Units Serum Glucose 92 74-106 mg/dL Microbiology Date/Time Source Procedure Growth Status 02/09/24 02:25 Urine - [place] Urine Culture - Final Yeast, not Ellen albicans Complete 02/08/24 17:17 Sputum Gram Stain - Final Complete 02/08/24 17:17 Respiratory Culture - Final Enterobacter hormaechei Complete 02/08/24 14:05 Nose MRSA Screen - Final Complete 02/08/24 12:10 Blood Blood Culture - Final NO GROWTH AFTER 5 DAYS OF INCUBATION. 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 Discontinued aspirin 162 mg daily given the positive occult blood and the low hemoglobin Head CT Stable small chronic infarct in the right basal ganglia. No acute intracranial process. 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 Moderate degree LV diastolic dysfunction. Moderate degree LVH. Moderately dilated RV. Normal valves. RVSP is 52 mmHg. RESPIRATORY Left-sided lobar pneumonia, possible aspiration, Gram-positive and Gram-negative with Enterobacter Sepsis secondary to pneumonia and UTI Final respiratory culture shows Enterobacter sensitive to Cipro, levofloxacin, meropenem, TMP SMX G stain shows Gram-positive cocci in chains and pairs, Gram-positive rods DC vanco, discontinue Zosyn starting 02/08 till 02/11 Discontinued meropenem 02/11 till 02/15 Started Levaquin 02/15 and started IV fluconazole 02/14 MRSA screen negative Continue ipratropium nebulized treatment q.6 p.r.n. Underwent CPAP trial 02/12 from 10:00 a.m. to 2:00 p.m.. Patient is nonresponsive to commands. 02/14 CPAP trial terminated within 1 minute due to apnea. GI F/U hepatitis panel Hx of 1.0 cm left adrenal nodule Steatosis Positive occult blood Continue pantoprazole 40 mg IV daily Lactulose 30 mL once daily /KIDNEY Acute cystitis JOSE likely secondary to VMN on ESRD undergoing hemodialysis Acute tubular necrosis Prelim urine culture shows greater than 1 lac CFU mixed melissa 3 colony types possible contamination. Repeat urine culture ordered. Repeat urine culture 02/08 shows >100,000 CFU/mL Yeast Identification to follow. FENA greater than 2% Right renal simple appearing cysts measuring up to 3.4 cm. Hemodialysis 02/09 and 02/11, 02/13, 02/15 receiving Retacrit 04781 units post dialysis. ENDOCRINE Right parathyroid mass Hypercalcemia Left-sided thyroid nodule Thyroid ultrasound 02/12 shows heterogeneous left thyroid gland and isthmus with a discrete nodule Corrected Calcium 11, downtrending METABOLIC Non-anion gap metabolic acidosis likely secondary to hyperchloremia and uremia with the respiratory alkalosis Hypovolemic hypernatremia Humoral Hypercalcemia of malignancy Secondary hyperphosphatemia due to ESRD Hypomagnesemia, hypokalemia Gout vs CPPD - chondrocalcinosis seen in knee x-ray in 2022 Patient received IV fluid D5W with 50 mEq sodium bicarb at 100 cc/hour on 02/07 morning of 02/08. Discontinued on 02/08 since over-correction of hyponatremia was noticed. Continue with free water through NG 150 mL q.6 hourly. Patient received 2 doses of SC calcitonin 200 mg on 02/07. Received calcitonin 200 mg sc twice daily from 01/21 till 02/11 Discontinued IV bicarb at 100 mL/hour ID Sepsis secondary to pneumonia and the UTI Oral thrush Started nystatin swish and swallow 5 cc 02/14 Repeat urine culture and respiratory culture ordered. HEM-ONCO Right parathyroid mass Thrombocytopenia Anemia, likely normocytic due to ESRD - transfused 1 packed RBC 02/12 and 02/10 OBGYN History of Hysterectomy Protein energy malnutrition LINES Intubated on 02/07 Right IJ CVC for hemodialysis placed 02/09 Right-sided Femoral dialysis non tunneled placed 02/09 Left Femoral CVC 02/09 Lowery catheter Drips: Levophed 0, patient is off sedation NUTRITION: Nepro started 02/08 DVT: Renal dosing Lovenox on hold given the low hemoglobin and positive occult Goals of care/advance care planning; discussed with the daughter and granddaughter at the bedside, modified DNR, PUD prophylaxis: Pantoprazole 40 mg IV daily DVT prophylaxis on hold-enoxaparin 50 mg sc daily renal dosing, patient takes Eliquis at home Plan discussed with Dr. Machuca. MRI brain pending Plan discussed with patient's granddaughter over the bedside in which all questions have been answered Goals of care have been discussed with the patient's family at the bedside for more than 25 minutes, modified DNR status Critical time including chart review, discussion with the patient's family excluding procedures included 54 minutes Plan discussed with: Patient, Other (Granddaughter at the bedside) My Orders My Orders Orders - MRAIS CASTRO Procedure Category Date Status Time Ventilator Orders RT 02/15/24 Transmitted 19:07 Urine Bacterial DAGMAR 02/16/24 Logged Culture 08:05 Respiratory Culture DAGAMR 02/16/24 Logged W/ Gs 08:05 Brain Head Wo Contrast MRI 02/16/24 Logged 11:49 Dietary Evaluation Review Comments: 1. Nepr @30ml/hr is supporting 100% of pt's protein needs, and 116% of pt's energy needs. 2. Advance to Renal Standard 2 gNa 3K low Phos diet when pt is off vent and pass speech eval. Expected Outcomes/Goals: Improved nutrition status and Gradual weight gains Date of Service: Feb 16, 2024 Billing Provider: PALAK MACHUCA MD Common Visit Codes: [id number] CARE 30-74 MIN MARIS CASTRO Feb 16, 2024 19:19 PALAK MACHUCA MD Feb 18, 2024 12:35
[2024-02-16] MEDS ORDERED: EPOETIN ALFA-EPBX 10,000 UNIT/1ML VIAL SC ONE (21:00)
[2024-02-16] MEDS: EPOETIN ALFA-EPBX 10,000 UNIT/1ML VIAL SC SCH (23:14)
[2024-02-17] VITALS (105 sets, daily range): BP systolic 113–187; BP diastolic 57–88; PULSE 60–76; RESP 8–25; TEMP 96.8–98; O2SAT 98–100
--- NOTE | 2024-02-17 05:38 | DVH ---
CHEST RADIOGRAPH Indication: Follow up Technique: Single frontal view of the chest was obtained COMPARISON: XY CHEST XRAY 1 VIEW on DOS: 02/16/24, XY CHEST PORTABLE on DOS: 02/15/24, XY CHEST XRAY 1 VIEW on DOS: 02/14/24, XY CHEST XRAY 1 VIEW on DOS: 02/13/24, XY CHEST PORTABLE on DOS: 02/12/24, X Y CHEST XRAY 1 VIEW on DOS: 02/16/24 FINDINGS: Lines and Tubes: Endotracheal tube and enteric catheter and right central venous catheter in satisfac tory position. Left chest wall pacemaker. Lungs: Patchy bilateral airspace disease, [id number]. Pleura: No effusion. No pneumothorax. Cardiomediastinal contours: Unremarkable Bones: Unremarkable IMPRESSION: Lines and tubes in satisfactory position. No significant interval change.
[2024-02-17 06:06] LABS: Anion Gap 7 (5-15); Carbon Dioxide 25 mmol/L (20-31); Chloride 106 mmol/L (98-107); Potassium 4.2 mmol/L (3.5-5.1); Sodium 138 mmol/L (136-145)
[2024-02-17 06:08] LABS: Calcium 9.6 mg/dL (8.7-10.4)
[2024-02-17 06:12] LABS: BUN/Creatinine Ratio 15.9 (10.0-20.0); Blood Urea Nitrogen 22 mg/dL (9-23); Glucose 77 mg/dL (74-106)
[2024-02-17 06:13] LABS: Magnesium 1.8 mg/dL (1.6-2.6)
[2024-02-17 07:09] LABS: Basophils # (auto) 0 10 ^3/uL (0-0.2); Eosinophils % (auto) 0.5 % (0.0-7.0); Hemoglobin 8.3 g/dL (12.2-16.2); Lymphocytes # (auto) 0.7 10 ^3/uL (0.4-5.4); Monocytes # (auto) 0.6 10 ^3/uL (0-1.3)
[2024-02-17 07:13] LABS: Basophils % (auto) 0.2 % (0.0-2.0); Eosinophils # (auto) 0 10 ^3/uL (0-0.8); Lymphocytes % (auto) 7.2 % (10.0-50.0); Mean Corpuscular Hemoglobin 32.2 pg (28.0-32.0); Mean Corpuscular Hgb Conc. 34.7 g/dL (32.0-36.0); Mean Corpuscular Volume 92.8 fL (80.0-100.0); Monocytes % (auto) 5.8 % (0.0-12.0); Neutrophils # (auto) 8.6 10 ^3/uL (1.6-8.6); Neutrophils % (auto) 86.3 % (37.0-80.0); Platelet Count (auto) 41 10^3/uL (140-450); Red Blood Cells 2.59 10^6/uL (4.0-5.20); Red Cell Distribution Width 16.2 % (11.8-14.3); White Blood Cell 9.9 10^3/uL (4.4-10.8)
[2024-02-17 07:20] LABS: Base Excess -1.8 mmol/L (-2.0-3.0)
[2024-02-17] MEDS ORDERED: levoFLOXacin 250MG 50 ML IV SCH (10:00)
--- NOTE | 2024-02-17 12:22 | DVHPN2 ---
Subjective Seen and examined at bedside. Patient remains intubated on 30%Fio2, PEEP 5. I discussed with grand daughter over the phone patient is still not waking up. Discussed the need for Trach she is the POA and consented for Surgical eval. Changes from previous H/P or p: No Changes Objective Vitals Vital Signs Date Time Temp Pulse Resp B/P (MAP) Pulse Ox O2 Delivery O2 Flow Rate FiO2 02/17/24 12:00 70 18 162/72 (102) 100 02/17/24 12:00 Mechanical Ventilator+ 30 30 02/17/24 04:00 97.8 97.8 Intake/Output Intake and Output 02/17/24 07:00 Intake Total 2477 ml Output Total 1200 ml Balance 1277 ml Intake Oral 0 ml IV Total 2367 ml Tube Feeding 110 ml Output Urine Total 1200 ml General Appearance: Other (Sedated) Lungs: Clear to auscultation, Normal air movement Cardiovascular: Regular rate, Normal S1, Normal S2 Extremities: No edema Medications Current Medications Medications Dose Ordered Sig/Sheila Route Start Time Stop Time Status Last Admin Dose Admin Acetaminophen 650 mg Q6HP PRN PO 02/07/24 19:45 Ipratropium [place] 0.5 mg Q6HPRN PRN NEB 02/08/24 14:30 02/10/24 05:37 0.5 MG Midazolam HCl 50 ml @ 1 mls/hr Q24H IV 02/08/24 17:00 02/11/24 17:43 4 MLS/HR Fentanyl Citrate 250 ml @ 2.5 mls/hr Q24H IV 02/08/24 17:00 02/16/24 15:35 2.5 MLS/HR Morphine Sulfate 2 mg Q4HP PRN IV 02/08/24 17:00 Pantoprazole Sodium 40 mg DAILY IV 02/09/24 10:00 02/17/24 09:33 40 MG Enteral Nutritional Formula 1,000 ml 30ML/HR GT 02/09/24 13:30 02/14/24 19:33 1,000 ML Dexmedetomidine HCl 400 mcg/ Dextrose 100 ml @ 2.435 mls/ hr Q24H IV 02/11/24 20:30 Albumin Human 100 ml @ 100 mls/hr Q1HR IV 02/12/24 10:00 02/12/24 11:59 Cancel Sodium Chloride 1,000 ml @ 75 mls/hr [id number] IV 02/12/24 10:30 02/17/24 01:19 75 MLS/HR Fluconazole 100 ml @ 100 mls/hr DAILY IV 02/12/24 17:30 02/17/24 09:33 100 MLS/HR Norepinephrine Bitartrate 250 ml @ 3.75 mls/hr Q24H IV 02/14/24 10:00 02/14/24 10:00 3.75 MLS/HR Heparin Sodium (Porcine) 5,000 units LACIE PRN XX 02/14/24 11:00 Lactulose 30 ml DAILY PO 02/15/24 10:00 02/17/24 09:33 30 ML Bumetanide 1 mg DAILY IV 02/16/24 10:00 02/17/24 09:33 1 MG Epoetin Kuldip-epbx 10,000 unit MoWeFr@2100 SC 02/16/24 21:00 02/16/24 23:14 10,000 UNIT Diagnostic Test (Pha) 1 strip Q6HR 02/16/24 00:00 02/17/24 06:00 1 STRIP Dextrose 50 ml UD PRN IV 02/15/24 18:45 Nystatin 5 ml QID MT 02/15/24 22:00 02/17/24 11:18 5 ML Fluconazole 100 ml @ 100 mls/hr DAILY IV 02/16/24 10:00 UNV Levofloxacin 50 ml @ 50 mls/hr Q48H IV 02/16/24 16:00 02/16/24 16:15 50 MLS/HR Laboratory Results Laboratory Tests 02/17/24 04:51 Chemistry Test 02/17/24 04:51 Calcium Level 9.6 mg/dL (8.7-10.4) Magnesium Level 1.8 mg/dL (1.6-2.6) Urinalysis Test 02/07/24 17:43 02/08/24 17:16 Urine Color Colorless (Yellow) Urine Clarity Turbid (Clear) H Urine pH 5.0 (5.0-9.0) Urine Specific [place] 1.015 (1.001-1.035) Urine Protein Trace (Negative) H Urine Ketones Negative (Negative) Urine Blood Trace /uL (Negative) H Urine Nitrite Negative (Negative) Urine Bilirubin Negative (Negative) Urine Urobilinogen Normal mg/dL (Negative) Urine Leukocyte Esterase 3+ /uL (Negative) Urine RBC 1 /hpf (0 - 4) Urine WBC 129 /hpf (0 - 5) Urine Squamous Epithelial Cells Few /hpf (<5) Urine Bacteria Many /hpf (None Seen) H Urine Mucus Few (None Seen) Urine Yeast (Budding) Moderate /hpf (None Seen) Urine Glucose Normal mg/dL (Normal) Urine Creatinine 16.13 mg/dL (30.0-125.0) L Urine Protein/Creatinine Ratio 2.34 Urine Sodium 117 mmol/L (40-220) Urine Total Protein 37.8 mg/dL (1-14) H Blood Gas Results Test 02/17/24 07:08 Arterial Blood pH 7.483 (7.350-7.450) FiO2 % 30.0 Microbiology Microbiology Date/Time Source Procedure Growth Status 02/09/24 02:25 Urine - [place] Urine Culture - Final Yeast, not Ellen albicans Complete 02/08/24 17:17 Sputum Gram Stain - Final Complete 02/08/24 17:17 Respiratory Culture - Final Enterobacter hormaechei Complete 02/08/24 14:05 Nose MRSA Screen - Final Complete 02/08/24 12:10 Blood Blood Culture - Final NO GROWTH AFTER 5 DAYS OF INCUBATION. Complete Assessment/Plan Assessment/Plan Acute metabolic encephalopathy secondary to uremia- Still not responsive. Off Sedation. Trach Eval New right cerebellar age indeterminate infarct 02/14 Septic shock secondary to pneumonia and UTI requiring vasopressor support- Off Vasopressors. Cont Levaquin JOSE likely secondary to ATN on ESRD undergoing hemodialysis- Cont HD Positive FIT test DNR Critical time including chart review, discussion with the patient's family excluding procedures included 44 minutes Plan discussed with: Other (JULIA) My Orders Orders - RONIT BRAUN MD Procedure Category Date Status Time * Surgical Consult CONS 02/17/24 Transmitted Complete Blood Count LAB 02/18/24 Verified 04:00 Basic Metabolic Panel LAB 02/18/24 Verified 04:00 Date of Service: Feb 17, 2024 Billing Provider: RONIT BRAUN MD Common Visit Codes: [id number] CARE 30-74 MIN RONIT BRAUN MD Feb 17, 2024 12:22
[2024-02-17] MEDS: hydrALAZINE HCL 20 MG/ML VL IV PRN (13:54)
--- NOTE | 2024-02-17 14:31 | DVHINCON2 ---
Date of service: Feb 17, 2024 Family History: Cancer G8 BROTHER (BONE) Stroke G8 FATHER Allergies: Coded Allergies: Codeine (Verified Allergy, Unknown, 11/10/16) Home Meds Active Scripts Amlodipine Besylate (NORVASC TABLET) 5 Mg Tb, 10 MG PO DAILY, #30 Prov:PAULINO WATSON MD 10/13/15 Reported Medications Apixaban Base (ELIQUIS) 2.5 Mg Tab, 1 TAB PO BID 12/20/22 Pantoprazole Sodium (PANTOPRAZOLE SODIUM) 40 Mg Inj, 20 MG PO DAILY, INJ 01/18/22 Furosemide (Furosemide) 40 Mg Tab, 40 MG PO DAILY for 30 Days 01/18/22 Aspirin (Aspir-Low) 81 Mg Tab, 81 MG PO DAILY for 30 Days, MG 01/18/22 Potassium Chloride (POTASSIUM CHLORIDE CR) 10 Meq Tb, 40 MEQ PO DAILY, TAB 01/18/22 Timolol Maleate (Timolol Maleate Ophthalmi) 0.5 % Elayne, 1 DROP EACHEYE QAM, #5 ML 5 Refills 01/18/22 Aspirin (JEANNE ASPIRIN EC LOW DOSE) 81 Mg Tab, 325 MG OR, TAB 01/18/22 Allopurinol (Allopurinol) 100 Mg Tab, 100 MG PO DAILY for 30 Days, MG 01/18/22 Linaclotide Base (Linzess) 72 Mcg Cap, 145 MCG PO, CAP 01/18/22 Atorvastatin Calcium (ATORVASTATIN CALCIUM) 40 Mg Tab, 1 TAB PO DAILY, #30 TAB 5 Refills 01/18/22 Nortriptyline Hcl (PAMELOR CAPSULE) 25 Mg Cp, 10 MG PO DAILY, CAP 01/18/22 Meclizine Hcl (Meclizine Hcl) 25 Mg Tab, 25 MG PO DAILYPRN PRN for DIZZINESS for 30 Days, MG 01/18/22 Carvedilol (Coreg) 6.25 Mg Tab, 1 TAB PO BID, #180 TAB 3 Refills 01/18/22 Potassium Chloride (Potassium Chloride ER) 20 Meq Tab, 1 TAB PO BID 01/16/22 Furosemide (Furosemide) 40 Mg Tab, 1 TAB PO DAILY 01/16/22 Sacubitril-Valsartan (Entresto 24-26 mg) 1 Tab Tab, 1 TAB PO BID 01/16/22 Hydrocodone-Acetaminophen ([place] 5/325MG) 1 Tab Tb, 1 TAB PO Q4HPRN PRN for MILD PAIN 03/18/16 Hctz (Hydrochlorothiazide) 25 Mg Tab, 50 MG PO, TAB 03/18/16 Aspirin (Aspir-Low) 81 Mg Tab, 81 MG PO DAILY for 30 Days, MG 03/18/16 Current Medications Current Medications Medications (Trade) Dose Ordered Sig/Sheila Route PRN Reason Start Time Stop Time Status Last Admin Epoetin Kuldip-epbx (Retacrit) 10,000 unit MoWeFr@2100 SC 02/16/24 21:00 02/16/24 23:14 Levofloxacin 50 ml @ 50 mls/hr DAILY IV 02/17/24 10:00 02/16/24 15:18 DC Levofloxacin 50 ml @ 50 mls/hr Q48H IV 02/16/24 16:00 02/16/24 16:15 Hydralazine HCl (Apresoline Injection) 20 mg Q4HPRN PRN IV SBP>150 02/17/24 12:45 02/17/24 13:54 Vital Signs Vital Signs Date Time Temp Pulse Resp B/P (MAP) Pulse Ox O2 Delivery O2 Flow Rate FiO2 02/17/24 13:59 70 19 163/71 (101) 100 30 02/17/24 12:00 Mechanical Ventilator+ 02/17/24 04:00 97.8 97.8 Labs/Diagnostic Data Labs Test 02/17/24 12:54 02/17/24 07:08 02/17/24 04:51 02/16/24 05:35 Range/Units POC Glucose 77 70-106 mg/dl Blood Gas Specimen Type Arterial Blood Gas Sample Site Right radial Blood Gas Patient Temperature 37.0 Arterial Blood Date Drawn [id number] Arterial Blood pH 7.483 H 7.350-7.450 Arterial Blood Partial Pressure CO2 29.0 L 32.0-45.0 mmHg Arterial Blood Partial Pressure O2 105.7 83.0-108.0 mmHg Arterial Blood HCO3 21.3 21.0-28.0 mmol/L Arterial Blood Oxygen Saturation 97.4 94.0-98.0 % Arterial Blood Base Excess -1.8 -2.0-3.0 mmol/L Arterial Blood Oxyhemoglobin 96.2 94.0-98.0 % Arterial Blood Carboxyhemoglobin 0.3 L 0.5-1.5 % Arterial Blood Methemoglobin 0.9 0.0-1.5 % Jonas Test Modified Blood Gas Total Hemoglobin 7.30 L 12.0-16.0 g/dL Blood Gas Set Respiration Rate 18.0 Blood Gas Modality Vent - ac Blood Gas Spontaneous Rate 18 FiO2 % 30.0 Blood Gas Tidal Volume 400.0 Blood Gas PEEP or CPAP 5.0 White Blood Count 9.9 4.4-10.8 10^3/uL Red Blood Count 2.59 L 4.0-5.20 10^6/uL Hemoglobin 8.3 L 12.2-16.2 g/dL Hematocrit 24.0 L 36.0-46.0 % Mean Corpuscular Volume 92.8 80.0-100.0 fL Mean Corpuscular Hemoglobin 32.2 H 28.0-32.0 pg Mean Corpuscular Hemoglobin Concent 34.7 32.0-36.0 g/dL Red Cell Distribution Width 16.2 H 11.8-14.3 % Platelet Count 41 L 140-450 10^3/uL Mean Platelet Volume 10.2 6.9-10.8 fL Neutrophils (%) (Auto) 86.3 H 37.0-80.0 % Lymphocytes (%) (Auto) 7.2 L 10.0-50.0 % Monocytes (%) (Auto) 5.8 0.0-12.0 % Eosinophils (%) (Auto) 0.5 0.0-7.0 % Basophils (%) (Auto) 0.2 0.0-2.0 % Neutrophils # (Auto) 8.6 1.6-8.6 10 ^3/uL Lymphocytes # (Auto) 0.7 0.4-5.4 10 ^3/uL Monocytes # (Auto) 0.6 0-1.3 10 ^3/uL Eosinophils # (Auto) 0 0-0.8 10 ^3/uL Basophils # (Auto) 0 0-0.2 10 ^3/uL Nucleated Red Blood Cells 0.0 % Sodium Level 138 136-145 mmol/L Potassium Level 4.2 3.5-5.1 mmol/L Chloride Level 106 98-107 mmol/L Carbon Dioxide Level 25 20-31 mmol/L Anion Gap 7 5-15 Blood Urea Nitrogen 22 9-23 mg/dL Creatinine 1.38 H 0.550-1.02 mg/dL Glomerular Filtration Rate Calc 37 >90 mL/min BUN/Creatinine Ratio 15.9 10.0-20.0 Serum Glucose 77 74-106 mg/dL Calcium Level 9.6 8.7-10.4 mg/dL Magnesium Level 1.8 1.6-2.6 mg/dL Platelet Estimate Decreased Total Bilirubin 0.3 0.2-1.0 mg/dL Aspartate Amino Transferase (AST) 21 13-40 U/L Alanine Aminotransferase (ALT) 13 7-40 U/L Alkaline Phosphatase 152 H 46-116 U/L Total Protein 4.8 L 5.7-8.2 g/dL Albumin 2.6 L 3.2-4.8 g/dL Test 02/15/24 06:23 02/15/24 04:50 02/13/24 10:10 02/10/24 18:57 Range/Units Blood Gas Critical Value Read Back Yes Blood Gas Notified Whom jeffrey Werner md Blood Gas Notified Time [id number] Blood Gas Notified By Change Management Specialist john prakash Differential Total Cells Counted 100.0 100 Neutrophils % (Manual) 81 H 37.0-80.0 Band Neutrophils % (Manual) 1 Lymphocytes % (Manual) 17 10.0-50.0 Monocytes % (Manual) 1 0-12 Eosinophils % (Manual) 0 0-7 Basophils % (Manual) 0 0.0-2.0 Metamyelocytes % (manual) 0 Myelocytes % (Manual) 0 Promyelocytes % (Manual) 0 Blast Cells % (Manual) 0 Reactive Lymphocytes 0 Sickle Cells Schistocytes Moderate Prothrombin Time 11.7 9.3-11.8 sec Prothrombin Time INR 1.11 0.9-1.15 Test 02/10/24 18:10 02/10/24 13:39 02/10/24 05:29 02/09/24 22:22 Range/Units Stool Occult Blood Positive Negative Stool Occult Blood Sample #3 Negative Anisocytosis (manual) Slight [place] Cells Many Lactic Acid Level 2.0 0.4-2.0 mmol/L Phosphorus Level 1.8 L 2.4-5.1 mg/dL B-Type Natriuretic Peptide 506.89 0-100 pg/mL Test 02/09/24 17:09 02/09/24 04:34 02/08/24 20:23 02/08/24 17:16 Range/Units Influenza Type A Antigen Negative Negative Influenza Type B Antigen Negative Negative Hepatitis A IgM Antibody Negative Hepatitis B Surface Antigen Negative Negative Hepatitis B Core IgM Antibody Negative Negative Hepatitis C Antibody Negative Negative Specimen Drawn By wellness nurse rn agustina whatley Urine Creatinine 16.13 L 30.0-125.0 mg/dL Urine Protein/Creatinine Ratio 2.34 Urine Sodium 117 40-220 mmol/L Urine Total Protein 37.8 H 1-14 mg/dL Test 02/08/24 15:00 02/08/24 13:10 02/08/24 12:10 02/08/24 05:50 Range/Units Activated Partial Thromboplast Time 20.2 L 24.5-34.5 SEC Blood Gas Liter Flow 15.00 Vitamin D 25-Hydroxy 66.4 30.0-100 ng/mL Uric Acid 13.6 H 3.1-7.8 mg/dL Test 02/08/24 05:40 02/07/24 23:05 02/07/24 17:43 Range/Units Parathyroid Hormone (Intact) 616.5 H 18.4-80.1 pg/mL Troponin I High Sensitivity 283 *H </=34 ng/L Urine Color Colorless Yellow Urine Clarity Turbid H Clear Urine pH 5.0 5.0-9.0 Urine Specific [place] 1.015 1.001-1.035 Urine Protein Trace H Negative Urine Ketones Negative Negative Urine Blood Trace H Negative /uL Urine Nitrite Negative Negative Urine Bilirubin Negative Negative Urine Urobilinogen Normal Negative mg/dL Urine Leukocyte Esterase 3+ Negative /uL Urine RBC 1 0 - 4 /hpf Urine WBC 129 0 - 5 /hpf Urine Squamous Epithelial Cells Few <5 /hpf Urine Bacteria Many H None Seen /hpf Urine Mucus Few None Seen Urine Yeast (Budding) Moderate None Seen /hpf Urine Glucose Normal Normal mg/dL Urine Opiates Screen Neg NEGATIVE Urine Fentanyl Screen Neg NEGATIVE Urine Barbiturates Screen Neg NEGATIVE Urine Phencyclidine Screen Neg NEGATIVE Urine Amphetamines Screen Neg NEGATIVE Urine Benzodiazepines Screen Neg NEGATIVE Urine Cocaine Screen Neg NEGATIVE Urine Cannabinoids Screen Neg NEGATIVE Microbiology Date/Time Source Procedure Growth Status 02/16/24 18:23 Urine - [place] Urine Culture - Preliminary Resulted 02/08/24 17:17 Sputum Gram Stain - Final Complete 02/08/24 17:17 Respiratory Culture - Final Enterobacter hormaechei Complete 02/08/24 14:05 Nose MRSA Screen - Final Complete 02/08/24 12:10 Blood Blood Culture - Final NO GROWTH AFTER 5 DAYS OF INCUBATION. Complete Assessment [id number] VENTILATOR DEPENDENCE CHF RENAL FAILURE ONGOING MRI OF BRAIN R/O RECENT STROKE PEEP 5 FIO2 30 % CONSIDER TRACH BASED ON ONGOING EVAL CARDIAC AND NEPHROLOGY CLEARANCE Plan discussed with: Other LEO NOWAK MD Feb 17, 2024 14:31
--- NOTE | 2024-02-17 15:53 | DVH ---
EXAM: MRI BRAIN HEAD WO CONTRAST CLINICAL HISTORY: cerebellar infarct COMPARISON: BRAIN HEAD WO CONTRAST on DOS: 01/19/22 CONTRAST: None TECHNIQUE: Multiplanar, multisequence magnetic resonance imaging of the brain was performed without intravenous contrast. FINDINGS: There are multiple foci of diffusion restriction involving the supratentorial cortical and white van er, including the bilateral frontal lobes, right insular cortex, left thalamus, right parietal and pa rietotemporal region, left parietal lobe , bilateral occipital lobes and right cerebellum. Multiple foci of bilateral cerebellar and right basal ganglia chronic lacunar infarcts are noted. Moderate to severe diffuse brain atrophy. Severe periventricular, deep subcortical white matter T2/FL AIR hyperintensity. No hemorrhages, masses, mass effect, midline shift, or herniation. No intra-axial or extra-axial flui d collections. No evidence of hydrocephalus. The visualized vascular flow voids are maintained. The pituitary gland, sella and parasellar regions are unremarkable. The cerebellar tonsils are in nor mal position. The orbits and globes are unremarkable. The paranasal sinuses are clear. Partial opacification of roe ateral mastoids. No worrisome calvarial lesions. IMPRESSION: Multiple foci of supratentorial and right cerebellar areas of acute / subacute infarct. Correlate for possible central embolic process. Multiple foci of chronic lacunar infarcts of bilateral cerebellum and right basal ganglia. Significant periventricular, deep and subcortical white matter T2/FLAIR hyperintensity which may repr esent severe chronic small-vessel ischemic changes with white matter disease not excluded. Bilateral mastoid disease.
--- NOTE | 2024-02-17 17:36 | DVHINCON2 ---
DATE OF CONSULTATION: 02/17/2024 HISTORY OF PRESENT ILLNESS: This patient is intubated, 88-year-old female, obviously unable to give history. Most of the information is obtained from the chart and the nursing staff. She has history of congestive heart failure, CKD, CVA, gout, hypertension, OR, thyroid, and UTI; presented to the Emergency Room for evaluation of altered mental status. She is currently on Hospice. She has been deteriorating over the past 1 week, and family opted to cancel Hospice Services and then bring the patient for evaluation. She has had decreased urine output and oral intake. She was found to have acute kidney injury with elevated BUN and creatinine, and was admitted for ongoing observation as well as management of her respiratory failure as well as renal failure. She got intubated obviously, and then I was asked to see her with regards to placement of a tracheostomy. PAST MEDICAL HISTORY: Congestive heart failure, CKD, CVA, gout, hypertension, OR, thyroid, and UTI. PAST SURGICAL HISTORY: Pacemaker, PTCA, and hysterectomy. PHYSICAL EXAMINATION: VITAL SIGNS: On examination, intubated with stable signs. There is no evidence of pallor, cyanosis, or jaundice. NECK: Supple, nontender with no thyromegaly or lymphadenopathy. CHEST AND LUNGS: Clear. HEART: Within normal limits. ABDOMEN: Soft. NEUROLOGIC: Not assessed. CLINICAL IMPRESSION: Ventilator dependence. PLAN: The plan will be to consider tracheostomy if cleared by Cardiology as well as Nephrology, and consented by family. Currently, she is also going for an MRI of the head to rule out infarct. So, based upon her ongoing evaluation tracheostomy can be considered at that point. MD MALIK Tejeda/KEYLA TID: [id number] RECEIPT: [id number] cc: RONIT BRAUN M.D.
--- NOTE | 2024-02-17 20:59 | DVHPN2 ---
Progress Note - Dictate Date Seen: Feb 17, 2024 Has the PT tested + for MRSA If YES, has PT been informed?: No Medical Necessity Reason Pt with a Central, PICC or Fol: Yes The following are medically ne: Central Line, Lowery Catheter Reason for lowery catheter: Strict I&O Subjective Patient seen and examined at bedside. intubated on mechanical ventilator. Overnight events reviewed. vital signs Vital Sign Date Time Temp Pulse Resp B/P (MAP) Pulse Ox O2 Delivery O2 Flow Rate FiO2 02/17/24 19:45 70 20 144/73 (96) 100 30 02/17/24 18:00 Mechanical Ventilator+ 02/17/24 16:00 97.9 97.9 Total Intake and Output 02/16/24 02/16/24 02/17/24 15:00 23:00 07:00 Intake Total 1017 ml 685 ml 775 ml Output Total 450 ml 750 ml Balance 1017 ml 235 ml 25 ml medications Current Medications Medications Dose Ordered Sig/Sheila Route Start Time Stop Time Status Last Admin Dose Admin Acetaminophen 650 mg Q6HP PRN PO 02/07/24 19:45 Ipratropium [place] 0.5 mg Q6HPRN PRN NEB 02/08/24 14:30 02/10/24 05:37 0.5 MG Midazolam HCl 50 ml @ 1 mls/hr Q24H IV 02/08/24 17:00 02/11/24 17:43 4 MLS/HR Pantoprazole Sodium 40 mg DAILY IV 02/09/24 10:00 02/17/24 09:33 40 MG Enteral Nutritional Formula 1,000 ml 30ML/HR GT 02/09/24 13:30 02/14/24 19:33 1,000 ML Dexmedetomidine HCl 400 mcg/ Dextrose 100 ml @ 2.435 mls/ hr Q24H IV 02/11/24 20:30 Albumin Human 100 ml @ 100 mls/hr Q1HR IV 02/12/24 10:00 02/12/24 11:59 Cancel Fluconazole 100 ml @ 100 mls/hr DAILY IV 02/12/24 17:30 02/17/24 09:33 100 MLS/HR Norepinephrine Bitartrate 250 ml @ 3.75 mls/hr Q24H IV 02/14/24 10:00 02/14/24 10:00 3.75 MLS/HR Heparin Sodium (Porcine) 5,000 units LACIE PRN XX 02/14/24 11:00 Lactulose 30 ml DAILY PO 02/15/24 10:00 02/17/24 09:33 30 ML Bumetanide 1 mg DAILY IV 02/16/24 10:00 02/17/24 09:33 1 MG Epoetin Kuldip-epbx 10,000 unit MoWeFr@2100 SC 02/16/24 21:00 02/16/24 23:14 10,000 UNIT Diagnostic Test (Pha) 1 strip Q6HR 02/16/24 00:00 02/17/24 17:52 1 STRIP Dextrose 50 ml UD PRN IV 02/15/24 18:45 Nystatin 5 ml QID MT 02/15/24 22:00 02/17/24 17:52 5 ML Fluconazole 100 ml @ 100 mls/hr DAILY IV 02/16/24 10:00 UNV Levofloxacin 50 ml @ 50 mls/hr Q48H IV 02/16/24 16:00 02/16/24 16:15 50 MLS/HR Hydralazine HCl 20 mg Q4HPRN PRN IV 02/17/24 12:45 02/17/24 13:54 20 MG objective Gen.: Patient lying in bed in medical ICU. Intubated on mechanical ventilator. Head: Normocephalic, atraumatic. Eyes: PERRLA. Ears: Normal external anatomy. Throat: Endotracheal tube and orogastric tube in place. Neck: Supple, trachea midline. Chest: Transmitted breath sounds bilaterally. Decreased air entry bilaterally. No wheezing. Bibasilar crackles. Cardiovascular: Positive S1, positive S2. Regular rate and rhythm. Abdomen: Positive bowel sounds in all 4 quadrants. Soft, nontender, nondistended. : Lowery in place. Normal external genitalia. Rectal: Deferred. Skin: Warm, dry. Intact. Extremities: 2+ radial pulses bilaterally. No lower extremity edema. Neuro: Off sedation. laboratory and microbiology Laboratory Tests 02/17/24 04:51 Test 02/17/24 04:51 Range/Units Serum Glucose 77 74-106 mg/dL Assessment/Plan Impression: Acute hypoxic respiratory failure On mechanical ventilator Metabolic encephalopathy Acute on chronic renal failure History of CVA with left-sided deficits Metabolic acidosis Events: Remains on vent support On AC mode; RR 18, VT 400, PEEP 5, FiO2 30% Patient riding the vent. ABG reviewed. Alkalemia. CXR reviewed, demonstrates patchy bilateral airspace disease, [id number] Off sedation. Off Levophed, hemodynamically stable. Hemodialysis per Nephrology Monitor renal function Continue antibiotics and antifungals. Patient riding the vent. She is not following commands. Recommend trach/PEG as means to liberate patient from ventilator. Poor prognosis. Labs and imaging reviewed. Rest of plan as noted below. Plan: s/p intubation on mechanical ventilator. On AC mode; RR 18, VT 400, PEEP 5, FiO2 30% Titrate FIO2 to keep O2 saturation above 90%. VAP bundle. Daily ABG and CXR while intubated Off sedation Antibiotics Urine cultures show no growth Monitor WBC Monitor lactic acid Pressors if necessary for hemodynamic support Titrate to keep mean arterial pressure greater than 65 mmHg. Hemodialysis per Nephrology Nephrology recs appreciated Monitor renal function Monitor electrolytes. Supplement as necessary. Monitor ins and outs. GI prophylaxis. DVT prophylaxis. Prognosis: Poor given patient's multiple co-morbidities. Condition: Critical Rest of plan per hospitalist and other consultants. A total of 35 minutes of critical care time was spent reviewing the patient record, examining the patient, making a diagnostic and therapeutic plan, discussing this plan with the medical personnel, following up on diagnostic studies and following the patient for clinical stability excluding any and all procedures. At least 50% of this time was spent in direct, [id number] contact. Thank you, Dr. Salazar, for allowing me to participate in this patient's care. Further recommendations will depend on the patient's clinical course. Please do not hesitate to contact me if you have any questions or concerns. This medical document was created using an electronic medical record system with [employer] dictation system. Although these documentations are being carefully reviewed, there may still be some phonetic and typographical changes. The errors are purely typographical, due to imperfection on the software program, and do not reflect any compromise in the patient's medical care. Dietary Evaluation Review Comments: 1. Nepr @30ml/hr is supporting 100% of pt's protein needs, and 116% of pt's energy needs. 2. Advance to Renal Standard 2 gNa 3K low Phos diet when pt is off vent and pass speech eval. Expected Outcomes/Goals: Improved nutrition status and Gradual weight gains Plan discussed with: Other (RN Gem) Critical Care Time(min): 35 LAKSHMI LAYTON MD Feb 17, 2024 20:59
[2024-02-18] VITALS (107 sets, daily range): BP systolic 89–170; BP diastolic 44–108; PULSE 60–89; RESP 11–24; TEMP 93–99.3; O2SAT 99–100
[2024-02-18 05:24] LABS: Basophils # (auto) 0 10 ^3/uL (0-0.2); Eosinophils # (auto) 0 10 ^3/uL (0-0.8); Eosinophils % (auto) 0.3 % (0.0-7.0); Hemoglobin 8.7 g/dL (12.2-16.2); Lymphocytes # (auto) 0.9 10 ^3/uL (0.4-5.4); Monocytes # (auto) 0.6 10 ^3/uL (0-1.3)
[2024-02-18 05:26] LABS: Hematocrit 25.3 % (36.0-46.0); Lymphocytes % (auto) 9.2 % (10.0-50.0); Mean Corpuscular Hemoglobin 31.6 pg (28.0-32.0); Mean Corpuscular Hgb Conc. 34.6 g/dL (32.0-36.0); Mean Corpuscular Volume 91.3 fL (80.0-100.0); Monocytes % (auto) 6.9 % (0.0-12.0); Neutrophils # (auto) 7.8 10 ^3/uL (1.6-8.6); Neutrophils % (auto) 83.6 % (37.0-80.0); Platelet Count (auto) 56 10^3/uL (140-450); Red Blood Cells 2.77 10^6/uL (4.0-5.20); Red Cell Distribution Width 15.5 % (11.8-14.3); White Blood Cell 9.3 10^3/uL (4.4-10.8)
[2024-02-18 05:44] LABS: Chloride 107 mmol/L (98-107); Sodium 139 mmol/L (136-145)
[2024-02-18 05:45] LABS: Anion Gap 8 (5-15); Carbon Dioxide 24 mmol/L (20-31)
[2024-02-18 05:46] LABS: Calcium 9.8 mg/dL (8.7-10.4)
[2024-02-18 06:17] LABS: Blood Urea Nitrogen 25 mg/dL (9-23); Glucose 63 mg/dL (74-106)
--- NOTE | 2024-02-18 06:54 | DVH ---
EXAM: XY CHEST XRAY 1 VIEW Indication: CHECK PLACEMENT OF ORAL GASTRIC FEEDING TUBE Technique: Single frontal view of the chest was obtained Comparison: XY CHEST XRAY 1 VIEW on DOS: 02/17/24, XY CHEST XRAY 1 VIEW on DOS: 02/16/24, XY CHEST PO RTABLE on DOS: 02/15/24, XY CHEST XRAY 1 VIEW on DOS: 02/14/24, XY CHEST XRAY 1 VIEW on DOS: 02/13/24 FINDINGS: Lines and Tubes: Enteric tube tip projects over the expected region stomach. Lungs: Multifocal left lung opacities. Pleura: Possible small bilateral pleural effusions. No pneumothorax. Cardiomediastinal contours: Unremarkable interval development of pneumomediastinum. Bones: No acute osseous abnormality. IMPRESSION: Interval development pneumomediastinum and multifocal patchy left lung airspace opacities. If concern for esophageal injury, correlate with CT.
[2024-02-18 08:11] LABS: Base Excess -4.2 mmol/L (-2.0-3.0)
[2024-02-18 08:35] LABS: Platelet Estimate Decreased
--- NOTE | 2024-02-18 11:57 | DVHPN2 ---
Subjective Seen and examined at bedside. Patient remains intubated on 30%Fio2, PEEP 5. Grand daughter at bedside. Possible Trach in AM by Dr. Wing. Changes from previous H/P or p: No Changes Objective Vitals Vital Signs Date Time Temp Pulse Resp B/P (MAP) Pulse Ox O2 Delivery O2 Flow Rate FiO2 02/18/24 10:27 70 18 108/56 (73) 100 30 02/18/24 10:00 Mechanical Ventilator+ 02/18/24 09:00 93.0 199.4 02/18/24 08:00 30 Intake/Output Intake and Output 02/18/24 07:00 Intake Total 495 ml Output Total 1100 ml Balance -605 ml Intake Oral 0 ml IV Total 475 ml Tube Feeding 20 ml Output Urine Total 1100 ml # Bowel Movements 3 General Appearance: Other (Sedated) Lungs: Clear to auscultation, Normal air movement Cardiovascular: Regular rate, Normal S1, Normal S2 Extremities: No edema Medications Current Medications Medications Dose Ordered Sig/Sheila Route Start Time Stop Time Status Last Admin Dose Admin Acetaminophen 650 mg Q6HP PRN PO 02/07/24 19:45 Ipratropium [place] 0.5 mg Q6HPRN PRN NEB 02/08/24 14:30 02/10/24 05:37 0.5 MG Midazolam HCl 50 ml @ 1 mls/hr Q24H IV 02/08/24 17:00 02/11/24 17:43 4 MLS/HR Pantoprazole Sodium 40 mg DAILY IV 02/09/24 10:00 02/18/24 09:38 40 MG Enteral Nutritional Formula 1,000 ml 30ML/HR GT 02/09/24 13:30 02/14/24 19:33 1,000 ML Dexmedetomidine HCl 400 mcg/ Dextrose 100 ml @ 2.435 mls/ hr Q24H IV 02/11/24 20:30 Albumin Human 100 ml @ 100 mls/hr Q1HR IV 02/12/24 10:00 02/12/24 11:59 Cancel Fluconazole 100 ml @ 100 mls/hr DAILY IV 02/12/24 17:30 02/18/24 09:37 100 MLS/HR Norepinephrine Bitartrate 250 ml @ 3.75 mls/hr Q24H IV 02/14/24 10:00 02/14/24 10:00 3.75 MLS/HR Heparin Sodium (Porcine) 5,000 units LACIE PRN XX 02/14/24 11:00 Lactulose 30 ml DAILY PO 02/15/24 10:00 02/18/24 09:38 30 ML Bumetanide 1 mg DAILY IV 02/16/24 10:00 02/18/24 09:38 1 MG Epoetin Kuldip-epbx 10,000 unit MoWeFr@2100 SC 02/16/24 21:00 02/16/24 23:14 10,000 UNIT Diagnostic Test (Pha) 1 strip Q6HR 02/16/24 00:00 02/18/24 06:07 1 STRIP Dextrose 50 ml UD PRN IV 02/15/24 18:45 Nystatin 5 ml QID MT 02/15/24 22:00 02/18/24 06:00 5 ML Fluconazole 100 ml @ 100 mls/hr DAILY IV 02/16/24 10:00 UNV Levofloxacin 50 ml @ 50 mls/hr Q48H IV 02/16/24 16:00 02/16/24 16:15 50 MLS/HR Hydralazine HCl 20 mg Q4HPRN PRN IV 02/17/24 12:45 02/18/24 06:25 20 MG Laboratory Results Laboratory Tests 02/18/24 04:45 Chemistry Test 02/18/24 04:45 Calcium Level 9.8 mg/dL (8.7-10.4) Urinalysis Test 02/07/24 17:43 02/08/24 17:16 Urine Color Colorless (Yellow) Urine Clarity Turbid (Clear) H Urine pH 5.0 (5.0-9.0) Urine Specific [place] 1.015 (1.001-1.035) Urine Protein Trace (Negative) H Urine Ketones Negative (Negative) Urine Blood Trace /uL (Negative) H Urine Nitrite Negative (Negative) Urine Bilirubin Negative (Negative) Urine Urobilinogen Normal mg/dL (Negative) Urine Leukocyte Esterase 3+ /uL (Negative) Urine RBC 1 /hpf (0 - 4) Urine WBC 129 /hpf (0 - 5) Urine Squamous Epithelial Cells Few /hpf (<5) Urine Bacteria Many /hpf (None Seen) H Urine Mucus Few (None Seen) Urine Yeast (Budding) Moderate /hpf (None Seen) Urine Glucose Normal mg/dL (Normal) Urine Creatinine 16.13 mg/dL (30.0-125.0) L Urine Protein/Creatinine Ratio 2.34 Urine Sodium 117 mmol/L (40-220) Urine Total Protein 37.8 mg/dL (1-14) H Blood Gas Results Test 02/18/24 08:04 Arterial Blood pH 7.482 (7.350-7.450) FiO2 % 30.0 Microbiology Microbiology Date/Time Source Procedure Growth Status 02/16/24 19:20 Trachea Gram Stain Pending Resulted 02/16/24 19:20 Trachea Respiratory Culture - Preliminary Resulted 02/16/24 18:23 Urine - [place] Urine Culture - Preliminary Resulted 02/08/24 17:17 Sputum Gram Stain - Final Complete 02/08/24 17:17 Respiratory Culture - Final Enterobacter hormaechei Complete 02/08/24 12:10 Blood Blood Culture - Final NO GROWTH AFTER 5 DAYS OF INCUBATION. Complete Assessment/Plan Assessment/Plan Acute metabolic encephalopathy secondary to uremia- Still not responsive. Off Sedation. Trach Eval New right cerebellar age indeterminate infarct 02/14 Septic shock secondary to pneumonia and UTI requiring vasopressor support- Off Vasopressors. Cont Levaquin JOSE likely secondary to ATN on ESRD undergoing hemodialysis- Cont HD Positive FIT test DNR Critical time including chart review, discussion with the patient's family excluding procedures included 39 minutes Plan discussed with: Other (JULIA) My Orders Orders - RONIT BRAUN MD Procedure Category Date Status Time Hydralazine Injection PHA 02/17/24 In Process (Apresoline Inject 12:45 Npo After Midnight DIET 02/18/24 Transmitted Lunch * Cardiology Consult CONS 02/18/24 Transmitted 11:19 Basic Metabolic Panel LAB 02/19/24 Verified 04:00 Complete Blood Count LAB 02/19/24 Verified 04:00 Prothrombin Time W/ LAB 02/19/24 Verified INR 04:00 Partial LAB 02/19/24 Verified Thromboplastin Time 04:00 Date of Service: Feb 18, 2024 Billing Provider: RONIT BRAUN MD Common Visit Codes: [id number] CARE 30-74 MIN RONIT BRAUN MD Feb 18, 2024 11:57
--- NOTE | 2024-02-18 14:00 | DVHPN2 ---
Progress Note Date Seen: Feb 18, 2024 Has the PT tested + for MRSA If YES, has PT been informed?: No Medical Necessity Reason Pt with a Central, PICC or Fol: Yes The following are medically ne: Central Line, Lowery Catheter Reason for lowery catheter: Strict I&O Objective vital signs Vital Sign Date Time Temp Pulse Resp B/P (MAP) Pulse Ox O2 Delivery O2 Flow Rate FiO2 02/18/24 13:15 97.7 76 18 112/55 (74) 99 207.9 02/18/24 12:08 30 02/18/24 12:00 Mechanical Ventilator+ 02/18/24 08:00 30 Total Intake and Output 02/17/24 02/17/24 02/18/24 15:00 23:00 07:00 Intake Total 475 ml 20 ml 0 ml Output Total 650 ml 450 ml Balance 475 ml -630 ml -450 ml medications Current Medications Medications Dose Ordered Sig/Sheila Route Start Time Stop Time Status Last Admin Dose Admin Acetaminophen 650 mg Q6HP PRN PO 02/07/24 19:45 Ipratropium [place] 0.5 mg Q6HPRN PRN NEB 02/08/24 14:30 02/10/24 05:37 0.5 MG Midazolam HCl 50 ml @ 1 mls/hr Q24H IV 02/08/24 17:00 02/11/24 17:43 4 MLS/HR Pantoprazole Sodium 40 mg DAILY IV 02/09/24 10:00 02/18/24 09:38 40 MG Enteral Nutritional Formula 1,000 ml 30ML/HR GT 02/09/24 13:30 02/14/24 19:33 1,000 ML Dexmedetomidine HCl 400 mcg/ Dextrose 100 ml @ 2.435 mls/ hr Q24H IV 02/11/24 20:30 Albumin Human 100 ml @ 100 mls/hr Q1HR IV 02/12/24 10:00 02/12/24 11:59 Cancel Fluconazole 100 ml @ 100 mls/hr DAILY IV 02/12/24 17:30 02/18/24 09:37 100 MLS/HR Norepinephrine Bitartrate 250 ml @ 3.75 mls/hr Q24H IV 02/14/24 10:00 02/14/24 10:00 3.75 MLS/HR Heparin Sodium (Porcine) 5,000 units LACIE PRN XX 02/14/24 11:00 Lactulose 30 ml DAILY PO 02/15/24 10:00 02/18/24 09:38 30 ML Bumetanide 1 mg DAILY IV 02/16/24 10:00 02/18/24 09:38 1 MG Epoetin Kuldip-epbx 10,000 unit MoWeFr@2100 SC 02/16/24 21:00 02/16/24 23:14 10,000 UNIT Diagnostic Test (Pha) 1 strip Q6HR 02/16/24 00:00 02/18/24 12:00 1 STRIP Dextrose 50 ml UD PRN IV 02/15/24 18:45 Nystatin 5 ml QID MT 02/15/24 22:00 02/18/24 12:00 5 ML Fluconazole 100 ml @ 100 mls/hr DAILY IV 02/16/24 10:00 UNV Levofloxacin 50 ml @ 50 mls/hr Q48H IV 02/16/24 16:00 02/16/24 16:15 50 MLS/HR Hydralazine HCl 20 mg Q4HPRN PRN IV 02/17/24 12:45 02/18/24 06:25 20 MG laboratory and microbiology Laboratory Tests 02/18/24 04:45 Test 02/18/24 04:45 Range/Units Serum Glucose 63 L 74-106 mg/dL Microbiology Date/Time Source Procedure Growth Status 02/16/24 19:20 Trachea Gram Stain Pending Resulted 02/16/24 19:20 Trachea Respiratory Culture - Preliminary Resulted 02/16/24 18:23 Urine - Lowery Port Urine Culture - Preliminary Resulted 02/08/24 17:17 Sputum Gram Stain - Final Complete 02/08/24 17:17 Respiratory Culture - Final Enterobacter hormaechei Complete 02/08/24 12:10 Blood Blood Culture - Final NO GROWTH AFTER 5 DAYS OF INCUBATION. Complete Problem List/Assessment/Plan Problem List/Assessment/Plan AFEBRILE VSS INTUBATED POSSIBLE TRACEOSTOMY AM AWAIT CARDIOLOGY CLEARANCE CONSENT FROM FAMILY Plan discussed with: Other Dietary Evaluation Review Comments: 1. Nepr @30ml/hr is supporting 100% of pt's protein needs, and 116% of pt's energy needs. 2. Advance to Renal Standard 2 gNa 3K low Phos diet when pt is off vent and pass speech eval. Expected Outcomes/Goals: Improved nutrition status and Gradual weight gains ELIU,LEO K MD Feb 18, 2024 14:00
--- NOTE | 2024-02-18 14:54 | DVHINCON2 ---
Date of service: Feb 18, 2024 Referring Physician Kin Reason for Consultation Pre-op cardiac clearance History of Present Illness This is an 88 year old female with a PMH of CHF, HLD, CT, CKD stage 4, CVA with left sided deficits, parathyroid nodule who was brought in by EMS on 02/06 due to ALOC. 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 Systolic BP began to decrease to 80s on 02/06 and urine output has decreased as well. Patient was recently discharged from [facility] on 01/03/2024 after being admitted for seven days for a UTI. Since 02/06 the patient is unable to communicate and has not been able to feed herself. Patient's granddaughter is the electronic instrument trades worker and the hospice nurse visits biweekly. Patient was admitted to the hospital. Patient developed acute hypoxic respiratory failure, accessory muscle usage, unable to protect airway on 02/07 and was intubated. Patient is ventilator dependent and is being arranged for tracheostomy. Patient will need preop cardiac clearance. Family History: Cancer G8 BROTHER (BONE) Stroke G8 FATHER Allergies: Coded Allergies: Codeine (Verified Allergy, Unknown, 11/10/16) Home Meds Active Scripts Amlodipine Besylate (NORVASC TABLET) 5 Mg Tb, 10 MG PO DAILY, #30 Prov:PAULINO WATSON MD 10/13/15 Reported Medications Apixaban Base (ELIQUIS) 2.5 Mg Tab, 1 TAB PO BID 12/20/22 Pantoprazole Sodium (PANTOPRAZOLE SODIUM) 40 Mg Inj, 20 MG PO DAILY, INJ 01/18/22 Furosemide (Furosemide) 40 Mg Tab, 40 MG PO DAILY for 30 Days 01/18/22 Aspirin (Aspir-Low) 81 Mg Tab, 81 MG PO DAILY for 30 Days, MG 01/18/22 Potassium Chloride (POTASSIUM CHLORIDE CR) 10 Meq Tb, 40 MEQ PO DAILY, TAB 01/18/22 Timolol Maleate (Timolol Maleate Ophthalmi) 0.5 % Elayne, 1 DROP EACHEYE QAM, #5 ML 5 Refills 01/18/22 Aspirin (JEANNE ASPIRIN EC LOW DOSE) 81 Mg Tab, 325 MG OR, TAB 01/18/22 Allopurinol (Allopurinol) 100 Mg Tab, 100 MG PO DAILY for 30 Days, MG 01/18/22 Linaclotide Base (Linzess) 72 Mcg Cap, 145 MCG PO, CAP 01/18/22 Atorvastatin Calcium (ATORVASTATIN CALCIUM) 40 Mg Tab, 1 TAB PO DAILY, #30 TAB 5 Refills 01/18/22 Nortriptyline Hcl (PAMELOR CAPSULE) 25 Mg Cp, 10 MG PO DAILY, CAP 01/18/22 Meclizine Hcl (Meclizine Hcl) 25 Mg Tab, 25 MG PO DAILYPRN PRN for DIZZINESS for 30 Days, MG 01/18/22 Carvedilol (Coreg) 6.25 Mg Tab, 1 TAB PO BID, #180 TAB 3 Refills 01/18/22 Potassium Chloride (Potassium Chloride ER) 20 Meq Tab, 1 TAB PO BID 01/16/22 Furosemide (Furosemide) 40 Mg Tab, 1 TAB PO DAILY 01/16/22 Sacubitril-Valsartan (Entresto 24-26 mg) 1 Tab Tab, 1 TAB PO BID 01/16/22 Hydrocodone-Acetaminophen ([place] 5/325MG) 1 Tab Tb, 1 TAB PO Q4HPRN PRN for MILD PAIN 03/18/16 Hctz (Hydrochlorothiazide) 25 Mg Tab, 50 MG PO, TAB 03/18/16 Aspirin (Aspir-Low) 81 Mg Tab, 81 MG PO DAILY for 30 Days, MG 03/18/16 Review of Systems Unable to Obtain due to: Intubated on ventilator. Vital Signs Vital Signs Date Time Temp Pulse Resp B/P (MAP) Pulse Ox O2 Delivery O2 Flow Rate FiO2 02/18/24 13:15 97.7 76 18 112/55 (74) 99 207.9 02/18/24 12:08 30 02/18/24 12:00 Mechanical Ventilator+ 02/18/24 08:00 30 Physical Exam GENERAL: Intubated on ventilator. LUNGS: Decreased breath sounds. CARDIOVASCULAR: Heart sounds are good. ABDOMEN: Soft. : Bustos catheter in place. Labs/Diagnostic Data Labs Test 02/18/24 13:00 02/18/24 08:04 02/18/24 04:45 02/17/24 07:08 Range/Units POC Glucose 67 L 70-106 mg/dl Blood Gas Specimen Type Arterial Blood Gas Sample Site Right radial Blood Gas Patient Temperature 37.0 Arterial Blood Date Drawn [id number] Arterial Blood pH 7.482 H 7.350-7.450 Arterial Blood Partial Pressure CO2 24.9 L 32.0-45.0 mmHg Arterial Blood Partial Pressure O2 108.4 H 83.0-108.0 mmHg Arterial Blood HCO3 18.2 L 21.0-28.0 mmol/L Arterial Blood Oxygen Saturation 97.9 94.0-98.0 % Arterial Blood Base Excess -4.2 L -2.0-3.0 mmol/L Arterial Blood Oxyhemoglobin 96.6 94.0-98.0 % Arterial Blood Carboxyhemoglobin 0.8 0.5-1.5 % Arterial Blood Methemoglobin 0.5 0.0-1.5 % Jonas Test Yes Blood Gas Total Hemoglobin 9.30 L 12.0-16.0 g/dL Blood Gas Set Respiration Rate 18.0 Blood Gas Modality Vent - ac FiO2 % 30.0 Blood Gas Tidal Volume 400.0 Blood Gas PEEP or CPAP 5.0 White Blood Count 9.3 4.4-10.8 10^3/uL Red Blood Count 2.77 L 4.0-5.20 10^6/uL Hemoglobin 8.7 L 12.2-16.2 g/dL Hematocrit 25.3 L 36.0-46.0 % Mean Corpuscular Volume 91.3 80.0-100.0 fL Mean Corpuscular Hemoglobin 31.6 28.0-32.0 pg Mean Corpuscular Hemoglobin Concent 34.6 32.0-36.0 g/dL Red Cell Distribution Width 15.5 H 11.8-14.3 % Platelet Count 56 L 140-450 10^3/uL Mean Platelet Volume 10.3 6.9-10.8 fL Neutrophils (%) (Auto) 83.6 H 37.0-80.0 % Lymphocytes (%) (Auto) 9.2 L 10.0-50.0 % Monocytes (%) (Auto) 6.9 0.0-12.0 % Eosinophils (%) (Auto) 0.3 0.0-7.0 % Basophils (%) (Auto) 0.0 0.0-2.0 % Neutrophils # (Auto) 7.8 1.6-8.6 10 ^3/uL Lymphocytes # (Auto) 0.9 0.4-5.4 10 ^3/uL Monocytes # (Auto) 0.6 0-1.3 10 ^3/uL Eosinophils # (Auto) 0 0-0.8 10 ^3/uL Basophils # (Auto) 0 0-0.2 10 ^3/uL Nucleated Red Blood Cells 0.0 % Platelet Estimate Decreased Sodium Level 139 136-145 mmol/L Potassium Level 4.0 3.5-5.1 mmol/L Chloride Level 107 98-107 mmol/L Carbon Dioxide Level 24 20-31 mmol/L Anion Gap 8 5-15 Blood Urea Nitrogen 25 H 9-23 mg/dL Creatinine 1.56 H 0.550-1.02 mg/dL Glomerular Filtration Rate Calc 32 >90 mL/min BUN/Creatinine Ratio 16.0 10.0-20.0 Serum Glucose 63 L 74-106 mg/dL Calcium Level 9.8 8.7-10.4 mg/dL Blood Gas Spontaneous Rate 18 Test 02/17/24 04:51 02/16/24 05:35 02/15/24 06:23 02/15/24 04:50 Range/Units Magnesium Level 1.8 1.6-2.6 mg/dL Total Bilirubin 0.3 0.2-1.0 mg/dL Aspartate Amino Transferase (AST) 21 13-40 U/L Alanine Aminotransferase (ALT) 13 7-40 U/L Alkaline Phosphatase 152 H 46-116 U/L Total Protein 4.8 L 5.7-8.2 g/dL Albumin 2.6 L 3.2-4.8 g/dL Blood Gas Critical Value Read Back Yes Blood Gas Notified Whom jeffrey Werner md Blood Gas Notified Time [id number] Blood Gas Notified By Wrinkle Chaser john prakash Differential Total Cells Counted 100.0 100 Neutrophils % (Manual) 81 H 37.0-80.0 Band Neutrophils % (Manual) 1 Lymphocytes % (Manual) 17 10.0-50.0 Monocytes % (Manual) 1 0-12 Eosinophils % (Manual) 0 0-7 Basophils % (Manual) 0 0.0-2.0 Metamyelocytes % (manual) 0 Myelocytes % (Manual) 0 Promyelocytes % (Manual) 0 Blast Cells % (Manual) 0 Reactive Lymphocytes 0 Test 02/13/24 10:10 02/10/24 18:57 02/10/24 18:10 02/10/24 13:39 Range/Units Sickle Cells Schistocytes Moderate Prothrombin Time 11.7 9.3-11.8 sec Prothrombin Time INR 1.11 0.9-1.15 Stool Occult Blood Positive Negative Stool Occult Blood Sample #3 Negative Anisocytosis (manual) Slight Doug Cells Many Test 02/10/24 05:29 02/09/24 22:22 02/09/24 17:09 02/09/24 04:34 Range/Units Lactic Acid Level 2.0 0.4-2.0 mmol/L Phosphorus Level 1.8 L 2.4-5.1 mg/dL B-Type Natriuretic Peptide 506.89 0-100 pg/mL Influenza Type A Antigen Negative Negative Influenza Type B Antigen Negative Negative Hepatitis A IgM Antibody Negative Hepatitis B Surface Antigen Negative Negative Hepatitis B Core IgM Antibody Negative Negative Hepatitis C Antibody Negative Negative Test 02/08/24 20:23 02/08/24 17:16 02/08/24 15:00 02/08/24 13:10 Range/Units Specimen Drawn By ko whatley Urine Creatinine 16.13 L 30.0-125.0 mg/dL Urine Protein/Creatinine Ratio 2.34 Urine Sodium 117 40-220 mmol/L Urine Total Protein 37.8 H 1-14 mg/dL Activated Partial Thromboplast Time 20.2 L 24.5-34.5 SEC Blood Gas Liter Flow 15.00 Test 02/08/24 12:10 02/08/24 05:50 02/08/24 05:40 02/07/24 23:05 Range/Units Vitamin D 25-Hydroxy 66.4 30.0-100 ng/mL Uric Acid 13.6 H 3.1-7.8 mg/dL Parathyroid Hormone (Intact) 616.5 H 18.4-80.1 pg/mL Troponin I High Sensitivity 283 *H </=34 ng/L Test 02/07/24 17:43 Range/Units Urine Color Colorless Yellow Urine Clarity Turbid H Clear Urine pH 5.0 5.0-9.0 Urine Specific [place] 1.015 1.001-1.035 Urine Protein Trace H Negative Urine Ketones Negative Negative Urine Blood Trace H Negative /uL Urine Nitrite Negative Negative Urine Bilirubin Negative Negative Urine Urobilinogen Normal Negative mg/dL Urine Leukocyte Esterase 3+ Negative /uL Urine RBC 1 0 - 4 /hpf Urine WBC 129 0 - 5 /hpf Urine Squamous Epithelial Cells Few <5 /hpf Urine Bacteria Many H None Seen /hpf Urine Mucus Few None Seen Urine Yeast (Budding) Moderate None Seen /hpf Urine Glucose Normal Normal mg/dL Urine Opiates Screen Neg NEGATIVE Urine Fentanyl Screen Neg NEGATIVE Urine Barbiturates Screen Neg NEGATIVE Urine Phencyclidine Screen Neg NEGATIVE Urine Amphetamines Screen Neg NEGATIVE Urine Benzodiazepines Screen Neg NEGATIVE Urine Cocaine Screen Neg NEGATIVE Urine Cannabinoids Screen Neg NEGATIVE Microbiology Date/Time Source Procedure Growth Status 02/16/24 19:20 Trachea Gram Stain Pending Resulted 02/16/24 19:20 Trachea Respiratory Culture - Preliminary Resulted 02/16/24 18:23 Urine - Bust[place] Port Urine Culture - Preliminary Resulted 02/08/24 17:17 Sputum Gram Stain - Final Complete 02/08/24 17:17 Respiratory Culture - Final Enterobacter hormaechei Complete 02/08/24 12:10 Blood Blood Culture - Final NO GROWTH AFTER 5 DAYS OF INCUBATION. Complete Assessment Acute metabolic encephalopathy secondary to uremia. 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 Septic shock secondary to pneumonia and UTI requiring vasopressor support. ESRD on hemodialysis. Positive FIT test. History of multiple strokes, last known stroke August 2023, 12/2021. Residual left-sided weakness. Bed bound. 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 History of CAD status post PTCA LAD by Dr Prieto 2016. Lactic acidosis. Dyslipidemia. Left-sided lobar pneumonia. Acute cystitis. Right parathyroid mass. Hypercalcemia. Left-sided thyroid nodule. Protein energy malnutrition. Plan/Recommendation I agree with your ongoing assessment and care of plan. Diuretics with Bumex. IV Hydralazine for SBP > 150. Lactulose. IV antibiotics as ordered. GI prophylactics. Vasopressors for hemodynamic support. Additional plan as per the hospital course. Critical care time of 90 minutes provided to include time spent evaluation of patient at bedside, when appropriate patient/family education for diagnosis, treatment plan, review of pertinent medical information and discussion of care with specialty providers and PCP. Mechanical ventilator parameters, treatment and adjustments have personally been reviewed by me and treatment plan by underwriter mortgage loan has also been reviewed. Plan discussed with: Other CARTER FRANCO MD Feb 18, 2024 14:15
--- NOTE | 2024-02-18 15:50 | DVHPN2 ---
Progress Note - Dictate Date Seen: Feb 18, 2024 Has the PT tested + for MRSA If YES, has PT been informed?: No Medical Necessity Reason Pt with a Central, PICC or Fol: Yes The following are medically ne: Central Line, Lowery Catheter Reason for lowery catheter: Strict I&O Subjective patient's granddaughter at bedside vital signs Vital Sign Date Time Temp Pulse Resp B/P (MAP) Pulse Ox O2 Delivery O2 Flow Rate FiO2 02/18/24 14:20 83 18 100/52 (68) 99 30 02/18/24 14:15 98.8 209.8 02/18/24 14:00 Mechanical Ventilator+ 02/18/24 08:00 30 Total Intake and Output 02/17/24 02/17/24 02/18/24 15:00 23:00 07:00 Intake Total 475 ml 20 ml 0 ml Output Total 650 ml 450 ml Balance 475 ml -630 ml -450 ml medications Current Medications Medications Dose Ordered Sig/Sheila Route Start Time Stop Time Status Last Admin Dose Admin Acetaminophen 650 mg Q6HP PRN PO 02/07/24 19:45 Ipratropium [place] 0.5 mg Q6HPRN PRN NEB 02/08/24 14:30 02/10/24 05:37 0.5 MG Midazolam HCl 50 ml @ 1 mls/hr Q24H IV 02/08/24 17:00 02/11/24 17:43 4 MLS/HR Pantoprazole Sodium 40 mg DAILY IV 02/09/24 10:00 02/18/24 09:38 40 MG Enteral Nutritional Formula 1,000 ml 30ML/HR GT 02/09/24 13:30 02/14/24 19:33 1,000 ML Dexmedetomidine HCl 400 mcg/ Dextrose 100 ml @ 2.435 mls/ hr Q24H IV 02/11/24 20:30 Albumin Human 100 ml @ 100 mls/hr Q1HR IV 02/12/24 10:00 02/12/24 11:59 Cancel Fluconazole 100 ml @ 100 mls/hr DAILY IV 02/12/24 17:30 02/18/24 09:37 100 MLS/HR Norepinephrine Bitartrate 250 ml @ 3.75 mls/hr Q24H IV 02/14/24 10:00 02/14/24 10:00 3.75 MLS/HR Heparin Sodium (Porcine) 5,000 units LACIE PRN XX 02/14/24 11:00 Lactulose 30 ml DAILY PO 02/15/24 10:00 02/18/24 09:38 30 ML Bumetanide 1 mg DAILY IV 02/16/24 10:00 02/18/24 09:38 1 MG Epoetin Kuldip-epbx 10,000 unit MoWeFr@2100 SC 02/16/24 21:00 02/16/24 23:14 10,000 UNIT Diagnostic Test (Pha) 1 strip Q6HR 02/16/24 00:00 02/18/24 12:00 1 STRIP Dextrose 50 ml UD PRN IV 02/15/24 18:45 Nystatin 5 ml QID MT 02/15/24 22:00 02/18/24 12:00 5 ML Fluconazole 100 ml @ 100 mls/hr DAILY IV 02/16/24 10:00 UNV Levofloxacin 50 ml @ 50 mls/hr Q48H IV 02/16/24 16:00 02/18/24 15:24 50 MLS/HR Hydralazine HCl 20 mg Q4HPRN PRN IV 02/17/24 12:45 02/18/24 06:25 20 MG objective gen: nad lungs: cta cvs: no rub ext: no edema laboratory and microbiology Laboratory Tests 02/18/24 04:45 Test 02/18/24 04:45 Range/Units Serum Glucose 63 L 74-106 mg/dL Assessment/Plan IMP Acute kidney injury superimposed Chronic Kidney Disease stage IV secondary hemodynamic mediated, ATN, feNa > 2%-ongoing on HD Acute respiratory failure, intubated on ventilator Hypernatremia due to dehydration- resolved Encephalopathy Hypercalcemia due to primary hyperparathyroidism rule out parathyroid adenoma Dehydration Septic shock Metabolic acidosis CVA NSTEMI Anemia of chronic kidney disease-ongoing Hyperparathyroidism secondary to chronic kidney disease REC metabolic parameters acceptable We will continue to evaluate kidney function off of dialysis Dietary Evaluation Review Comments: 1. Nepr @30ml/hr is supporting 100% of pt's protein needs, and 116% of pt's energy needs. 2. Advance to Renal Standard 2 gNa 3K low Phos diet when pt is off vent and pass speech eval. Expected Outcomes/Goals: Improved nutrition status and Gradual weight gains Plan discussed with: Other ALLEN BRANDT MD Feb 18, 2024 15:50
[2024-02-18] MEDS: BUMETANIDE 1mg/4ml VIAL (0.25mg/ml) IV SCH (17:16)
--- NOTE | 2024-02-18 21:02 | DVHPN2 ---
Progress Note - Dictate Date Seen: Feb 18, 2024 Has the PT tested + for MRSA If YES, has PT been informed?: No Medical Necessity Reason Pt with a Central, PICC or Fol: Yes The following are medically ne: Central Line, Lowery Catheter Reason for lowery catheter: Strict I&O Subjective Patient seen and examined at bedside. intubated on mechanical ventilator. Overnight events reviewed. vital signs Vital Sign Date Time Temp Pulse Resp B/P (MAP) Pulse Ox O2 Delivery O2 Flow Rate FiO2 02/18/24 20:45 96.6 76 18 141/71 (94) 100 205.9 02/18/24 20:04 30 02/18/24 20:00 Mechanical Ventilator+ 02/18/24 20:00 30 Total Intake and Output 02/17/24 02/17/24 02/18/24 15:00 23:00 07:00 Intake Total 475 ml 20 ml 0 ml Output Total 650 ml 450 ml Balance 475 ml -630 ml -450 ml medications Current Medications Medications Dose Ordered Sig/Sheila Route Start Time Stop Time Status Last Admin Dose Admin Acetaminophen 650 mg Q6HP PRN PO 02/07/24 19:45 Ipratropium [place] 0.5 mg Q6HPRN PRN NEB 02/08/24 14:30 02/10/24 05:37 0.5 MG Midazolam HCl 50 ml @ 1 mls/hr Q24H IV 02/08/24 17:00 02/11/24 17:43 4 MLS/HR Pantoprazole Sodium 40 mg DAILY IV 02/09/24 10:00 02/18/24 09:38 40 MG Enteral Nutritional Formula 1,000 ml 30ML/HR GT 02/09/24 13:30 02/14/24 19:33 1,000 ML Albumin Human 100 ml @ 100 mls/hr Q1HR IV 02/12/24 10:00 02/12/24 11:59 Cancel Fluconazole 100 ml @ 100 mls/hr DAILY IV 02/12/24 17:30 02/18/24 09:37 100 MLS/HR Norepinephrine Bitartrate 250 ml @ 3.75 mls/hr Q24H IV 02/14/24 10:00 02/14/24 10:00 3.75 MLS/HR Heparin Sodium (Porcine) 5,000 units LACIE PRN XX 02/14/24 11:00 Lactulose 30 ml DAILY PO 02/15/24 10:00 02/18/24 09:38 30 ML Epoetin Kuldip-epbx 10,000 unit MoWeFr@2100 SC 02/16/24 21:00 02/16/24 23:14 10,000 UNIT Diagnostic Test (Pha) 1 strip Q6HR 02/16/24 00:00 02/18/24 17:20 1 STRIP Dextrose 50 ml UD PRN IV 02/15/24 18:45 Nystatin 5 ml QID MT 02/15/24 22:00 02/18/24 17:06 5 ML Fluconazole 100 ml @ 100 mls/hr DAILY IV 02/16/24 10:00 UNV Levofloxacin 50 ml @ 50 mls/hr Q48H IV 02/16/24 16:00 02/18/24 15:24 50 MLS/HR Hydralazine HCl 20 mg Q4HPRN PRN IV 02/17/24 12:45 02/18/24 06:25 20 MG Bumetanide 1 mg BIDD IV 02/18/24 18:00 02/18/24 17:16 1 MG objective Gen.: Patient lying in bed in medical ICU. Intubated on mechanical ventilator. Head: Normocephalic, atraumatic. Eyes: PERRLA. Ears: Normal external anatomy. Throat: Endotracheal tube and orogastric tube in place. Neck: Supple, trachea midline. Chest: Transmitted breath sounds bilaterally. Decreased air entry bilaterally. No wheezing. Bibasilar crackles. Cardiovascular: Positive S1, positive S2. Regular rate and rhythm. Abdomen: Positive bowel sounds in all 4 quadrants. Soft, nontender, nondistended. : Lowery in place. Normal external genitalia. Rectal: Deferred. Skin: Warm, dry. Intact. Extremities: 2+ radial pulses bilaterally. No lower extremity edema. Neuro: Off sedation. laboratory and microbiology Laboratory Tests 02/18/24 04:45 Test 02/18/24 04:45 Range/Units Serum Glucose 63 L 74-106 mg/dL Assessment/Plan Impression: Acute hypoxic respiratory failure On mechanical ventilator Metabolic encephalopathy Acute on chronic renal failure History of CVA with left-sided deficits Metabolic acidosis Events: Remains on vent support On AC mode; RR 18, VT 400, PEEP 5, FiO2 30% Plan for tracheostomy. ABG reviewed. Alkalemia. CXR reviewed; advance ET tube; devices in place. Interval development of pneumomediastinum and multifocal patchy left lung airspace opacities. Off sedation. Off Levophed, hemodynamically stable. Hemodialysis per Nephrology Monitor renal function Continue antibiotics and antifungals. Patient riding the vent. She is not following commands. Recommend trach/PEG as means to liberate patient from ventilator. Poor prognosis. Labs and imaging reviewed. Rest of plan as noted below. Plan: s/p intubation on mechanical ventilator. On AC mode; RR 18, VT 400, PEEP 5, FiO2 30% Titrate FIO2 to keep O2 saturation above 90%. VAP bundle. Daily ABG and CXR while intubated Off sedation Antibiotics Urine cultures show no growth Monitor WBC Monitor lactic acid Pressors if necessary for hemodynamic support Titrate to keep mean arterial pressure greater than 65 mmHg. Hemodialysis per Nephrology Nephrology recs appreciated Monitor renal function Monitor electrolytes. Supplement as necessary. Monitor ins and outs. GI prophylaxis. DVT prophylaxis. Prognosis: Poor given patient's multiple co-morbidities. Condition: Critical Rest of plan per hospitalist and other consultants. A total of 35 minutes of critical care time was spent reviewing the patient record, examining the patient, making a diagnostic and therapeutic plan, discussing this plan with the medical personnel, following up on diagnostic studies and following the patient for clinical stability excluding any and all procedures. At least 50% of this time was spent in direct, [id number] contact. Thank you, Dr. Salazar, for allowing me to participate in this patient's care. Further recommendations will depend on the patient's clinical course. Please do not hesitate to contact me if you have any questions or concerns. This medical document was created using an electronic medical record system with [employer] dictation system. Although these documentations are being carefully reviewed, there may still be some phonetic and typographical changes. The errors are purely typographical, due to imperfection on the software program, and do not reflect any compromise in the patient's medical care. Dietary Evaluation Review Comments: 1. Nepr @30ml/hr is supporting 100% of pt's protein needs, and 116% of pt's energy needs. 2. Advance to Renal Standard 2 gNa 3K low Phos diet when pt is off vent and pass speech eval. Expected Outcomes/Goals: Improved nutrition status and Gradual weight gains Plan discussed with: Other (SHANIKA Womack) Critical Care Time(min): 35 LAKSHMI LAYTON MD Feb 18, 2024 21:02
[2024-02-19] VITALS (98 sets, daily range): BP systolic 104–163; BP diastolic 54–90; PULSE 64–80; RESP 9–24; TEMP 93–98.6; O2SAT 94–100
[2024-02-19 06:06] LABS: Basophils # (auto) 0 10 ^3/uL (0-0.2); Basophils % (auto) 0.1 % (0.0-2.0); Eosinophils # (auto) 0 10 ^3/uL (0-0.8); Eosinophils % (auto) 0.3 % (0.0-7.0); Hematocrit 25.5 % (36.0-46.0); Hemoglobin 8.6 g/dL (12.2-16.2); Lymphocytes # (auto) 0.8 10 ^3/uL (0.4-5.4); Lymphocytes % (auto) 8.4 % (10.0-50.0); Mean Corpuscular Hemoglobin 31.2 pg (28.0-32.0); Mean Corpuscular Hgb Conc. 33.5 g/dL (32.0-36.0); Mean Corpuscular Volume 93.1 fL (80.0-100.0); Monocytes # (auto) 0.8 10 ^3/uL (0-1.3); Monocytes % (auto) 8.4 % (0.0-12.0); Neutrophils # (auto) 7.9 10 ^3/uL (1.6-8.6); Neutrophils % (auto) 82.8 % (37.0-80.0); Platelet Count (auto) 98 10^3/uL (140-450); Red Blood Cells 2.74 10^6/uL (4.0-5.20); Red Cell Distribution Width 15.5 % (11.8-14.3); White Blood Cell 9.5 10^3/uL (4.4-10.8)
[2024-02-19 06:10] LABS: Potassium 3.8 mmol/L (3.5-5.1); Sodium 140 mmol/L (136-145)
[2024-02-19 06:11] LABS: Anion Gap 10 (5-15); Carbon Dioxide 21 mmol/L (20-31)
[2024-02-19 06:12] LABS: Calcium 10.4 mg/dL (8.7-10.4)
[2024-02-19 06:17] LABS: BUN/Creatinine Ratio 14.1 (10.0-20.0); Glucose 76 mg/dL (74-106)
[2024-02-19 06:18] LABS: INR 1.03 (0.9-1.15); Partial Thromboplastin Time 33.7 SEC (24.5-34.5); Prothrombin Time 10.9 sec (9.3-11.8)
[2024-02-19 06:20] LABS: Blood Urea Nitrogen 25 mg/dL (9-23); Chloride 109 mmol/L (98-107)
--- NOTE | 2024-02-19 09:54 | DVH ---
CHEST RADIOGRAPH Indication: INTUBATED Technique: Single frontal view of the chest was obtained COMPARISON: XY CHEST XRAY 1 VIEW on DOS: 02/18/24, XY CHEST XRAY 1 VIEW on DOS: 02/17/24, XY CHEST XR AY 1 VIEW on DOS: 02/16/24, XY CHEST PORTABLE on DOS: 02/15/24, XY CHEST XRAY 1 VIEW on DOS: 02/14/24 FINDINGS: Lines and Tubes: Enteric catheter in satisfactory position. Left chest wall pacemaker. Lungs: Congestion Pleura: No effusion. No pneumothorax. Cardiomediastinal contours: Unremarkable Bones: Unremarkable IMPRESSION: Congestion Enteric catheter in satisfactory position.
--- NOTE | 2024-02-19 11:03 | DVHPN2 ---
Progress Note Date Seen: Feb 19, 2024 Has the PT tested + for MRSA If YES, has PT been informed?: No Medical Necessity Reason Pt with a Central, PICC or Fol: Yes The following are medically ne: Central Line, Lowery Catheter Reason for lowery catheter: Strict I&O Subjective Review of Systems: RESPIRATORY:Abnormal Other Systems: Patient seen and examined by myself, patient remained intubated on ventilator Objective vital signs Vital Sign Date Time Temp Pulse Resp B/P (MAP) Pulse Ox O2 Delivery O2 Flow Rate FiO2 02/19/24 10:00 22 100 Mechanical Ventilator+ 30 30 02/19/24 10:00 72 02/19/24 08:57 143/68 (93) 02/19/24 08:30 95.4 203.7 02/19/24 08:00 30 Total Intake and Output 02/18/24 02/18/24 02/19/24 15:00 23:00 07:00 Intake Total 100 ml 187 ml 30 ml Output Total 100 ml 150 ml Balance 100 ml 87 ml -120 ml medications Current Medications Medications Dose Ordered Sig/Sheila Route Start Time Stop Time Status Last Admin Dose Admin Acetaminophen 650 mg Q6HP PRN PO 02/07/24 19:45 Ipratropium [place] 0.5 mg Q6HPRN PRN NEB 02/08/24 14:30 02/10/24 05:37 0.5 MG Midazolam HCl 50 ml @ 1 mls/hr Q24H IV 02/08/24 17:00 02/11/24 17:43 4 MLS/HR Pantoprazole Sodium 40 mg DAILY IV 02/09/24 10:00 02/19/24 08:56 40 MG Enteral Nutritional Formula 1,000 ml 30ML/HR GT 02/09/24 13:30 02/14/24 19:33 1,000 ML Albumin Human 100 ml @ 100 mls/hr Q1HR IV 02/12/24 10:00 02/12/24 11:59 Cancel Fluconazole 100 ml @ 100 mls/hr DAILY IV 02/12/24 17:30 02/19/24 09:02 100 MLS/HR Norepinephrine Bitartrate 250 ml @ 3.75 mls/hr Q24H IV 02/14/24 10:00 02/14/24 10:00 3.75 MLS/HR Heparin Sodium (Porcine) 5,000 units LACIE PRN XX 12/25/24 11:00 Lactulose 30 ml DAILY PO 02/15/24 10:00 02/18/24 09:38 30 ML Epoetin Kuldip-epbx 10,000 unit MoWeFr@2100 SC 02/16/24 21:00 02/16/24 23:14 10,000 UNIT Diagnostic Test (Pha) 1 strip Q6HR 02/16/24 00:00 02/19/24 05:46 1 STRIP Dextrose 50 ml UD PRN IV 02/15/24 18:45 Nystatin 5 ml QID MT 02/15/24 22:00 02/19/24 05:46 5 ML Fluconazole 100 ml @ 100 mls/hr DAILY IV 02/16/24 10:00 UNV Levofloxacin 50 ml @ 50 mls/hr Q48H IV 02/16/24 16:00 02/18/24 15:24 50 MLS/HR Hydralazine HCl 20 mg Q4HPRN PRN IV 02/17/24 12:45 02/19/24 03:18 20 MG Bumetanide 1 mg BIDD IV 02/18/24 18:00 02/19/24 05:46 1 MG Examination: LUNGS:Normal, CVS:Normal, MSK:Normal laboratory and microbiology Laboratory Tests 02/19/24 05:17 Test 02/19/24 05:17 Range/Units Serum Glucose 76 74-106 mg/dL Microbiology Date/Time Source Procedure Growth Status 02/16/24 19:20 Trachea Gram Stain - Final Resulted 02/16/24 19:20 Trachea Respiratory Culture - Preliminary Resulted 02/16/24 18:23 Urine - Lowery Port Urine Culture - Preliminary Resulted 02/08/24 17:17 Sputum Gram Stain - Final Complete 02/08/24 17:17 Respiratory Culture - Final Enterobacter hormaechei Complete 02/08/24 12:10 Blood Blood Culture - Final NO GROWTH AFTER 5 DAYS OF INCUBATION. 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 Nepr @30ml/hr is supporting 100% of pt's protein needs, and 116% of pt's energy needs. 2. Advance to Renal Standard 2 gNa 3K low Phos diet when pt is off vent and pass speech eval. Expected Outcomes/Goals: Improved nutrition status and Gradual weight gains OVI REYNOLDS MD Feb 19, 2024 11:03
[2024-02-19] MEDS: SOD CHL 0.45% 1,000 ML IV SCH (12:11)
[2024-02-19] MEDS: LIDOCAINE 1% HCL (LOCAL ANESTH.) INJ 20ML MDV ONE ×2 (13:35→13:40)
[2024-02-19] MEDS ORDERED: MIDAZOLAM HCL 2MG/2ML 2ml VIAL (1mg/ml) ONE (13:58)
[2024-02-19] MEDS ORDERED: fentaNYL CITRATE 100 MCG/2 ML VL ONE (13:58)
[2024-02-19] MEDS: ceFAZolin 2 GM/D5W100ml 100 ML IV ONE (14:17)
--- NOTE | 2024-02-19 14:47 | DVHPNRES ---
Progress Note Date Seen: Feb 19, 2024 Resident Creating Document: MARIS CASTRO RESIDENT Has the PT tested + for MRSA If YES, has PT been informed?: No Medical Necessity Reason Pt with a Central, PICC or Fol: Yes The following are medically ne: Central Line, Lowery Catheter Reason for lowery catheter: Strict I&O Subjective Review of Systems Ms. Godfrey, An 88-year-old female with a history of CHF, CKD, CVA, gout, high lipids, HTN, OR, thyroid issues, parathyroid mass and recurrent UTIs, who was currently on hospice, presented with altered mental status progressively developing over the past week, her condition had been deteriorating, with decreased urine output and oral intake. The family decided to revoke hospice services for the 2nd time ( previously for similar situation) and brought her in to ED for further evaluation. Her surgical history includes a hysterectomy, pacemaker implantation, and PTCA. On admission, she was found to be lethargic and oriented to person only: During the course of the hospitalization patient became even more lethargic brainstem functions intact yet GCS was less than 8. Elevated BUN and creatinine levels were noted, prompting a nephrology consult for acute kidney injury. She could not provide any history, further limited history/ROS obtained at the moment was extracted from family discussion. she was found to have septic shock hypotensive, needing pressor and unable to maintain /protect airways needing intubation sedation and higher level of care. On arrival patient's temperature was 96.3 F, pulse 90 bpm, respiratory rate 12, blood pressure 63/45, 92 on room air. She received IV fluids and her blood pressure improved 103/55. Patient was saturating 99 on 5 L supplementation. 02/07 around noon patient's blood pressure dropped to 65/42 mmHg and therefore she was intubated right femoral CVC was placed in right IJ CVC for hemodialysis was placed. Patient received SC calcitonin 2 doses of 200 mg on 02/07. She has been receiving D5W for the correction of hypernatremia. 02/08 - Patient seen and examined at bedside. She is tachycardic at 109 beats per minute, saturating 95 on FiO2 of 30%. Blood pressure is 107/68. Patient's hypernatremia was overcorrected more than 10 for 24 hours, DC D5W. Started free water through NG 150 mL q.6 hour. Chest x-ray shows left-sided pneumonia, possible aspiration as it was not present on arrival. Started IV Zosyn and vancomycin. Vanco DC ed based on culture results. Started calcitonin 200 units SC q.12. Hepatitis panel pending. Hemodialysis tomorrow 02/09 02/11 - seen and examined over the bedside. She underwent hemodialysis on 02/09 and 02/11. She was transfused 1 packed RBC over the weekend. She has been off sedation since 4:00 a.m.. Safe 500 mL bolus during the hemodialysis session. Occult blood is positive. DC aspirin. Pending parathyroid scan. Echo completed 02/10 shows LVEF 65%. Moderate degree LV diastolic dysfunction. Moderate degree LVH. Moderately dilated RV. Normal valves. RVSP is 52 mmHg. 02/12 - patient seen and examined at bedside. She is on Levophed for, off sedation. Underwent CPAP trial today from 10:00 a.m. to 2:00 p.m.. She is not responding to commands. Chest x-ray shows stable left-sided infiltrate. Thyroid ultrasound is pending. 1 unit of packed RBCs ordered. ABG showed respiratory alkalosis with metabolic compensation. Received Mag and K supplementation. Repeat CBC, Mag, K wnl 02/13 - night temperature 99.1. Patient is satting 91 on 30%. Undergoing hemodialysis today. WBC trending down to 9.2. Chest x-ray shows stable left- sided opacity. Thyroid ultrasound shows heterogeneous left thyroid gland and isthmus with discrete nodule. Patient is on Levophed to off sedation. No CPAP trial. Lactulose started 30 mL once daily 02/14 - not responsive to commands. Off sedation since 02/11. CPAP trial terminated within 1 minute due to apnea. CT head completed, shows new age indeterminate referral right cerebellum infarct. patient is Left upper extremity: Occlusive thrombophlebitis of the cephalic vein with moderate subcutaneous edema in the arm noted. Started nystatin 5 cc swish and swallow. Decreased respiratory rate to 18. Patient had a bowel movement overnight. 02/15 - overnight patient's temperature was 99.3, patient is off sedation and not responding to commands for opening eyes spontaneously. Repeat urine culture and respiratory culture ordered. MRI brain pending. Switched meropenem to Levaquin. Corrected calcium 11.1. 02/18 - MRI brain shows multiple foci of supratentorial and right cerebellar infarct, suggestive of central emboli. nephrology started Bumex b.i.d. 1 g IV. Repeat urine culture shows greater than 1 Lac yeast, chest x-ray shows left side is stable opacity. Patient undergoing tracheostomy 02/18. IV half NS at 75 cc/hour started by Nephrology. Hemodialysis today. DC Levaquin tomorrow. Objective vital signs Vital Sign Date Time Temp Pulse Resp B/P (MAP) Pulse Ox O2 Delivery O2 Flow Rate FiO2 02/19/24 14:00 22 100 Mechanical Ventilator+ 30 30 02/19/24 14:00 72 02/19/24 13:45 129/72 (91) 02/19/24 12:00 96.8 96.8 02/19/24 08:00 30 Total Intake and Output 02/18/24 02/18/24 02/19/24 14:59 22:59 06:59 Intake Total 100 ml 187 ml 30 ml Output Total 100 ml 150 ml Balance 100 ml 87 ml -120 ml medications Current Medications Medications Dose Ordered Sig/Sheila Route Start Time Stop Time Status Last Admin Dose Admin Acetaminophen 650 mg Q6HP PRN PO 02/07/24 19:45 Ipratropium [place] 0.5 mg Q6HPRN PRN NEB 02/08/24 14:30 02/10/24 05:37 0.5 MG Midazolam HCl 50 ml @ 1 mls/hr Q24H IV 02/08/24 17:00 02/11/24 17:43 4 MLS/HR Pantoprazole Sodium 40 mg DAILY IV 02/09/24 10:00 02/19/24 08:56 40 MG Enteral Nutritional Formula 1,000 ml 30ML/HR GT 02/09/24 13:30 02/14/24 19:33 1,000 ML Albumin Human 100 ml @ 100 mls/hr Q1HR IV 02/12/24 10:00 02/12/24 11:59 Cancel Fluconazole 100 ml @ 100 mls/hr DAILY IV 02/12/24 17:30 02/19/24 09:02 100 MLS/HR Heparin Sodium (Porcine) 5,000 units LACIE PRN XX 02/14/24 11:00 Lactulose 30 ml DAILY PO 02/15/24 10:00 02/18/24 09:38 30 ML Epoetin Kuldip-epbx 10,000 unit MoWeFr@2100 SC 02/16/24 21:00 02/16/24 23:14 10,000 UNIT Diagnostic Test (Pha) 1 strip Q6HR 02/16/24 00:00 02/19/24 12:02 1 STRIP Dextrose 50 ml UD PRN IV 02/15/24 18:45 Nystatin 5 ml QID MT 02/15/24 22:00 02/19/24 12:11 5 ML Fluconazole 100 ml @ 100 mls/hr DAILY IV 02/16/24 10:00 UNV Levofloxacin 50 ml @ 50 mls/hr Q48H IV 02/16/24 16:00 02/18/24 15:24 50 MLS/HR Hydralazine HCl 20 mg Q4HPRN PRN IV 02/17/24 12:45 02/19/24 03:18 20 MG Bumetanide 1 mg BIDD IV 02/18/24 18:00 02/19/24 05:46 1 MG Sodium Chloride 1,000 ml @ 75 mls/hr [id number] IV 02/19/24 11:00 02/19/24 12:11 75 MLS/HR Examination Patient lying in bed, intubated and off sedated. RASS -5. General: Thin looking, cachectic, afebrile, palor, mucosae are dry. Oral thrush on tongue. Cardiovascular: Regular S1 and S2. No murmurs, gallops or rubs. No JVD elevation. 1+ pitting edema. Right IJ Shmuel seen. Respiratory: Left-sided crepitations heard. Saturating 99 on FiO2 of 30%. Abdomen: Soft, nontender, nondistended, absent bowel sounds, no rebound tenderness, no organomegaly, no masses. Lowery catheter seen. Stage II decubitus ulcer. Erythema noticed. Genitourinary: Lowery catheter seen. MSK/skin: Skin is dry and warm Neurological: Pupils are isocoric and reactive. laboratory and microbiology Laboratory Tests 02/19/24 05:17 Test 02/19/24 05:17 Range/Units Serum Glucose 76 74-106 mg/dL Microbiology Date/Time Source Procedure Growth Status 02/16/24 19:20 Trachea Gram Stain - Final Resulted 02/16/24 19:20 Trachea Respiratory Culture - Preliminary Resulted 02/16/24 18:23 Urine - Lowery Port Urine Culture - Preliminary Resulted 02/08/24 17:17 Sputum Gram Stain - Final Complete 02/08/24 17:17 Respiratory Culture - Final Enterobacter hormaechei Complete 02/08/24 12:10 Blood Blood Culture - Final NO GROWTH AFTER 5 DAYS OF INCUBATION. 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 Discontinued aspirin 162 mg daily given the positive occult blood and the low hemoglobin Head CT Stable small chronic infarct in the right basal ganglia. No acute intracranial process. Repeat head CT 02/14 shows right cerebellar age indeterminate infarct MRI brain Multiple foci of supratentorial and right cerebellar areas of acute / subacute infarct. Correlate for possible central embolic process. Multiple foci of chronic lacunar infarcts of bilateral cerebellum and right basal ganglia. 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 Moderate degree LV diastolic dysfunction. Moderate degree LVH. Moderately dilated RV. Normal valves. RVSP is 52 mmHg. RESPIRATORY Left-sided lobar pneumonia, possible aspiration, Gram-positive and Gram-negative with Enterobacter Sepsis secondary to pneumonia and UTI Final respiratory culture shows Enterobacter sensitive to Cipro, levofloxacin, meropenem, TMP SMX G stain shows Gram-positive cocci in chains and pairs, Gram-positive rods DC vanco, discontinue Zosyn starting 02/08 till 02/11 Discontinued meropenem 02/11 till 02/15 Started Levaquin 02/15 and started IV fluconazole 02/14 MRSA screen negative Continue ipratropium nebulized treatment q.6 p.r.n. Underwent CPAP trial 02/12 from 10:00 a.m. to 2:00 p.m.. Patient is nonresponsive to commands. 02/14 CPAP trial terminated within 1 minute due to apnea. GI F/U hepatitis panel Hx of 1.0 cm left adrenal nodule Steatosis Positive occult blood Continue pantoprazole 40 mg IV daily Lactulose 30 mL once daily /KIDNEY Acute cystitis JOSE likely secondary to ATN on ESRD undergoing hemodialysis Acute tubular necrosis Prelim urine culture shows greater than 1 lac CFU mixed melissa 3 colony types possible contamination. Repeat urine culture ordered. Repeat urine culture 02/08 shows >100,000 CFU/mL Yeast Identification to follow. FENA greater than 2% Right renal simple appearing cysts measuring up to 3.4 cm. Hemodialysis 02/09 and 02/11, 02/13, 02/15, 02/18 receiving Retacrit 06895 units post dialysis. ENDOCRINE Right parathyroid mass Hypercalcemia Left-sided thyroid nodule Thyroid ultrasound 02/12 shows heterogeneous left thyroid gland and isthmus with a discrete nodule Corrected Calcium 11, downtrending METABOLIC Non-anion gap metabolic acidosis likely secondary to hyperchloremia and uremia with the respiratory alkalosis Hypovolemic hypernatremia Humoral Hypercalcemia of malignancy Secondary hyperphosphatemia due to ESRD Hypomagnesemia, hypokalemia Gout vs CPPD - chondrocalcinosis seen in knee x-ray in 2022 Patient received IV fluid D5W with 50 mEq sodium bicarb at 100 cc/hour on 02/07 morning of 02/08. Discontinued on 02/08 since over-correction of hyponatremia was noticed. Continue with free water through NG 150 mL q.6 hourly. Patient received 2 doses of SC calcitonin 200 mg on 02/07. Received calcitonin 200 mg sc twice daily from 01/21 till 02/11 Discontinued IV bicarb at 100 mL/hour ID Sepsis secondary to pneumonia and the UTI Oral thrush Started nystatin swish and swallow 5 cc 02/14 02/15 - Repeat urine culture shows yeast 02/15 - Repeat respiratory culture shows Gram-negative rods and yeast HEM-ONCO Right parathyroid mass Thrombocytopenia Anemia, likely normocytic due to ESRD - transfused 1 packed RBC 02/12 and 02/10 OBGYN History of Hysterectomy Protein energy malnutrition LINES Intubated on 02/07 Right IJ CVC for hemodialysis placed 02/09 Right-sided Femoral dialysis non tunneled placed 02/09 Left Femoral CVC 02/09 Lowery catheter Drips: Levophed 0, patient is off sedation Last bowel movement, 02/18 NUTRITION: Nepro started 12/20 DVT: Renal dosing Lovenox on hold given the low hemoglobin and positive occult Goals of care/advance care planning; discussed with the daughter and granddaughter at the bedside, modified DNR, PUD prophylaxis: Pantoprazole 40 mg IV daily DVT prophylaxis on hold-enoxaparin 50 mg sc daily renal dosing, patient takes Eliquis at home Plan discussed with Dr. Machuca. Shows old services consulted for transfer to LTAC Plan discussed with patient's granddaughter over the bedside in which all questions have been answered Goals of care have been discussed with the patient's granddaughter (Skylar) at the bedside for more than 25 minutes, modified DNR status Critical time including chart review, discussion with the patient's family excluding procedures included 44 minutes Plan discussed with: Patient, Other (Granddaughter at the bedside) Dietary Evaluation Review Comments: 1. Nepr @30ml/hr is supporting 100% of pt's protein needs, and 116% of pt's energy needs. 2. Advance to Renal Standard 2 gNa 3K low Phos diet when pt is off vent and pass speech eval. Expected Outcomes/Goals: Improved nutrition status and Gradual weight gains Date of Service: Feb 19, 2024 Billing Provider: PALAK MACHUCA MD Common Visit Codes: 82425-[id number] CARE 30-74 MIN MARIS CASTRO RESIDENT Feb 19, 2024 14:47 PALAK MACHUCA MD Feb 20, 2024 16:06
--- NOTE | 2024-02-19 14:51 | DVHOP2 ---
Operative Report [id number] VENT DEPENDENCE ELECTIVE TRACHEOSTOMY ASSIST CA EBL 5 CC NO DRAIN NO COMPLICATION LEO NOWAK MD Feb 19, 2024 14:51
--- NOTE | 2024-02-19 17:19 | DVHOP ---
DATE OF SURGERY: 02/19/2024 PREOPERATIVE DIAGNOSIS: Ventilator status. POSTOPERATIVE DIAGNOSIS: Ventilator status. PROCEDURE: Elective tracheostomy. SURGEON: Mauro Wing MD VISUAL TRAINING AIDE: Johnny. ANESTHESIA: General. ESTIMATED BLOOD LOSS: Close to 5 mL. DRAINS: No drains were used. COMPLICATIONS: No complications were encountered. DESCRIPTION OF PROCEDURE: The patient was prepped and draped in the usual sterile fashion in the supine position. The neck extended out and a transverse incision was applied above the sternal notch, a finger and a half breadth above the notch, going to the sternomastoid on either side, was taken down to the deeper tissues and the cervical fascia was divided in the midline using LigaSure device. Cautery could not be because of the cardiac implant and the thyroid isthmus was divided using the LigaSure device as well and the cricoid hook was applied for the cricoid location and the tracheal rings were identified. Second, third and fourth were seen and a U-shaped flap was created using a sharp knife and the was withdrawn. Suction was carried out. Hemostasis was maintained and size 7 tracheostomy tube was introduced after dilation of the tracheal ring and the tracheal flap with the hinge located superiorly, it was secured with a Prolene suture and the tracheostomy tube was introduced after the dilation and the bulb was inflated and the connection with the ventilator was established with good flows with no complications. With this being done, the closure was commenced. The platysmal layer was brought together on either side using Vicryl suture. The skin incision was brought together using silk suture in an interrupted mattress fashion and the flange of the tracheostomy tube was secured with the silk suture on all 4 quadrants and then the umbilical tape was applied as well for reinforcing the placement of the tracheostomy tube. The patient tolerated the procedure well and was taken back to the ICU in a stable clinical condition. MD MALIK Tejeda/TRAVIS/ALEKSANDR TID: [id number] RECEIPT: [id number] cc: Conner Abarca MD
--- NOTE | 2024-02-19 21:38 | DVHPN2 ---
Progress Note - Dictate Date Seen: Feb 19, 2024 Has the PT tested + for MRSA If YES, has PT been informed?: No Medical Necessity Reason Pt with a Central, PICC or Fol: Yes The following are medically ne: Central Line, Lowery Catheter Reason for lowery catheter: Strict I&O Subjective Patient was seen and evaluated in follow up in the ICU. Patient is intubated and sedated on ventilator. 30% FiO2. Patient underwent elective tracheostomy today and tolerated procedure well. HGB 8.6, HCT 25.5, BUN 25, House Registry Rn 1.77. vital signs Vital Sign Date Time Temp Pulse Resp B/P (MAP) Pulse Ox O2 Delivery O2 Flow Rate FiO2 02/19/24 21:15 70 18 117/67 (84) 100 02/19/24 20:05 30 02/19/24 20:00 Mechanical Ventilator+ 02/19/24 20:00 30 02/19/24 12:00 96.8 96.8 Total Intake and Output 02/18/24 02/18/24 02/19/24 15:00 23:00 07:00 Intake Total 100 ml 187 ml 30 ml Output Total 100 ml 150 ml Balance 100 ml 87 ml -120 ml medications Current Medications Medications Dose Ordered Sig/Sheila Route Start Time Stop Time Status Last Admin Dose Admin Acetaminophen 650 mg Q6HP PRN PO 02/07/24 19:45 Ipratropium [place] 0.5 mg Q6HPRN PRN NEB 02/08/24 14:30 02/10/24 05:37 0.5 MG Midazolam HCl 50 ml @ 1 mls/hr Q24H IV 02/08/24 17:00 02/11/24 17:43 4 MLS/HR Pantoprazole Sodium 40 mg DAILY IV 02/09/24 10:00 02/19/24 08:56 40 MG Enteral Nutritional Formula 1,000 ml 30ML/HR GT 02/09/24 13:30 02/14/24 19:33 1,000 ML Albumin Human 100 ml @ 100 mls/hr Q1HR IV 02/12/24 10:00 02/12/24 11:59 Cancel Fluconazole 100 ml @ 100 mls/hr DAILY IV 02/12/24 17:30 02/19/24 09:02 100 MLS/HR Heparin Sodium (Porcine) 5,000 units LACIE PRN XX 02/14/24 11:00 Lactulose 30 ml DAILY PO 02/15/24 10:00 02/18/24 09:38 30 ML Epoetin Kuldip-epbx 10,000 unit MoWeFr@2100 SC 02/16/24 21:00 02/19/24 21:17 10,000 UNIT Diagnostic Test (Pha) 1 strip Q6HR 02/16/24 00:00 02/19/24 17:47 1 STRIP Dextrose 50 ml UD PRN IV 02/15/24 18:45 Nystatin 5 ml QID MT 02/15/24 22:00 02/19/24 21:17 5 ML Fluconazole 100 ml @ 100 mls/hr DAILY IV 02/16/24 10:00 UNV Levofloxacin 50 ml @ 50 mls/hr Q48H IV 02/16/24 16:00 02/18/24 15:24 50 MLS/HR Hydralazine HCl 20 mg Q4HPRN PRN IV 02/17/24 12:45 02/19/24 17:48 20 MG Bumetanide 1 mg BIDD IV 02/18/24 18:00 02/19/24 17:47 1 MG Sodium Chloride 1,000 ml @ 75 mls/hr [id number] IV 02/19/24 11:00 02/19/24 12:11 75 MLS/HR objective GENERAL: Intubated on ventilator. LUNGS: Decreased breath sounds. CARDIOVASCULAR: Heart sounds are good. ABDOMEN: Soft. : Lowery catheter in place. laboratory and microbiology Laboratory Tests 02/19/24 05:17 Test 02/19/24 05:17 Range/Units Serum Glucose 76 74-106 mg/dL Problem List Acute metabolic encephalopathy secondary to uremia. 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 Septic shock secondary to pneumonia and UTI requiring vasopressor support. ESRD on hemodialysis. Positive FIT test. History of multiple strokes, last known stroke August 2023, 12/2021. Residual left-sided weakness. Bed bound. 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 History of CAD status post PTCA LAD by Dr Prieto 2016. Lactic acidosis. Dyslipidemia. Left-sided lobar pneumonia. Acute cystitis. Right parathyroid mass. Hypercalcemia. Left-sided thyroid nodule. Protein energy malnutrition. Assessment/Plan Continued all current supportive medical care. Diuretics with Bumex. IV Hydralazine for SBP > 150. Lactulose. IV antibiotics as ordered. GI prophylactics. Vasopressors for hemodynamic support. Additional plan as per the hospital course. Critical care time of 45 minutes provided to include time spent evaluation of patient at bedside, when appropriate patient/family education for diagnosis, treatment plan, review of pertinent medical information and discussion of care with specialty providers and PCP. Mechanical ventilator parameters, treatment and adjustments have personally been reviewed by me and treatment plan by pipe fitter soft copper has also been reviewed. Dietary Evaluation Review Comments: 1. Nepr @30ml/hr is supporting 100% of pt's protein needs, and 116% of pt's energy needs. 2. Advance to Renal Standard 2 gNa 3K low Phos diet when pt is off vent and pass speech eval. Expected Outcomes/Goals: Improved nutrition status and Gradual weight gains Plan discussed with: Other CARTER FRANCO MD Feb 19, 2024 21:38
[2024-02-20] VITALS (57 sets, daily range): BP systolic 96–167; BP diastolic 53–87; PULSE 72–92; RESP 11–22; TEMP 95.9–98.8; O2SAT 94–100
--- NOTE | 2024-02-20 05:08 | DVH ---
CHEST RADIOGRAPH Indication: f/u Technique: Single frontal view of the chest was obtained COMPARISON: XY CHEST PORTABLE on DOS: 02/19/24, XY CHEST XRAY 1 VIEW on DOS: 02/18/24, XY CHEST XRAY 1 VIEW on DOS: 02/17/24, XY CHEST XRAY 1 VIEW on DOS: 02/16/24, XY CHEST PORTABLE on DOS: 02/15/24 FINDINGS: Lines and Tubes: Tracheostomy and right central venous catheter in satisfactory position. Left chest wall pacemaker Lungs: Multifocal airspace disease Pleura: No effusion. No pneumothorax. Cardiomediastinal contours: Unremarkable Bones: Unremarkable IMPRESSION: Lines and tubes in satisfactory position. No significant interval change.
--- NOTE | 2024-02-20 08:01 | DVH ---
CLINICAL INFORMATION: 88 years old, Female; nasogastric tube placement. TECHNIQUE: Single AP portable chest radiograph was obtained. COMPARISON: XY CHEST XRAY 1 VIEW on DOS: 02/20/24, XY CHEST PORTABLE on DOS: 02/19/24, XY CHEST XRAY 1 VIEW on DOS: 02/18/24 FINDINGS: Interval placement of a nasogastric tube extending below the diaphragm and below the [id number] of the exam, reaching based to the body of the stomach. Stable satisfactory positioning of the tracheos emani tube and right internal jugular catheter. No pneumothorax. No other significant interval change . IMPRESSION: Nasogastric tube reaches the stomach.
[2024-02-20 09:40] LABS: Basophils # (auto) 0 10 ^3/uL (0-0.2); Basophils % (auto) 0.3 % (0.0-2.0); Eosinophils # (auto) 0 10 ^3/uL (0-0.8); Eosinophils % (auto) 0.1 % (0.0-7.0); Red Cell Distribution Width 15.8 % (11.8-14.3)
[2024-02-20 09:41] LABS: Lymphocytes # (auto) 0.5 10 ^3/uL (0.4-5.4); Lymphocytes % (auto) 5.2 % (10.0-50.0); Mean Corpuscular Hemoglobin 31.4 pg (28.0-32.0); Mean Corpuscular Hgb Conc. 34.6 g/dL (32.0-36.0); Mean Corpuscular Volume 90.6 fL (80.0-100.0); Monocytes # (auto) 0.7 10 ^3/uL (0-1.3); Monocytes % (auto) 8.1 % (0.0-12.0); Neutrophils # (auto) 7.6 10 ^3/uL (1.6-8.6); Neutrophils % (auto) 86.3 % (37.0-80.0); Platelet Count (auto) 105 10^3/uL (140-450); Red Blood Cells 2.54 10^6/uL (4.0-5.20); White Blood Cell 8.8 10^3/uL (4.4-10.8)
[2024-02-20] MEDS: D5W/SOD CHL 0.45% 1,000 ML IV SCH (10:15)
--- NOTE | 2024-02-20 10:16 | DVHPN2 ---
Progress Note Date Seen: Feb 20, 2024 Has the PT tested + for MRSA If YES, has PT been informed?: No Medical Necessity Reason Pt with a Central, PICC or Fol: Yes The following are medically ne: Central Line, Lowery Catheter Reason for lowery catheter: Strict I&O Subjective Review of Systems: RESPIRATORY:Abnormal Other Systems: Patient seen and examined by myself today in follow-up Patient remained intubated on ventilator Objective vital signs Vital Sign Date Time Temp Pulse Resp B/P (MAP) Pulse Ox O2 Delivery O2 Flow Rate FiO2 02/20/24 08:00 30 02/20/24 08:00 88 18 100 Mechanical Ventilator+ 30 02/20/24 08:00 98.2 130/65 (86) 208.8 Total Intake and Output 02/19/24 02/19/24 02/20/24 15:00 23:00 07:00 Intake Total 425 ml 700 ml 525 ml Output Total 175 ml 250 ml Balance 425 ml 525 ml 275 ml medications Current Medications Medications Dose Ordered Sig/Sheila Route Start Time Stop Time Status Last Admin Dose Admin Acetaminophen 650 mg Q6HP PRN PO 02/07/24 19:45 Ipratropium [place] 0.5 mg Q6HPRN PRN NEB 02/08/24 14:30 02/10/24 05:37 0.5 MG Midazolam HCl 50 ml @ 1 mls/hr Q24H IV 02/08/24 17:00 02/11/24 17:43 4 MLS/HR Pantoprazole Sodium 40 mg DAILY IV 02/09/24 10:00 02/19/24 08:56 40 MG Enteral Nutritional Formula 1,000 ml 30ML/HR GT 02/09/24 13:30 02/14/24 19:33 1,000 ML Albumin Human 100 ml @ 100 mls/hr Q1HR IV 02/12/24 10:00 02/12/24 11:59 Cancel Fluconazole 100 ml @ 100 mls/hr DAILY IV 02/12/24 17:30 02/19/24 09:02 100 MLS/HR Heparin Sodium (Porcine) 5,000 units LACIE PRN XX 02/14/24 11:00 Lactulose 30 ml DAILY PO 02/15/24 10:00 02/18/24 09:38 30 ML Epoetin Kuldip-epbx 10,000 unit MoWeFr@2100 SC 02/16/24 21:00 02/19/24 21:17 10,000 UNIT Diagnostic Test (Pha) 1 strip Q6HR 02/16/24 00:00 02/20/24 05:05 1 STRIP Dextrose 50 ml UD PRN IV 02/15/24 18:45 Nystatin 5 ml QID MT 02/15/24 22:00 02/20/24 05:05 5 ML Fluconazole 100 ml @ 100 mls/hr DAILY IV 02/16/24 10:00 UNV Levofloxacin 50 ml @ 50 mls/hr Q48H IV 02/16/24 16:00 02/18/24 15:24 50 MLS/HR Hydralazine HCl 20 mg Q4HPRN PRN IV 02/17/24 12:45 02/19/24 17:48 20 MG Bumetanide 1 mg BIDD IV 02/18/24 18:00 02/20/24 05:04 1 MG Sodium Chloride 1,000 ml @ 75 mls/hr [id number] IV 02/19/24 11:00 02/20/24 06:17 75 MLS/HR Examination: LUNGS:Normal, CVS:Normal, MSK:Normal laboratory and microbiology Laboratory Tests 02/20/24 09:20 Test 02/20/24 09:20 Range/Units Serum Glucose Pending Microbiology Date/Time Source Procedure Growth Status 02/16/24 19:20 Trachea Gram Stain - Final Resulted 02/16/24 19:20 Trachea Respiratory Culture - Preliminary Resulted 02/16/24 18:23 Urine - Lowery Port Urine Culture - Preliminary Resulted 02/08/24 17:17 Sputum Gram Stain - Final Complete 02/08/24 17:17 Respiratory Culture - Final Enterobacter hormaechei Complete 02/08/24 12:10 Blood Blood Culture - Final NO GROWTH AFTER 5 DAYS OF INCUBATION. 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 Nepr @30ml/hr is supporting 100% of pt's protein needs, and 116% of pt's energy needs. 2. Advance to Renal Standard 2 gNa 3K low Phos diet when pt is off vent and pass speech eval. Expected Outcomes/Goals: Improved nutrition status and Gradual weight gains OVI REYNOLDS MD Feb 20, 2024 10:16
[2024-02-20 10:20] LABS: Alkaline Phosphatase 91 U/L (46-116); Anion Gap 11 (5-15); Aspartate Aminotransferase 21 U/L (13-40); BUN/Creatinine Ratio 13.8 (10.0-20.0); Calcium 9.7 mg/dL (8.7-10.4); Carbon Dioxide 21 mmol/L (20-31); Chloride 107 mmol/L (98-107); Sodium 139 mmol/L (136-145)
[2024-02-20 10:25] LABS: Base Excess -1.4 mmol/L (-2.0-3.0)
[2024-02-20 10:28] LABS: Blood Urea Nitrogen 27 mg/dL (9-23); Glucose 69 mg/dL (74-106); Potassium 3.3 mmol/L (3.5-5.1)
[2024-02-20 10:29] LABS: Alanine Aminotransferase < 9 U/L (7-40); Albumin 2.6 g/dL (3.2-4.8); Bilirubin, Total 0.3 mg/dL (0.2-1.0); Total Protein 4.8 g/dL (5.7-8.2)
[2024-02-20 11:46] LABS: INR 1.05 (0.9-1.15); Partial Thromboplastin Time 36.1 SEC (24.5-34.5); Prothrombin Time 11.1 sec (9.3-11.8)
[2024-02-20] MEDS: MAGNESIUM SULFATE 1GM/100ML 100 ML IV ONE ×2 (14:00→22:45)
[2024-02-20] MEDS: POTASSIUM CHL 20MEQ/100ML 100 ML IV SCH (15:00)
--- NOTE | 2024-02-20 16:56 | DVHPNRES ---
Progress Note Date Seen: Feb 20, 2024 Resident Creating Document: MARIS CASTRO RESIDENT Has the PT tested + for MRSA If YES, has PT been informed?: No Medical Necessity Reason Pt with a Central, PICC or Fol: Yes The following are medically ne: Central Line, Lowery Catheter Reason for lowery catheter: Strict I&O Subjective Review of Systems Ms. Godfrey, An 88-year-old female with a history of CHF, CKD, CVA, gout, high lipids, HTN, VA, thyroid issues, parathyroid mass and recurrent UTIs, who was currently on hospice, presented with altered mental status progressively developing over the past week, her condition had been deteriorating, with decreased urine output and oral intake. The family decided to revoke hospice services for the 2nd time ( previously for similar situation) and brought her in to ED for further evaluation. Her surgical history includes a hysterectomy, pacemaker implantation, and PTCA. On admission, she was found to be lethargic and oriented to person only: During the course of the hospitalization patient became even more lethargic brainstem functions intact yet GCS was less than 8. Elevated BUN and creatinine levels were noted, prompting a nephrology consult for acute kidney injury. She could not provide any history, further limited history/ROS obtained at the moment was extracted from family discussion. she was found to have septic shock hypotensive, needing pressor and unable to maintain /protect airways needing intubation sedation and higher level of care. On arrival patient's temperature was 96.3 F, pulse 90 bpm, respiratory rate 12, blood pressure 63/45, 92 on room air. She received IV fluids and her blood pressure improved 103/55. Patient was saturating 99 on 5 L supplementation. 02/07 around noon patient's blood pressure dropped to 65/42 mmHg and therefore she was intubated right femoral CVC was placed in right IJ CVC for hemodialysis was placed. Patient received SC calcitonin 2 doses of 200 mg on 02/07. She has been receiving D5W for the correction of hypernatremia. 02/08 - Patient seen and examined at bedside. She is tachycardic at 109 beats per minute, saturating 95 on FiO2 of 30%. Blood pressure is 107/68. Patient's hypernatremia was overcorrected more than 10 for 24 hours, DC D5W. Started free water through NG 150 mL q.6 hour. Chest x-ray shows left-sided pneumonia, possible aspiration as it was not present on arrival. Started IV Zosyn and vancomycin. Vanco DC ed based on culture results. Started calcitonin 200 units SC q.12. Hepatitis panel pending. Hemodialysis tomorrow 02/09 02/11 - seen and examined over the bedside. She underwent hemodialysis on 02/09 and 02/11. She was transfused 1 packed RBC over the weekend. She has been off sedation since 4:00 a.m.. Safe 500 mL bolus during the hemodialysis session. Occult blood is positive. DC aspirin. Pending parathyroid scan. Echo completed 02/10 shows LVEF 65%. Moderate degree LV diastolic dysfunction. Moderate degree LVH. Moderately dilated RV. Normal valves. RVSP is 52 mmHg. 02/12 - patient seen and examined at bedside. She is on Levophed for, off sedation. Underwent CPAP trial today from 10:00 a.m. to 2:00 p.m.. She is not responding to commands. Chest x-ray shows stable left-sided infiltrate. Thyroid ultrasound is pending. 1 unit of packed RBCs ordered. ABG showed respiratory alkalosis with metabolic compensation. Received Mag and K supplementation. Repeat CBC, Mag, K wnl 02/13 - night temperature 99.1. Patient is satting 91 on 30%. Undergoing hemodialysis today. WBC trending down to 9.2. Chest x-ray shows stable left- sided opacity. Thyroid ultrasound shows heterogeneous left thyroid gland and isthmus with discrete nodule. Patient is on Levophed to off sedation. No CPAP trial. Lactulose started 30 mL once daily 02/14 - not responsive to commands. Off sedation since 02/11. CPAP trial terminated within 1 minute due to apnea. CT head completed, shows new age indeterminate referral right cerebellum infarct. patient is Left upper extremity: Occlusive thrombophlebitis of the cephalic vein with moderate subcutaneous edema in the arm noted. Started nystatin 5 cc swish and swallow. Decreased respiratory rate to 18. Patient had a bowel movement overnight. 02/15 - overnight patient's temperature was 99.3, patient is off sedation and not responding to commands for opening eyes spontaneously. Repeat urine culture and respiratory culture ordered. MRI brain pending. Switched meropenem to Levaquin. Corrected calcium 11.1. 02/18 - MRI brain shows multiple foci of supratentorial and right cerebellar infarct, suggestive of central emboli. nephrology started Bumex b.i.d. 1 g IV. Repeat urine culture shows greater than 1 Lac yeast, chest x-ray shows left side is stable opacity. Patient undergoing tracheostomy 02/18. IV half NS at 75 cc/hour started by Nephrology. Hemodialysis today. DC Levaquin tomorrow. 02/19 - 250 cc urine output. No bowel movement. DC Shmuel catheter. Inserting midline. Started D5W half NS Objective vital signs Vital Sign Date Time Temp Pulse Resp B/P (MAP) Pulse Ox O2 Delivery O2 Flow Rate FiO2 02/20/24 14:35 79 19 122/65 (84) 100 30 02/20/24 12:00 Mechanical Ventilator+ 02/20/24 12:00 97.9 208.2 02/20/24 08:00 30 Total Intake and Output 02/19/24 02/19/24 02/20/24 15:00 23:00 07:00 Intake Total 425 ml 700 ml 525 ml Output Total 175 ml 250 ml Balance 425 ml 525 ml 275 ml medications Current Medications Medications Dose Ordered Sig/Sheila Route Start Time Stop Time Status Last Admin Dose Admin Acetaminophen 650 mg Q6HP PRN PO 02/07/24 19:45 Ipratropium [place] 0.5 mg Q6HPRN PRN NEB 02/08/24 14:30 02/10/24 05:37 0.5 MG Midazolam HCl 50 ml @ 1 mls/hr Q24H IV 02/08/24 17:00 02/11/24 17:43 4 MLS/HR Pantoprazole Sodium 40 mg DAILY IV 02/09/24 10:00 02/20/24 10:00 40 MG Enteral Nutritional Formula 1,000 ml 30ML/HR GT 02/09/24 13:30 02/14/24 19:33 1,000 ML Albumin Human 100 ml @ 100 mls/hr Q1HR IV 02/12/24 10:00 02/12/24 11:59 Cancel Fluconazole 100 ml @ 100 mls/hr DAILY IV 02/12/24 17:30 02/20/24 10:00 100 MLS/HR Heparin Sodium (Porcine) 5,000 units LACIE PRN XX 02/14/24 11:00 Lactulose 30 ml DAILY PO 02/15/24 10:00 02/18/24 09:38 30 ML Epoetin Kuldip-epbx 10,000 unit MoWeFr@2100 SC 02/16/24 21:00 02/19/24 21:17 10,000 UNIT Diagnostic Test (Pha) 1 strip Q6HR 02/16/24 00:00 02/20/24 12:00 1 STRIP Dextrose 50 ml UD PRN IV 02/15/24 18:45 Nystatin 5 ml QID MT 02/15/24 22:00 02/20/24 12:00 5 ML Fluconazole 100 ml @ 100 mls/hr DAILY IV 02/16/24 10:00 UNV Levofloxacin 50 ml @ 50 mls/hr Q48H IV 02/16/24 16:00 02/18/24 15:24 50 MLS/HR Hydralazine HCl 20 mg Q4HPRN PRN IV 02/17/24 12:45 02/19/24 17:48 20 MG Bumetanide 1 mg BIDD IV 02/18/24 18:00 02/20/24 05:04 1 MG Dextrose/Sodium Chloride 1,000 ml @ 75 mls/hr [id number] IV 02/20/24 10:15 Examination Patient lying in bed, intubated and off sedated. RASS -4. Satting 97% on Trach 30% fiO2 General: Thin looking, cachectic, afebrile, palor, mucosae are dry. Oral thrush on tongue. Cardiovascular: Regular S1 and S2. No murmurs, gallops or rubs. No JVD elevation. 1+ pitting edema. Right IJ Shmuel seen. Respiratory: Left-sided crepitations heard. Saturating 99 on FiO2 of 30%. Abdomen: Soft, nontender, nondistended, absent bowel sounds, no rebound tenderness, no organomegaly, no masses. Lowery catheter seen. Stage II decubitus ulcer. Erythema noticed. Genitourinary: Lowery catheter seen. MSK/skin: Skin is dry and warm Neurological: Pupils are isocoric and reactive. laboratory and microbiology Laboratory Tests 02/20/24 09:20 Test 02/20/24 09:20 Range/Units Serum Glucose 69 L 74-106 mg/dL Microbiology Date/Time Source Procedure Growth Status 02/16/24 19:20 Trachea Gram Stain - Final Complete 02/16/24 19:20 Respiratory Culture - Final Bordetella bronchiseptica Stenotrophomonas maltophilia Yeast, not Ellen albicans Complete 02/16/24 18:23 Urine - Lowery Port Urine Culture - Preliminary Yeast, not Ellen albicans Resulted 02/08/24 17:17 Sputum Gram Stain - Final Complete 02/08/24 17:17 Respiratory Culture - Final Enterobacter hormaechei Complete 02/08/24 12:10 Blood Blood Culture - Final NO GROWTH AFTER 5 DAYS OF INCUBATION. 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 Discontinued aspirin 162 mg daily given the positive occult blood and the low hemoglobin Head CT Stable small chronic infarct in the right basal ganglia. No acute intracranial process. Repeat head CT 02/14 shows right cerebellar age indeterminate infarct MRI brain Multiple foci of supratentorial and right cerebellar areas of acute / subacute infarct. Correlate for possible central embolic process. Multiple foci of chronic lacunar infarcts of bilateral cerebellum and right basal ganglia. 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 Moderate degree LV diastolic dysfunction. Moderate degree LVH. Moderately dilated RV. Normal valves. RVSP is 52 mmHg. RESPIRATORY Left-sided lobar pneumonia, possible aspiration, Gram-positive and Gram-negative with Enterobacter Sepsis secondary to pneumonia and UTI Final respiratory culture shows Enterobacter sensitive to Cipro, levofloxacin, meropenem, TMP SMX G stain shows Gram-positive cocci in chains and pairs, Gram-positive rods DC vanco, discontinue Zosyn starting 02/08 till 02/11 Discontinued meropenem 02/11 till 02/15 Started Levaquin 02/15 and started IV fluconazole 02/14 MRSA screen negative Continue ipratropium nebulized treatment q.6 p.r.n. GI F/U hepatitis panel Hx of 1.0 cm left adrenal nodule Steatosis Positive occult blood Continue pantoprazole 40 mg IV daily Lactulose 30 mL once daily /KIDNEY Acute cystitis JOSE likely secondary to ATN on ESRD undergoing hemodialysis Acute tubular necrosis Prelim urine culture shows greater than 1 lac CFU mixed melissa 3 colony types possible contamination. Repeat urine culture ordered. Repeat urine culture 02/08 shows >100,000 CFU/mL Yeast Identification to follow. FENA greater than 2% Right renal simple appearing cysts measuring up to 3.4 cm. Hemodialysis 02/09 and 02/11, 02/13, 02/15, 02/18 receiving Retacrit 10999 units post dialysis. ENDOCRINE Right parathyroid mass Hypercalcemia Left-sided thyroid nodule Thyroid ultrasound 02/12 shows heterogeneous left thyroid gland and isthmus with a discrete nodule Corrected Calcium 11, downtrending METABOLIC Non-anion gap metabolic acidosis likely secondary to hyperchloremia and uremia with the respiratory alkalosis Hypovolemic hypernatremia Humoral Hypercalcemia of malignancy Secondary hyperphosphatemia due to ESRD Hypomagnesemia, hypokalemia Gout vs CPPD - chondrocalcinosis seen in knee x-ray in 2022 Patient received IV fluid D5W with 50 mEq sodium bicarb at 100 cc/hour on 02/07 morning of 02/08. Discontinued on 02/08 since over-correction of hyponatremia was noticed. Patient received 2 doses of SC calcitonin 200 mg on 02/07. Received calcitonin 200 mg sc twice daily from 01/21 till 02/11 Discontinued IV bicarb at 100 mL/hour Nephrology Started D5W half NS and Bumex 1 mg b.i.d. ID Sepsis secondary to pneumonia and the UTI Oral thrush Started nystatin swish and swallow 5 cc 02/14 02/15 - Repeat urine culture shows yeast 02/15 - Repeat respiratory culture shows Gram-negative rods and yeast HEM-ONCO Right parathyroid mass Thrombocytopenia Anemia, likely normocytic due to ESRD - transfused 1 packed RBC 02/12 and 02/10 OBGYN History of Hysterectomy Protein energy malnutrition LINES Intubated on 02/07, tracheostomy 02/18 Right IJ CVC for hemodialysis placed 02/09 till 02/19 Right-sided Femoral dialysis non tunneled placed 02/09 Left Femoral CVC 02/09 till 02/19 Lowery catheter Drips: Levophed 0, patient is off sedation Last bowel movement, 02/18 NUTRITION: Nepro started 02/08 DVT: Renal dosing Lovenox on hold given the low hemoglobin and positive occult Goals of care/advance care planning; discussed with the daughter and granddaughter at the bedside, modified DNR, PUD prophylaxis: Pantoprazole 40 mg IV daily DVT prophylaxis on hold-enoxaparin 50 mg sc daily renal dosing, patient takes Eliquis at home Plan discussed with Dr. Machuca. office services clerk consulted for transfer to LTAC Plan discussed with patient's granddaughter over the bedside in which all questions have been answered Goals of care have been discussed with the patient's granddaughter (Skylar) at the bedside for more than 25 minutes, modified DNR status Critical time including chart review, discussion with the patient's family excluding procedures included 43 minutes Plan discussed with: Patient, Other (Granddaughter at the bedside) My Orders My Orders Orders - MARIS CASTRO Procedure Category Date Status Time * Picc Line Consult CONS 02/20/24 Transmitted 09:30 Insert Midline ORDERS 02/20/24 Transmitted 09:59 Dietary Evaluation Review Comments: 1. Nepr @30ml/hr is supporting 100% of pt's protein needs, and 116% of pt's energy needs. 2. Advance to Renal Standard 2 gNa 3K low Phos diet when pt is off vent and pass speech eval. Expected Outcomes/Goals: Improved nutrition status and Gradual weight gains Date of Service: Feb 20, 2024 Billing Provider: PALAK MACHUCA MD Common Visit Codes: [id number] CARE 30-74 MIN MARIS CASTRO Feb 20, 2024 16:56 PALAK MACHUCA MD Feb 21, 2024 15:32
--- NOTE | 2024-02-20 19:20 | DVHPN2 ---
Progress Note - Dictate Date Seen: Feb 20, 2024 Has the PT tested + for MRSA If YES, has PT been informed?: No Medical Necessity Reason Pt with a Central, PICC or Fol: Yes The following are medically ne: Central Line, Lowery Catheter Reason for lowery catheter: Strict I&O Subjective Patient was seen and evaluated in follow up in the ICU. Patient is intubated on ventilator. 30% FiO2. Sedation is off. HGB 8, HCT 23, K 3.3, BUN 27, [employer] 1.95. vital signs Vital Sign Date Time Temp Pulse Resp B/P (MAP) Pulse Ox O2 Delivery O2 Flow Rate FiO2 02/20/24 18:08 140/67 02/20/24 18:00 80 02/20/24 18:00 98.8 18 100 209.8 02/20/24 18:00 Mechanical Ventilator+ 30 30 02/20/24 08:00 30 Total Intake and Output 02/19/24 02/19/24 02/20/24 15:00 23:00 07:00 Intake Total 425 ml 700 ml 525 ml Output Total 175 ml 250 ml Balance 425 ml 525 ml 275 ml medications Current Medications Medications Dose Ordered Sig/Sheila Route Start Time Stop Time Status Last Admin Dose Admin Acetaminophen 650 mg Q6HP PRN PO 02/07/24 19:45 Ipratropium [place] 0.5 mg Q6HPRN PRN NEB 02/08/24 14:30 02/10/24 05:37 0.5 MG Midazolam HCl 50 ml @ 1 mls/hr Q24H IV 02/08/24 17:00 02/11/24 17:43 4 MLS/HR Pantoprazole Sodium 40 mg DAILY IV 02/09/24 10:00 02/20/24 10:00 40 MG Enteral Nutritional Formula 1,000 ml 30ML/HR GT 02/09/24 13:30 02/14/24 19:33 1,000 ML Albumin Human 100 ml @ 100 mls/hr Q1HR IV 02/12/24 10:00 02/12/24 11:59 Cancel Fluconazole 100 ml @ 100 mls/hr DAILY IV 02/12/24 17:30 02/20/24 10:00 100 MLS/HR Heparin Sodium (Porcine) 5,000 units LACIE PRN XX 02/14/24 11:00 Lactulose 30 ml DAILY PO 02/15/24 10:00 02/18/24 09:38 30 ML Epoetin Kuldip-epbx 10,000 unit MoWeFr@2100 SC 02/16/24 21:00 02/19/24 21:17 10,000 UNIT Diagnostic Test (Pha) 1 strip Q6HR 02/16/24 00:00 02/20/24 18:00 1 STRIP Dextrose 50 ml UD PRN IV 02/15/24 18:45 Nystatin 5 ml QID MT 02/15/24 22:00 02/20/24 18:00 5 ML Fluconazole 100 ml @ 100 mls/hr DAILY IV 02/16/24 10:00 UNV Hydralazine HCl 20 mg Q4HPRN PRN IV 02/17/24 12:45 02/19/24 17:48 20 MG Bumetanide 1 mg BIDD IV 02/18/24 18:00 02/20/24 18:08 1 MG Dextrose/Sodium Chloride 1,000 ml @ 75 mls/hr [id number] IV 02/20/24 10:15 02/20/24 10:15 75 MLS/HR Levofloxacin 50 ml @ 50 mls/hr Q48H IV 02/20/24 19:00 objective GENERAL: Intubated on ventilator. LUNGS: Decreased breath sounds. CARDIOVASCULAR: Heart sounds are good. ABDOMEN: Soft. : Lowery catheter in place. laboratory and microbiology Laboratory Tests 02/20/24 09:20 Test 02/20/24 09:20 Range/Units Serum Glucose 69 L 74-106 mg/dL Problem List Acute metabolic encephalopathy secondary to uremia. 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 Septic shock secondary to pneumonia and UTI requiring vasopressor support. ESRD on hemodialysis. Positive FIT test. History of multiple strokes, last known stroke August 2023, 12/2021. Residual left-sided weakness. Bed bound. 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 History of CAD status post PTCA LAD by Dr Prieto 2016. Lactic acidosis. Dyslipidemia. Left-sided lobar pneumonia. Acute cystitis. Right parathyroid mass. Hypercalcemia. Left-sided thyroid nodule. Protein energy malnutrition. Assessment/Plan Continued all current supportive medical care. Diuretics with Bumex. IV Hydralazine for SBP > 150. Lactulose. IV antibiotics as ordered. GI prophylactics. Vasopressors for hemodynamic support. Additional plan as per the hospital course. Critical care time of 45 minutes provided to include time spent evaluation of patient at bedside, when appropriate patient/family education for diagnosis, treatment plan, review of pertinent medical information and discussion of care with specialty providers and PCP. Mechanical ventilator parameters, treatment and adjustments have personally been reviewed by me and treatment plan by plant attendant or assistant operator has also been reviewed. Dietary Evaluation Review Comments: 1. Nepr @30ml/hr is supporting 100% of pt's protein needs, and 116% of pt's energy needs. 2. Advance to Renal Standard 2 gNa 3K low Phos diet when pt is off vent and pass speech eval. Expected Outcomes/Goals: Improved nutrition status and Gradual weight gains Plan discussed with: Other CARTER FRANCO MD Feb 20, 2024 19:20
[2024-02-20] MEDS: levoFLOXacin 250MG 50 ML IV SCH (20:40)
[2024-02-21] VITALS (61 sets, daily range): BP systolic 98–153; BP diastolic 50–85; PULSE 69–85; RESP 14–30; TEMP 96–97.9; O2SAT 99–100
[2024-02-21 06:01] LABS: Alkaline Phosphatase 90 U/L (46-116); Anion Gap 9 (5-15); Aspartate Aminotransferase 17 U/L (13-40); BUN/Creatinine Ratio 13.6 (10.0-20.0); Calcium 9.8 mg/dL (8.7-10.4); Carbon Dioxide 20 mmol/L (20-31); Magnesium 1.9 mg/dL (1.6-2.6); Potassium 3.9 mmol/L (3.5-5.1); Sodium 137 mmol/L (136-145)
[2024-02-21 06:05] LABS: Basophils # (auto) 0 10 ^3/uL (0-0.2); Basophils % (auto) 0.2 % (0.0-2.0); Eosinophils # (auto) 0 10 ^3/uL (0-0.8); Hemoglobin 7.7 g/dL (12.2-16.2); Lymphocytes # (auto) 0.7 10 ^3/uL (0.4-5.4); Monocytes # (auto) 0.7 10 ^3/uL (0-1.3)
[2024-02-21 06:07] LABS: Eosinophils % (auto) 0.3 % (0.0-7.0); Hematocrit 22.5 % (36.0-46.0); Lymphocytes % (auto) 10.1 % (10.0-50.0); Mean Corpuscular Hemoglobin 31.3 pg (28.0-32.0); Mean Corpuscular Hgb Conc. 34.4 g/dL (32.0-36.0); Mean Corpuscular Volume 91.1 fL (80.0-100.0); Neutrophils # (auto) 5.8 10 ^3/uL (1.6-8.6); Neutrophils % (auto) 79.4 % (37.0-80.0); Nucleated Red Blood Cells % 0.1 %; Platelet Count (auto) 97 10^3/uL (140-450); Red Blood Cells 2.47 10^6/uL (4.0-5.20); Red Cell Distribution Width 15.5 % (11.8-14.3); White Blood Cell 7.3 10^3/uL (4.4-10.8)
[2024-02-21 06:50] LABS: Alanine Aminotransferase < 9 U/L (7-40); Albumin 2.6 g/dL (3.2-4.8); Bilirubin, Total 0.2 mg/dL (0.2-1.0); Blood Urea Nitrogen 27 mg/dL (9-23); Chloride 108 mmol/L (98-107); Glucose 111 mg/dL (74-106); Total Protein 4.9 g/dL (5.7-8.2)
--- NOTE | 2024-02-21 09:10 | MEDREC ---
[facility] Intervention Section I [facility] Intervention: Review courses of therapy (PLEASE CONSIDER REVIEWING COURSE OF THERAPY ACCORDING TO TRACHEA CULTURE RESULTS IF CLINICALLY RELEVANT) KADE FENTON PHARMACIST Feb 21, 2024 09:10
--- NOTE | 2024-02-21 10:10 | DVHPN2 ---
Progress Note Date Seen: Feb 21, 2024 Has the PT tested + for MRSA If YES, has PT been informed?: No Medical Necessity Reason Pt with a Central, PICC or Fol: Yes The following are medically ne: Central Line, Lowery Catheter Reason for lowery catheter: Strict I&O Subjective Patient reports: No new complaints Review of Systems: RESPIRATORY:Abnormal Objective vital signs Vital Sign Date Time Temp Pulse Resp B/P (MAP) Pulse Ox O2 Delivery O2 Flow Rate FiO2 02/21/24 08:00 97.6 70 15 142/67 (92) 100 97.6 02/21/24 06:08 30 02/21/24 06:00 Mechanical Ventilator+ 02/21/24 01:16 8 Total Intake and Output 02/20/24 02/20/24 02/21/24 15:00 23:00 07:00 Intake Total 375 ml 850 ml 705 ml Output Total 350 ml 300 ml Balance 375 ml 500 ml 405 ml medications Current Medications Medications Dose Ordered Sig/Sheila Route Start Time Stop Time Status Last Admin Dose Admin Acetaminophen 650 mg Q6HP PRN PO 02/07/24 19:45 Ipratropium [place] 0.5 mg Q6HPRN PRN NEB 02/08/24 14:30 02/10/24 05:37 0.5 MG Midazolam HCl 50 ml @ 1 mls/hr Q24H IV 02/08/24 17:00 02/11/24 17:43 4 MLS/HR Pantoprazole Sodium 40 mg DAILY IV 02/09/24 10:00 02/21/24 10:06 40 MG Enteral Nutritional Formula 1,000 ml 30ML/HR GT 02/09/24 13:30 02/14/24 19:33 1,000 ML Albumin Human 100 ml @ 100 mls/hr Q1HR IV 02/12/24 10:00 02/12/24 11:59 Cancel Fluconazole 100 ml @ 100 mls/hr DAILY IV 02/12/24 17:30 02/21/24 10:05 100 MLS/HR Heparin Sodium (Porcine) 5,000 units LACIE PRN XX 02/14/24 11:00 Lactulose 30 ml DAILY PO 02/15/24 10:00 02/21/24 10:06 30 ML Epoetin Kuldip-epbx 10,000 unit MoWeFr@2100 SC 02/16/24 21:00 02/19/24 21:17 10,000 UNIT Diagnostic Test (Pha) 1 strip Q6HR 02/16/24 00:00 02/21/24 05:36 1 STRIP Dextrose 50 ml UD PRN IV 02/15/24 18:45 Nystatin 5 ml QID MT 02/15/24 22:00 02/21/24 05:36 5 ML Fluconazole 100 ml @ 100 mls/hr DAILY IV 02/16/24 10:00 UNV Hydralazine HCl 20 mg Q4HPRN PRN IV 02/17/24 12:45 02/19/24 17:48 20 MG Bumetanide 1 mg BIDD IV 02/18/24 18:00 02/21/24 05:35 1 MG Dextrose/Sodium Chloride 1,000 ml @ 75 mls/hr [id number] IV 02/20/24 10:15 02/21/24 09:22 75 MLS/HR Levofloxacin 50 ml @ 50 mls/hr Q48H IV 02/20/24 19:00 02/20/24 20:40 50 MLS/HR Examination: GENERAL:Abnormal laboratory and microbiology Laboratory Tests 02/21/24 04:32 Test 02/21/24 04:32 Range/Units Serum Glucose 111 H 74-106 mg/dL Microbiology Date/Time Source Procedure Growth Status 02/16/24 19:20 Trachea Gram Stain - Final Complete 02/16/24 19:20 Respiratory Culture - Final Bordetella bronchiseptica Stenotrophomonas maltophilia Yeast, not Ellen albicans Complete 02/16/24 18:23 Urine - Lowery Port Urine Culture - Preliminary Yeast, not Ellen albicans Resulted 02/08/24 17:17 Sputum Gram Stain - Final Complete 02/08/24 17:17 Respiratory Culture - Final Enterobacter hormaechei Complete 02/08/24 12:10 Blood Blood Culture - Final NO GROWTH AFTER 5 DAYS OF INCUBATION. Complete Problem List/Assessment/Plan Problem List/Assessment/Plan Acute kidney injury superimposed Chronic Kidney Disease stage IV secondary hemodynamic mediated, ATN, feNa > 2% Encephalopathy Hypercalcemia due to primary hyperparathyroidism rule out parathyroid adenoma Dehydration Septic shock CVA NSTEMI Anemia of chronic kidney disease primary Hyperparathyroidism respiratory failure trach to wall oxygen today IVF and bumex uop low today but renal function is holding rec removal of all dialysis lines tomorrow if stable BP pressor support high ca and high PTH concerning for primary hyperparathyroid c/p calcitonin rec NM parathyroid scan if not done palliative /hospice candidate Plan discussed with: Patient Dietary Evaluation Review Comments: 1. Nepr @30ml/hr is supporting 100% of pt's protein needs, and 116% of pt's energy needs. 2. Advance to Renal Standard 2 gNa 3K low Phos diet when pt is off vent and pass speech eval. Expected Outcomes/Goals: Improved nutrition status and Gradual weight gains KEENAN TRUONG MD Feb 21, 2024 10:10
[2024-02-21 10:54] LABS: % Iron Saturation 21.4 % (15-50)
--- NOTE | 2024-02-21 16:44 | DVHPNRES ---
Progress Note Date Seen: Feb 21, 2024 Resident Creating Document: MARIS CASTRO RESIDENT Has the PT tested + for MRSA If YES, has PT been informed?: No Medical Necessity Reason Pt with a Central, PICC or Fol: Yes The following are medically ne: Central Line, Lowery Catheter Reason for lowery catheter: Strict I&O Subjective Review of Systems Ms. Godfrey, An 88-year-old female with a history of CHF, CKD, CVA, gout, high lipids, HTN, NH, thyroid issues, parathyroid mass and recurrent UTIs, who was currently on hospice, presented with altered mental status progressively developing over the past week, her condition had been deteriorating, with decreased urine output and oral intake. The family decided to revoke hospice services for the 2nd time ( previously for similar situation) and brought her in to ED for further evaluation. Her surgical history includes a hysterectomy, pacemaker implantation, and PTCA. On admission, she was found to be lethargic and oriented to person only: During the course of the hospitalization patient became even more lethargic brainstem functions intact yet GCS was less than 8. Elevated BUN and creatinine levels were noted, prompting a nephrology consult for acute kidney injury. She could not provide any history, further limited history/ROS obtained at the moment was extracted from family discussion. she was found to have septic shock hypotensive, needing pressor and unable to maintain /protect airways needing intubation sedation and higher level of care. On arrival patient's temperature was 96.3 F, pulse 90 bpm, respiratory rate 12, blood pressure 63/45, 92 on room air. She received IV fluids and her blood pressure improved 103/55. Patient was saturating 99 on 5 L supplementation. 02/07 around noon patient's blood pressure dropped to 65/42 mmHg and therefore she was intubated right femoral CVC was placed in right IJ CVC for hemodialysis was placed. Patient received SC calcitonin 2 doses of 200 mg on 02/07. She has been receiving D5W for the correction of hypernatremia. 02/08 - Patient seen and examined at bedside. She is tachycardic at 109 beats per minute, saturating 95 on FiO2 of 30%. Blood pressure is 107/68. Patient's hypernatremia was overcorrected more than 10 for 24 hours, DC D5W. Started free water through NG 150 mL q.6 hour. Chest x-ray shows left-sided pneumonia, possible aspiration as it was not present on arrival. Started IV Zosyn and vancomycin. Vanco DC ed based on culture results. Started calcitonin 200 units SC q.12. Hepatitis panel pending. Hemodialysis tomorrow 02/09 02/11 - seen and examined over the bedside. She underwent hemodialysis on 02/09 and 02/11. She was transfused 1 packed RBC over the weekend. She has been off sedation since 4:00 a.m.. Safe 500 mL bolus during the hemodialysis session. Occult blood is positive. DC aspirin. Pending parathyroid scan. Echo completed 02/10 shows LVEF 65%. Moderate degree LV diastolic dysfunction. Moderate degree LVH. Moderately dilated RV. Normal valves. RVSP is 52 mmHg. 02/12 - patient seen and examined at bedside. She is on Levophed for, off sedation. Underwent CPAP trial today from 10:00 a.m. to 2:00 p.m.. She is not responding to commands. Chest x-ray shows stable left-sided infiltrate. Thyroid ultrasound is pending. 1 unit of packed RBCs ordered. ABG showed respiratory alkalosis with metabolic compensation. Received Mag and K supplementation. Repeat CBC, Mag, K wnl 02/13 - night temperature 99.1. Patient is satting 91 on 30%. Undergoing hemodialysis today. WBC trending down to 9.2. Chest x-ray shows stable left- sided opacity. Thyroid ultrasound shows heterogeneous left thyroid gland and isthmus with discrete nodule. Patient is on Levophed to off sedation. No CPAP trial. Lactulose started 30 mL once daily 02/14 - not responsive to commands. Off sedation since 02/11. CPAP trial terminated within 1 minute due to apnea. CT head completed, shows new age indeterminate referral right cerebellum infarct. patient is Left upper extremity: Occlusive thrombophlebitis of the cephalic vein with moderate subcutaneous edema in the arm noted. Started nystatin 5 cc swish and swallow. Decreased respiratory rate to 18. Patient had a bowel movement overnight. 02/15 - overnight patient's temperature was 99.3, patient is off sedation and not responding to commands for opening eyes spontaneously. Repeat urine culture and respiratory culture ordered. MRI brain pending. Switched meropenem to Levaquin. Corrected calcium 11.1. 02/18 - MRI brain shows multiple foci of supratentorial and right cerebellar infarct, suggestive of central emboli. nephrology started Bumex b.i.d. 1 g IV. Repeat urine culture shows greater than 1 Lac yeast, chest x-ray shows left side is stable opacity. Patient undergoing tracheostomy 02/18. IV half NS at 75 cc/hour started by Nephrology. Hemodialysis today. DC Levaquin tomorrow. 02/19 - 250 cc urine output. No bowel movement. DC Shmuel catheter. Inserting midline. Started D5W half NS 02/20 - patient is opening her eyes spontaneously. Started on trach collar from 8:00 a.m., switch to vent in p.m.. Right Shmuel femoral catheterization per Dr. Higgins. Daughter Yeni at bedside. Nephrology-continue IV fluids and Bumex, remove all dialysis line if stable. Objective vital signs Vital Sign Date Time Temp Pulse Resp B/P (MAP) Pulse Ox O2 Delivery O2 Flow Rate FiO2 02/21/24 16:12 100 Trach Collar 8.0 02/21/24 16:12 30 30 02/21/24 12:00 96.7 70 18 141/75 (97) 96.7 Total Intake and Output 02/20/24 02/20/24 02/21/24 15:00 23:00 07:00 Intake Total 375 ml 850 ml 780 ml Output Total 350 ml 300 ml Balance 375 ml 500 ml 480 ml medications Current Medications Medications Dose Ordered Sig/Sheila Route Start Time Stop Time Status Last Admin Dose Admin Acetaminophen 650 mg Q6HP PRN PO 02/07/24 19:45 Ipratropium [place] 0.5 mg Q6HPRN PRN NEB 02/08/24 14:30 02/10/24 05:37 0.5 MG Midazolam HCl 50 ml @ 1 mls/hr Q24H IV 02/08/24 17:00 02/11/24 17:43 4 MLS/HR Pantoprazole Sodium 40 mg DAILY IV 02/09/24 10:00 02/21/24 10:06 40 MG Enteral Nutritional Formula 1,000 ml 30ML/HR GT 02/09/24 13:30 02/14/24 19:33 1,000 ML Albumin Human 100 ml @ 100 mls/hr Q1HR IV 02/12/24 10:00 02/12/24 11:59 Cancel Fluconazole 100 ml @ 100 mls/hr DAILY IV 02/12/24 17:30 02/21/24 10:05 100 MLS/HR Heparin Sodium (Porcine) 5,000 units LACIE PRN XX 02/14/24 11:00 Lactulose 30 ml DAILY PO 02/15/24 10:00 02/21/24 10:06 30 ML Epoetin Kuldip-epbx 10,000 unit MoWeFr@2100 SC 02/16/24 21:00 02/19/24 21:17 10,000 UNIT Diagnostic Test (Pha) 1 strip Q6HR 02/16/24 00:00 02/21/24 12:42 1 STRIP Dextrose 50 ml UD PRN IV 02/15/24 18:45 Nystatin 5 ml QID MT 02/15/24 22:00 02/21/24 12:52 5 ML Fluconazole 100 ml @ 100 mls/hr DAILY IV 02/16/24 10:00 UNV Hydralazine HCl 20 mg Q4HPRN PRN IV 02/17/24 12:45 02/19/24 17:48 20 MG Bumetanide 1 mg BIDD IV 02/18/24 18:00 02/21/24 05:35 1 MG Dextrose/Sodium Chloride 1,000 ml @ 75 mls/hr [id number] IV 02/20/24 10:15 02/21/24 09:22 75 MLS/HR Levofloxacin 50 ml @ 50 mls/hr Q48H IV 02/20/24 19:00 02/20/24 20:40 50 MLS/HR Examination Patient lying in bed, off sedation. RASS -4. Satting 97% on Trach 30% fiO2 General: Thin looking, cachectic, afebrile, palor, mucosae are dry. Oral thrush on tongue. Cardiovascular: Regular S1 and S2. No murmurs, gallops or rubs. No JVD elevation. 1+ pitting edema. Respiratory: Left-sided crepitations heard. Saturating 99 on FiO2 of 30%. Abdomen: Soft, nontender, nondistended, normal bowel sounds, no rebound tenderness, no organomegaly, no masses. Lowery catheter seen. Stage II decubitus ulcer. Erythema noticed. Genitourinary: Lowery catheter seen. MSK/skin: Skin is dry and warm Neurological: Pupils are isocoric and reactive. laboratory and microbiology Laboratory Tests 02/21/24 04:32 Test 02/21/24 04:32 Range/Units Serum Glucose 111 H 74-106 mg/dL Microbiology Date/Time Source Procedure Growth Status 02/16/24 19:20 Trachea Gram Stain - Final Complete 02/16/24 19:20 Respiratory Culture - Final Bordetella bronchiseptica Stenotrophomonas maltophilia Yeast, not Ellen albicans Complete 02/16/24 18:23 Urine - Lowery Port Urine Culture - Final Yeast, not Ellen albicans Complete 02/08/24 17:17 Sputum Gram Stain - Final Complete 02/08/24 17:17 Respiratory Culture - Final Enterobacter hormaechei Complete 02/08/24 12:10 Blood Blood Culture - Final NO GROWTH AFTER 5 DAYS OF INCUBATION. 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 Discontinued aspirin 162 mg daily given the positive occult blood and the low hemoglobin Head CT Stable small chronic infarct in the right basal ganglia. No acute intracranial process. Repeat head CT 02/14 shows right cerebellar age indeterminate infarct MRI brain Multiple foci of supratentorial and right cerebellar areas of acute / subacute infarct. Correlate for possible central embolic process. Multiple foci of chronic lacunar infarcts of bilateral cerebellum and right basal ganglia. 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 Moderate degree LV diastolic dysfunction. Moderate degree LVH. Moderately dilated RV. Normal valves. RVSP is 52 mmHg. RESPIRATORY Left-sided lobar pneumonia, possible aspiration, Gram-positive and Gram-negative with Enterobacter Sepsis secondary to pneumonia and UTI Final respiratory culture shows Enterobacter sensitive to Cipro, levofloxacin, meropenem, TMP SMX G stain shows Gram-positive cocci in chains and pairs, Gram-positive rods DC vanco, discontinue Zosyn starting 02/08 till 02/11 Discontinued meropenem 02/11 till 02/15 Started Levaquin 02/15 and started IV fluconazole 02/14 MRSA screen negative Continue ipratropium nebulized treatment q.6 p.r.n. On trach collar in a.m.. GI F/U hepatitis panel Hx of 1.0 cm left adrenal nodule Steatosis Positive occult blood Continue pantoprazole 40 mg IV daily Lactulose 30 mL once daily /KIDNEY Acute cystitis JOSE likely secondary to ATN on ESRD undergoing hemodialysis Acute tubular necrosis Prelim urine culture shows greater than 1 lac CFU mixed melissa 3 colony types possible contamination. Repeat urine culture ordered. Repeat urine culture 02/08 shows >100,000 CFU/mL Yeast Identification to follow. FENA greater than 2% Right renal simple appearing cysts measuring up to 3.4 cm. Hemodialysis 02/09 and 02/11, 02/13, 02/15, 02/18 receiving Retacrit 40407 units post dialysis. ENDOCRINE Right parathyroid mass Hypercalcemia Left-sided thyroid nodule Thyroid ultrasound 02/12 shows heterogeneous left thyroid gland and isthmus with a discrete nodule Corrected Calcium 11, downtrending METABOLIC Non-anion gap metabolic acidosis likely secondary to hyperchloremia and uremia with the respiratory alkalosis Hypovolemic hypernatremia Humoral Hypercalcemia of malignancy Secondary hyperphosphatemia due to ESRD Hypomagnesemia, hypokalemia Gout vs CPPD - chondrocalcinosis seen in knee x-ray in 2022 Patient received IV fluid D5W with 50 mEq sodium bicarb at 100 cc/hour on 02/07 morning of 02/08. Discontinued on 02/08 since over-correction of hyponatremia was noticed. Patient received 2 doses of SC calcitonin 200 mg on 02/07. Received calcitonin 200 mg sc twice daily from 01/21 till 02/11 Discontinued IV bicarb at 100 mL/hour Nephrology Started D5W half NS and Bumex 1 mg b.i.d. ID Sepsis secondary to pneumonia and the UTI Oral thrush Started nystatin swish and swallow 5 cc 02/14 02/15 - Repeat urine culture shows yeast 02/15 - Repeat respiratory culture shows Gram-negative rods and yeast HEM-ONCO Right parathyroid mass Thrombocytopenia Anemia, likely normocytic due to ESRD Anemia of Chronic disease - transfused 1 packed RBC 02/12 and 02/10 - low iron low TIBC OBGYN History of Hysterectomy Protein energy malnutrition LINES Intubated on 02/07, tracheostomy 02/18 Right IJ CVC for hemodialysis placed 02/09 till 02/19 Right-sided Femoral dialysis non tunneled placed 02/09 Left Femoral CVC 02/09 till 02/19 Lowery catheter Drips: Levophed 0, patient is off sedation Last bowel movement, 02/18 NUTRITION: Nepro started 02/08 DVT: Renal dosing Lovenox on hold given the low hemoglobin and positive occult Goals of care/advance care planning; discussed with the daughter and granddaughter at the bedside, modified DNR, PUD prophylaxis: Pantoprazole 40 mg IV daily DVT prophylaxis on hold-enoxaparin 50 mg sc daily renal dosing, patient takes Eliquis at home Plan discussed with Dr. Machuca. Plan discussed with patient's daughter Yeni at the bedside. employee services manager consulted for transfer to LTAC. Poor prognosis Plan discussed with patient's granddaughter over the bedside in which all questions have been answered Goals of care have been discussed with the patient's granddaughter (Skylar) at the bedside for more than 25 minutes, modified DNR status Critical time including chart review, discussion with the patient's daughter Yeni at the bedside excluding procedures included 63 minutes Plan discussed with: Patient, Daughter (Priscila Jaime at bedside) My Orders My Orders Orders - MARIS CASTRO Procedure Category Date Status Time Abg W/ Co-Ox RT 02/21/24 Logged 04:00 Insert Midline ORDERS 02/20/24 Transmitted 17:25 Dietary Evaluation Review Comments: 1. Nepr @30ml/hr is supporting 100% of pt's protein needs, and 116% of pt's energy needs. 2. Advance to Renal Standard 2 gNa 3K low Phos diet when pt is off vent and pass speech eval. Expected Outcomes/Goals: Improved nutrition status and Gradual weight gains Date of Service: Feb 21, 2024 Billing Provider: PALAK MACHUCA MD Common Visit Codes: 47384-[id number] CARE 30-74 MIN MARIS CASTRO Feb 21, 2024 16:44 PALAK MACHUCA MD Feb 22, 2024 10:11
--- NOTE | 2024-02-21 22:04 | DVHPN2 ---
Progress Note - Dictate Date Seen: Feb 21, 2024 Has the PT tested + for MRSA If YES, has PT been informed?: No Medical Necessity Reason Pt with a Central, PICC or Fol: Yes The following are medically ne: Central Line, Lowery Catheter Reason for lowery catheter: Strict I&O Subjective Patient was seen and evaluated in follow up in the ICU. Patient is intubated on ventilator via trach collar. 30% FiO2. HGB 7.7, HCT 22.5, CL 108, BUN 27, 1.99. vital signs Vital Sign Date Time Temp Pulse Resp B/P (MAP) Pulse Ox O2 Delivery O2 Flow Rate FiO2 02/21/24 10:27 100 Trach Collar 8.0 02/21/24 10:27 30 30 02/21/24 08:00 97.6 70 15 142/67 (92) 97.6 Total Intake and Output 02/20/24 02/20/24 02/21/24 15:00 23:00 07:00 Intake Total 375 ml 850 ml 705 ml Output Total 350 ml 300 ml Balance 375 ml 500 ml 405 ml medications Current Medications Medications Dose Ordered Sig/Sheila Route Start Time Stop Time Status Last Admin Dose Admin Acetaminophen 650 mg Q6HP PRN PO 02/07/24 19:45 Ipratropium [place] 0.5 mg Q6HPRN PRN NEB 02/08/24 14:30 02/10/24 05:37 0.5 MG Midazolam HCl 50 ml @ 1 mls/hr Q24H IV 02/08/24 17:00 02/11/24 17:43 4 MLS/HR Pantoprazole Sodium 40 mg DAILY IV 02/09/24 10:00 02/21/24 10:06 40 MG Enteral Nutritional Formula 1,000 ml 30ML/HR GT 02/09/24 13:30 02/14/24 19:33 1,000 ML Albumin Human 100 ml @ 100 mls/hr Q1HR IV 02/12/24 10:00 02/12/24 11:59 Cancel Fluconazole 100 ml @ 100 mls/hr DAILY IV 02/12/24 17:30 02/21/24 10:05 100 MLS/HR Heparin Sodium (Porcine) 5,000 units LACIE PRN XX 02/14/24 11:00 Lactulose 30 ml DAILY PO 02/15/24 10:00 02/21/24 10:06 30 ML Epoetin Kuldip-epbx 10,000 unit MoWeFr@2100 SC 02/16/24 21:00 02/19/24 21:17 10,000 UNIT Diagnostic Test (Pha) 1 strip Q6HR 02/16/24 00:00 02/21/24 05:36 1 STRIP Dextrose 50 ml UD PRN IV 02/15/24 18:45 Nystatin 5 ml QID MT 02/15/24 22:00 02/21/24 05:36 5 ML Fluconazole 100 ml @ 100 mls/hr DAILY IV 02/16/24 10:00 UNV Hydralazine HCl 20 mg Q4HPRN PRN IV 02/17/24 12:45 02/19/24 17:48 20 MG Bumetanide 1 mg BIDD IV 02/18/24 18:00 02/21/24 05:35 1 MG Dextrose/Sodium Chloride 1,000 ml @ 75 mls/hr [id number] IV 02/20/24 10:15 02/21/24 09:22 75 MLS/HR Levofloxacin 50 ml @ 50 mls/hr Q48H IV 02/20/24 19:00 02/20/24 20:40 50 MLS/HR objective GENERAL: Intubated on ventilator. LUNGS: Decreased breath sounds. CARDIOVASCULAR: Heart sounds are good. ABDOMEN: Soft. : Lowery catheter in place. laboratory and microbiology Laboratory Tests 02/21/24 04:32 Test 02/21/24 04:32 Range/Units Serum Glucose 111 H 74-106 mg/dL Problem List Acute metabolic encephalopathy secondary to uremia. 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 Septic shock secondary to pneumonia and UTI requiring vasopressor support. ESRD on hemodialysis. Positive FIT test. History of multiple strokes, last known stroke August 2023, 12/2021. Residual left-sided weakness. Bed bound. 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 History of CAD status post PTCA LAD by Dr Prieto 2016. Lactic acidosis. Dyslipidemia. Left-sided lobar pneumonia. Acute cystitis. Right parathyroid mass. Hypercalcemia. Left-sided thyroid nodule. Protein energy malnutrition. Assessment/Plan Continued all current supportive medical care. Diuretics with Bumex. IV Hydralazine for SBP > 150. Lactulose. IV antibiotics as ordered. GI prophylactics. Vasopressors for hemodynamic support. Additional plan as per the hospital course. Critical care time of 45 minutes provided to include time spent evaluation of patient at bedside, when appropriate patient/family education for diagnosis, treatment plan, review of pertinent medical information and discussion of care with specialty providers and PCP. Mechanical ventilator parameters, treatment and adjustments have personally been reviewed by me and treatment plan by elevator operator has also been reviewed. Dietary Evaluation Review Comments: 1. Nepr @30ml/hr is supporting 100% of pt's protein needs, and 116% of pt's energy needs. 2. Advance to Renal Standard 2 gNa 3K low Phos diet when pt is off vent and pass speech eval. Expected Outcomes/Goals: Improved nutrition status and Gradual weight gains Plan discussed with: Other CARTER FRANCO MD Feb 21, 2024 12:16
[2024-02-22] VITALS (102 sets, daily range): BP systolic 104–176; BP diastolic 55–93; PULSE 70–86; RESP 12–27; TEMP 97.3–99.3; O2SAT 100
[2024-02-22 05:34] LABS: Basophils # (auto) 0 10 ^3/uL (0-0.2); Eosinophils # (auto) 0 10 ^3/uL (0-0.8); Eosinophils % (auto) 0.5 % (0.0-7.0); Hemoglobin 7.4 g/dL (12.2-16.2); Lymphocytes # (auto) 0.7 10 ^3/uL (0.4-5.4); Mean Corpuscular Hgb Conc. 33.9 g/dL (32.0-36.0); Monocytes # (auto) 0.7 10 ^3/uL (0-1.3); Nucleated Red Blood Cells % 0.1 %; Red Blood Cells 2.35 10^6/uL (4.0-5.20)
[2024-02-22 05:37] LABS: Basophils % (auto) 0.2 % (0.0-2.0); Hematocrit 21.7 % (36.0-46.0); Lymphocytes % (auto) 9.7 % (10.0-50.0); Mean Corpuscular Hemoglobin 31.3 pg (28.0-32.0); Mean Corpuscular Volume 92.3 fL (80.0-100.0); Monocytes % (auto) 9.1 % (0.0-12.0); Neutrophils % (auto) 80.5 % (37.0-80.0); Platelet Count (auto) 85 10^3/uL (140-450); Red Cell Distribution Width 15.5 % (11.8-14.3); White Blood Cell 7.4 10^3/uL (4.4-10.8)
--- NOTE | 2024-02-22 05:45 | DVH ---
CHEST RADIOGRAPH Indication: Fluid overload Technique: Single frontal view of the chest was obtained COMPARISON: XY CHEST PORTABLE on DOS: 02/20/24, XY CHEST XRAY 1 VIEW on DOS: 02/20/24, XY CHEST CARINA BLE on DOS: 02/19/24, XY CHEST XRAY 1 VIEW on DOS: 02/18/24, XY CHEST XRAY 1 VIEW on DOS: 02/17/24 FINDINGS: Lines and Tubes: Tracheostomy, enteric catheter and left pacemaker in satisfactory position. Lungs: Congestion Pleura: No effusion. No pneumothorax. Cardiomediastinal contours: Unremarkable Bones: Unremarkable IMPRESSION: Lines and tubes in satisfactory position. No significant interval change.
[2024-02-22 05:55] LABS: Alkaline Phosphatase 84 U/L (46-116); Anion Gap 11 (5-15); Aspartate Aminotransferase 21 U/L (13-40); BUN/Creatinine Ratio 13.3 (10.0-20.0); Calcium 9.4 mg/dL (8.7-10.4); Glucose 96 mg/dL (74-106); Magnesium 1.7 mg/dL (1.6-2.6); Sodium 137 mmol/L (136-145)
[2024-02-22 06:21] LABS: Alanine Aminotransferase < 9 U/L (7-40); Albumin 2.4 g/dL (3.2-4.8); Bilirubin, Total 0.2 mg/dL (0.2-1.0); Blood Urea Nitrogen 26 mg/dL (9-23); Carbon Dioxide 19 mmol/L (20-31); Chloride 107 mmol/L (98-107); Potassium 3.1 mmol/L (3.5-5.1); Total Protein 4.6 g/dL (5.7-8.2)
[2024-02-22 07:22] LABS: Base Excess -3.8 mmol/L (-2.0-3.0)
[2024-02-22] MEDS: POTASSIUM CHL 20MEQ/100ML 100 ML IV SCH (09:27)
[2024-02-22] MEDS: MAGNESIUM SULFATE 1GM/100ML 100 ML IV ONE (09:30)
--- NOTE | 2024-02-22 10:27 | DVHPN2 ---
Progress Note Date Seen: Feb 22, 2024 Has the PT tested + for MRSA If YES, has PT been informed?: No Medical Necessity Reason Pt with a Central, PICC or Fol: Yes The following are medically ne: Central Line, Lowery Catheter Reason for lowery catheter: Strict I&O Subjective Patient reports: Feels better Review of Systems: RESPIRATORY:Abnormal Objective vital signs Vital Sign Date Time Temp Pulse Resp B/P (MAP) Pulse Ox O2 Delivery O2 Flow Rate FiO2 02/22/24 10:15 76 20 151/72 (98) 100 02/22/24 08:08 30 02/22/24 08:00 98.2 98.2 02/22/24 06:00 Mechanical Ventilator+ 02/21/24 16:12 8.0 Total Intake and Output 02/21/24 02/21/24 02/22/24 15:00 23:00 07:00 Intake Total 700 ml 850 ml 803 ml Output Total 615 ml 525 ml Balance 700 ml 235 ml 278 ml medications Current Medications Medications Dose Ordered Sig/Sheila Route Start Time Stop Time Status Last Admin Dose Admin Acetaminophen 650 mg Q6HP PRN PO 02/07/24 19:45 Ipratropium [place] 0.5 mg Q6HPRN PRN NEB 02/08/24 14:30 02/22/24 05:51 0.5 MG Midazolam HCl 50 ml @ 1 mls/hr Q24H IV 02/08/24 17:00 02/11/24 17:43 4 MLS/HR Pantoprazole Sodium 40 mg DAILY IV 02/09/24 10:00 02/22/24 09:39 40 MG Enteral Nutritional Formula 1,000 ml 30ML/HR GT 02/09/24 13:30 02/14/24 19:33 1,000 ML Albumin Human 100 ml @ 100 mls/hr Q1HR IV 02/12/24 10:00 02/12/24 11:59 Cancel Fluconazole 100 ml @ 100 mls/hr DAILY IV 02/12/24 17:30 02/21/24 10:05 100 MLS/HR Heparin Sodium (Porcine) 5,000 units LACIE PRN XX 02/14/24 11:00 Lactulose 30 ml DAILY PO 02/15/24 10:00 02/22/24 09:45 30 ML Epoetin Kuldip-epbx 10,000 unit MoWeFr@2100 SC 02/16/24 21:00 02/21/24 20:24 10,000 UNIT Diagnostic Test (Pha) 1 strip Q6HR 02/16/24 00:00 02/22/24 06:13 1 STRIP Dextrose 50 ml UD PRN IV 02/15/24 18:45 Nystatin 5 ml QID MT 02/15/24 22:00 02/22/24 06:13 5 ML Fluconazole 100 ml @ 100 mls/hr DAILY IV 02/16/24 10:00 UNV Hydralazine HCl 20 mg Q4HPRN PRN IV 02/17/24 12:45 02/19/24 17:48 20 MG Potassium Chloride 100 ml @ 50 mls/hr Q2H IV 02/22/24 07:45 02/22/24 11:44 02/22/24 09:27 50 MLS/HR Trimethoprim/ Sulfamethoxazole 10 ml Q12HR GT 02/22/24 22:00 UNV Examination: GENERAL:Abnormal, LUNGS:Abnormal, ABDOMEN:Abnormal laboratory and microbiology Laboratory Tests 02/22/24 04:47 Test 02/22/24 04:47 Range/Units Serum Glucose 96 74-106 mg/dL Microbiology Date/Time Source Procedure Growth Status 02/16/24 19:20 Trachea Gram Stain - Final Complete 02/16/24 19:20 Respiratory Culture - Final Bordetella bronchiseptica Stenotrophomonas maltophilia Yeast, not Ellen albicans Complete 02/16/24 18:23 Urine - Lowery Port Urine Culture - Final Yeast, not Ellen albicans Complete 02/08/24 17:17 Sputum Gram Stain - Final Complete 02/08/24 17:17 Respiratory Culture - Final Enterobacter hormaechei Complete 02/08/24 12:10 Blood Blood Culture - Final NO GROWTH AFTER 5 DAYS OF INCUBATION. Complete Problem List/Assessment/Plan Problem List/Assessment/Plan Acute kidney injury superimposed Chronic Kidney Disease stage IV secondary hemodynamic mediated, ATN, feNa > 2% Encephalopathy Hypercalcemia due to primary hyperparathyroidism rule out parathyroid adenoma Dehydration Septic shock CVA NSTEMI Anemia of chronic kidney disease primary Hyperparathyroidism respiratory failure trach to wall oxygen today IVF and bumex off potassium replaced rec removal of all dialysis lines high ca and high PTH concerning for primary hyperparathyroid c/p calcitonin rec NM parathyroid scan if not done epogen 3x a week, rec iron palliative /hospice candidate Plan discussed with: Patient My Orders My Orders Orders - KEENAN TRUONG MD Procedure Category Date Status Time Communication Order ORDERS 02/22/24 Transmitted 09:07 Dietary Evaluation Review Comments: 1. Nepr @30ml/hr is supporting 100% of pt's protein needs, and 116% of pt's energy needs. 2. Advance to Renal Standard 2 gNa 3K low Phos diet when pt is off vent and pass speech eval. Expected Outcomes/Goals: Improved nutrition status and Gradual weight gains KEENAN TRUONG MD Feb 22, 2024 10:27
[2024-02-22] MEDS: SULFAMETH W/TRIMETHOPRIM(200/40MG) 5ML SUSP PO ONE (11:34)
--- NOTE | 2024-02-22 18:37 | DVHPNRES ---
Progress Note Date Seen: Feb 22, 2024 Resident Creating Document: MARIS CASTRO RESIDENT Has the PT tested + for MRSA If YES, has PT been informed?: No Medical Necessity Reason Pt with a Central, PICC or Fol: Yes The following are medically ne: Central Line, Lowery Catheter Reason for lowery catheter: Strict I&O Subjective Review of Systems Ms. Godfrey, An 88-year-old female with a history of CHF, CKD, CVA, gout, high lipids, HTN, MN, thyroid issues, parathyroid mass and recurrent UTIs, who was currently on hospice, presented with altered mental status progressively developing over the past week, her condition had been deteriorating, with decreased urine output and oral intake. The family decided to revoke hospice services for the 2nd time ( previously for similar situation) and brought her in to ED for further evaluation. Her surgical history includes a hysterectomy, pacemaker implantation, and PTCA. On admission, she was found to be lethargic and oriented to person only: During the course of the hospitalization patient became even more lethargic brainstem functions intact yet GCS was less than 8. Elevated BUN and creatinine levels were noted, prompting a nephrology consult for acute kidney injury. She could not provide any history, further limited history/ROS obtained at the moment was extracted from family discussion. she was found to have septic shock hypotensive, needing pressor and unable to maintain /protect airways needing intubation sedation and higher level of care. On arrival patient's temperature was 96.3 F, pulse 90 bpm, respiratory rate 12, blood pressure 63/45, 92 on room air. She received IV fluids and her blood pressure improved 103/55. Patient was saturating 99 on 5 L supplementation. 02/07 around noon patient's blood pressure dropped to 65/42 mmHg and therefore she was intubated right femoral CVC was placed in right IJ CVC for hemodialysis was placed. Patient received SC calcitonin 2 doses of 200 mg on 02/07. She has been receiving D5W for the correction of hypernatremia. 02/08 - Patient seen and examined at bedside. She is tachycardic at 109 beats per minute, saturating 95 on FiO2 of 30%. Blood pressure is 107/68. Patient's hypernatremia was overcorrected more than 10 for 24 hours, DC D5W. Started free water through NG 150 mL q.6 hour. Chest x-ray shows left-sided pneumonia, possible aspiration as it was not present on arrival. Started IV Zosyn and vancomycin. Vanco DC ed based on culture results. Started calcitonin 200 units SC q.12. Hepatitis panel pending. Hemodialysis tomorrow 02/09 02/11 - seen and examined over the bedside. She underwent hemodialysis on 02/09 and 02/11. She was transfused 1 packed RBC over the weekend. She has been off sedation since 4:00 a.m.. Safe 500 mL bolus during the hemodialysis session. Occult blood is positive. DC aspirin. Pending parathyroid scan. Echo completed 02/10 shows LVEF 65%. Moderate degree LV diastolic dysfunction. Moderate degree LVH. Moderately dilated RV. Normal valves. RVSP is 52 mmHg. 02/12 - patient seen and examined at bedside. She is on Levophed for, off sedation. Underwent CPAP trial today from 10:00 a.m. to 2:00 p.m.. She is not responding to commands. Chest x-ray shows stable left-sided infiltrate. Thyroid ultrasound is pending. 1 unit of packed RBCs ordered. ABG showed respiratory alkalosis with metabolic compensation. Received Mag and K supplementation. Repeat CBC, Mag, K wnl 02/13 - night temperature 99.1. Patient is satting 91 on 30%. Undergoing hemodialysis today. WBC trending down to 9.2. Chest x-ray shows stable left- sided opacity. Thyroid ultrasound shows heterogeneous left thyroid gland and isthmus with discrete nodule. Patient is on Levophed to off sedation. No CPAP trial. Lactulose started 30 mL once daily 02/14 - not responsive to commands. Off sedation since 02/11. CPAP trial terminated within 1 minute due to apnea. CT head completed, shows new age indeterminate referral right cerebellum infarct. patient is Left upper extremity: Occlusive thrombophlebitis of the cephalic vein with moderate subcutaneous edema in the arm noted. Started nystatin 5 cc swish and swallow. Decreased respiratory rate to 18. Patient had a bowel movement overnight. 02/15 - overnight patient's temperature was 99.3, patient is off sedation and not responding to commands for opening eyes spontaneously. Repeat urine culture and respiratory culture ordered. MRI brain pending. Switched meropenem to Levaquin. Corrected calcium 11.1. 02/18 - MRI brain shows multiple foci of supratentorial and right cerebellar infarct, suggestive of central emboli. nephrology started Bumex b.i.d. 1 g IV. Repeat urine culture shows greater than 1 Lac yeast, chest x-ray shows left side is stable opacity. Patient undergoing tracheostomy 02/18. IV half NS at 75 cc/hour started by Nephrology. Hemodialysis today. DC Levaquin tomorrow. 02/19 - 250 cc urine output. No bowel movement. DC Shmuel catheter. Inserting midline. Started D5W half NS 02/20 - patient is opening her eyes spontaneously. Started on trach collar from 8:00 a.m., switch to vent in p.m.. Right Shmuel femoral catheterization per Dr. Higgins. Daughter Yeni at bedside. Nephrology-continue IV fluids and Bumex, remove all dialysis line if stable. 02/21 - overnight 99.2 F. patient is on trach collar, saturating 100%. ABG showed chronic respiratory alkalosis with metabolic compensation. Discontinue D5 half NS and Bumex. Respiratory culture shows Bordetella, stenotrophomonas, yeast. Started TMP SMX 10 mL GT q.12 hours. Objective vital signs Vital Sign Date Time Temp Pulse Resp B/P (MAP) Pulse Ox O2 Delivery O2 Flow Rate FiO2 02/22/24 18:07 100 Trach Collar 6.0 02/22/24 18:07 28 28 02/22/24 17:15 77 22 140/66 (90) 02/22/24 16:00 99.1 99.1 Total Intake and Output 02/21/24 02/21/24 02/22/24 15:00 23:00 07:00 Intake Total 700 ml 850 ml 878 ml Output Total 615 ml 525 ml Balance 700 ml 235 ml 353 ml medications Current Medications Medications Dose Ordered Sig/Sheila Route Start Time Stop Time Status Last Admin Dose Admin Acetaminophen 650 mg Q6HP PRN PO 02/07/24 19:45 Ipratropium [place] 0.5 mg Q6HPRN PRN NEB 02/08/24 14:30 02/22/24 05:51 0.5 MG Midazolam HCl 50 ml @ 1 mls/hr Q24H IV 02/08/24 17:00 02/11/24 17:43 4 MLS/HR Pantoprazole Sodium 40 mg DAILY IV 02/09/24 10:00 02/22/24 09:39 40 MG Enteral Nutritional Formula 1,000 ml 30ML/HR GT 02/09/24 13:30 02/14/24 19:33 1,000 ML Albumin Human 100 ml @ 100 mls/hr Q1HR IV 02/12/24 10:00 02/12/24 11:59 Cancel Fluconazole 100 ml @ 100 mls/hr DAILY IV 02/12/24 17:30 02/22/24 10:38 100 MLS/HR Heparin Sodium (Porcine) 5,000 units LACIE PRN XX 02/14/24 11:00 Lactulose 30 ml DAILY PO 02/15/24 10:00 02/22/24 09:45 30 ML Epoetin Kuldip-epbx 10,000 unit MoWeFr@2100 SC 02/16/24 21:00 02/21/24 20:24 10,000 UNIT Diagnostic Test (Pha) 1 strip Q6HR 02/16/24 00:00 02/22/24 17:39 1 STRIP Dextrose 50 ml UD PRN IV 02/15/24 18:45 Nystatin 5 ml QID MT 02/15/24 22:00 02/22/24 17:39 5 ML Fluconazole 100 ml @ 100 mls/hr DAILY IV 02/16/24 10:00 UNV Hydralazine HCl 20 mg Q4HPRN PRN IV 02/17/24 12:45 02/19/24 17:48 20 MG Trimethoprim/ Sulfamethoxazole 10 ml Q12HR GT 02/22/24 22:00 Examination Patient lying in bed, off sedation. RASS -4. Satting 97% on Trach collar General: Thin looking, cachectic, afebrile, palor, mucosae are dry. Oral thrush on tongue. Cardiovascular: Regular S1 and S2. No murmurs, gallops or rubs. No JVD elevation. 1+ pitting edema. Respiratory: Left-sided crepitations heard. Saturating 99 on FiO2 of 30%. Abdomen: Soft, nontender, nondistended, normal bowel sounds, no rebound tenderness, no organomegaly, no masses. Lowery catheter seen. Stage II decubitus ulcer. Erythema noticed. Genitourinary: Lowery catheter seen. MSK/skin: Skin is dry and warm Neurological: Pupils are isocoric and reactive. laboratory and microbiology Laboratory Tests 02/22/24 04:47 Test 02/22/24 04:47 Range/Units Serum Glucose 96 74-106 mg/dL Microbiology Date/Time Source Procedure Growth Status 02/16/24 19:20 Trachea Gram Stain - Final Complete 02/16/24 19:20 Respiratory Culture - Final Bordetella bronchiseptica Stenotrophomonas maltophilia Yeast, not Ellen albicans Complete 02/16/24 18:23 Urine - Lowery Port Urine Culture - Final Yeast, not Ellen albicans Complete 02/08/24 17:17 Sputum Gram Stain - Final Complete 02/08/24 17:17 Respiratory Culture - Final Enterobacter hormaechei Complete 02/08/24 12:10 Blood Blood Culture - Final NO GROWTH AFTER 5 DAYS OF INCUBATION. 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 Discontinued aspirin 162 mg daily given the positive occult blood and the low hemoglobin Head CT Stable small chronic infarct in the right basal ganglia. No acute intracranial process. Repeat head CT 02/14 shows right cerebellar age indeterminate infarct MRI brain Multiple foci of supratentorial and right cerebellar areas of acute / subacute infarct. Correlate for possible central embolic process. Multiple foci of chronic lacunar infarcts of bilateral cerebellum and right basal ganglia. 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 Moderate degree LV diastolic dysfunction. Moderate degree LVH. Moderately dilated RV. Normal valves. RVSP is 52 mmHg. RESPIRATORY Left-sided lobar pneumonia, possible aspiration, Gram-positive and Gram-negative with Enterobacter, Bordetella, stenotrophomonas, yeast Sepsis secondary to pneumonia and UTI Final respiratory culture 02/07 shows Enterobacter sensitive to Cipro, levofloxacin, meropenem, TMP SMX Repeat respiratory culture 02/15 shows Bordetella, stenotrophomonas, yeast Antibiotics: TMP SMX q.12 over. Starting 02/21 and fluconazole IV 02/14 G stain shows Gram-positive cocci in chains and pairs, Gram-positive rods DC vanco, discontinue Zosyn starting 02/08 till 02/11 Discontinued meropenem 02/11 till 02/15 Discontinued Levaquin 02/15 till 02/21 MRSA screen negative Continue ipratropium nebulized treatment q.6 p.r.n. On trach collar in a.m.. GI F/U hepatitis panel Hx of 1.0 cm left adrenal nodule Steatosis Positive occult blood Continue pantoprazole 40 mg IV daily Lactulose 30 mL once daily /KIDNEY Acute cystitis JOSE likely secondary to ATN on ESRD undergoing hemodialysis Acute tubular necrosis Prelim urine culture shows greater than 1 lac CFU mixed melissa 3 colony types possible contamination. Repeat urine culture ordered. Repeat urine culture 02/08 shows >100,000 CFU/mL Yeast Identification to follow. FENA greater than 2% Right renal simple appearing cysts measuring up to 3.4 cm. Hemodialysis 02/09 and 02/11, 02/13, 02/15, 02/18 receiving Retacrit 40987 units post dialysis. ENDOCRINE Right parathyroid mass Hypercalcemia Left-sided thyroid nodule Thyroid ultrasound 02/12 shows heterogeneous left thyroid gland and isthmus with a discrete nodule Corrected Calcium 11, downtrending METABOLIC Non-anion gap metabolic acidosis likely secondary to hyperchloremia and uremia with the respiratory alkalosis Hypovolemic hypernatremia Humoral Hypercalcemia of malignancy Secondary hyperphosphatemia due to ESRD Hypomagnesemia, hypokalemia Gout vs CPPD - chondrocalcinosis seen in knee x-ray in 2022 Patient received IV fluid D5W with 50 mEq sodium bicarb at 100 cc/hour on 02/07 morning of 02/08. Discontinued on 02/08 since over-correction of hyponatremia was noticed. Patient received 2 doses of SC calcitonin 200 mg on 02/07. Received calcitonin 200 mg sc twice daily from 01/21 till 02/11 Discontinued IV bicarb at 100 mL/hour Nephrology Started D5W half NS and Bumex 1 mg b.i.d., discontinued 02/21 ID Sepsis secondary to pneumonia and the UTI Oral thrush Started nystatin swish and swallow 5 cc 02/14 02/15 - Repeat urine culture shows yeast 02/15 - Repeat respiratory culture shows Gram-negative rods and yeast HEM-ONCO Right parathyroid mass Thrombocytopenia Anemia, likely normocytic due to ESRD Anemia of Chronic disease - transfused 1 packed RBC 02/12 and 02/10 - low iron low TIBC OBGYN History of Hysterectomy Protein energy malnutrition LINES Intubated on 02/07, tracheostomy 02/18 Right IJ CVC for hemodialysis placed 02/09 till 02/19 Right-sided Femoral dialysis non tunneled placed 02/09 Left Femoral CVC 02/09 till 02/19 Lowery catheter Drips: Levophed 0, patient is off sedation Last bowel movement, 02/18 NUTRITION: Nepro started 02/08 DVT: Renal dosing Lovenox on hold given the low hemoglobin and positive occult Goals of care/advance care planning; discussed with the daughter and granddaughter at the bedside, modified DNR, PUD prophylaxis: Pantoprazole 40 mg IV daily DVT prophylaxis on hold-enoxaparin 50 mg sc daily renal dosing, patient takes Eliquis at home Plan discussed with Dr. Machuca. Started TMP SMX q.12. Plan discussed with patient's daughter Yeni at the bedside. business services intern consulted for transfer to LTAC. Poor prognosis Plan discussed with patient's granddaughter over the bedside in which all questions have been answered Goals of care have been discussed with the patient's granddaughter (Skylar) at the bedside for more than 25 minutes, modified DNR status Critical time including chart review, discussion with the patient's daughter Yeni at the bedside excluding procedures included 63 minutes Plan discussed with: Patient Dietary Evaluation Review Comments: 1. Nepr @30ml/hr is supporting 100% of pt's protein needs, and 116% of pt's energy needs. 2. Advance to Renal Standard 2 gNa 3K low Phos diet when pt is off vent and pass speech eval. Expected Outcomes/Goals: Improved nutrition status and Gradual weight gains Date of Service: Feb 22, 2024 Billing Provider: PALAK MACHUCA MD Common Visit Codes: [id number] CARE 30-74 MIN MARIS CASTRO RESIDENT Feb 22, 2024 18:37 PALAK MACHUCA MD Feb 25, 2024 11:10
--- NOTE | 2024-02-22 19:52 | DVHDSRES ---
Discharge Summary Date of Admission Resident Creating Document: MARIS WERNER RESIDENT Feb 07, 2024 at 19:31 Date of Discharge: Feb 29, 2024 Labs/Diagnostic Data: Laboratory Results Test 02/22/24 11:27 02/22/24 06:58 02/22/24 04:47 02/21/24 09:35 POC Glucose 102 mg/dl (70-106) Blood Gas Specimen Type Arterial Blood Gas Sample Site Right radial Blood Gas Patient Temperature 37.0 Arterial Blood Date Drawn [id number] Arterial Blood pH 7.490 (7.350-7.450) Arterial Blood Partial Pressure CO2 25.3 mmHg (32.0-45.0) Arterial Blood Partial Pressure O2 107.4 mmHg (83.0-108.0) Arterial Blood HCO3 18.8 mmol/L (21.0-28.0) Arterial Blood Oxygen Saturation 97.7 % (94.0-98.0) Arterial Blood Base Excess -3.8 mmol/L (-2.0-3.0) Arterial Blood Oxyhemoglobin 96.0 % (94.0-98.0) Arterial Blood Carboxyhemoglobin 0.8 % (0.5-1.5) Arterial Blood Methemoglobin 0.9 % (0.0-1.5) Jonas Test Yes Blood Gas Total Hemoglobin 8.00 g/dL (12.0-16.0) Blood Gas Set Respiration Rate 18.0 Blood Gas Modality Vent - ac FiO2 % 30.0 Blood Gas Tidal Volume 400.0 Blood Gas PEEP or CPAP 5.0 White Blood Count 7.4 10^3/uL (4.4-10.8) Red Blood Count 2.35 10^6/uL (4.0-5.20) Hemoglobin 7.4 g/dL (12.2-16.2) Hematocrit 21.7 % (36.0-46.0) Mean Corpuscular Volume 92.3 fL (80.0-100.0) Mean Corpuscular Hemoglobin 31.3 pg (28.0-32.0) Mean Corpuscular Hemoglobin Concent 33.9 g/dL (32.0-36.0) Red Cell Distribution Width 15.5 % (11.8-14.3) Platelet Count 85 10^3/uL (140-450) Mean Platelet Volume 8.8 fL (6.9-10.8) Neutrophils (%) (Auto) 80.5 % (37.0-80.0) Lymphocytes (%) (Auto) 9.7 % (10.0-50.0) Monocytes (%) (Auto) 9.1 % (0.0-12.0) Eosinophils (%) (Auto) 0.5 % (0.0-7.0) Basophils (%) (Auto) 0.2 % (0.0-2.0) Neutrophils # (Auto) 6.0 10 ^3/uL (1.6-8.6) Lymphocytes # (Auto) 0.7 10 ^3/uL (0.4-5.4) Monocytes # (Auto) 0.7 10 ^3/uL (0-1.3) Eosinophils # (Auto) 0 10 ^3/uL (0-0.8) Basophils # (Auto) 0 10 ^3/uL (0-0.2) Nucleated Red Blood Cells 0.1 % Sodium Level 137 mmol/L (136-145) Potassium Level 3.1 mmol/L (3.5-5.1) Chloride Level 107 mmol/L (98-107) Carbon Dioxide Level 19 mmol/L (20-31) Anion Gap 11 (5-15) Blood Urea Nitrogen 26 mg/dL (9-23) Creatinine 1.96 mg/dL (0.550-1.02) Glomerular Filtration Rate Calc 24 mL/min (>90) BUN/Creatinine Ratio 13.3 (10.0-20.0) Serum Glucose 96 mg/dL (74-106) Calcium Level 9.4 mg/dL (8.7-10.4) Magnesium Level 1.7 mg/dL (1.6-2.6) Total Bilirubin 0.2 mg/dL (0.2-1.0) Aspartate Amino Transferase (AST) 21 U/L (13-40) Alanine Aminotransferase (ALT) < 9 U/L (7-40) Alkaline Phosphatase 84 U/L (46-116) Total Protein 4.6 g/dL (5.7-8.2) Albumin 2.4 g/dL (3.2-4.8) Blood Gas Liter Flow 10.00 Test 02/21/24 04:32 02/20/24 10:56 02/20/24 08:48 02/18/24 04:45 Iron Level 30 ug/dL (50-170) Total Iron Binding Capacity 140 ug/dL (250-425) Percent Iron Saturation 21.4 % (15-50) Prothrombin Time 11.1 sec (9.3-11.8) Prothrombin Time INR 1.05 (0.9-1.15) Activated Partial Thromboplast Time 36.1 SEC (24.5-34.5) Blood Gas Critical Value Read Back Yes Platelet Estimate Decreased Test 02/17/24 07:08 02/15/24 06:23 02/15/24 04:50 02/13/24 10:10 Blood Gas Spontaneous Rate 18 Blood Gas Notified Whom jeffrey Werner md Blood Gas Notified Time [id number] Blood Gas Notified By Supervisor Soakers john prakash Differential Total Cells Counted 100.0 (100) Neutrophils % (Manual) 81 (37.0-80.0) Band Neutrophils % (Manual) 1 Lymphocytes % (Manual) 17 (10.0-50.0) Monocytes % (Manual) 1 (0-12) Eosinophils % (Manual) 0 (0-7) Basophils % (Manual) 0 (0.0-2.0) Metamyelocytes % (manual) 0 Myelocytes % (Manual) 0 Promyelocytes % (Manual) 0 Blast Cells % (Manual) 0 Reactive Lymphocytes 0 Sickle Cells Schistocytes Moderate Test 02/10/24 18:10 02/10/24 13:39 02/10/24 05:29 02/09/24 22:22 Stool Occult Blood Positive (Negative) Stool Occult Blood Sample #3 (Negative) Anisocytosis (manual) Slight [place] Cells Many Lactic Acid Level 2.0 mmol/L (0.4-2.0) Phosphorus Level 1.8 mg/dL (2.4-5.1) B-Type Natriuretic Peptide 506.89 pg/mL (0-100) Test 02/09/24 17:09 02/09/24 04:34 02/08/24 20:23 02/08/24 17:16 Influenza Type A Antigen Negative (Negative) Influenza Type B Antigen Negative (Negative) Hepatitis A IgM Antibody Negative Hepatitis B Surface Antigen Negative (Negative) Hepatitis B Core IgM Antibody Negative (Negative) Hepatitis C Antibody Negative (Negative) Specimen Drawn By nutritional assistant agustina whatley Urine Creatinine 16.13 mg/dL (30.0-125.0) Urine Protein/Creatinine Ratio 2.34 Urine Sodium 117 mmol/L (40-220) Urine Total Protein 37.8 mg/dL (1-14) Test 02/08/24 12:10 02/08/24 05:50 02/08/24 05:40 02/07/24 23:05 Vitamin D 25-Hydroxy 66.4 ng/mL (30.0-100) Uric Acid 13.6 mg/dL (3.1-7.8) Parathyroid Hormone (Intact) 616.5 pg/mL (18.4-80.1) Troponin I High Sensitivity 283 ng/L (</=34) Test 02/07/24 17:43 Urine Color Colorless (Yellow) Urine Clarity Turbid (Clear) Urine pH 5.0 (5.0-9.0) Urine Specific [place] 1.015 (1.001-1.035) Urine Protein Trace (Negative) Urine Ketones Negative (Negative) Urine Blood Trace /uL (Negative) Urine Nitrite Negative (Negative) Urine Bilirubin Negative (Negative) Urine Urobilinogen Normal mg/dL (Negative) Urine Leukocyte Esterase 3+ /uL (Negative) Urine RBC 1 /hpf (0 - 4) Urine WBC 129 /hpf (0 - 5) Urine Squamous Epithelial Cells Few /hpf (<5) Urine Bacteria Many /hpf (None Seen) Urine Mucus Few (None Seen) Urine Yeast (Budding) Moderate /hpf (None Seen) Urine Glucose Normal mg/dL (Normal) Urine Opiates Screen Neg (NEGATIVE) Urine Fentanyl Screen Neg (NEGATIVE) Urine Barbiturates Screen Neg (NEGATIVE) Urine Phencyclidine Screen Neg (NEGATIVE) Urine Amphetamines Screen Neg (NEGATIVE) Urine Benzodiazepines Screen Neg (NEGATIVE) Urine Cocaine Screen Neg (NEGATIVE) Urine Cannabinoids Screen Neg (NEGATIVE) Other Laboratory Tests 02/22/24 04:47 Brief Hx & Hospital Course: Ms. Godfrey, An 88-year-old female with a history of CHF, CKD, CVA, gout, high lipids, HTN, MS, thyroid issues, parathyroid mass and recurrent UTIs, who was currently on hospice, presented with altered mental status progressively developing over the past week, her condition had been deteriorating, with decreased urine output and oral intake. The family decided to revoke hospice services for the 2nd time ( previously for similar situation) and brought her in to ED for further evaluation. Her surgical history includes a hysterectomy, pacemaker implantation, and PTCA. On admission, she was found to be lethargic and oriented to person only: During the course of the hospitalization patient became even more lethargic brainstem functions intact yet GCS was less than 8. Elevated BUN and creatinine levels were noted, prompting a nephrology consult for acute kidney injury. She could not provide any history, further limited history/ROS obtained at the moment was extracted from family discussion. she was found to have septic shock hypotensive, needing pressor and unable to maintain /protect airways needing intubation sedation and higher level of care. On arrival patient's temperature was 96.3 F, pulse 90 bpm, respiratory rate 12, blood pressure 63/45, 92 on room air. She received IV fluids and her blood pressure improved 103/55. Patient was saturating 99 on 5 L supplementation. 02/07 around noon patient's blood pressure dropped to 65/42 mmHg and therefore she was intubated right femoral CVC was placed in right IJ CVC for hemodialysis was placed. Patient received SC calcitonin 2 doses of 200 mg on 02/07. She has been receiving D5W for the correction of hypernatremia. During the hospital stay, head CT scan on arrival completed, shows stable small chronic infarct in the right basal ganglia no acute intracranial process. Patient was diagnosed with septic shock secondary to pneumonia and UTI requiring vasopressor support. She had left-sided lobar pneumonia probable aspiration with Enterobacter, she received IV Zosyn starting 02/08 till 02/11. Received meropenem which was later switched to Levaquin which she received till 02/21. Repeat respiratory culture showed Bordetella, stenotrophomonas, yeast. Therefore patient is started on TMP SMX q.12 hours to cover the stenotrophomonas and fluconazole IV. Patient was not alert or responsive during the CPAP trials therefore repeat CT scan was done which showed new right-sided cerebellar infarct on 02/14 following which an MRI was done which showed Multiple foci of supratentorial and right cerebellar areas of acute / subacute infarct. Correlate for possible central embolic process. Multiple foci of chronic lacunar infarcts of bilateral cerebellum and right basal ganglia. Patient underwent tracheostomy 02/18 and was started on trach oral starting 02/21 which she is tolerating well. Patient had positive occult blood and therefore she was transfused 2 packed RBCs during her hospitalization. She also had JOSE likely secondary to ATN on ESRD and required hemodialysis from 02/09 till 02/18. Blood cultures were negative during the hospital stay. 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 NM parathyroid scan from [facility] 12/29/23 shows left inferior parathyroid adenoma. Nephrology recommended starting patient Sensipar p.o. daily outpatient. Per Nephrology, all dialysis lines were removed and she was stable from renal standpoint. 02/29/24-patient is hemodynamically, she is alert , not responding to verbal commands. Saturating 95 on 6 L with trach collar. She has been discharged to LTAC. critical care time was 43 mins Consults/Reason for consult Nephrology for ESRD State Inspector for pneumonia and acute hypoxic respiratory failure Cardiology for NSTEMI Surgeon for tracheostomy Operations or Procedures ORDERING PHYSICIAN: PALAK MACHUCA MD PROCEDURE(s): HWOCT - HEAD WITHOUT CONTRAST REASON: ALOC ORDER NUMBER(s): [id number], ACCESSION NUMBER(s): [id number] EXAM: CT HEAD WITHOUT CONTRAST HISTORY: ALOC COMPARISON: CT HEAD WITHOUT CONTRAST on DOS: 02/07/24, CT HEAD WITHOUT CONTRAST on DOS: 12/20/22 TECHNIQUE: Axial images of the head were obtained and reformatted in coronal and sagittal planes. All CT scans at this medical facility are performed using dose modulation techniques as appropriate to a performed exam including the following: Automated exposure control was utilized; adjustment of the MA and/or KV according to patient size; and use of iterative reconstruction technique. CT Dose: CTDI volume is 54 mGy. Dose-length product is 957 mGy*cm FINDINGS: There is a small hypodense area in the peripheral right cerebellum compatible with an age-indeterminate infarct ( axial image 15). There is a stable small chronic infarct in the right basal ganglia. There are severe chronic small- vessel white matter ischemic changes. There is no evidence of acute intracranial hemorrhage, mass, mass effect midline shift. There is no hydrocephalus or extra- axial fluid collection. The visualized paranasal sinuses and mastoid air cells are clear. The calvarium is intact. 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 IMPRESSION: 1. Small hypodense area in the peripheral right cerebellum compatible with an age-indeterminate infarct. Further evaluation with MRI brain with diffusion- weighted imaging is recommended. 2. Chronic ischemic changes as described above. HS:Y RING PHYSICIAN: MARIS WERNER RESIDENT PROCEDURE(s): MBHL - BRAIN HEAD WO CONTRAST REASON: cerebellar infarct? ORDER NUMBER(s): [id number], ACCESSION NUMBER(s): [id number] EXAM: MRI BRAIN HEAD WO CONTRAST CLINICAL HISTORY: cerebellar infarct COMPARISON: BRAIN HEAD WO CONTRAST on DOS: 01/19/22 CONTRAST: None TECHNIQUE: Multiplanar, multisequence magnetic resonance imaging of the brain was performed without intravenous contrast. FINDINGS: There are multiple foci of diffusion restriction involving the supratentorial cortical and white matter, including the bilateral frontal lobes, right insular cortex, left thalamus, right parietal and parietotemporal region, left parietal lobe , bilateral occipital lobes and right cerebellum. Multiple foci of bilateral cerebellar and right basal ganglia chronic lacunar infarcts are noted. Moderate to severe diffuse brain atrophy. Severe periventricular, deep subcortical white matter T2/FLAIR hyperintensity. No hemorrhages, masses, mass effect, midline shift, or herniation. No intra- axial or extra-axial fluid collections. No evidence of hydrocephalus. The visualized vascular flow voids are maintained. The pituitary gland, sella and parasellar regions are unremarkable. The cerebellar tonsils are in normal position. The orbits and globes are unremarkable. The paranasal sinuses are clear. Partial opacification of bilateral mastoids. No worrisome calvarial lesions. IMPRESSION: Multiple foci of supratentorial and right cerebellar areas of acute / subacute infarct. Correlate for possible central embolic process. Multiple foci of chronic lacunar infarcts of bilateral cerebellum and right basal ganglia. Significant periventricular, deep and subcortical white matter T2/FLAIR hyperintensity which may represent severe chronic small-vessel ischemic changes with white matter disease not excluded. Bilateral mastoid disease. ATED BY: ANNY PERDOMO DO DICTATED DATE/TIME: 02/17/24 1551 SIGNED BY: ANNY PERDOMO DO SIGNED DATE/TIME: 02/17/24 155 CC: DICTATED BY: GEORGE TUCKER MD DICTATED DATE/TIME: 02/15/24 1547 SIGNED BY: GEORGE TUCKER MD SIGNED DATE/TIME: 02/15/24 6001 CC: ORDERING PHYSICIAN: MARIS WERNER RESIDENT PROCEDURE(s): ECIDC - ECHO 2D MODE CARDIAC DOP REASON: ppm, last ef 45 ORDER NUMBER(s): [id number], ACCESSION NUMBER(s): [id number] APPROVED REPORT EXAM: LIMITED Two-dimensional and M-mode echocardiogram with Doppler and color Doppler. Blood Pressure: 131/74 mmHg INDICATION PPM, last ef 45 Surgery/Intervention Pacemaker: RISK [employer]CTORS Height: 5'5", Weight: 107 DIMENSIONS LVDd 3.4 (3.8-5.7cm) LA (2D) (1.9-4.0cm) Aortic Root 3.7 (2.0- 3.7cm) LVDs 2.5 (2.5-4.0cm) LA (MM) (1.9-4.0cm) Aortic Cusp Exc 1.5 (1.5- 2.0cm) EF (%) 55.0 (55-70%) Rt. Atrium (1.9-4.0cm) Asc. Aorta cm IVSd 1.7 (0.7-1.1cm) RV (D) (1.8-2.4cm) PWd 1.4 (0.7-1.1cm) Mitral Valve Mitral Mitral Stenosis E wave 1.34m/s MV Mean GR. mmHg E/A ratio 0.0 2D MVA cm2 Aortic Valve Aortic Valve Aortic Stenosis LVOT Diameter 1.7 (1.8-2.4cm) Doppler ALEX cm2 Tricuspid Valve TR Velocity 3.33m/s RVSP 52mmHg Other Information Quality : Technically Limited Rhythm : Technically limited study due to body habitus, patient position and on vent. Conclusion MODERATE DEGREE LVH AND MODERATE DEGREE LV DIASTOLIC DYSFUNCTION LV EJECTION FRACTION IS 65% DYSKINESIS OF IVS MODERATELY DILATED RV AND IS HYPOKINETIC NORMAL VALVES NO EFFUSION MODERATE DEGREE PULMONARY HYPERTENSION RVSP IS 52 MM OF HG AND IS VERY HIGH PACEMAKER IN RIGHT CARDIAC CHAMBERS SIGNED BY: CARTER TUCKER MD SIGNED DATE/TIME: 02/11/24 1221 CC: Condition at Discharge: Guarded Final Diagnosis/Problems List Acute metabolic encephalopathy secondary to uremia - status post tracheostomy 02/18 Septic shock secondary to pneumonia and UTI requiring vasopressor support ALOC New right cerebellar age indeterminate infarct 02/14 History of multiple strokes, last known stroke August 2023, 12/2021 Left-sided lobar pneumonia, possible aspiration, Gram-positive and Gram-negative with Enterobacter, Bordetella, stenotrophomonas, yeast Humeral hypercalcemia of malignancy secondary to left inferior parathyroid adenoma Left-sided thyroid nodule Secondary hyperphosphatemia due to ESRD Hypomagnesemia, hypokalemia Gout vs CPPD - chondrocalcinosis seen in knee x-ray in 2022 History of third-degree AV block status post Biotronik pacemaker 2016 Dr Prieto Likely type 2 NSTEMI History of CAD status post PTCA LAD by Dr Prieto 2016 Lactic acidosis Probable GI bleeding AKA likely secondary to ATN on ESRD undergoing hemodialysis Acute tubular necrosis Anemia likely normocytic due to ESRD Anemia of chronic disease Thrombocytopenia Protein energy malnutrition Hepatic steatosis likely SMITH 1 Cm left adrenal nodule Oral thrush Dyslipidemia Probable atrial fibrillation Residual left-sided weakness Bed-bound 1.4 cm left frontal bone exophytic osseous lesion, likely osteoma. Discharge Disposition: Inpatient Rehab Facility Discharge Instruct/Medications Diet: See Comment Diet comment: tube feedings Activity: No Restrictions, As Tolerated Follow Up/Referral: fu with pcp Medications: per apr Discharge Statement: "Patient was advised to return to the ER or call 911 if any headaches, dizziness, shortness of breath, chest pain, abdominal pain, bleeding, fevers, or worsening of medical condition. Patient was counseled about treatment plan, medications, possible side effects, patientverbalized understanding. All questions were answered to the best of my ability. This discharge took greater then 30 minutes in planning, reviewing documentation, counseling the patient, and discussing with other team members." ASSESSMENT ASSESSMENT Assessment resp failure Date of Service: Feb 29, 2024 Billing Provider: PALAK MACHUCA MD Common Visit Codes: [id number] CARE 30-74 MIN MARIS WERNER RESIDENT Feb 22, 2024 19:52 PALAK MACHUCA MD Mar 03, 2024 17:25
--- NOTE | 2024-02-22 19:55 | DVHPN2 ---
Progress Note - Dictate Date Seen: Feb 22, 2024 Has the PT tested + for MRSA If YES, has PT been informed?: No Medical Necessity Reason Pt with a Central, PICC or Fol: Yes The following are medically ne: Central Line, Lowery Catheter Reason for lowery catheter: Strict I&O Subjective Patient was seen and evaluated in follow up in the ICU. Overnight patient had low grade fevers. Patient is intubated on ventilator via trach collar. 30% FiO2. Patient is noted to have spontaneous eye opening. HGB 7.4, HCT 21.7, K 3.1, BUN 26, HOSTESS CASHIER 1.96. ABG shows chronic respiratory alkalosis with metabolic compensation. Respiratory culture shows Bordetella, stenotrophomonas, yeast vital signs Vital Sign Date Time Temp Pulse Resp B/P (MAP) Pulse Ox O2 Delivery O2 Flow Rate FiO2 02/22/24 10:49 100 Trach Collar 6.0 02/22/24 10:49 30 30 02/22/24 10:15 76 20 151/72 (98) 02/22/24 08:00 98.2 98.2 Total Intake and Output 02/21/24 02/21/24 02/22/24 15:00 23:00 07:00 Intake Total 700 ml 850 ml 878 ml Output Total 615 ml 525 ml Balance 700 ml 235 ml 353 ml medications Current Medications Medications Dose Ordered Sig/Sheila Route Start Time Stop Time Status Last Admin Dose Admin Acetaminophen 650 mg Q6HP PRN PO 02/07/24 19:45 Ipratropium Disney 0.5 mg Q6HPRN PRN NEB 02/08/24 14:30 02/22/24 05:51 0.5 MG Midazolam HCl 50 ml @ 1 mls/hr Q24H IV 02/08/24 17:00 02/11/24 17:43 4 MLS/HR Pantoprazole Sodium 40 mg DAILY IV 02/09/24 10:00 02/22/24 09:39 40 MG Enteral Nutritional Formula 1,000 ml 30ML/HR GT 02/09/24 13:30 02/14/24 19:33 1,000 ML Albumin Human 100 ml @ 100 mls/hr Q1HR IV 02/12/24 10:00 02/12/24 11:59 Cancel Fluconazole 100 ml @ 100 mls/hr DAILY IV 02/12/24 17:30 02/22/24 10:38 100 MLS/HR Heparin Sodium (Porcine) 5,000 units LACIE PRN XX 02/14/24 11:00 Lactulose 30 ml DAILY PO 02/15/24 10:00 02/22/24 09:45 30 ML Epoetin Kuldip-epbx 10,000 unit MoWeFr@2100 SC 02/16/24 21:00 02/21/24 20:24 10,000 UNIT Diagnostic Test (Pha) 1 strip Q6HR 02/16/24 00:00 02/22/24 06:13 1 STRIP Dextrose 50 ml UD PRN IV 02/15/24 18:45 Nystatin 5 ml QID MT 02/15/24 22:00 02/22/24 06:13 5 ML Fluconazole 100 ml @ 100 mls/hr DAILY IV 02/16/24 10:00 UNV Hydralazine HCl 20 mg Q4HPRN PRN IV 02/17/24 12:45 02/19/24 17:48 20 MG Potassium Chloride 100 ml @ 50 mls/hr Q2H IV 02/22/24 07:45 02/22/24 11:44 02/22/24 11:04 50 MLS/HR Trimethoprim/ Sulfamethoxazole 10 ml Q12HR GT 02/22/24 22:00 objective GENERAL: Intubated on ventilator. LUNGS: Decreased breath sounds. CARDIOVASCULAR: Heart sounds are good. ABDOMEN: Soft. : Lowery catheter in place. laboratory and microbiology Laboratory Tests 02/22/24 04:47 Test 02/22/24 04:47 Range/Units Serum Glucose 96 74-106 mg/dL Problem List Acute metabolic encephalopathy secondary to uremia. 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 Septic shock secondary to pneumonia and UTI requiring vasopressor support. ESRD on hemodialysis. Positive FIT test. History of multiple strokes, last known stroke August 2023, 12/2021. Residual left-sided weakness. Bed bound. 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 History of CAD status post PTCA LAD by Dr Prieto 2016. Lactic acidosis. Dyslipidemia. Left-sided lobar pneumonia. Acute cystitis. Right parathyroid mass. Hypercalcemia. Left-sided thyroid nodule. Protein energy malnutrition. Assessment/Plan Continued all current supportive medical care. Fluconazole. IV Hydralazine for SBP > 150. Lactulose. GI prophylactics. Additional plan as per the hospital course. Critical care time of 45 minutes provided to include time spent evaluation of patient at bedside, when appropriate patient/family education for diagnosis, treatment plan, review of pertinent medical information and discussion of care with specialty providers and PCP. Mechanical ventilator parameters, treatment and adjustments have personally been reviewed by me and treatment plan by pathology laboratory technologist has also been reviewed. Dietary Evaluation Review Comments: 1. Nepr @30ml/hr is supporting 100% of pt's protein needs, and 116% of pt's energy needs. 2. Advance to Renal Standard 2 gNa 3K low Phos diet when pt is off vent and pass speech eval. Expected Outcomes/Goals: Improved nutrition status and Gradual weight gains Plan discussed with: Other CARTER FRANCO MD Feb 22, 2024 11:39
[2024-02-22] MEDS: SULFAMETH W/TRIMETHOPRIM(200/40MG) 5ML SUSP GT SCH (22:49)
[2024-02-23] VITALS (49 sets, daily range): BP systolic 109–161; BP diastolic 51–79; PULSE 70–90; RESP 15–28; TEMP 98.3–99.3; O2SAT 98–100
--- NOTE | 2024-02-23 05:53 | DVH ---
CHEST RADIOGRAPH Indication: Follow up Technique: Single frontal view of the chest was obtained Comparison: XY CHEST XRAY 1 VIEW on DOS: 02/22/24, XY CHEST PORTABLE on DOS: 02/20/24, XY CHEST XRAY 1 VIEW on DOS: 02/20/24 FINDINGS: Lines and Tubes: Tracheostomy tube is unchanged. The enteric tube courses below the left hemidiaphrag m and the tip extends outside the field of view. Pacemaker noted. Lungs: Patchy bilateral opacities, increased. Pleura: No effusion. No pneumothorax. Cardiomediastinal contours: Unremarkable Bones: No acute osseous abnormality. IMPRESSION: 1. Patchy bilateral opacities which may reflect edema or pneumonia. Findings are increased since stephanie or study. Stable position of the support lines and tubes.
[2024-02-23 06:15] LABS: Basophils # (auto) 0 10 ^3/uL (0-0.2); Eosinophils # (auto) 0.1 10 ^3/uL (0-0.8); Eosinophils % (auto) 0.8 % (0.0-7.0); Hematocrit 20.9 % (36.0-46.0); Monocytes # (auto) 0.6 10 ^3/uL (0-1.3); Neutrophils % (auto) 79.2 % (37.0-80.0); Nucleated Red Blood Cells % 0.1 %
[2024-02-23 06:17] LABS: Basophils % (auto) 0.4 % (0.0-2.0); Hemoglobin 7.1 g/dL (12.2-16.2); Lymphocytes # (auto) 0.7 10 ^3/uL (0.4-5.4); Lymphocytes % (auto) 10.7 % (10.0-50.0); Mean Corpuscular Hemoglobin 31.8 pg (28.0-32.0); Mean Corpuscular Hgb Conc. 34.1 g/dL (32.0-36.0); Mean Corpuscular Volume 93.1 fL (80.0-100.0); Monocytes % (auto) 8.9 % (0.0-12.0); Neutrophils # (auto) 5.4 10 ^3/uL (1.6-8.6); Platelet Count (auto) 78 10^3/uL (140-450); Red Blood Cells 2.25 10^6/uL (4.0-5.20); Red Cell Distribution Width 15.9 % (11.8-14.3); White Blood Cell 6.8 10^3/uL (4.4-10.8)
[2024-02-23 06:40] LABS: Alkaline Phosphatase 85 U/L (46-116); Anion Gap 9 (5-15); BUN/Creatinine Ratio 14.4 (10.0-20.0); Calcium 9.8 mg/dL (8.7-10.4); Carbon Dioxide 21 mmol/L (20-31); Glucose 84 mg/dL (74-106); Magnesium 1.9 mg/dL (1.6-2.6); Sodium 139 mmol/L (136-145)
[2024-02-23 06:42] LABS: Aspartate Aminotransferase 16 U/L (13-40)
[2024-02-23 06:48] LABS: Alanine Aminotransferase < 9 U/L (7-40); Albumin 2.4 g/dL (3.2-4.8); Bilirubin, Total 0.2 mg/dL (0.2-1.0); Blood Urea Nitrogen 28 mg/dL (9-23); Chloride 109 mmol/L (98-107); Potassium 3.4 mmol/L (3.5-5.1); Total Protein 4.6 g/dL (5.7-8.2)
[2024-02-23] MEDS: POTASSIUM CHL 20MEQ/100ML 100 ML IV SCH (07:29)
[2024-02-23 08:04] LABS: Base Excess -3.8 mmol/L (-2.0-3.0)
--- NOTE | 2024-02-23 11:20 | DVHPN2 ---
Progress Note Date Seen: Feb 23, 2024 Has the PT tested + for MRSA If YES, has PT been informed?: No Medical Necessity Reason Pt with a Central, PICC or Fol: Yes The following are medically ne: Central Line, Lowery Catheter Reason for lowery catheter: Strict I&O Subjective Patient reports: Feels better Review of Systems: HEENT:Abnormal Objective vital signs Vital Sign Date Time Temp Pulse Resp B/P (MAP) Pulse Ox O2 Delivery O2 Flow Rate FiO2 02/23/24 09:00 77 19 132/62 (85) 100 02/23/24 08:00 98.4 98.4 02/23/24 08:00 Trach Collar 6 28 28 Total Intake and Output 02/22/24 02/22/24 02/23/24 15:00 23:00 07:00 Intake Total 725 ml 261 ml 300 ml Output Total 700 ml 650 ml Balance 725 ml -439 ml -350 ml medications Current Medications Medications Dose Ordered Sig/Sheila Route Start Time Stop Time Status Last Admin Dose Admin Acetaminophen 650 mg Q6HP PRN PO 02/07/24 19:45 Ipratropium [place] 0.5 mg Q6HPRN PRN NEB 02/08/24 14:30 02/22/24 05:51 0.5 MG Midazolam HCl 50 ml @ 1 mls/hr Q24H IV 02/08/24 17:00 02/11/24 17:43 4 MLS/HR Pantoprazole Sodium 40 mg DAILY IV 02/09/24 10:00 02/23/24 10:20 40 MG Enteral Nutritional Formula 1,000 ml 30ML/HR GT 02/09/24 13:30 02/23/24 06:53 1,000 ML Albumin Human 100 ml @ 100 mls/hr Q1HR IV 02/12/24 10:00 02/12/24 11:59 Cancel Fluconazole 100 ml @ 100 mls/hr DAILY IV 02/12/24 17:30 02/23/24 10:22 100 MLS/HR Heparin Sodium (Porcine) 5,000 units LACIE PRN XX 02/14/24 11:00 Lactulose 30 ml DAILY PO 02/15/24 10:00 02/23/24 10:30 30 ML Epoetin Kuldip-epbx 10,000 unit MoWeFr@2100 SC 02/16/24 21:00 02/21/24 20:24 10,000 UNIT Diagnostic Test (Pha) 1 strip Q6HR 02/16/24 00:00 02/23/24 05:42 1 STRIP Dextrose 50 ml UD PRN IV 02/15/24 18:45 Nystatin 5 ml QID MT 02/15/24 22:00 02/23/24 05:42 5 ML Fluconazole 100 ml @ 100 mls/hr DAILY IV 02/16/24 10:00 UNV Hydralazine HCl 20 mg Q4HPRN PRN IV 02/17/24 12:45 02/19/24 17:48 20 MG Trimethoprim/ Sulfamethoxazole 10 ml Q12HR GT 02/22/24 22:00 02/23/24 11:08 10 ML Examination: GENERAL:Abnormal, HEENT:Abnormal, LUNGS:Abnormal, ABDOMEN:Normal laboratory and microbiology Laboratory Tests 02/23/24 04:52 Test 02/23/24 04:52 Range/Units Serum Glucose 84 74-106 mg/dL Microbiology Date/Time Source Procedure Growth Status 02/16/24 19:20 Trachea Gram Stain - Final Complete 02/16/24 19:20 Respiratory Culture - Final Bordetella bronchiseptica Stenotrophomonas maltophilia Yeast, not Ellen albicans Complete 02/16/24 18:23 Urine - Lowery Port Urine Culture - Final Yeast, not Ellen albicans Complete 02/08/24 17:17 Sputum Gram Stain - Final Complete 02/08/24 17:17 Respiratory Culture - Final Enterobacter hormaechei Complete 02/08/24 12:10 Blood Blood Culture - Final NO GROWTH AFTER 5 DAYS OF INCUBATION. Complete Problem List/Assessment/Plan Problem List/Assessment/Plan Acute kidney injury superimposed Chronic Kidney Disease stage IV secondary hemodynamic mediated, ATN, feNa > 2% Encephalopathy Hypercalcemia due to primary hyperparathyroidism rule out parathyroid adenoma Dehydration Septic shock CVA NSTEMI Anemia of chronic kidney disease primary Hyperparathyroidism respiratory failure trach to wall oxygen today IVF and bumex off potassium replaced rec removal of all dialysis lines high ca and high PTH concerning for primary hyperparathyroid c/p calcitonin rec NM parathyroid scan if not done epogen 3x a week, rec iron palliative /hospice candidate stable from renal standpoint will sign off Plan discussed with: Patient Dietary Evaluation Review Comments: 1. Nepr @30ml/hr is supporting 100% of pt's protein needs, and 116% of pt's energy needs. 2. Advance to Renal Standard 2 gNa 3K low Phos diet when pt is off vent and pass speech eval. Expected Outcomes/Goals: Improved nutrition status and Gradual weight gains KEENAN TRUONG MD Feb 23, 2024 11:20
--- NOTE | 2024-02-23 15:12 | DVHPNRES ---
Progress Note Date Seen: Feb 23, 2024 Resident Creating Document: MARIS CASTRO RESIDENT Has the PT tested + for MRSA If YES, has PT been informed?: No Medical Necessity Reason Pt with a Central, PICC or Fol: Yes The following are medically ne: Central Line, Lowery Catheter Reason for lowery catheter: Strict I&O Subjective Review of Systems Ms. Godfrey, An 88-year-old female with a history of CHF, CKD, CVA, gout, high lipids, HTN, [place], thyroid issues, parathyroid mass and recurrent UTIs, who was currently on hospice, presented with altered mental status progressively developing over the past week, her condition had been deteriorating, with decreased urine output and oral intake. The family decided to revoke hospice services for the 2nd time ( previously for similar situation) and brought her in to ED for further evaluation. Her surgical history includes a hysterectomy, pacemaker implantation, and PTCA. On admission, she was found to be lethargic and oriented to person only: During the course of the hospitalization patient became even more lethargic brainstem functions intact yet GCS was less than 8. Elevated BUN and creatinine levels were noted, prompting a nephrology consult for acute kidney injury. She could not provide any history, further limited history/ROS obtained at the moment was extracted from family discussion. she was found to have septic shock hypotensive, needing pressor and unable to maintain /protect airways needing intubation sedation and higher level of care. On arrival patient's temperature was 96.3 F, pulse 90 bpm, respiratory rate 12, blood pressure 63/45, 92 on room air. She received IV fluids and her blood pressure improved 103/55. Patient was saturating 99 on 5 L supplementation. 02/07 around noon patient's blood pressure dropped to 65/42 mmHg and therefore she was intubated right femoral CVC was placed in right IJ CVC for hemodialysis was placed. Patient received SC calcitonin 2 doses of 200 mg on 02/07. She has been receiving D5W for the correction of hypernatremia. 02/08 - Patient seen and examined at bedside. She is tachycardic at 109 beats per minute, saturating 95 on FiO2 of 30%. Blood pressure is 107/68. Patient's hypernatremia was overcorrected more than 10 for 24 hours, DC D5W. Started free water through NG 150 mL q.6 hour. Chest x-ray shows left-sided pneumonia, possible aspiration as it was not present on arrival. Started IV Zosyn and vancomycin. Vanco DC ed based on culture results. Started calcitonin 200 units SC q.12. Hepatitis panel pending. Hemodialysis tomorrow 02/09 02/11 - seen and examined over the bedside. She underwent hemodialysis on 02/09 and 02/11. She was transfused 1 packed RBC over the weekend. She has been off sedation since 4:00 a.m.. Safe 500 mL bolus during the hemodialysis session. Occult blood is positive. DC aspirin. Pending parathyroid scan. Echo completed 02/10 shows LVEF 65%. Moderate degree LV diastolic dysfunction. Moderate degree LVH. Moderately dilated RV. Normal valves. RVSP is 52 mmHg. 02/12 - patient seen and examined at bedside. She is on Levophed for, off sedation. Underwent CPAP trial today from 10:00 a.m. to 2:00 p.m.. She is not responding to commands. Chest x-ray shows stable left-sided infiltrate. Thyroid ultrasound is pending. 1 unit of packed RBCs ordered. ABG showed respiratory alkalosis with metabolic compensation. Received Mag and K supplementation. Repeat CBC, Mag, K wnl 02/13 - night temperature 99.1. Patient is satting 91 on 30%. Undergoing hemodialysis today. WBC trending down to 9.2. Chest x-ray shows stable left- sided opacity. Thyroid ultrasound shows heterogeneous left thyroid gland and isthmus with discrete nodule. Patient is on Levophed to off sedation. No CPAP trial. Lactulose started 30 mL once daily 02/14 - not responsive to commands. Off sedation since 02/11. CPAP trial terminated within 1 minute due to apnea. CT head completed, shows new age indeterminate referral right cerebellum infarct. patient is Left upper extremity: Occlusive thrombophlebitis of the cephalic vein with moderate subcutaneous edema in the arm noted. Started nystatin 5 cc swish and swallow. Decreased respiratory rate to 18. Patient had a bowel movement overnight. 02/15 - overnight patient's temperature was 99.3, patient is off sedation and not responding to commands for opening eyes spontaneously. Repeat urine culture and respiratory culture ordered. MRI brain pending. Switched meropenem to Levaquin. Corrected calcium 11.1. 02/18 - MRI brain shows multiple foci of supratentorial and right cerebellar infarct, suggestive of central emboli. nephrology started Bumex b.i.d. 1 g IV. Repeat urine culture shows greater than 1 Lac yeast, chest x-ray shows left side is stable opacity. Patient undergoing tracheostomy 02/18. IV half NS at 75 cc/hour started by Nephrology. Hemodialysis today. DC Levaquin tomorrow. 02/19 - 250 cc urine output. No bowel movement. DC Shmuel catheter. Inserting midline. Started D5W half NS 02/20 - patient is opening her eyes spontaneously. Started on trach collar from 8:00 a.m., switch to vent in p.m.. Right Shmuel femoral catheterization per Dr. Higgins. Daughter Yeni at bedside. Nephrology-continue IV fluids and Bumex, remove all dialysis line if stable. 02/21 - overnight 99.2 F. patient is on trach collar, saturating 100%. ABG showed chronic respiratory alkalosis with metabolic compensation. Discontinue D5 half NS and Bumex. Respiratory culture shows Bordetella, stenotrophomonas, yeast. Started TMP SMX 10 mL GT q.12 hours. 02/22 - no overnight events patient seen and examined. Patient is saturating 99 on trach at 6 L. hemoglobin 7.1 today. Opening eyes to physical stimulation. Objective vital signs Vital Sign Date Time Temp Pulse Resp B/P (MAP) Pulse Ox O2 Delivery O2 Flow Rate FiO2 02/23/24 12:00 79 02/23/24 12:00 98.3 18 100 98.3 02/23/24 12:00 Trach Collar 6 28 28 Total Intake and Output 02/22/24 02/22/24 02/23/24 15:00 23:00 07:00 Intake Total 725 ml 261 ml 300 ml Output Total 700 ml 650 ml Balance 725 ml -439 ml -350 ml medications Current Medications Medications Dose Ordered Sig/Sheila Route Start Time Stop Time Status Last Admin Dose Admin Acetaminophen 650 mg Q6HP PRN PO 02/07/24 19:45 Ipratropium Eclectic 0.5 mg Q6HPRN PRN NEB 02/08/24 14:30 02/22/24 05:51 0.5 MG Midazolam HCl 50 ml @ 1 mls/hr Q24H IV 02/08/24 17:00 02/11/24 17:43 4 MLS/HR Pantoprazole Sodium 40 mg DAILY IV 02/09/24 10:00 02/23/24 10:20 40 MG Enteral Nutritional Formula 1,000 ml 30ML/HR GT 02/09/24 13:30 02/23/24 06:53 1,000 ML Albumin Human 100 ml @ 100 mls/hr Q1HR IV 02/12/24 10:00 02/12/24 11:59 Cancel Fluconazole 100 ml @ 100 mls/hr DAILY IV 02/12/24 17:30 02/23/24 10:22 100 MLS/HR Heparin Sodium (Porcine) 5,000 units LACIE PRN XX 02/14/24 11:00 Lactulose 30 ml DAILY PO 02/15/24 10:00 02/23/24 10:30 30 ML Epoetin Kuldip-epbx 10,000 unit MoWeFr@2100 SC 02/16/24 21:00 02/21/24 20:24 10,000 UNIT Diagnostic Test (Pha) 1 strip Q6HR 02/16/24 00:00 02/23/24 12:21 1 STRIP Dextrose 50 ml UD PRN IV 02/15/24 18:45 Nystatin 5 ml QID MT 02/15/24 22:00 02/23/24 12:21 5 ML Fluconazole 100 ml @ 100 mls/hr DAILY IV 02/16/24 10:00 UNV Hydralazine HCl 20 mg Q4HPRN PRN IV 02/17/24 12:45 02/19/24 17:48 20 MG Trimethoprim/ Sulfamethoxazole 10 ml Q12HR GT 02/22/24 22:00 02/23/24 11:08 10 ML Examination Patient lying in bed, off sedation. RASS -4. Satting 97% on 6 L Trach collar. Opening eyes to stimulation. General: Thin looking, cachectic, afebrile, palor, mucosae are dry. Oral thrush on tongue. Cardiovascular: Regular S1 and S2. No murmurs, gallops or rubs. No JVD elevation. Upper and lower extremity pitting edema. Respiratory: Left-sided crepitations heard. Saturating 99 on FiO2 of 30%. Abdomen: Soft, nontender, nondistended, normal bowel sounds, no rebound tenderness, no organomegaly, no masses. Lowery catheter seen. Stage II decubitus ulcer. Erythema noticed. Genitourinary: Lowery catheter seen. MSK/skin: Skin is dry and warm Neurological: Pupils are isocoric and reactive. laboratory and microbiology Laboratory Tests 02/23/24 04:52 Test 02/23/24 04:52 Range/Units Serum Glucose 84 74-106 mg/dL Microbiology Date/Time Source Procedure Growth Status 02/16/24 19:20 Trachea Gram Stain - Final Complete 02/16/24 19:20 Respiratory Culture - Final Bordetella bronchiseptica Stenotrophomonas maltophilia Yeast, not Ellen albicans Complete 02/16/24 18:23 Urine - Lowery Port Urine Culture - Final Yeast, not Ellen albicans Complete 02/08/24 17:17 Sputum Gram Stain - Final Complete 02/08/24 17:17 Respiratory Culture - Final Enterobacter hormaechei Complete 02/08/24 12:10 Blood Blood Culture - Final NO GROWTH AFTER 5 DAYS OF INCUBATION. 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 Discontinued aspirin 162 mg daily given the positive occult blood and the low hemoglobin Head CT Stable small chronic infarct in the right basal ganglia. No acute intracranial process. Repeat head CT 02/14 shows right cerebellar age indeterminate infarct MRI brain Multiple foci of supratentorial and right cerebellar areas of acute / subacute infarct. Correlate for possible central embolic process. Multiple foci of chronic lacunar infarcts of bilateral cerebellum and right basal ganglia. 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 Moderate degree LV diastolic dysfunction. Moderate degree LVH. Moderately dilated RV. Normal valves. RVSP is 52 mmHg. RESPIRATORY Left-sided lobar pneumonia, possible aspiration, Gram-positive and Gram-negative with Enterobacter, Bordetella, stenotrophomonas, yeast Sepsis secondary to pneumonia and UTI Final respiratory culture 02/07 shows Enterobacter sensitive to Cipro, levofloxacin, meropenem, TMP SMX Repeat respiratory culture 02/15 shows Bordetella, stenotrophomonas, yeast Antibiotics: TMP SMX q.12 over. Starting 02/21 and fluconazole IV 02/14 G stain shows Gram-positive cocci in chains and pairs, Gram-positive rods DC vanco, discontinue Zosyn starting 02/08 till 02/11 Discontinued meropenem 02/11 till 02/15 Discontinued Levaquin 02/15 till 02/21 MRSA screen negative Continue ipratropium nebulized treatment q.6 p.r.n. On trach collar in a.m.. GI F/U hepatitis panel Hx of 1.0 cm left adrenal nodule Steatosis Positive occult blood Continue pantoprazole 40 mg IV daily Lactulose 30 mL once daily /KIDNEY Acute cystitis JOSE likely secondary to ATN on ESRD undergoing hemodialysis Acute tubular necrosis Prelim urine culture shows greater than 1 lac CFU mixed melissa 3 colony types possible contamination. Repeat urine culture ordered. Repeat urine culture 02/08 shows >100,000 CFU/mL Yeast Identification to follow. FENA greater than 2% Right renal simple appearing cysts measuring up to 3.4 cm. Hemodialysis 02/09 and 02/11, 02/13, 02/15, 02/18 receiving Retacrit 43253 units post dialysis. 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 Left-sided thyroid nodule Thyroid ultrasound 02/12 shows heterogeneous left thyroid gland and isthmus with a discrete nodule Corrected Calcium 11, downtrending Nephrology recommended Recommend start patient on Sensipar po daily in outpatient METABOLIC Non-anion gap metabolic acidosis likely secondary to hyperchloremia and uremia with the respiratory alkalosis Hypovolemic hypernatremia Humoral Hypercalcemia of malignancy Secondary hyperphosphatemia due to ESRD Hypomagnesemia, hypokalemia Gout vs CPPD - chondrocalcinosis seen in knee x-ray in 2022 Patient received IV fluid D5W with 50 mEq sodium bicarb at 100 cc/hour on 02/07 morning of 02/08. Discontinued on 02/08 since over-correction of hyponatremia was noticed. Patient received 2 doses of SC calcitonin 200 mg on 02/07. Received calcitonin 200 mg sc twice daily from 01/21 till 02/11 Discontinued IV bicarb at 100 mL/hour Nephrology Started D5W half NS and Bumex 1 mg b.i.d., discontinued 1/2 ID Sepsis secondary to pneumonia and the UTI Oral thrush Started nystatin swish and swallow 5 cc 02/14 02/15 - Repeat urine culture shows yeast 02/15 - Repeat respiratory culture shows Gram-negative rods and yeast HEM-ONCO Right parathyroid mass Thrombocytopenia Anemia, likely normocytic due to ESRD Anemia of Chronic disease - transfused 1 packed RBC 02/12 and 02/10 - low iron low TIBC OBGYN History of Hysterectomy Protein energy malnutrition LINES Intubated on 02/07, tracheostomy 02/18 Right IJ CVC for hemodialysis placed 02/09 till 02/19 Right-sided Femoral dialysis non tunneled placed 02/09 till 02/22 Left Femoral CVC 02/09 till 02/22 Lowery catheter Drips: Levophed 0, patient is off sedation Last bowel movement, 02/18 NUTRITION: Nepro started 02/08 DVT: Renal dosing Lovenox on hold given the low hemoglobin and positive occult Goals of care/advance care planning; discussed with the daughter and granddaughter at the bedside, modified DNR, PUD prophylaxis: Pantoprazole 40 mg IV daily DVT prophylaxis on hold-enoxaparin 50 mg sc daily renal dosing, patient takes Eliquis at home Plan discussed with Dr. Jules. Started TMP SMX q.12. Nephrology recommended Recommend start patient on Sensipar po daily in outpatient. surgical services asst consulted for transfer to LTAC. Poor prognosis Plan discussed with patient's granddaughter over the bedside in which all questions have been answered Goals of care have been discussed with the patient's granddaughter (Skylar) at the bedside for more than 25 minutes, modified DNR status Critical time including chart review, discussion with the patient's granddaughter ray at the bedside excluding procedures included 43 minutes Plan discussed with: Patient, Other (Granddaughter ray at the bedside) My Orders My Orders Orders - MARIS CASTRO RESIDENT Procedure Category Date Status Time Chest Xray 1 View XY 02/23/24 Resulted 04:00 Abg W/ Co-Ox RT 02/23/24 Logged 04:00 Dietary Evaluation Review Comments: 1. Nepr @30ml/hr is supporting 100% of pt's protein needs, and 116% of pt's energy needs. 2. Advance to Renal Standard 2 gNa 3K low Phos diet when pt is off vent and pass speech eval. Expected Outcomes/Goals: Improved nutrition status and Gradual weight gains Date of Service: Feb 23, 2024 Billing Provider: ULISES JULES MD Common Visit Codes: 23172-[id number] CARE 30-74 MIN MARIS CASTRO RESIDENT Feb 23, 2024 15:12 ULISES JULES MD Feb 25, 2024 21:27
--- NOTE | 2024-02-23 23:38 | DVHPN2 ---
Progress Note - Dictate Date Seen: Feb 23, 2024 Has the PT tested + for MRSA If YES, has PT been informed?: No Medical Necessity Reason Pt with a Central, PICC or Fol: Yes The following are medically ne: Central Line, Lowery Catheter Reason for lowery catheter: Strict I&O Subjective Patient was seen and evaluated in follow up in the ICU. Patient is intubated on ventilator via trach collar. 30% FiO2. CM is working on LTAC placement at [facility]. HGB 7.1, HCT 20.9, K 3.4, CL 109, BUN 28, INSOLE TAPER 1.94. Chest x-ray shows patchy bilateral opacities which may reflect edema or pneumonia. Findings are increased since prior study. Stable position of the support lines and tubes. vital signs Vital Sign Date Time Temp Pulse Resp B/P (MAP) Pulse Ox O2 Delivery O2 Flow Rate FiO2 02/23/24 12:00 79 02/23/24 12:00 98.3 18 100 98.3 02/23/24 12:00 Trach Collar 6 28 28 Total Intake and Output 02/22/24 02/22/24 02/23/24 15:00 23:00 07:00 Intake Total 725 ml 261 ml 300 ml Output Total 700 ml 650 ml Balance 725 ml -439 ml -350 ml medications Current Medications Medications Dose Ordered Sig/Sheila Route Start Time Stop Time Status Last Admin Dose Admin Acetaminophen 650 mg Q6HP PRN PO 02/07/24 19:45 Ipratropium Ruth 0.5 mg Q6HPRN PRN NEB 02/08/24 14:30 02/22/24 05:51 0.5 MG Midazolam HCl 50 ml @ 1 mls/hr Q24H IV 02/08/24 17:00 02/11/24 17:43 4 MLS/HR Pantoprazole Sodium 40 mg DAILY IV 02/09/24 10:00 02/23/24 10:20 40 MG Enteral Nutritional Formula 1,000 ml 30ML/HR GT 02/09/24 13:30 02/23/24 06:53 1,000 ML Albumin Human 100 ml @ 100 mls/hr Q1HR IV 02/12/24 10:00 02/12/24 11:59 Cancel Fluconazole 100 ml @ 100 mls/hr DAILY IV 02/12/24 17:30 02/23/24 10:22 100 MLS/HR Heparin Sodium (Porcine) 5,000 units LACIE PRN XX 02/14/24 11:00 Lactulose 30 ml DAILY PO 02/15/24 10:00 02/23/24 10:30 30 ML Epoetin Kuldip-epbx 10,000 unit MoWeFr@2100 SC 02/16/24 21:00 02/21/24 20:24 10,000 UNIT Diagnostic Test (Pha) 1 strip Q6HR 02/16/24 00:00 02/23/24 12:21 1 STRIP Dextrose 50 ml UD PRN IV 02/15/24 18:45 Nystatin 5 ml QID MT 02/15/24 22:00 02/23/24 12:21 5 ML Fluconazole 100 ml @ 100 mls/hr DAILY IV 02/16/24 10:00 UNV Hydralazine HCl 20 mg Q4HPRN PRN IV 02/17/24 12:45 02/19/24 17:48 20 MG Trimethoprim/ Sulfamethoxazole 10 ml Q12HR GT 02/22/24 22:00 02/23/24 11:08 10 ML objective GENERAL: Intubated on ventilator. LUNGS: Decreased breath sounds. CARDIOVASCULAR: Heart sounds are good. ABDOMEN: Soft. : Lowery catheter in place. laboratory and microbiology Laboratory Tests 02/23/24 04:52 Test 02/23/24 04:52 Range/Units Serum Glucose 84 74-106 mg/dL Problem List Acute metabolic encephalopathy secondary to uremia. 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 Septic shock secondary to pneumonia and UTI requiring vasopressor support. ESRD on hemodialysis. Positive FIT test. History of multiple strokes, last known stroke August 2023, 12/2021. Residual left-sided weakness. Bed bound. 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 History of CAD status post PTCA LAD by Dr Prieto 2016. Lactic acidosis. Dyslipidemia. Left-sided lobar pneumonia. Acute cystitis. Right parathyroid mass. Hypercalcemia. Left-sided thyroid nodule. Protein energy malnutrition. Assessment/Plan Continued all current supportive medical care. Fluconazole. IV Hydralazine for SBP > 150. Lactulose. GI prophylactics. Additional plan as per the hospital course. Critical care time of 45 minutes provided to include time spent evaluation of patient at bedside, when appropriate patient/family education for diagnosis, treatment plan, review of pertinent medical information and discussion of care with specialty providers and PCP. Mechanical ventilator parameters, treatment and adjustments have personally been reviewed by me and treatment plan by assistant manager airside operations has also been reviewed. Dietary Evaluation Review Comments: 1. Nepr @30ml/hr is supporting 100% of pt's protein needs, and 116% of pt's energy needs. 2. Advance to Renal Standard 2 gNa 3K low Phos diet when pt is off vent and pass speech eval. Expected Outcomes/Goals: Improved nutrition status and Gradual weight gains Plan discussed with: Other CARTER FRANCO MD Feb 23, 2024 13:32
[2024-02-24] VITALS (27 sets, daily range): BP systolic 134–173; BP diastolic 58–79; PULSE 71–82; RESP 15–22; TEMP 97.9–98.6; O2SAT 100
[2024-02-24 05:38] LABS: Basophils # (auto) 0 10 ^3/uL (0-0.2); Basophils % (auto) 0.3 % (0.0-2.0); Eosinophils # (auto) 0.1 10 ^3/uL (0-0.8); Hemoglobin 7.4 g/dL (12.2-16.2); Lymphocytes # (auto) 0.7 10 ^3/uL (0.4-5.4); Monocytes # (auto) 0.6 10 ^3/uL (0-1.3); Nucleated Red Blood Cells % 0.1 %; Red Cell Distribution Width 16.4 % (11.8-14.3)
[2024-02-24 05:41] LABS: Eosinophils % (auto) 0.9 % (0.0-7.0); Hematocrit 21.8 % (36.0-46.0); Lymphocytes % (auto) 12.3 % (10.0-50.0); Mean Corpuscular Hemoglobin 31.8 pg (28.0-32.0); Mean Corpuscular Hgb Conc. 33.8 g/dL (32.0-36.0); Mean Corpuscular Volume 94.1 fL (80.0-100.0); Monocytes % (auto) 9.6 % (0.0-12.0); Neutrophils # (auto) 4.5 10 ^3/uL (1.6-8.6); Neutrophils % (auto) 76.9 % (37.0-80.0); Platelet Count (auto) 90 10^3/uL (140-450); Red Blood Cells 2.31 10^6/uL (4.0-5.20); White Blood Cell 5.9 10^3/uL (4.4-10.8)
[2024-02-24 05:51] LABS: Potassium 4.2 mmol/L (3.5-5.1); Sodium 139 mmol/L (136-145)
[2024-02-24 05:52] LABS: Anion Gap 8 (5-15); Carbon Dioxide 21 mmol/L (20-31)
[2024-02-24 05:53] LABS: Calcium 9.9 mg/dL (8.7-10.4)
[2024-02-24 05:58] LABS: Magnesium 1.9 mg/dL (1.6-2.6)
--- NOTE | 2024-02-24 05:59 | DVH ---
CHEST RADIOGRAPH Indication: Follow up Technique: Single frontal view of the chest was obtained COMPARISON: XY CHEST XRAY 1 VIEW on DOS: 02/23/24, XY CHEST XRAY 1 VIEW on DOS: 02/22/24, XY CHEST PORTAB LE on DOS: 02/20/24, XY CHEST XRAY 1 VIEW on DOS: 02/20/24, XY CHEST PORTABLE on DOS: 02/19/24, XY CH EST XRAY 1 VIEW on DOS: 02/22/24 FINDINGS: Lines and Tubes: Tracheostomy, enteric catheter and left pacemaker in satisfactory position. Lungs: Congestion Pleura: No effusion. No pneumothorax. Cardiomediastinal contours: Unremarkable Bones: Unremarkable IMPRESSION: Lines and tubes in satisfactory position. No significant interval change.
[2024-02-24 06:01] LABS: Blood Urea Nitrogen 27 mg/dL (9-23); Chloride 110 mmol/L (98-107); Glucose 108 mg/dL (74-106)
[2024-02-24 08:57] LABS: Base Excess -3.2 mmol/L (-2.0-3.0)
--- NOTE | 2024-02-24 14:23 | DVHPN2 ---
Progress Note - Dictate Date Seen: Feb 24, 2024 Has the PT tested + for MRSA If YES, has PT been informed?: No Medical Necessity Reason Pt with a Central, PICC or Fol: Yes The following are medically ne: Central Line, Lowery Catheter Reason for lowery catheter: Strict I&O Subjective Patient was seen and evaluated in follow up in the ICU. Patient is intubated on ventilator via trach collar. 30% FiO2. Patient opens eyes with physial stimulation. HGB 7.4, HCT 21.8, CL 110, BUN 27, FLAT KNITTER HELPER 2.07. Chest x-ray shows lines and tubes in satisfactory position, no significant interval change. vital signs Vital Sign Date Time Temp Pulse Resp B/P (MAP) Pulse Ox O2 Delivery O2 Flow Rate FiO2 02/24/24 12:00 16 100 Trach Collar 6 28 28 02/24/24 12:00 98.4 74 134/58 (83) 98.4 Total Intake and Output 02/23/24 02/23/24 02/24/24 15:00 23:00 07:00 Intake Total 100 ml 396 ml 360 ml Output Total 600 ml 500 ml Balance 100 ml -204 ml -140 ml medications Current Medications Medications Dose Ordered Sig/Sheila Route Start Time Stop Time Status Last Admin Dose Admin Acetaminophen 650 mg Q6HP PRN PO 02/07/24 19:45 Ipratropium [place] 0.5 mg Q6HPRN PRN NEB 02/08/24 14:30 02/22/24 05:51 0.5 MG Midazolam HCl 50 ml @ 1 mls/hr Q24H IV 02/08/24 17:00 02/11/24 17:43 4 MLS/HR Pantoprazole Sodium 40 mg DAILY IV 02/09/24 10:00 02/24/24 10:06 40 MG Enteral Nutritional Formula 1,000 ml 30ML/HR GT 02/09/24 13:30 02/24/24 06:50 1,000 ML Albumin Human 100 ml @ 100 mls/hr Q1HR IV 02/12/24 10:00 02/12/24 11:59 Cancel Heparin Sodium (Porcine) 5,000 units LACIE PRN XX 02/14/24 11:00 Lactulose 30 ml DAILY PO 02/15/24 10:00 02/24/24 10:06 30 ML Epoetin Kuldip-epbx 10,000 unit MoWeFr@2100 MN 02/16/24 21:00 02/23/24 21:43 10,000 UNIT Diagnostic Test (Pha) 1 strip Q6HR 02/16/24 00:00 02/24/24 11:38 1 STRIP Dextrose 50 ml UD PRN IV 02/15/24 18:45 Nystatin 5 ml QID MT 02/15/24 22:00 02/24/24 11:38 5 ML Fluconazole 100 ml @ 100 mls/hr DAILY IV 02/16/24 10:00 UNV Hydralazine HCl 20 mg Q4HPRN PRN IV 02/17/24 12:45 02/19/24 17:48 20 MG Trimethoprim/ Sulfamethoxazole 10 ml Q12HR GT 02/22/24 22:00 02/24/24 10:06 10 ML objective GENERAL: Intubated on ventilator. LUNGS: Decreased breath sounds. CARDIOVASCULAR: Heart sounds are good. ABDOMEN: Soft. : Lowery catheter in place. laboratory and microbiology Laboratory Tests 02/24/24 05:12 Test 02/24/24 05:12 Range/Units Serum Glucose 108 H 74-106 mg/dL Problem List Acute metabolic encephalopathy secondary to uremia. 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 Septic shock secondary to pneumonia and UTI requiring vasopressor support. ESRD on hemodialysis. Positive FIT test. History of multiple strokes, last known stroke August 2023, 12/2021. Residual left-sided weakness. Bed bound. 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 History of CAD status post PTCA LAD by Dr Prieto 2016. Lactic acidosis. Dyslipidemia. Left-sided lobar pneumonia. Acute cystitis. Right parathyroid mass. Hypercalcemia. Left-sided thyroid nodule. Protein energy malnutrition. Assessment/Plan Continued all current supportive medical care. Fluconazole. IV Hydralazine for SBP > 150. Lactulose. GI prophylactics. Additional plan as per the hospital course. Critical care time of 45 minutes provided to include time spent evaluation of patient at bedside, when appropriate patient/family education for diagnosis, treatment plan, review of pertinent medical information and discussion of care with specialty providers and PCP. Mechanical ventilator parameters, treatment and adjustments have personally been reviewed by me and treatment plan by gut puller has also been reviewed. Dietary Evaluation Review Comments: 1. Nepr @30ml/hr is supporting 100% of pt's protein needs, and 116% of pt's energy needs. 2. Advance to Renal Standard 2 gNa 3K low Phos diet when pt is off vent and pass speech eval. Expected Outcomes/Goals: Improved nutrition status and Gradual weight gains Plan discussed with: Other CARTER FRANCO MD Feb 24, 2024 13:43
--- NOTE | 2024-02-24 14:41 | DVHPN2 ---
Assessment/Plan Assessment/Plan ICU progress note Subjective 88 F with CHF CKD CVA from hospice admitted with failure to trive, intubated for airway protection, with septic shock requiring pressors. found to have multiple infarct likely embolic stroke, now off dialysis, s/p tracheostomy, for transfer to LTACH. Patient was seen by me today during rounds, on T piece 6LPM, status quo Objective Physical exam trahced on t piece grimacing to pain gag + cough + PERRLA coarse breath sounds s1 s2 RRR abdomen soft Le edema Assessment and plan acute metabolic encephalopathy multiple CVA with residuals, embolic and ischemic possible septic shock 2/2 PNA and UTI Type 2 MS 2/2 above lobar PNA with enterobacter, bordatella, trenotrophomonas incidental adrenal nodule LGIB parathyroid adenoma thyroid nodule JOSE on CKD 4/5 oral trush anemia chornic disease thrombocytopenia c/w bactrim c/w o2 supplementation for LTACH transfer pending family nephro consult appreciated nystatin 2nd stroke prevention hold ac given thrombocytopenia and possible LGIB Lines trach lowery Maintain potassium of 4, phosphate of 3 and magnesium of 2 Diet tube feeding GI prophylaxis protonix DVT prophylaxis lovenox on hold Condition critical Prognosis poor 41 minutes critical care time spent on this patient including evaluation, chart review, formulating plan and communication with team, excluding any procedures or point of care imaging Plan discussed with: Other Date of Service: Feb 24, 2024 Billing Provider: ULISES BRIDGES MD Common Visit Codes: [id number] CARE 30-74 MIN ULISES BRIDGES MD Feb 24, 2024 14:41
--- NOTE | 2024-02-24 15:35 | DVHPN2 ---
Progress Note Date Seen: Feb 24, 2024 Has the PT tested + for MRSA If YES, has PT been informed?: No Medical Necessity Reason Pt with a Central, PICC or Fol: Yes The following are medically ne: Central Line, Lowery Catheter Reason for lowery catheter: Strict I&O Objective vital signs Vital Sign Date Time Temp Pulse Resp B/P (MAP) Pulse Ox O2 Delivery O2 Flow Rate FiO2 02/24/24 15:00 77 18 156/75 (102) 100 02/24/24 14:00 Trach Collar 6 28 28 02/24/24 12:00 98.4 98.4 Total Intake and Output 02/23/24 02/23/24 02/24/24 15:00 23:00 07:00 Intake Total 100 ml 396 ml 360 ml Output Total 600 ml 500 ml Balance 100 ml -204 ml -140 ml medications Current Medications Medications Dose Ordered Sig/Sheila Route Start Time Stop Time Status Last Admin Dose Admin Acetaminophen 650 mg Q6HP PRN PO 02/07/24 19:45 Ipratropium [place] 0.5 mg Q6HPRN PRN NEB 02/08/24 14:30 02/22/24 05:51 0.5 MG Midazolam HCl 50 ml @ 1 mls/hr Q24H IV 02/08/24 17:00 02/11/24 17:43 4 MLS/HR Pantoprazole Sodium 40 mg DAILY IV 02/09/24 10:00 02/24/24 10:06 40 MG Enteral Nutritional Formula 1,000 ml 30ML/HR GT 02/09/24 13:30 02/24/24 06:50 1,000 ML Albumin Human 100 ml @ 100 mls/hr Q1HR IV 02/12/24 10:00 02/12/24 11:59 Cancel Heparin Sodium (Porcine) 5,000 units LACIE PRN XX 02/14/24 11:00 Lactulose 30 ml DAILY PO 02/15/24 10:00 02/24/24 10:06 30 ML Epoetin Kuldip-epbx 10,000 unit MoWeFr@2100 SC 02/16/24 21:00 02/23/24 21:43 10,000 UNIT Diagnostic Test (Pha) 1 strip Q6HR 02/16/24 00:00 02/24/24 11:38 1 STRIP Dextrose 50 ml UD PRN IV 02/15/24 18:45 Nystatin 5 ml QID MT 02/15/24 22:00 02/24/24 11:38 5 ML Fluconazole 100 ml @ 100 mls/hr DAILY IV 02/16/24 10:00 UNV Hydralazine HCl 20 mg Q4HPRN PRN IV 02/17/24 12:45 02/19/24 17:48 20 MG Trimethoprim/ Sulfamethoxazole 10 ml Q12HR GT 02/22/24 22:00 02/24/24 10:06 10 ML laboratory and microbiology Laboratory Tests 02/24/24 05:12 Test 02/24/24 05:12 Range/Units Serum Glucose 108 H 74-106 mg/dL Microbiology Date/Time Source Procedure Growth Status 02/16/24 19:20 Trachea Gram Stain - Final Complete 02/16/24 19:20 Respiratory Culture - Final Bordetella bronchiseptica Stenotrophomonas maltophilia Yeast, not Ellen albicans Complete 02/16/24 18:23 Urine - Lowery Port Urine Culture - Final Yeast, not Ellen albicans Complete 02/08/24 17:17 Sputum Gram Stain - Final Complete 02/08/24 17:17 Respiratory Culture - Final Enterobacter hormaechei Complete 02/08/24 12:10 Blood Blood Culture - Final NO GROWTH AFTER 5 DAYS OF INCUBATION. Complete Problem List/Assessment/Plan Problem List/Assessment/Plan AFEBRILE VSS INTUBATED S/P TRACHEOSTOMY NO COMPLICATIONS Plan discussed with: Other Dietary Evaluation Review Comments: 1. Nepr @30ml/hr is supporting 100% of pt's protein needs, and 116% of pt's energy needs. 2. Advance to Renal Standard 2 gNa 3K low Phos diet when pt is off vent and pass speech eval. Expected Outcomes/Goals: Improved nutrition status and Gradual weight gains LEO NOWAK MD Feb 24, 2024 15:35
--- NOTE | 2024-02-24 23:48 | DVHPN2 ---
Progress Note - Dictate Date Seen: Feb 24, 2024 Has the PT tested + for MRSA If YES, has PT been informed?: No Medical Necessity Reason Pt with a Central, PICC or Fol: Yes The following are medically ne: Central Line, Lowery Catheter Reason for lowery catheter: Strict I&O Subjective Patient seen and examined at bedside. Status post tracheostomy Overnight events reviewed. vital signs Vital Sign Date Time Temp Pulse Resp B/P (MAP) Pulse Ox O2 Delivery O2 Flow Rate FiO2 02/24/24 22:00 80 19 157/79 (105) 100 02/24/24 22:00 Trach Collar 6 28 28 02/24/24 20:00 98.6 98.6 Total Intake and Output 02/23/24 02/23/24 02/24/24 15:00 23:00 07:00 Intake Total 100 ml 396 ml 360 ml Output Total 600 ml 500 ml Balance 100 ml -204 ml -140 ml medications Current Medications Medications Dose Ordered Sig/Sheila Route Start Time Stop Time Status Last Admin Dose Admin Acetaminophen 650 mg Q6HP PRN PO 02/07/24 19:45 Ipratropium [place] 0.5 mg Q6HPRN PRN NEB 02/08/24 14:30 02/22/24 05:51 0.5 MG Midazolam HCl 50 ml @ 1 mls/hr Q24H IV 02/08/24 17:00 02/11/24 17:43 4 MLS/HR Pantoprazole Sodium 40 mg DAILY IV 02/09/24 10:00 02/24/24 10:06 40 MG Enteral Nutritional Formula 1,000 ml 30ML/HR GT 02/09/24 13:30 02/24/24 06:50 1,000 ML Albumin Human 100 ml @ 100 mls/hr Q1HR IV 02/12/24 10:00 02/12/24 11:59 Cancel Heparin Sodium (Porcine) 5,000 units LACIE PRN XX 02/14/24 11:00 Lactulose 30 ml DAILY PO 02/15/24 10:00 02/24/24 10:06 30 ML Epoetin Kuldip-epbx 10,000 unit MoWeFr@2100 SC 02/16/24 21:00 02/23/24 21:43 10,000 UNIT Diagnostic Test (Pha) 1 strip Q6HR 02/16/24 00:00 02/24/24 18:19 1 STRIP Dextrose 50 ml UD PRN IV 02/15/24 18:45 Nystatin 5 ml QID MT 02/15/24 22:00 02/24/24 21:52 5 ML Fluconazole 100 ml @ 100 mls/hr DAILY IV 02/16/24 10:00 UNV Hydralazine HCl 20 mg Q4HPRN PRN IV 02/17/24 12:45 02/19/24 17:48 20 MG Trimethoprim/ Sulfamethoxazole 10 ml Q12HR GT 02/22/24 22:00 02/24/24 21:54 10 ML objective Gen.: Patient lying in bed in medical ICU. Head: Normocephalic, atraumatic. Eyes: PERRLA. Ears: Normal external anatomy. Throat: Endotracheal tube and orogastric tube in place. Neck: Supple, trachea midline. Chest: Decreased breath sounds bilaterally. Decreased air entry bilaterally. No wheezing. Bibasilar crackles. Cardiovascular: Positive S1, positive S2. Regular rate and rhythm. Abdomen: Positive bowel sounds in all 4 quadrants. Soft, nontender, nondistended. : Lowery in place. Normal external genitalia. Rectal: Deferred. Skin: Warm, dry. Intact. Extremities: 2+ radial pulses bilaterally. No lower extremity edema. Neuro: Off sedation. laboratory and microbiology Laboratory Tests 02/24/24 05:12 Test 02/24/24 05:12 Range/Units Serum Glucose 108 H 74-106 mg/dL Assessment/Plan Impression: Acute hypoxic respiratory failure On mechanical ventilator Metabolic encephalopathy Acute on chronic renal failure History of CVA with left-sided deficits Metabolic acidosis Events: Patient currently on trach collar with humidified oxygen Continue antibiotic Trach care , pulmonary toileting Supportive care Potassium supplemented Nutrition via tube feeds Poor prognosis. Labs and imaging reviewed. Rest of plan as noted below. Plan: Antibiotics Urine cultures show no growth Monitor WBC Monitor lactic acid Hemodialysis per Nephrology Nephrology recs appreciated Monitor renal function Monitor electrolytes. Supplement as necessary. Monitor ins and outs. GI prophylaxis. DVT prophylaxis. Prognosis: Poor given patient's multiple co-morbidities. Condition: Critical Rest of plan per hospitalist and other consultants. Thank you, Dr. Jules for allowing me to participate in this patient's care. Further recommendations will depend on the patient's clinical course. Please do not hesitate to contact me if you have any questions or concerns. This medical document was created using an electronic medical record system with [employer] computerized dictation system. Although these documentations are being carefully reviewed, there may still be some phonetic and typographical changes. The errors are purely typographical, due to imperfection on the software program, and do not reflect any compromise in the patient's medical care. Dietary Evaluation Review Comments: 1. Nepr @30ml/hr is supporting 100% of pt's protein needs, and 116% of pt's energy needs. 2. Advance to Renal Standard 2 gNa 3K low Phos diet when pt is off vent and pass speech eval. Expected Outcomes/Goals: Improved nutrition status and Gradual weight gains Plan discussed with: Other (RN Marianela, RT, MD) LAKSHMI LAYTON MD Feb 24, 2024 23:48
[2024-02-25] VITALS (23 sets, daily range): BP systolic 114–164; BP diastolic 47–79; PULSE 72–97; RESP 14–23; TEMP 97.8–98.9; O2SAT 98–100
[2024-02-25 05:37] LABS: Basophils # (auto) 0 10 ^3/uL (0-0.2); Basophils % (auto) 0.3 % (0.0-2.0); Hemoglobin 7.4 g/dL (12.2-16.2); Lymphocytes # (auto) 0.7 10 ^3/uL (0.4-5.4); Monocytes # (auto) 0.6 10 ^3/uL (0-1.3); Neutrophils # (auto) 4.5 10 ^3/uL (1.6-8.6); White Blood Cell 5.9 10^3/uL (4.4-10.8)
[2024-02-25 05:40] LABS: Eosinophils # (auto) 0.1 10 ^3/uL (0-0.8); Eosinophils % (auto) 1.1 % (0.0-7.0); Hematocrit 21.6 % (36.0-46.0); Mean Corpuscular Hemoglobin 31.8 pg (28.0-32.0); Mean Corpuscular Hgb Conc. 34.2 g/dL (32.0-36.0); Mean Corpuscular Volume 92.8 fL (80.0-100.0); Monocytes % (auto) 9.9 % (0.0-12.0); Neutrophils % (auto) 76.7 % (37.0-80.0); Platelet Count (auto) 96 10^3/uL (140-450); Red Blood Cells 2.33 10^6/uL (4.0-5.20); Red Cell Distribution Width 16.1 % (11.8-14.3)
[2024-02-25 06:05] LABS: Anion Gap 7 (5-15); Carbon Dioxide 22 mmol/L (20-31); Potassium 3.9 mmol/L (3.5-5.1); Sodium 140 mmol/L (136-145)
[2024-02-25 06:12] LABS: Magnesium 1.9 mg/dL (1.6-2.6)
[2024-02-25 06:27] LABS: Blood Urea Nitrogen 33 mg/dL (9-23); Chloride 111 mmol/L (98-107); Glucose 112 mg/dL (74-106); Phosphorus 2.3 mg/dL (2.4-5.1)
[2024-02-25] MEDS: POTASSIUM PHOSPHATE 44 MEQ in D5W 5% 250 ML IV ONE (11:00)
[2024-02-25] MEDS: MAGNESIUM SULFATE 1GM/100ML 100 ML IV ONE (11:23)
--- NOTE | 2024-02-25 11:48 | DVHPN2 ---
Progress Note Date Seen: Feb 25, 2024 Has the PT tested + for MRSA If YES, has PT been informed?: No Medical Necessity Reason Pt with a Central, PICC or Fol: Yes The following are medically ne: Central Line, Lowery Catheter Reason for lowery catheter: Strict I&O Objective vital signs Vital Sign Date Time Temp Pulse Resp B/P (MAP) Pulse Ox O2 Delivery O2 Flow Rate FiO2 02/25/24 11:00 77 18 148/65 (92) 100 02/25/24 10:00 Trach Collar 6 28 28 02/25/24 08:00 98.8 98.8 Total Intake and Output 02/24/24 02/24/24 02/25/24 15:00 23:00 07:00 Intake Total 410 ml 360 ml Output Total 450 ml 625 ml Balance -40 ml -265 ml medications Current Medications Medications Dose Ordered Sig/Sheila Route Start Time Stop Time Status Last Admin Dose Admin Acetaminophen 650 mg Q6HP PRN PO 02/07/24 19:45 Ipratropium [place] 0.5 mg Q6HPRN PRN NEB 02/08/24 14:30 02/22/24 05:51 0.5 MG Midazolam HCl 50 ml @ 1 mls/hr Q24H IV 02/08/24 17:00 02/11/24 17:43 4 MLS/HR Pantoprazole Sodium 40 mg DAILY IV 02/09/24 10:00 02/25/24 09:57 40 MG Enteral Nutritional Formula 1,000 ml 30ML/HR GT 02/09/24 13:30 02/25/24 06:23 1,000 ML Albumin Human 100 ml @ 100 mls/hr Q1HR IV 02/12/24 10:00 02/12/24 11:59 Cancel Heparin Sodium (Porcine) 5,000 units LACIE PRN XX 02/14/24 11:00 Lactulose 30 ml DAILY PO 02/15/24 10:00 02/25/24 09:57 30 ML Epoetin Kuldip-epbx 10,000 unit MoWeFr@2100 SC 02/16/24 21:00 02/23/24 21:43 10,000 UNIT Diagnostic Test (Pha) 1 strip Q6HR 02/16/24 00:00 02/25/24 11:23 1 STRIP Dextrose 50 ml UD PRN IV 02/15/24 18:45 Nystatin 5 ml QID MT 02/15/24 22:00 02/25/24 05:43 5 ML Fluconazole 100 ml @ 100 mls/hr DAILY IV 02/16/24 10:00 UNV Hydralazine HCl 20 mg Q4HPRN PRN IV 02/17/24 12:45 02/25/24 01:29 20 MG Trimethoprim/ Sulfamethoxazole 10 ml Q12HR GT 02/22/24 22:00 02/25/24 09:59 10 ML laboratory and microbiology Laboratory Tests 02/25/24 05:07 Test 02/25/24 05:07 Range/Units Serum Glucose 112 H 74-106 mg/dL Microbiology Date/Time Source Procedure Growth Status 02/16/24 19:20 Trachea Gram Stain - Final Complete 02/16/24 19:20 Respiratory Culture - Final Bordetella bronchiseptica Stenotrophomonas maltophilia Yeast, not Ellen albicans Complete 02/16/24 18:23 Urine - Lowery Port Urine Culture - Final Yeast, not Ellen albicans Complete 02/08/24 17:17 Sputum Gram Stain - Final Complete 02/08/24 17:17 Respiratory Culture - Final Enterobacter hormaechei Complete 02/08/24 12:10 Blood Blood Culture - Final NO GROWTH AFTER 5 DAYS OF INCUBATION. Complete Problem List/Assessment/Plan Problem List/Assessment/Plan AFEBRILE VSS INTUBATED S/P TRACHEOSTOMY NO COMPLICATIONS NO ACTIVE BLEED CONTINUE SUPPORTIVE CARE Plan discussed with: Other Dietary Evaluation Review Comments: 1. Nepr @30ml/hr is supporting 100% of pt's protein needs, and 116% of pt's energy needs. 2. Advance to Renal Standard 2 gNa 3K low Phos diet when pt is off vent and pass speech eval. Expected Outcomes/Goals: Improved nutrition status and Gradual weight gains LEO NOWAK MD Feb 25, 2024 11:48
--- NOTE | 2024-02-25 18:17 | DVHPN2 ---
Assessment/Plan Assessment/Plan ICU progress note Subjective 88 F with CHF CKD CVA from hospice admitted with failure to trive, intubated for airway protection, with septic shock requiring pressors. found to have multiple infarct likely embolic stroke, now off dialysis, s/p tracheostomy, for transfer to LTACH. Patient was seen by me today during rounds, on T piece 6LPM, status quo, pending tranfer to LTACH once confirmed by family Objective Physical exam trahced on t piece grimacing to pain gag + cough + PERRLA coarse breath sounds s1 s2 RRR abdomen soft Le edema Assessment and plan acute metabolic encephalopathy multiple CVA with residuals, embolic and ischemic possible septic shock 2/2 PNA and UTI Type 2 PR 2/2 above lobar PNA with enterobacter, bordatella, trenotrophomonas incidental adrenal nodule LGIB parathyroid adenoma thyroid nodule JOSE on CKD 4/5 oral trush anemia chornic disease thrombocytopenia c/w bactrim c/w o2 supplementation for LTACH transfer pending family nephro consult appreciated nystatin 2nd stroke prevention hold ac given thrombocytopenia and possible LGIB Lines trach lowery Maintain potassium of 4, phosphate of 3 and magnesium of 2 Diet tube feeding GI prophylaxis protonix DVT prophylaxis lovenox on hold Condition critical Prognosis poor 35 minutes critical care time spent on this patient including evaluation, chart review, formulating plan and communication with team, excluding any procedures or point of care imaging Plan discussed with: Other My Orders Orders - ULISES BRIDGES MD Procedure Category Date Status Time Potassium Phosphate PHA 02/25/24 In Process 11:00 Date of Service: Feb 25, 2024 Billing Provider: ULISES BRIDGES MD Common Visit Codes: [id number] CARE 30-74 MIN ULISES BRIDGES MD Feb 25, 2024 18:17
--- NOTE | 2024-02-25 23:17 | DVHPN2 ---
Progress Note - Dictate Date Seen: Feb 25, 2024 Has the PT tested + for MRSA If YES, has PT been informed?: No Medical Necessity Reason Pt with a Central, PICC or Fol: Yes The following are medically ne: Central Line, Lowery Catheter Reason for lowery catheter: Strict I&O Subjective Patient seen and examined at bedside. Status post tracheostomy Overnight events reviewed. vital signs Vital Sign Date Time Temp Pulse Resp B/P (MAP) Pulse Ox O2 Delivery O2 Flow Rate FiO2 02/25/24 21:00 81 20 137/66 (89) 99 02/25/24 20:00 98.5 98.5 02/25/24 20:00 Trach Collar 6 28 28 Total Intake and Output 02/24/24 02/24/24 02/25/24 14:59 22:59 06:59 Intake Total 410 ml 360 ml Output Total 450 ml 625 ml Balance -40 ml -265 ml medications Current Medications Medications Dose Ordered Sig/Sheila Route Start Time Stop Time Status Last Admin Dose Admin Acetaminophen 650 mg Q6HP PRN PO 02/07/24 19:45 Ipratropium [place] 0.5 mg Q6HPRN PRN NEB 02/08/24 14:30 02/22/24 05:51 0.5 MG Midazolam HCl 50 ml @ 1 mls/hr Q24H IV 02/08/24 17:00 02/11/24 17:43 4 MLS/HR Pantoprazole Sodium 40 mg DAILY IV 02/09/24 10:00 02/25/24 09:57 40 MG Enteral Nutritional Formula 1,000 ml 30ML/HR GT 02/09/24 13:30 02/25/24 06:23 1,000 ML Albumin Human 100 ml @ 100 mls/hr Q1HR IV 02/12/24 10:00 02/12/24 11:59 Cancel Heparin Sodium (Porcine) 5,000 units LACIE PRN XX 02/14/24 11:00 Lactulose 30 ml DAILY PO 02/15/24 10:00 02/25/24 09:57 30 ML Epoetin Kuldip-epbx 10,000 unit MoWeFr@2100 SC 02/16/24 21:00 02/23/24 21:43 10,000 UNIT Diagnostic Test (Pha) 1 strip Q6HR 02/16/24 00:00 02/25/24 17:53 1 STRIP Dextrose 50 ml UD PRN IV 02/15/24 18:45 Nystatin 5 ml QID MT 02/15/24 22:00 02/25/24 22:25 5 ML Fluconazole 100 ml @ 100 mls/hr DAILY IV 02/16/24 10:00 UNV Hydralazine HCl 20 mg Q4HPRN PRN IV 02/17/24 12:45 02/25/24 18:10 20 MG Trimethoprim/ Sulfamethoxazole 10 ml Q12HR GT 02/22/24 22:00 02/25/24 22:26 10 ML objective Gen.: Patient lying in bed in medical ICU. S/p trach, trach collar. Head: Normocephalic, atraumatic. Eyes: PERRLA. Ears: Normal external anatomy. Throat: Endotracheal tube and orogastric tube in place. Neck: Supple, trachea midline. Trach in place Chest: Decreased breath sounds bilaterally. Decreased air entry bilaterally. No wheezing. Bibasilar crackles. Cardiovascular: Positive S1, positive S2. Regular rate and rhythm. Abdomen: Positive bowel sounds in all 4 quadrants. Soft, nontender, nondistended. : Lowery in place. Normal external genitalia. Rectal: Deferred. Skin: Warm, dry. Intact. Extremities: 2+ radial pulses bilaterally. No lower extremity edema. Neuro: Off sedation. laboratory and microbiology Laboratory Tests 02/25/24 05:07 Test 02/25/24 05:07 Range/Units Serum Glucose 112 H 74-106 mg/dL Assessment/Plan Impression: Acute hypoxic respiratory failure On mechanical ventilator Metabolic encephalopathy Acute on chronic renal failure History of CVA with left-sided deficits Metabolic acidosis Events: Patient currently on trach collar with humidified oxygen Continue antibiotic Trach care , pulmonary toileting Supportive care Nutrition via tube feeds - s/p PEG Poor prognosis. Awaiting placement. K, mag supplementation Monitor renal function HOB elevation Aspiration precautions Wound care. Labs and imaging reviewed. Rest of plan as noted below. Plan: Antibiotics Urine cultures show no growth Monitor WBC Monitor lactic acid Hemodialysis per Nephrology Nephrology recs appreciated Monitor renal function Monitor electrolytes. Supplement as necessary. Monitor ins and outs. GI prophylaxis. DVT prophylaxis. Prognosis: Poor given patient's multiple co-morbidities.l Rest of plan per hospitalist and other consultants. Thank you, Dr. Jules for allowing me to participate in this patient's care. Further recommendations will depend on the patient's clinical course. Please do not hesitate to contact me if you have any questions or concerns. This medical document was created using an electronic medical record system with [employer] dictation system. Although these documentations are being carefully reviewed, there may still be some phonetic and typographical changes. The errors are purely typographical, due to imperfection on the software program, and do not reflect any compromise in the patient's medical care. Dietary Evaluation Review Comments: 1. Nepr @30ml/hr is supporting 100% of pt's protein needs, and 116% of pt's energy needs. 2. Advance to Renal Standard 2 gNa 3K low Phos diet when pt is off vent and pass speech eval. Expected Outcomes/Goals: Improved nutrition status and Gradual weight gains Plan discussed with: Spouse, Son, Other (SHANIKA Giron) LAKSHMI LAYTON MD Feb 25, 2024 23:17
--- NOTE | 2024-02-25 23:56 | DVHPN2 ---
Progress Note - Dictate Date Seen: Feb 25, 2024 Has the PT tested + for MRSA If YES, has PT been informed?: No Medical Necessity Reason Pt with a Central, PICC or Fol: Yes The following are medically ne: Central Line, Lowery Catheter Reason for lowery catheter: Strict I&O Subjective Patient was seen and evaluated in follow up in the ICU. Patient is intubated on ventilator via trach collar. 30% FiO2. HGB 7.4, HCT 21.6, CL 111, BUN 33, EPIC ANESTHESIA ANALYST 2.06. vital signs Vital Sign Date Time Temp Pulse Resp B/P (MAP) Pulse Ox O2 Delivery O2 Flow Rate FiO2 02/25/24 12:00 72 02/25/24 12:00 97.8 15 145/59 (87) 100 97.8 02/25/24 12:00 Trach Collar 6 28 28 Total Intake and Output 02/24/24 02/24/24 02/25/24 14:59 22:59 06:59 Intake Total 410 ml 360 ml Output Total 450 ml 625 ml Balance -40 ml -265 ml medications Current Medications Medications Dose Ordered Sig/Sheila Route Start Time Stop Time Status Last Admin Dose Admin Acetaminophen 650 mg Q6HP PRN PO 02/07/24 19:45 Ipratropium [place] 0.5 mg Q6HPRN PRN NEB 02/08/24 14:30 02/22/24 05:51 0.5 MG Midazolam HCl 50 ml @ 1 mls/hr Q24H IV 02/08/24 17:00 02/11/24 17:43 4 MLS/HR Pantoprazole Sodium 40 mg DAILY IV 02/09/24 10:00 02/25/24 09:57 40 MG Enteral Nutritional Formula 1,000 ml 30ML/HR GT 02/09/24 13:30 02/25/24 06:23 1,000 ML Albumin Human 100 ml @ 100 mls/hr Q1HR IV 02/12/24 10:00 02/12/24 11:59 Cancel Heparin Sodium (Porcine) 5,000 units LACIE PRN XX 02/14/24 11:00 Lactulose 30 ml DAILY PO 02/15/24 10:00 02/25/24 09:57 30 ML Epoetin Kuldip-epbx 10,000 unit MoWeFr@2100 SC 02/16/24 21:00 02/23/24 21:43 10,000 UNIT Diagnostic Test (Pha) 1 strip Q6HR 02/16/24 00:00 02/25/24 11:23 1 STRIP Dextrose 50 ml UD PRN IV 02/15/24 18:45 Nystatin 5 ml QID MT 02/15/24 22:00 02/25/24 05:43 5 ML Fluconazole 100 ml @ 100 mls/hr DAILY IV 02/16/24 10:00 UNV Hydralazine HCl 20 mg Q4HPRN PRN IV 02/17/24 12:45 02/25/24 01:29 20 MG Trimethoprim/ Sulfamethoxazole 10 ml Q12HR GT 02/22/24 22:00 02/25/24 09:59 10 ML objective GENERAL: Intubated on ventilator. LUNGS: Decreased breath sounds. CARDIOVASCULAR: Heart sounds are good. ABDOMEN: Soft. : Lowery catheter in place. laboratory and microbiology Laboratory Tests 02/25/24 05:07 Test 02/25/24 05:07 Range/Units Serum Glucose 112 H 74-106 mg/dL Problem List Acute metabolic encephalopathy secondary to uremia. 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 Septic shock secondary to pneumonia and UTI requiring vasopressor support. ESRD on hemodialysis. Positive FIT test. History of multiple strokes, last known stroke August 2023, 12/2021. Residual left-sided weakness. Bed bound. 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 History of CAD status post PTCA LAD by Dr Prieto 2016. Lactic acidosis. Dyslipidemia. Left-sided lobar pneumonia. Acute cystitis. Right parathyroid mass. Hypercalcemia. Left-sided thyroid nodule. Protein energy malnutrition. Assessment/Plan Continued all current supportive medical care. Fluconazole. IV Hydralazine for SBP > 150. Lactulose. GI prophylactics. Additional plan as per the hospital course. Critical care time of 45 minutes provided to include time spent evaluation of patient at bedside, when appropriate patient/family education for diagnosis, treatment plan, review of pertinent medical information and discussion of care with specialty providers and PCP. Mechanical ventilator parameters, treatment and adjustments have personally been reviewed by me and treatment plan by traffic signal technician has also been reviewed. Dietary Evaluation Review Comments: 1. Nepr @30ml/hr is supporting 100% of pt's protein needs, and 116% of pt's energy needs. 2. Advance to Renal Standard 2 gNa 3K low Phos diet when pt is off vent and pass speech eval. Expected Outcomes/Goals: Improved nutrition status and Gradual weight gains Plan discussed with: Other CARTER FRANCO MD Feb 25, 2024 13:54
[2024-02-26] VITALS (27 sets, daily range): BP systolic 126–162; BP diastolic 51–69; PULSE 76–91; RESP 12–23; TEMP 97.2–98.4; O2SAT 99–100
[2024-02-26] MEDS ORDERED: KETAMINE 50mg/ML 1ml syringe IM ONE (08:37)
[2024-02-26] MEDS ORDERED: ROCURONIUM 10MG/ML 10ML VIAL IV ONE (08:38)
[2024-02-26 10:27] LABS: Anion Gap 7 (5-15); Carbon Dioxide 23 mmol/L (20-31); Potassium 4.7 mmol/L (3.5-5.1); Sodium 139 mmol/L (136-145)
[2024-02-26 10:28] LABS: Basophils # (auto) 0 10 ^3/uL (0-0.2); Basophils % (auto) 0.4 % (0.0-2.0); Eosinophils # (auto) 0.1 10 ^3/uL (0-0.8); Eosinophils % (auto) 1.4 % (0.0-7.0); Lymphocytes # (auto) 0.5 10 ^3/uL (0.4-5.4); Monocytes # (auto) 0.6 10 ^3/uL (0-1.3); Neutrophils # (auto) 2.8 10 ^3/uL (1.6-8.6)
[2024-02-26 10:31] LABS: Hematocrit 20.7 % (36.0-46.0); Hemoglobin 7.1 g/dL (12.2-16.2); Lymphocytes % (auto) 12.6 % (10.0-50.0); Mean Corpuscular Hemoglobin 31.7 pg (28.0-32.0); Mean Corpuscular Hgb Conc. 34.2 g/dL (32.0-36.0); Mean Corpuscular Volume 92.7 fL (80.0-100.0); Monocytes % (auto) 15.7 % (0.0-12.0); Neutrophils % (auto) 69.9 % (37.0-80.0); Nucleated Red Blood Cells % 0.1 %; Platelet Count (auto) 99 10^3/uL (140-450); Red Blood Cells 2.23 10^6/uL (4.0-5.20); Red Cell Distribution Width 16.1 % (11.8-14.3)
[2024-02-26 10:33] LABS: BUN/Creatinine Ratio 17.4 (10.0-20.0); Glucose 98 mg/dL (74-106)
[2024-02-26 10:36] LABS: Blood Urea Nitrogen 34 mg/dL (9-23); Chloride 109 mmol/L (98-107)
--- NOTE | 2024-02-26 14:48 | DVHPNRES ---
Progress Note Date Seen: Feb 26, 2024 Resident Creating Document: MARIS CASTRO RESIDENT Has the PT tested + for MRSA If YES, has PT been informed?: No Medical Necessity Reason Pt with a Central, PICC or Fol: Yes The following are medically ne: PICC Line, Lowery Catheter Reason for lowery catheter: Strict I&O Subjective Review of Systems Ms. Godfrey, An 88-year-old female with a history of CHF, CKD, CVA, gout, high lipids, HTN, [place], thyroid issues, parathyroid mass and recurrent UTIs, who was currently on hospice, presented with altered mental status progressively developing over the past week, her condition had been deteriorating, with decreased urine output and oral intake. The family decided to revoke hospice services for the 2nd time ( previously for similar situation) and brought her in to ED for further evaluation. Her surgical history includes a hysterectomy, pacemaker implantation, and PTCA. On admission, she was found to be lethargic and oriented to person only: During the course of the hospitalization patient became even more lethargic brainstem functions intact yet GCS was less than 8. Elevated BUN and creatinine levels were noted, prompting a nephrology consult for acute kidney injury. She could not provide any history, further limited history/ROS obtained at the moment was extracted from family discussion. she was found to have septic shock hypotensive, needing pressor and unable to maintain /protect airways needing intubation sedation and higher level of care. On arrival patient's temperature was 96.3 F, pulse 90 bpm, respiratory rate 12, blood pressure 63/45, 92 on room air. She received IV fluids and her blood pressure improved 103/55. Patient was saturating 99 on 5 L supplementation. 02/07 around noon patient's blood pressure dropped to 65/42 mmHg and therefore she was intubated right femoral CVC was placed in right IJ CVC for hemodialysis was placed. Patient received SC calcitonin 2 doses of 200 mg on 02/07. She has been receiving D5W for the correction of hypernatremia. 02/08 - Patient seen and examined at bedside. She is tachycardic at 109 beats per minute, saturating 95 on FiO2 of 30%. Blood pressure is 107/68. Patient's hypernatremia was overcorrected more than 10 for 24 hours, DC D5W. Started free water through NG 150 mL q.6 hour. Chest x-ray shows left-sided pneumonia, possible aspiration as it was not present on arrival. Started IV Zosyn and vancomycin. Vanco DC ed based on culture results. Started calcitonin 200 units SC q.12. Hepatitis panel pending. Hemodialysis tomorrow 02/09 02/11 - seen and examined over the bedside. She underwent hemodialysis on 02/09 and 02/11. She was transfused 1 packed RBC over the weekend. She has been off sedation since 4:00 a.m.. Safe 500 mL bolus during the hemodialysis session. Occult blood is positive. DC aspirin. Pending parathyroid scan. Echo completed 02/10 shows LVEF 65%. Moderate degree LV diastolic dysfunction. Moderate degree LVH. Moderately dilated RV. Normal valves. RVSP is 52 mmHg. 02/12 - patient seen and examined at bedside. She is on Levophed for, off sedation. Underwent CPAP trial today from 10:00 a.m. to 2:00 p.m.. She is not responding to commands. Chest x-ray shows stable left-sided infiltrate. Thyroid ultrasound is pending. 1 unit of packed RBCs ordered. ABG showed respiratory alkalosis with metabolic compensation. Received Mag and K supplementation. Repeat CBC, Mag, K wnl 02/13 - night temperature 99.1. Patient is satting 91 on 30%. Undergoing hemodialysis today. WBC trending down to 9.2. Chest x-ray shows stable left- sided opacity. Thyroid ultrasound shows heterogeneous left thyroid gland and isthmus with discrete nodule. Patient is on Levophed to off sedation. No CPAP trial. Lactulose started 30 mL once daily 02/14 - not responsive to commands. Off sedation since 02/11. CPAP trial terminated within 1 minute due to apnea. CT head completed, shows new age indeterminate referral right cerebellum infarct. patient is Left upper extremity: Occlusive thrombophlebitis of the cephalic vein with moderate subcutaneous edema in the arm noted. Started nystatin 5 cc swish and swallow. Decreased respiratory rate to 18. Patient had a bowel movement overnight. 02/15 - overnight patient's temperature was 99.3, patient is off sedation and not responding to commands for opening eyes spontaneously. Repeat urine culture and respiratory culture ordered. MRI brain pending. Switched meropenem to Levaquin. Corrected calcium 11.1. 02/18 - MRI brain shows multiple foci of supratentorial and right cerebellar infarct, suggestive of central emboli. nephrology started Bumex b.i.d. 1 g IV. Repeat urine culture shows greater than 1 Lac yeast, chest x-ray shows left side is stable opacity. Patient undergoing tracheostomy 02/18. IV half NS at 75 cc/hour started by Nephrology. Hemodialysis today. DC Levaquin tomorrow. 02/19 - 250 cc urine output. No bowel movement. DC Shmuel catheter. Inserting midline. Started D5W half NS 02/20 - patient is opening her eyes spontaneously. Started on trach collar from 8:00 a.m., switch to vent in p.m.. Right Shmuel femoral catheterization per Dr. Higgins. Daughter Yeni at bedside. Nephrology-continue IV fluids and Bumex, remove all dialysis line if stable. 02/21 - overnight 99.2 F. patient is on trach collar, saturating 100%. ABG showed chronic respiratory alkalosis with metabolic compensation. Discontinue D5 half NS and Bumex. Respiratory culture shows Bordetella, stenotrophomonas, yeast. Started TMP SMX 10 mL GT q.12 hours. 02/22 - no overnight events patient seen and examined. Patient is saturating 99 on trach at 6 L. hemoglobin 7.1 today. Opening eyes to physical stimulation. 02/25 - no overnight events. Patient seen and examined at the bedside. Patient is not responsive to commands. Objective vital signs Vital Sign Date Time Temp Pulse Resp B/P (MAP) Pulse Ox O2 Delivery O2 Flow Rate FiO2 02/26/24 12:00 18 100 Trach Collar 6 28 28 02/26/24 11:00 78 145/57 (86) 02/26/24 08:00 97.8 97.8 Total Intake and Output 02/25/24 02/25/24 02/26/24 15:00 23:00 07:00 Intake Total 100 ml 620 ml 360 ml Output Total 410 ml 350 ml Balance 100 ml 210 ml 10 ml medications Current Medications Medications Dose Ordered Sig/Sheila Route Start Time Stop Time Status Last Admin Dose Admin Acetaminophen 650 mg Q6HP PRN PO 02/07/24 19:45 Ipratropium [place] 0.5 mg Q6HPRN PRN NEB 02/08/24 14:30 02/22/24 05:51 0.5 MG Midazolam HCl 50 ml @ 1 mls/hr Q24H IV 02/08/24 17:00 02/11/24 17:43 4 MLS/HR Pantoprazole Sodium 40 mg DAILY IV 02/09/24 10:00 02/26/24 10:05 40 MG Enteral Nutritional Formula 1,000 ml 30ML/HR GT 02/09/24 13:30 02/25/24 06:23 1,000 ML Albumin Human 100 ml @ 100 mls/hr Q1HR IV 02/12/24 10:00 02/12/24 11:59 Cancel Heparin Sodium (Porcine) 5,000 units LACIE PRN XX 02/14/24 11:00 Lactulose 30 ml DAILY PO 02/15/24 10:00 02/26/24 10:05 30 ML Epoetin Kuldip-epbx 10,000 unit MoWeFr@2100 SC 02/16/24 21:00 02/23/24 21:43 10,000 UNIT Diagnostic Test (Pha) 1 strip Q6HR 02/16/24 00:00 02/26/24 11:33 1 STRIP Dextrose 50 ml UD PRN IV 02/15/24 18:45 Nystatin 5 ml QID MT 02/15/24 22:00 02/26/24 11:59 5 ML Fluconazole 100 ml @ 100 mls/hr DAILY IV 02/16/24 10:00 UNV Hydralazine HCl 20 mg Q4HPRN PRN IV 02/17/24 12:45 02/25/24 18:10 20 MG Trimethoprim/ Sulfamethoxazole 10 ml Q12HR GT 02/22/24 22:00 02/26/24 10:07 10 ML Examination Patient lying in bed, off sedation. RASS -4. Satting 97% on 4 L Trach collar. Not responding to stimulation or verbal commands General: Thin looking, cachectic, afebrile, palor, mucosae are dry. Oral thrush on tongue. Cardiovascular: Regular S1 and S2. No murmurs, gallops or rubs. No JVD elevation. Upper and lower extremity pitting edema. Respiratory: Left-sided crepitations heard. Saturating 99 on FiO2 of 28%. Abdomen: Soft, nontender, nondistended, normal bowel sounds, no rebound tenderness, no organomegaly, no masses. Lowery catheter seen. Stage II decubitus ulcer. Erythema noticed. Genitourinary: Lowery catheter seen. MSK/skin: Skin is dry and warm Neurological: Pupils are isocoric and reactive. laboratory and microbiology Laboratory Tests 02/26/24 09:50 Test 02/26/24 09:50 Range/Units Serum Glucose 98 74-106 mg/dL Microbiology Date/Time Source Procedure Growth Status 02/16/24 19:20 Trachea Gram Stain - Final Complete 02/16/24 19:20 Respiratory Culture - Final Bordetella bronchiseptica Stenotrophomonas maltophilia Yeast, not Ellen albicans Complete 02/16/24 18:23 Urine - [place]y [place] Urine Culture - Final Yeast, not Ellen albicans Complete 02/08/24 17:17 Sputum Gram Stain - Final Complete 02/08/24 17:17 Respiratory Culture - Final Enterobacter hormaechei Complete 02/08/24 12:10 Blood Blood Culture - Final NO GROWTH AFTER 5 DAYS OF INCUBATION. 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 Discontinued aspirin 162 mg daily given the positive occult blood and the low hemoglobin Head CT Stable small chronic infarct in the right basal ganglia. No acute intracranial process. Repeat head CT 02/14 shows right cerebellar age indeterminate infarct MRI brain Multiple foci of supratentorial and right cerebellar areas of acute / subacute infarct. Correlate for possible central embolic process. Multiple foci of chronic lacunar infarcts of bilateral cerebellum and right basal ganglia. 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 Moderate degree LV diastolic dysfunction. Moderate degree LVH. Moderately dilated RV. Normal valves. RVSP is 52 mmHg. RESPIRATORY Left-sided lobar pneumonia, possible aspiration, Gram-positive and Gram-negative with Enterobacter, Bordetella, stenotrophomonas, yeast Sepsis secondary to pneumonia and UTI Final respiratory culture 02/07 shows Enterobacter sensitive to Cipro, levofloxacin, meropenem, TMP SMX Repeat respiratory culture 02/15 shows Bordetella, stenotrophomonas, yeast Antibiotics: TMP SMX q.12 over. Starting 02/21 and fluconazole IV 02/14 G stain shows Gram-positive cocci in chains and pairs, Gram-positive rods DC vanco, discontinue Zosyn starting 02/08 till 02/11 Discontinued meropenem 02/11 till 02/15 Discontinued Levaquin 02/15 till 02/21 MRSA screen negative Continue ipratropium nebulized treatment q.6 p.r.n. On trach collar in a.m.. GI F/U hepatitis panel Hx of 1.0 cm left adrenal nodule Steatosis Positive occult blood Continue pantoprazole 40 mg IV daily Lactulose 30 mL once daily /KIDNEY Acute cystitis JOSE likely secondary to ATN on ESRD undergoing hemodialysis Acute tubular necrosis Prelim urine culture shows greater than 1 lac CFU mixed melissa 3 colony types possible contamination. Repeat urine culture ordered. Repeat urine culture 02/08 shows >100,000 CFU/mL Yeast Identification to follow. FENA greater than 2% Right renal simple appearing cysts measuring up to 3.4 cm. Hemodialysis 02/09 and 02/11, 02/13, 02/15, 02/18 receiving Retacrit 50076 units post dialysis. 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 Left-sided thyroid nodule Thyroid ultrasound 02/12 shows heterogeneous left thyroid gland and isthmus with a discrete nodule Corrected Calcium 11, downtrending Nephrology recommended Recommend start patient on Sensipar po daily in outpatient METABOLIC Non-anion gap metabolic acidosis likely secondary to hyperchloremia and uremia with the respiratory alkalosis Hypovolemic hypernatremia Humoral Hypercalcemia of malignancy Secondary hyperphosphatemia due to ESRD Hypomagnesemia, hypokalemia Gout vs CPPD - chondrocalcinosis seen in knee x-ray in 2022 Patient received IV fluid D5W with 50 mEq sodium bicarb at 100 cc/hour on 02/07 morning of 02/08. Discontinued on 02/08 since over-correction of hyponatremia was noticed. Patient received 2 doses of SC calcitonin 200 mg on 02/07. Received calcitonin 200 mg sc twice daily from 01/21 till 02/11 Discontinued IV bicarb at 100 mL/hour Nephrology Started D5W half NS and Bumex 1 mg b.i.d., discontinued 1/2 ID Sepsis secondary to pneumonia and the UTI Oral thrush Started nystatin swish and swallow 5 cc 02/14 02/15 - Repeat urine culture shows yeast 02/15 - Repeat respiratory culture shows Gram-negative rods and yeast HEM-ONCO Right parathyroid mass Thrombocytopenia Anemia, likely normocytic due to ESRD Anemia of Chronic disease - transfused 1 packed RBC 02/12 and 02/10 - low iron low TIBC OBGYN History of Hysterectomy Protein energy malnutrition LINES Intubated on 02/07, tracheostomy 02/18 Right IJ CVC for hemodialysis placed 02/09 till 02/19 Right-sided Femoral dialysis non tunneled placed 02/09 till 02/22 Left Femoral CVC 02/09 till 02/22 Lowery catheter Drips: Levophed 0, off sedation Last bowel movement, 02/18 NUTRITION: Nepro started 02/08 DVT: Renal dosing Lovenox on hold given the low hemoglobin and positive occult Goals of care/advance care planning; discussed with the daughter and granddaughter at the bedside, modified DNR, PUD prophylaxis: Pantoprazole 40 mg IV daily DVT prophylaxis on hold-enoxaparin 50 mg sc daily renal dosing, patient takes Eliquis at home Plan discussed with Dr. Machuca. Nephrology recommended Recommend start patient on Sensipar po daily in outpatient. information services tech consulted for transfer to LTAC. Poor prognosis Plan discussed with patient's granddaughter over the bedside in which all questions have been answered Goals of care have been discussed with the patient's granddaughter (Skylar) at the bedside for more than 25 minutes, modified DNR status Critical time including chart review, discussion with the patient's granddaughter ray at the bedside excluding procedures included 53 minutes Plan discussed with: Patient Dietary Evaluation Review Comments: 1. Nepr @30ml/hr is supporting 100% of pt's protein needs, and 116% of pt's energy needs. 2. Advance to Renal Standard 2 gNa 3K low Phos diet when pt is off vent and pass speech eval. Expected Outcomes/Goals: Improved nutrition status and Gradual weight gains Date of Service: Feb 26, 2024 Billing Provider: PALAK MACHUCA MD Common Visit Codes: [id number] CARE 30-74 MIN MARIS CASTRO Feb 26, 2024 14:48 PALAK MACHUCA MD Mar 03, 2024 17:07
[2024-02-26] MEDS: BUMETANIDE 2.5mg/10ml (0.25 mg/ml) INJ IV SCH (18:50)
--- NOTE | 2024-02-26 23:18 | DVHPN2 ---
Progress Note - Dictate Date Seen: Feb 26, 2024 Has the PT tested + for MRSA If YES, has PT been informed?: No Medical Necessity Reason Pt with a Central, PICC or Fol: Yes The following are medically ne: PICC Line, Lowery Catheter Reason for lowery catheter: Strict I&O Subjective Patient was seen and evaluated in follow up in the ICU. No overnight events. Patient is intubated on ventilator. 30% FiO2. Patient is not responsive to commands. HGB 7.1, HCT 20.7, BUN 34, Health Unit Coordinator 1.95. vital signs Vital Sign Date Time Temp Pulse Resp B/P (MAP) Pulse Ox O2 Delivery O2 Flow Rate FiO2 02/26/24 20:00 98.3 84 19 126/55 (78) 100 98.3 02/26/24 19:30 28 02/26/24 18:00 Trach Collar 6 Total Intake and Output 02/25/24 02/25/24 02/26/24 15:00 23:00 07:00 Intake Total 100 ml 620 ml 360 ml Output Total 410 ml 350 ml Balance 100 ml 210 ml 10 ml medications Current Medications Medications Dose Ordered Sig/Sheila Route Start Time Stop Time Status Last Admin Dose Admin Acetaminophen 650 mg Q6HP PRN PO 02/07/24 19:45 Ipratropium [place] 0.5 mg Q6HPRN PRN NEB 02/08/24 14:30 02/22/24 05:51 0.5 MG Pantoprazole Sodium 40 mg DAILY IV 02/09/24 10:00 02/26/24 10:05 40 MG Enteral Nutritional Formula 1,000 ml 30ML/HR GT 02/09/24 13:30 02/25/24 06:23 1,000 ML Albumin Human 100 ml @ 100 mls/hr Q1HR IV 02/12/24 10:00 02/12/24 11:59 Cancel Heparin Sodium (Porcine) 5,000 units LACIE PRN XX 02/14/24 11:00 Lactulose 30 ml DAILY PO 02/15/24 10:00 02/26/24 10:05 30 ML Epoetin Kuldip-epbx 10,000 unit MoWeFr@2100 SC 02/16/24 21:00 02/26/24 22:13 10,000 UNIT Diagnostic Test (Pha) 1 strip Q6HR 02/16/24 00:00 02/26/24 17:19 1 STRIP Dextrose 50 ml UD PRN IV 02/15/24 18:45 Nystatin 5 ml QID MT 02/15/24 22:00 02/26/24 22:12 5 ML Fluconazole 100 ml @ 100 mls/hr DAILY IV 02/16/24 10:00 UNV Hydralazine HCl 20 mg Q4HPRN PRN IV 02/17/24 12:45 02/26/24 18:54 20 MG Trimethoprim/ Sulfamethoxazole 10 ml Q12HR GT 02/22/24 22:00 02/26/24 22:13 10 ML Bumetanide 1 mg BIDD IV 02/26/24 18:00 02/26/24 18:50 1 MG objective GENERAL: Intubated on ventilator. LUNGS: Decreased breath sounds. CARDIOVASCULAR: Heart sounds are good. ABDOMEN: Soft. : Lowery catheter in place. laboratory and microbiology Laboratory Tests 02/26/24 09:50 Test 02/26/24 09:50 Range/Units Serum Glucose 98 74-106 mg/dL Problem List Acute metabolic encephalopathy secondary to uremia. 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 Septic shock secondary to pneumonia and UTI requiring vasopressor support. ESRD on hemodialysis. Positive FIT test. History of multiple strokes, last known stroke August 2023, 12/2021. Residual left-sided weakness. Bed bound. 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 History of CAD status post PTCA LAD by Dr Prieto 2016. Lactic acidosis. Dyslipidemia. Left-sided lobar pneumonia. Acute cystitis. Right parathyroid mass. Hypercalcemia. Left-sided thyroid nodule. Protein energy malnutrition. Assessment/Plan Continued all current supportive medical care. Fluconazole. IV Hydralazine for SBP > 150. Lactulose. GI prophylactics. Additional plan as per the hospital course. Critical care time of 45 minutes provided to include time spent evaluation of patient at bedside, when appropriate patient/family education for diagnosis, treatment plan, review of pertinent medical information and discussion of care with specialty providers and PCP. Mechanical ventilator parameters, treatment and adjustments have personally been reviewed by me and treatment plan by top knitter has also been reviewed. Dietary Evaluation Review Comments: 1. Nepr @30ml/hr is supporting 100% of pt's protein needs, and 116% of pt's energy needs. 2. Advance to Renal Standard 2 gNa 3K low Phos diet when pt is off vent and pass speech eval. Expected Outcomes/Goals: Improved nutrition status and Gradual weight gains Plan discussed with: Other CARTER FRANCO MD Feb 26, 2024 23:18
[2024-02-27] VITALS (32 sets, daily range): BP systolic 120–188; BP diastolic 48–77; PULSE 75–94; RESP 12–26; TEMP 97.5–98.7; O2SAT 91–100
[2024-02-27 05:52] LABS: Potassium 4.4 mmol/L (3.5-5.1); Sodium 140 mmol/L (136-145)
[2024-02-27 05:53] LABS: Anion Gap 8 (5-15); Calcium 10.1 mg/dL (8.7-10.4); Carbon Dioxide 22 mmol/L (20-31); Mean Corpuscular Volume 94.5 fL (80.0-100.0); White Blood Cell 4.1 10^3/uL (4.4-10.8)
[2024-02-27 05:57] LABS: Hematocrit 21.6 % (36.0-46.0); Hemoglobin 7.3 g/dL (12.2-16.2); Mean Corpuscular Hemoglobin 31.9 pg (28.0-32.0); Mean Corpuscular Hgb Conc. 33.8 g/dL (32.0-36.0); Platelet Count (auto) 104 10^3/uL (140-450); Red Blood Cells 2.29 10^6/uL (4.0-5.20); Red Cell Distribution Width 16.3 % (11.8-14.3)
[2024-02-27 05:58] LABS: BUN/Creatinine Ratio 18.1 (10.0-20.0); Glucose 96 mg/dL (74-106)
[2024-02-27 05:59] LABS: Blood Urea Nitrogen 35 mg/dL (9-23); Chloride 110 mmol/L (98-107); Magnesium 2.1 mg/dL (1.6-2.6)
[2024-02-27 06:14] LABS: Band Neutrophils % (manual) 0; Basophils % (manual) 0 (0.0-2.0); Blast Cells 0; Metamyelocytes % 0; Myelocytes % 0; Promyelocytes % 0; Reactive Lymphocytes 0
[2024-02-27 08:59] LABS: Eosinophils % (manual) 2 (0-7); Lymphocytes % (manual) 28 (10.0-50.0); Monocytes % (manual) 8 (0-12); Platelet Estimate Decreased
--- NOTE | 2024-02-27 14:25 | DVHPNRES ---
Progress Note Date Seen: Feb 27, 2024 Resident Creating Document: MARIS CASTRO RESIDENT Has the PT tested + for MRSA If YES, has PT been informed?: No Medical Necessity Reason Pt with a Central, PICC or Fol: Yes The following are medically ne: PICC Line, Lowery Catheter Reason for lowery catheter: Strict I&O Subjective Review of Systems Ms. Godfrey, An 88-year-old female with a history of CHF, CKD, CVA, gout, high lipids, HTN, OK, thyroid issues, parathyroid mass and recurrent UTIs, who was currently on hospice, presented with altered mental status progressively developing over the past week, her condition had been deteriorating, with decreased urine output and oral intake. The family decided to revoke hospice services for the 2nd time ( previously for similar situation) and brought her in to ED for further evaluation. Her surgical history includes a hysterectomy, pacemaker implantation, and PTCA. On admission, she was found to be lethargic and oriented to person only: During the course of the hospitalization patient became even more lethargic brainstem functions intact yet GCS was less than 8. Elevated BUN and creatinine levels were noted, prompting a nephrology consult for acute kidney injury. She could not provide any history, further limited history/ROS obtained at the moment was extracted from family discussion. she was found to have septic shock hypotensive, needing pressor and unable to maintain /protect airways needing intubation sedation and higher level of care. On arrival patient's temperature was 96.3 F, pulse 90 bpm, respiratory rate 12, blood pressure 63/45, 92 on room air. She received IV fluids and her blood pressure improved 103/55. Patient was saturating 99 on 5 L supplementation. 02/07 around noon patient's blood pressure dropped to 65/42 mmHg and therefore she was intubated right femoral CVC was placed in right IJ CVC for hemodialysis was placed. Patient received SC calcitonin 2 doses of 200 mg on 02/07. She has been receiving D5W for the correction of hypernatremia. Patient seen and examined at the bedside. Decreased oxygen from 6 L to 4 L on trach collar. Hemoglobin stable at 7.3. Patient was started on Bumex 1 g b.i.d. yesterday. Urine output 875 last day. Objective vital signs Vital Sign Date Time Temp Pulse Resp B/P (MAP) Pulse Ox O2 Delivery O2 Flow Rate FiO2 02/27/24 12:30 75 15 99 02/27/24 10:00 Trach Collar 08 18 2702/27/24 08:00 98.7 98.7 Total Intake and Output 02/26/24 02/26/24 02/27/24 15:00 23:00 07:00 Intake Total 360 ml 480 ml Output Total 310 ml 575 ml Balance 50 ml -95 ml medications Current Medications Medications Dose Ordered Sig/Sheila Route Start Time Stop Time Status Last Admin Dose Admin Acetaminophen 650 mg Q6HP PRN PO 02/07/24 19:45 Ipratropium [place] 0.5 mg Q6HPRN PRN NEB 02/08/24 14:30 02/22/24 05:51 0.5 MG Pantoprazole Sodium 40 mg DAILY IV 02/09/24 10:00 02/27/24 10:26 40 MG Enteral Nutritional Formula 1,000 ml 30ML/HR GT 02/09/24 13:30 02/25/24 06:23 1,000 ML Albumin Human 100 ml @ 100 mls/hr Q1HR IV 02/12/24 10:00 02/12/24 11:59 Cancel Heparin Sodium (Porcine) 5,000 units LACIE PRN XX 02/14/24 11:00 Lactulose 30 ml DAILY PO 02/15/24 10:00 02/27/24 10:26 30 ML Epoetin Kuldip-epbx 10,000 unit MoWeFr@2100 SC 02/16/24 21:00 02/26/24 22:13 10,000 UNIT Diagnostic Test (Pha) 1 strip Q6HR 02/16/24 00:00 02/27/24 05:45 1 STRIP Dextrose 50 ml UD PRN IV 02/15/24 18:45 Nystatin 5 ml QID MT 02/15/24 22:00 02/27/24 12:36 5 ML Fluconazole 100 ml @ 100 mls/hr DAILY IV 02/16/24 10:00 UNV Hydralazine HCl 20 mg Q4HPRN PRN IV 02/17/24 12:45 02/27/24 10:48 20 MG Trimethoprim/ Sulfamethoxazole 10 ml Q12HR GT 02/22/24 22:00 02/27/24 10:31 10 ML Bumetanide 1 mg BIDD IV 02/26/24 18:00 02/27/24 05:45 1 MG Examination Patient lying in bed, off sedation. RASS -4. Satting 97% on 4 L Trach collar. Not responding to stimulation or verbal commands General: Thin looking, cachectic, afebrile, palor, mucosae are dry. Oral thrush on tongue. Cardiovascular: Regular S1 and S2. No murmurs, gallops or rubs. No JVD elevation. Upper and lower extremity pitting edema. Respiratory: Left-sided crepitations heard. Saturating 99 on FiO2 of 28%. Abdomen: Soft, nontender, nondistended, normal bowel sounds, no rebound tenderness, no organomegaly, no masses. Lowery catheter seen. Stage II decubitus ulcer. Erythema noticed. Genitourinary: Lowery catheter seen. MSK/skin: Skin is dry and warm Neurological: Pupils are isocoric and reactive. laboratory and microbiology Laboratory Tests 02/27/24 05:00 Test 02/27/24 05:00 Range/Units Serum Glucose 96 74-106 mg/dL Microbiology Date/Time Source Procedure Growth Status 02/16/24 19:20 Trachea Gram Stain - Final Complete 02/16/24 19:20 Respiratory Culture - Final Bordetella bronchiseptica Stenotrophomonas maltophilia Yeast, not Ellen albicans Complete 02/16/24 18:23 Urine - [place]y [place] Urine Culture - Final Yeast, not Ellen albicans Complete 02/08/24 17:17 Sputum Gram Stain - Final Complete 02/08/24 17:17 Respiratory Culture - Final Enterobacter hormaechei Complete 02/08/24 12:10 Blood Blood Culture - Final NO GROWTH AFTER 5 DAYS OF INCUBATION. 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 Discontinued aspirin 162 mg daily given the positive occult blood and the low hemoglobin Head CT Stable small chronic infarct in the right basal ganglia. No acute intracranial process. Repeat head CT 02/14 shows right cerebellar age indeterminate infarct MRI brain Multiple foci of supratentorial and right cerebellar areas of acute / subacute infarct. Correlate for possible central embolic process. Multiple foci of chronic lacunar infarcts of bilateral cerebellum and right basal ganglia. CARDIOVASCULAR Septic shock secondary to pneumonia and UTI requiring vasopressor support History of third-degree AV block status post Biotronik pacemaker 2015 Dr Prieto Likely type 2 NSTEMI History of CAD status post PTCA LAD by Dr Prieto 2016 Lactic acidosis Dyslipidemia Probable atrial fibrillation Prelim blood culture negative after 24 hours Discontinued aspirin 162 mg daily Continue atorvastatin 40 mg daily Echo completed 02/11/24 shows LVEF 65%. Moderate degree LV diastolic dysfunction. Moderate degree LVH. Moderately dilated RV. Normal valves. RVSP is 52 mmHg. RESPIRATORY Left-sided lobar pneumonia, possible aspiration, Gram-positive and Gram-negative with Enterobacter, Bordetella, stenotrophomonas, yeast Sepsis secondary to pneumonia and UTI Final respiratory culture 02/07 shows Enterobacter sensitive to Cipro, levofloxacin, meropenem, TMP SMX Repeat respiratory culture 02/15 shows Bordetella, stenotrophomonas, yeast Antibiotics: TMP SMX q.12 Starting 02/21 and fluconazole IV 02/14 G stain shows Gram-positive cocci in chains and pairs, Gram-positive rods DC vanco, discontinue Zosyn starting 02/08 till 02/11 Discontinued meropenem 02/11 till 02/15 Discontinued Levaquin 02/15 till 02/21 MRSA screen negative Continue ipratropium nebulized treatment q.6 p.r.n. On trach collar in a.m.. GI F/U hepatitis panel Hx of 1.0 cm left adrenal nodule Steatosis Positive occult blood Continue pantoprazole 40 mg IV daily Lactulose 30 mL once daily /KIDNEY Acute cystitis JOSE likely secondary to ATN on ESRD undergoing hemodialysis Acute tubular necrosis Prelim urine culture shows greater than 1 lac CFU mixed melissa 3 colony types possible contamination. Repeat urine culture ordered. Repeat urine culture 02/08 shows >100,000 CFU/mL Yeast Identification to follow. FENA greater than 2% Right renal simple appearing cysts measuring up to 3.4 cm. Hemodialysis 02/09 and 02/11, 02/13, 02/15, 02/18 receiving Retacrit 87313 units post dialysis. Bumex 1 mg IV b.i.d. 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 Left-sided thyroid nodule Thyroid ultrasound 02/12 shows heterogeneous left thyroid gland and isthmus with a discrete nodule Corrected Calcium 11, downtrending Nephrology recommended Recommend start patient on Sensipar po daily in outpatient METABOLIC Non-anion gap metabolic acidosis likely secondary to hyperchloremia and uremia with the respiratory alkalosis Hypovolemic hypernatremia Humoral Hypercalcemia of malignancy Secondary hyperphosphatemia due to ESRD Hypomagnesemia, hypokalemia Gout vs CPPD - chondrocalcinosis seen in knee x-ray in 2022 Patient received IV fluid D5W with 50 mEq sodium bicarb at 100 cc/hour on 02/07 morning of 02/08. Discontinued on 02/08 since over-correction of hyponatremia was noticed. Patient received 2 doses of SC calcitonin 200 mg on 02/07. Received calcitonin 200 mg sc twice daily from 01/21 till 02/11 Discontinued IV bicarb at 100 mL/hour Nephrology Started D5W half NS and Bumex 1 mg b.i.d., discontinued 02/21 ID Sepsis secondary to pneumonia and the UTI Oral thrush Started nystatin swish and swallow 5 cc 02/14 02/15 - Repeat urine culture shows yeast 02/15 - Repeat respiratory culture shows Gram-negative rods and yeast HEM-ONCO Right parathyroid mass Thrombocytopenia Anemia, likely normocytic due to ESRD Anemia of Chronic disease - transfused 1 packed RBC 02/12 and 02/10 - low iron low TIBC OBGYN History of Hysterectomy Protein energy malnutrition LINES Intubated on 02/07, tracheostomy 02/18 Right IJ CVC for hemodialysis placed 02/09 till 02/19 Right-sided Femoral dialysis non tunneled placed 02/09 till 02/22 Left Femoral CVC 02/09 till 02/22 Lowery catheter Drips: Levophed 0, off sedation Last bowel movement, 02/18 NUTRITION: Nepro started 02/08 DVT: Renal dosing Lovenox on hold given the low hemoglobin and positive occult Goals of care/advance care planning; discussed with the daughter and granddaughter at the bedside, modified DNR, PUD prophylaxis: Pantoprazole 40 mg IV daily DVT prophylaxis on hold-enoxaparin 50 mg sc daily renal dosing, patient takes Eliquis at home Plan discussed with Dr. Machuca. Bumex 1 mg b.i.d. IV starting 02/25. Nephrology recommended Recommend start patient on Sensipar po daily in outpatient. director of medical staff services consulted for transfer to LTAC. Poor prognosis Plan discussed with patient's granddaughter over the bedside in which all questions have been answered Goals of care have been discussed with the patient's granddaughter (Skylar) at the bedside for more than 25 minutes, modified DNR status Critical time including chart review, discussion with the patient's granddaughter ray at the bedside excluding procedures included 43 minutes Plan discussed with: Patient My Orders My Orders Orders - MARIS CASTRO Procedure Category Date Status Time Bumetanide Injection PHA 02/26/24 In Process (Bumex Injection) 18:00 Dietary Evaluation Review Comments: 1. Nepr @30ml/hr is supporting 100% of pt's protein needs, and 116% of pt's energy needs. 2. Advance to Renal Standard 2 gNa 3K low Phos diet when pt is off vent and pass speech eval. Expected Outcomes/Goals: Improved nutrition status and Gradual weight gains Date of Service: Feb 27, 2024 Billing Provider: PALAK MACHUCA MD Common Visit Codes: 26037-[id number] CARE 30-74 MIN MARIS CASTRO Feb 27, 2024 14:25 PALAK MACHUCA MD Feb 28, 2024 10:58
--- NOTE | 2024-02-27 22:27 | DVHPN2 ---
Progress Note - Dictate Date Seen: Feb 27, 2024 Has the PT tested + for MRSA If YES, has PT been informed?: No Medical Necessity Reason Pt with a Central, PICC or Fol: Yes The following are medically ne: PICC Line, Lowery Catheter Reason for lowery catheter: Strict I&O Subjective Patient was seen and evaluated in follow up in the ICU. Patient is intubated on ventilator on trach collar. Oxygen decreased to 4 L. Patient started on Bumex yesterday, urine output improving. HGB 7.3, HCT 21.6, BUN 35, Process Chemist 1.93. vital signs Vital Sign Date Time Temp Pulse Resp B/P (MAP) Pulse Ox O2 Delivery O2 Flow Rate FiO2 02/27/24 22:00 97.5 82 19 137/72 (93) 91 97.5 02/27/24 12:00 Trach Collar 6 28 28 Total Intake and Output 02/26/24 02/26/24 02/27/24 15:00 23:00 07:00 Intake Total 360 ml 480 ml Output Total 310 ml 575 ml Balance 50 ml -95 ml medications Current Medications Medications Dose Ordered Sig/Sheila Route Start Time Stop Time Status Last Admin Dose Admin Acetaminophen 650 mg Q6HP PRN PO 02/07/24 19:45 Ipratropium [place] 0.5 mg Q6HPRN PRN NEB 02/08/24 14:30 02/22/24 05:51 0.5 MG Pantoprazole Sodium 40 mg DAILY IV 02/09/24 10:00 02/27/24 10:26 40 MG Enteral Nutritional Formula 1,000 ml 30ML/HR GT 02/09/24 13:30 02/25/24 06:23 1,000 ML Albumin Human 100 ml @ 100 mls/hr Q1HR IV 02/12/24 10:00 02/12/24 11:59 Cancel Heparin Sodium (Porcine) 5,000 units LACIE PRN XX 02/14/24 11:00 Lactulose 30 ml DAILY PO 02/15/24 10:00 02/27/24 10:26 30 ML Epoetin Kuldip-epbx 10,000 unit MoWeFr@2100 SC 02/16/24 21:00 02/26/24 22:13 10,000 UNIT Diagnostic Test (Pha) 1 strip Q6HR 02/16/24 00:00 02/27/24 17:51 1 STRIP Dextrose 50 ml UD PRN IV 02/15/24 18:45 Nystatin 5 ml QID MT 02/15/24 22:00 02/27/24 17:30 5 ML Fluconazole 100 ml @ 100 mls/hr DAILY IV 02/16/24 10:00 UNV Hydralazine HCl 20 mg Q4HPRN PRN IV 02/17/24 12:45 02/27/24 10:48 20 MG Trimethoprim/ Sulfamethoxazole 10 ml Q12HR GT 02/22/24 22:00 02/27/24 10:31 10 ML Bumetanide 1 mg BIDD IV 02/26/24 18:00 02/27/24 17:30 1 MG objective GENERAL: Intubated on ventilator. LUNGS: Decreased breath sounds. CARDIOVASCULAR: Heart sounds are good. ABDOMEN: Soft. : Lowery catheter in place. laboratory and microbiology Laboratory Tests 02/27/24 05:00 Test 02/27/24 05:00 Range/Units Serum Glucose 96 74-106 mg/dL Problem List Acute metabolic encephalopathy secondary to uremia. 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 Septic shock secondary to pneumonia and UTI requiring vasopressor support. ESRD on hemodialysis. Positive FIT test. History of multiple strokes, last known stroke August 2023, 12/2021. Residual left-sided weakness. Bed bound. 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 History of CAD status post PTCA LAD by Dr Prieto 2016. Lactic acidosis. Dyslipidemia. Left-sided lobar pneumonia. Acute cystitis. Right parathyroid mass. Hypercalcemia. Left-sided thyroid nodule. Protein energy malnutrition. Assessment/Plan Continued all current supportive medical care. Diuretics with Bumex. IV Hydralazine for SBP > 150. Lactulose. GI prophylactics. Bactrim. Additional plan as per the hospital course. Critical care time of 45 minutes provided to include time spent evaluation of patient at bedside, when appropriate patient/family education for diagnosis, treatment plan, review of pertinent medical information and discussion of care with specialty providers and PCP. Mechanical ventilator parameters, treatment and adjustments have personally been reviewed by me and treatment plan by tent assembler has also been reviewed. Dietary Evaluation Review Comments: 1. Nepr @30ml/hr is supporting 100% of pt's protein needs, and 116% of pt's energy needs. 2. Advance to Renal Standard 2 gNa 3K low Phos diet when pt is off vent and pass speech eval. Expected Outcomes/Goals: Improved nutrition status and Gradual weight gains Plan discussed with: Other CARTER FRANCO MD Feb 27, 2024 22:26
[2024-02-28] VITALS (10 sets, daily range): BP systolic 120–149; BP diastolic 57–72; PULSE 77–84; RESP 14–19; TEMP 98.1–98.8; O2SAT 96–100
[2024-02-28 06:19] LABS: Potassium 4.5 mmol/L (3.5-5.1); Sodium 139 mmol/L (136-145)
[2024-02-28 06:20] LABS: Anion Gap 6 (5-15); Carbon Dioxide 24 mmol/L (20-31)
[2024-02-28 06:21] LABS: Calcium 10.2 mg/dL (8.7-10.4)
[2024-02-28 06:22] LABS: Chloride 109 mmol/L (98-107)
[2024-02-28 06:25] LABS: Glucose 97 mg/dL (74-106)
[2024-02-28 06:26] LABS: BUN/Creatinine Ratio 19.2 (10.0-20.0)
[2024-02-28 06:28] LABS: Hemoglobin 7.2 g/dL (12.2-16.2)
[2024-02-28 06:30] LABS: Blood Urea Nitrogen 38 mg/dL (9-23); Hematocrit 21.3 % (36.0-46.0); Mean Corpuscular Hemoglobin 31.7 pg (28.0-32.0); Mean Corpuscular Hgb Conc. 33.9 g/dL (32.0-36.0); Mean Corpuscular Volume 93.5 fL (80.0-100.0); Platelet Count (auto) 116 10^3/uL (140-450); Red Blood Cells 2.27 10^6/uL (4.0-5.20); Red Cell Distribution Width 16.9 % (11.8-14.3)
--- NOTE | 2024-02-28 06:54 | DVHPNRES ---
Progress Note Date Seen: Feb 28, 2024 Resident Creating Document: MARIS CASTRO RESIDENT Has the PT tested + for MRSA If YES, has PT been informed?: No Medical Necessity Reason Pt with a Central, PICC or Fol: Yes The following are medically ne: PICC Line, Lowery Catheter Reason for lowery catheter: Strict I&O Subjective Review of Systems Ms. Godfrey, An 88-year-old female with a history of CHF, CKD, CVA, gout, high lipids, HTN, OR, thyroid issues, parathyroid mass and recurrent UTIs, who was currently on hospice, presented with altered mental status progressively developing over the past week, her condition had been deteriorating, with decreased urine output and oral intake. The family decided to revoke hospice services for the 2nd time ( previously for similar situation) and brought her in to ED for further evaluation. Her surgical history includes a hysterectomy, pacemaker implantation, and PTCA. On admission, she was found to be lethargic and oriented to person only: During the course of the hospitalization patient became even more lethargic brainstem functions intact yet GCS was less than 8. Elevated BUN and creatinine levels were noted, prompting a nephrology consult for acute kidney injury. She could not provide any history, further limited history/ROS obtained at the moment was extracted from family discussion. she was found to have septic shock hypotensive, needing pressor and unable to maintain /protect airways needing intubation sedation and higher level of care. On arrival patient's temperature was 96.3 F, pulse 90 bpm, respiratory rate 12, blood pressure 63/45, 92 on room air. She received IV fluids and her blood pressure improved 103/55. Patient was saturating 99 on 5 L supplementation. 02/07 around noon patient's blood pressure dropped to 65/42 mmHg and therefore she was intubated right femoral CVC was placed in right IJ CVC for hemodialysis was placed. Patient received SC calcitonin 2 doses of 200 mg on 02/07. She has been receiving D5W for the correction of hypernatremia. Patient seen and examined at the bedside. no acute issues. Objective vital signs Vital Sign Date Time Temp Pulse Resp B/P (MAP) Pulse Ox O2 Delivery O2 Flow Rate FiO2 02/28/24 06:27 144/71 02/28/24 05:00 98.5 77 17 99 98.5 02/27/24 22:35 Trach Collar 6.0 02/27/24 22:35 28 28 Total Intake and Output 02/27/24 02/27/24 02/28/24 15:00 23:00 07:00 Output Total 1100 ml Balance -1100 ml medications Current Medications Medications Dose Ordered Sig/Sheila Route Start Time Stop Time Status Last Admin Dose Admin Acetaminophen 650 mg Q6HP PRN PO 02/07/24 19:45 Ipratropium [place] 0.5 mg Q6HPRN PRN NEB 02/08/24 14:30 02/22/24 05:51 0.5 MG Pantoprazole Sodium 40 mg DAILY IV 02/09/24 10:00 02/27/24 10:26 40 MG Enteral Nutritional Formula 1,000 ml 30ML/HR GT 02/09/24 13:30 02/27/24 22:42 1,000 ML Albumin Human 100 ml @ 100 mls/hr Q1HR IV 02/12/24 10:00 02/12/24 11:59 Cancel Heparin Sodium (Porcine) 5,000 units LACIE PRN XX 02/14/24 11:00 Lactulose 30 ml DAILY PO 02/15/24 10:00 02/27/24 10:26 30 ML Epoetin Kuldip-epbx 10,000 unit MoWeFr@2100 SC 02/16/24 21:00 02/26/24 22:13 10,000 UNIT Diagnostic Test (Pha) 1 strip Q6HR 02/16/24 00:00 02/28/24 06:27 1 STRIP Dextrose 50 ml UD PRN IV 02/15/24 18:45 Nystatin 5 ml QID MT 02/15/24 22:00 02/28/24 06:28 5 ML Fluconazole 100 ml @ 100 mls/hr DAILY IV 02/16/24 10:00 UNV Hydralazine HCl 20 mg Q4HPRN PRN IV 02/17/24 12:45 02/27/24 10:48 20 MG Trimethoprim/ Sulfamethoxazole 10 ml Q12HR GT 02/22/24 22:00 02/27/24 22:40 10 ML Bumetanide 1 mg BIDD IV 02/26/24 18:00 02/28/24 06:27 1 MG Examination Patient lying in bed, off sedation. RASS -4. Satting 97% on 4 L Trach collar. Not responding to stimulation or verbal commands General: Thin looking, cachectic, afebrile, palor, mucosae are dry. Oral thrush on tongue. Cardiovascular: Regular S1 and S2. No murmurs, gallops or rubs. No JVD elevation. Upper and lower extremity pitting edema. Respiratory: Left-sided crepitations heard. Saturating 99 on FiO2 of 28%. Abdomen: Soft, nontender, nondistended, normal bowel sounds, no rebound tenderness, no organomegaly, no masses. Lowery catheter seen. Stage II decubitus ulcer. Erythema noticed. Genitourinary: Lowery catheter seen. MSK/skin: Skin is dry and warm Neurological: Pupils are isocoric and reactive. laboratory and microbiology Laboratory Tests 02/28/24 05:11 Test 02/28/24 05:11 Range/Units Serum Glucose 97 74-106 mg/dL Microbiology Date/Time Source Procedure Growth Status 02/16/24 19:20 Trachea Gram Stain - Final Complete 02/16/24 19:20 Respiratory Culture - Final Bordetella bronchiseptica Stenotrophomonas maltophilia Yeast, not Ellen albicans Complete 02/16/24 18:23 Urine - Lowery Port Urine Culture - Final Yeast, not Ellen albicans Complete 02/08/24 17:17 Sputum Gram Stain - Final Complete 02/08/24 17:17 Respiratory Culture - Final Enterobacter hormaechei Complete 02/08/24 12:10 Blood Blood Culture - Final NO GROWTH AFTER 5 DAYS OF INCUBATION. 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 Discontinued aspirin 162 mg daily given the positive occult blood and the low hemoglobin Head CT Stable small chronic infarct in the right basal ganglia. No acute intracranial process. Repeat head CT 02/14 shows right cerebellar age indeterminate infarct MRI brain Multiple foci of supratentorial and right cerebellar areas of acute / subacute infarct. Correlate for possible central embolic process. Multiple foci of chronic lacunar infarcts of bilateral cerebellum and right basal ganglia. 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 Moderate degree LV diastolic dysfunction. Moderate degree LVH. Moderately dilated RV. Normal valves. RVSP is 52 mmHg. RESPIRATORY Left-sided lobar pneumonia, possible aspiration, Gram-positive and Gram-negative with Enterobacter, Bordetella, stenotrophomonas, yeast Sepsis secondary to pneumonia and UTI Final respiratory culture 02/07 shows Enterobacter sensitive to Cipro, levofloxacin, meropenem, TMP SMX Repeat respiratory culture 02/15 shows Bordetella, stenotrophomonas, yeast Antibiotics: TMP SMX q.12 Starting 02/21 and fluconazole IV 02/14 G stain shows Gram-positive cocci in chains and pairs, Gram-positive rods DC vanco, discontinue Zosyn starting 02/08 till 02/11 Discontinued meropenem 02/11 till 02/15 Discontinued Levaquin 02/15 till 02/21 MRSA screen negative Continue ipratropium nebulized treatment q.6 p.r.n. On trach collar in a.m.. GI F/U hepatitis panel Hx of 1.0 cm left adrenal nodule Steatosis Positive occult blood Continue pantoprazole 40 mg IV daily Lactulose 30 mL once daily /KIDNEY Acute cystitis JOSE likely secondary to ATN on ESRD undergoing hemodialysis Acute tubular necrosis Prelim urine culture shows greater than 1 lac CFU mixed melissa 3 colony types possible contamination. Repeat urine culture ordered. Repeat urine culture 02/08 shows >100,000 CFU/mL Yeast Identification to follow. FENA greater than 2% Right renal simple appearing cysts measuring up to 3.4 cm. Hemodialysis 02/09 and 02/11, 02/13, 02/15, 02/18 receiving Retacrit 55223 units post dialysis. Bumex 1 mg IV b.i.d. 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 Left-sided thyroid nodule Thyroid ultrasound 02/12 shows heterogeneous left thyroid gland and isthmus with a discrete nodule Corrected Calcium 11, downtrending Nephrology recommended Recommend start patient on Sensipar po daily in outpatient METABOLIC Non-anion gap metabolic acidosis likely secondary to hyperchloremia and uremia with the respiratory alkalosis Hypovolemic hypernatremia Humoral Hypercalcemia of malignancy Secondary hyperphosphatemia due to ESRD Hypomagnesemia, hypokalemia Gout vs CPPD - chondrocalcinosis seen in knee x-ray in 2022 Patient received IV fluid D5W with 50 mEq sodium bicarb at 100 cc/hour on 02/07 morning of 02/08. Discontinued on 02/08 since over-correction of hyponatremia was noticed. Patient received 2 doses of SC calcitonin 200 mg on 02/07. Received calcitonin 200 mg sc twice daily from 01/21 till 02/11 Discontinued IV bicarb at 100 mL/hour Nephrology Started D5W half NS and Bumex 1 mg b.i.d., discontinued 02/21 ID Sepsis secondary to pneumonia and the UTI Oral thrush Started nystatin swish and swallow 5 cc 02/14 02/15 - Repeat urine culture shows yeast 02/15 - Repeat respiratory culture shows Gram-negative rods and yeast HEM-ONCO Right parathyroid mass Thrombocytopenia Anemia, likely normocytic due to ESRD Anemia of Chronic disease - transfused 1 packed RBC 02/12 and 02/10 - low iron low TIBC OBGYN History of Hysterectomy Protein energy malnutrition LINES Intubated on 02/07, tracheostomy 02/18 Right IJ CVC for hemodialysis placed 02/09 till 02/19 Right-sided Femoral dialysis non tunneled placed 02/09 till 02/22 Left Femoral CVC 02/09 till 02/22 Lowery catheter Drips: Levophed 0, off sedation Last bowel movement, 02/18 NUTRITION: Nepro started 02/08 DVT: Renal dosing Lovenox on hold given the low hemoglobin and positive occult Goals of care/advance care planning; discussed with the daughter and granddaughter at the bedside, modified DNR, PUD prophylaxis: Pantoprazole 40 mg IV daily DVT prophylaxis on hold-enoxaparin 50 mg sc daily renal dosing, patient takes Eliquis at home Plan discussed with Dr. Machuca. Bumex 1 mg b.i.d. IV starting 02/25. Nephrology recommended Recommend start patient on Sensipar po daily in outpatient. human services assistant consulted for transfer to LTAC. Poor prognosis Plan discussed with patient's granddaughter over the bedside in which all questions have been answered Goals of care have been discussed with the patient's granddaughter (Skylar) at the bedside for more than 25 minutes, modified DNR status Critical time including chart review, discussion with the patient's granddaughter ray at the bedside excluding procedures included 43 minutes Plan discussed with: Patient My Orders My Orders Orders - MARIS CASTRO Procedure Category Date Status Time Complete Blood Count LAB 02/28/24 In Process 04:00 Abg W/ Co-Ox RT 02/28/24 Logged 04:00 Dietary Evaluation Review Comments: 1. Nepr @30ml/hr is supporting 100% of pt's protein needs, and 116% of pt's energy needs. 2. Advance to Renal Standard 2 gNa 3K low Phos diet when pt is off vent and pass speech eval. Expected Outcomes/Goals: Improved nutrition status and Gradual weight gains Date of Service: Feb 28, 2024 Billing Provider: PALAK MACHUCA MD Common Visit Codes: 16654-[id number] CARE 30-74 MIN MARIS CASTRO Feb 28, 2024 06:54 PALAK MACHUCA MD Feb 29, 2024 12:53
[2024-02-28 07:11] LABS: Basophils % (manual) 0 (0.0-2.0); Blast Cells 0; Metamyelocytes % 0; Myelocytes % 0; Promyelocytes % 0; Reactive Lymphocytes 0
[2024-02-28 07:55] LABS: Base Excess -1.5 mmol/L (-2.0-3.0)
[2024-02-28 08:17] LABS: Band Neutrophils % (manual) 4; Eosinophils % (manual) 1 (0-7); Lymphocytes % (manual) 23 (10.0-50.0); Monocytes % (manual) 17 (0-12); Platelet Estimate Decreased
--- NOTE | 2024-02-28 15:04 | DVHPN2 ---
Progress Note - Dictate Date Seen: Feb 28, 2024 Has the PT tested + for MRSA If YES, has PT been informed?: No Medical Necessity Reason Pt with a Central, PICC or Fol: Yes The following are medically ne: PICC Line, Lowery Catheter Reason for lowery catheter: Strict I&O Subjective Patient was seen and evaluated in follow up. Patient has been downgraded. Patient is intubated on ventilator on trach collar, 6L. WBC 4, HGB 7.2, HCT 21.3, CL 109, BUN 38, INTELLIGENCE OFFICER 1.98. Awaiting for transfer to [facility]. vital signs Vital Sign Date Time Temp Pulse Resp B/P (MAP) Pulse Ox O2 Delivery O2 Flow Rate FiO2 02/28/24 12:34 98.1 77 14 149/66 (93) 100 98.1 02/28/24 08:00 Trach Collar 6 40 40 Total Intake and Output 02/27/24 02/27/24 02/28/24 15:00 23:00 07:00 Output Total 1100 ml Balance -1100 ml medications Current Medications Medications Dose Ordered Sig/Sheila Route Start Time Stop Time Status Last Admin Dose Admin Acetaminophen 650 mg Q6HP PRN PO 02/07/24 19:45 Ipratropium [place] 0.5 mg Q6HPRN PRN NEB 02/08/24 14:30 02/22/24 05:51 0.5 MG Pantoprazole Sodium 40 mg DAILY IV 02/09/24 10:00 02/28/24 09:14 40 MG Enteral Nutritional Formula 1,000 ml 30ML/HR GT 02/09/24 13:30 02/27/24 22:42 1,000 ML Albumin Human 100 ml @ 100 mls/hr Q1HR IV 02/12/24 10:00 02/12/24 11:59 Cancel Heparin Sodium (Porcine) 5,000 units LACIE PRN XX 02/14/24 11:00 Lactulose 30 ml DAILY PO 02/15/24 10:00 02/28/24 09:14 30 ML Epoetin Kuldip-epbx 10,000 unit MoWeFr@2100 SC 02/16/24 21:00 02/26/24 22:13 10,000 UNIT Diagnostic Test (Pha) 1 strip Q6HR 02/16/24 00:00 02/28/24 12:06 1 STRIP Dextrose 50 ml UD PRN IV 02/15/24 18:45 Nystatin 5 ml QID MT 02/15/24 22:00 02/28/24 12:16 5 ML Fluconazole 100 ml @ 100 mls/hr DAILY IV 02/16/24 10:00 UNV Hydralazine HCl 20 mg Q4HPRN PRN IV 02/17/24 12:45 02/27/24 10:48 20 MG Trimethoprim/ Sulfamethoxazole 10 ml Q12HR GT 02/22/24 22:00 02/28/24 09:14 10 ML Bumetanide 1 mg BIDD IV 02/26/24 18:00 02/28/24 06:27 1 MG objective GENERAL: Intubated on ventilator. LUNGS: Decreased breath sounds. CARDIOVASCULAR: Heart sounds are good. ABDOMEN: Soft. : Lowrey catheter in place. laboratory and microbiology Laboratory Tests 02/28/24 05:11 Test 02/28/24 05:11 Range/Units Serum Glucose 97 74-106 mg/dL Problem List Acute metabolic encephalopathy secondary to uremia. 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 Septic shock secondary to pneumonia and UTI requiring vasopressor support. ESRD on hemodialysis. Positive FIT test. History of multiple strokes, last known stroke August 2023, 12/2021. Residual left-sided weakness. Bed bound. 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 History of CAD status post PTCA LAD by Dr Prieto 2016. Lactic acidosis. Dyslipidemia. Left-sided lobar pneumonia. Acute cystitis. Right parathyroid mass. Hypercalcemia. Left-sided thyroid nodule. Protein energy malnutrition. Assessment/Plan Continued all current supportive medical care. Diuretics with Bumex. IV Hydralazine for SBP > 150. Lactulose. GI prophylactics. Bactrim. Additional plan as per the hospital course. Dietary Evaluation Review Comments: 1. Nepr @30ml/hr is supporting 100% of pt's protein needs, and 116% of pt's energy needs. 2. Advance to Renal Standard 2 gNa 3K low Phos diet when pt is off vent and pass speech eval. Expected Outcomes/Goals: Improved nutrition status and Gradual weight gains Plan discussed with: Other CARTER FRANCO MD Feb 28, 2024 13:57
[2024-02-29] VITALS (10 sets, daily range): BP systolic 132–156; BP diastolic 52–69; PULSE 73–82; RESP 16–20; TEMP 97.9–99.4; O2SAT 93–100
[2024-02-29 06:16] LABS: Potassium 4.4 mmol/L (3.5-5.1); Sodium 138 mmol/L (136-145)
[2024-02-29 06:17] LABS: Anion Gap 8 (5-15); Calcium 10.4 mg/dL (8.7-10.4); Carbon Dioxide 23 mmol/L (20-31); Chloride 107 mmol/L (98-107)
[2024-02-29 06:22] LABS: BUN/Creatinine Ratio 18.3 (10.0-20.0); Glucose 101 mg/dL (74-106)
[2024-02-29 06:23] LABS: Magnesium 2.1 mg/dL (1.6-2.6)
[2024-02-29 06:31] LABS: Hematocrit 22.1 % (36.0-46.0); Hemoglobin 7.3 g/dL (12.2-16.2); Mean Corpuscular Hemoglobin 31.7 pg (28.0-32.0); Mean Corpuscular Hgb Conc. 33.1 g/dL (32.0-36.0); Mean Corpuscular Volume 95.6 fL (80.0-100.0); Platelet Count (auto) 128 10^3/uL (140-450); Red Blood Cells 2.31 10^6/uL (4.0-5.20); Red Cell Distribution Width 16.7 % (11.8-14.3); White Blood Cell 3.7 10^3/uL (4.4-10.8)
[2024-02-29 06:34] LABS: Blood Urea Nitrogen 36 mg/dL (9-23)
[2024-02-29 06:53] LABS: Band Neutrophils % (manual) 0; Basophils % (manual) 0 (0.0-2.0); Blast Cells 0; Metamyelocytes % 0; Myelocytes % 0; Promyelocytes % 0; Reactive Lymphocytes 0
--- NOTE | 2024-02-29 06:58 | DVHPNRES ---
Progress Note Date Seen: Feb 29, 2024 Resident Creating Document: MARIS CASTRO RESIDENT Has the PT tested + for MRSA If YES, has PT been informed?: No Medical Necessity Reason Pt with a Central, PICC or Fol: Yes The following are medically ne: PICC Line, Lowery Catheter Reason for lowery catheter: Strict I&O Subjective Review of Systems Seen and examined at the bedside. Discharged to LTAC. Objective vital signs Vital Sign Date Time Temp Pulse Resp B/P (MAP) Pulse Ox O2 Delivery O2 Flow Rate FiO2 02/29/24 05:37 152/67 02/29/24 05:00 99.4 82 17 98 99.4 02/29/24 02:34 Trach Collar 6 28 Cool Aerosol 28 Total Intake and Output 02/28/24 02/28/24 02/29/24 15:00 23:00 07:00 Output Total 525 ml 750 ml Balance -525 ml -750 ml medications Current Medications Medications Dose Ordered Sig/Sheila Route Start Time Stop Time Status Last Admin Dose Admin Acetaminophen 650 mg Q6HP PRN PO 02/07/24 19:45 Ipratropium [place] 0.5 mg Q6HPRN PRN NEB 02/08/24 14:30 02/22/24 05:51 0.5 MG Pantoprazole Sodium 40 mg DAILY IV 02/09/24 10:00 02/28/24 09:14 40 MG Enteral Nutritional Formula 1,000 ml 30ML/HR GT 02/09/24 13:30 02/27/24 22:42 1,000 ML Albumin Human 100 ml @ 100 mls/hr Q1HR IV 02/12/24 10:00 02/12/24 11:59 Cancel Heparin Sodium (Porcine) 5,000 units LACIE PRN XX 02/14/24 11:00 Lactulose 30 ml DAILY PO 02/15/24 10:00 02/28/24 09:14 30 ML Epoetin Kuldip-epbx 10,000 unit MoWeFr@2100 SC 02/16/24 21:00 02/28/24 21:31 10,000 UNIT Diagnostic Test (Pha) 1 strip Q6HR 02/16/24 00:00 02/29/24 05:38 1 STRIP Dextrose 50 ml UD PRN IV 02/15/24 18:45 Nystatin 5 ml QID MT 02/15/24 22:00 02/29/24 05:36 5 ML Fluconazole 100 ml @ 100 mls/hr DAILY IV 02/16/24 10:00 UNV Hydralazine HCl 20 mg Q4HPRN PRN IV 02/17/24 12:45 02/27/24 10:48 20 MG Trimethoprim/ Sulfamethoxazole 10 ml Q12HR GT 02/22/24 22:00 02/28/24 21:37 10 ML Bumetanide 1 mg BIDD IV 02/26/24 18:00 02/29/24 05:37 1 MG Examination Patient lying in bed, off sedation. RASS -4. Satting 97% on 4 L Trach collar. Not responding to stimulation or verbal commands General: Thin looking, cachectic, afebrile, palor, mucosae are dry. Oral thrush on tongue. Cardiovascular: Regular S1 and S2. No murmurs, gallops or rubs. No JVD elevation. Upper and lower extremity pitting edema. Respiratory: Left-sided crepitations heard. Saturating 99 on FiO2 of 28%. Abdomen: Soft, nontender, nondistended, normal bowel sounds, no rebound tenderness, no organomegaly, no masses. Lowery catheter seen. Stage II decubitus ulcer. Erythema noticed. Genitourinary: Lowery catheter seen. MSK/skin: Skin is dry and warm Neurological: Pupils are isocoric and reactive. laboratory and microbiology Laboratory Tests 02/29/24 05:16 Test 02/29/24 05:16 Range/Units Serum Glucose 101 74-106 mg/dL Microbiology Date/Time Source Procedure Growth Status 02/16/24 19:20 Trachea Gram Stain - Final Complete 02/16/24 19:20 Respiratory Culture - Final Bordetella bronchiseptica Stenotrophomonas maltophilia Yeast, not Ellen albicans Complete 02/16/24 18:23 Urine - Lowery Port Urine Culture - Final Yeast, not Ellen albicans Complete 02/08/24 17:17 Sputum Gram Stain - Final Complete 02/08/24 17:17 Respiratory Culture - Final Enterobacter hormaechei Complete 02/08/24 12:10 Blood Blood Culture - Final NO GROWTH AFTER 5 DAYS OF INCUBATION. 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 Discontinued aspirin 162 mg daily given the positive occult blood and the low hemoglobin Head CT Stable small chronic infarct in the right basal ganglia. No acute intracranial process. Repeat head CT 02/14 shows right cerebellar age indeterminate infarct MRI brain Multiple foci of supratentorial and right cerebellar areas of acute / subacute infarct. Correlate for possible central embolic process. Multiple foci of chronic lacunar infarcts of bilateral cerebellum and right basal ganglia. CARDIOVASCULAR Septic shock secondary to pneumonia and UTI requiring vasopressor support History of third-degree AV block status post Biotronik pacemaker 2015 Dr Prieto Likely type 2 NSTEMI History of CAD status post PTCA LAD by Dr Prieto 2016 Lactic acidosis Dyslipidemia Probable atrial fibrillation Prelim blood culture negative after 24 hours Discontinued aspirin 162 mg daily Continue atorvastatin 40 mg daily Echo completed 02/11/24 shows LVEF 65%. Moderate degree LV diastolic dysfunction. Moderate degree LVH. Moderately dilated RV. Normal valves. RVSP is 52 mmHg. RESPIRATORY Left-sided lobar pneumonia, possible aspiration, Gram-positive and Gram-negative with Enterobacter, Bordetella, stenotrophomonas, yeast Sepsis secondary to pneumonia and UTI Final respiratory culture 02/07 shows Enterobacter sensitive to Cipro, levofloxacin, meropenem, TMP SMX Repeat respiratory culture 02/15 shows Bordetella, stenotrophomonas, yeast Antibiotics: TMP SMX q.12 Starting 02/21 and fluconazole IV 02/14 G stain shows Gram-positive cocci in chains and pairs, Gram-positive rods DC vanco, discontinue Zosyn starting 02/08 till 02/11 Discontinued meropenem 02/11 till 02/15 Discontinued Levaquin 02/15 till 02/21 MRSA screen negative Continue ipratropium nebulized treatment q.6 p.r.n. On trach collar in a.m.. GI F/U hepatitis panel Hx of 1.0 cm left adrenal nodule Steatosis Positive occult blood Continue pantoprazole 40 mg IV daily Lactulose 30 mL once daily /KIDNEY Acute cystitis JOSE likely secondary to ATN on ESRD undergoing hemodialysis Acute tubular necrosis Prelim urine culture shows greater than 1 lac CFU mixed melissa 3 colony types possible contamination. Repeat urine culture ordered. Repeat urine culture 02/08 shows >100,000 CFU/mL Yeast Identification to follow. FENA greater than 2% Right renal simple appearing cysts measuring up to 3.4 cm. Hemodialysis 02/09 and 02/11, 02/13, 02/15, 02/18 receiving Retacrit 56531 units post dialysis. Bumex 1 mg IV b.i.d. 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 Left-sided thyroid nodule Thyroid ultrasound 02/12 shows heterogeneous left thyroid gland and isthmus with a discrete nodule Corrected Calcium 11, downtrending Nephrology recommended Recommend start patient on Sensipar po daily in outpatient METABOLIC Non-anion gap metabolic acidosis likely secondary to hyperchloremia and uremia with the respiratory alkalosis Hypovolemic hypernatremia Humoral Hypercalcemia of malignancy Secondary hyperphosphatemia due to ESRD Hypomagnesemia, hypokalemia Gout vs CPPD - chondrocalcinosis seen in knee x-ray in 2022 Patient received IV fluid D5W with 50 mEq sodium bicarb at 100 cc/hour on 02/07 morning of 02/08. Discontinued on 02/08 since over-correction of hyponatremia was noticed. Patient received 2 doses of SC calcitonin 200 mg on 02/07. Received calcitonin 200 mg sc twice daily from 01/21 till 02/11 Discontinued IV bicarb at 100 mL/hour Nephrology Started D5W half NS and Bumex 1 mg b.i.d., discontinued 02/21 ID Sepsis secondary to pneumonia and the UTI Oral thrush Started nystatin swish and swallow 5 cc 02/14 02/15 - Repeat urine culture shows yeast 02/15 - Repeat respiratory culture shows Gram-negative rods and yeast HEM-ONCO Right parathyroid mass Thrombocytopenia Anemia, likely normocytic due to ESRD Anemia of Chronic disease - transfused 1 packed RBC 02/12 and 02/10 - low iron low TIBC OBGYN History of Hysterectomy Protein energy malnutrition LINES Intubated on 02/07, tracheostomy 02/18 Right IJ CVC for hemodialysis placed 02/09 till 02/19 Right-sided Femoral dialysis non tunneled placed 02/09 till 02/22 Left Femoral CVC 02/09 till 02/22 Lowery catheter Drips: Levophed 0, off sedation Last bowel movement, 02/18 NUTRITION: Nepro started 02/08 DVT: Renal dosing Lovenox on hold given the low hemoglobin and positive occult Goals of care/advance care planning; discussed with the daughter and granddaughter at the bedside, modified DNR, PUD prophylaxis: Pantoprazole 40 mg IV daily DVT prophylaxis on hold-enoxaparin 50 mg sc daily renal dosing, patient takes Eliquis at home Plan discussed with Dr. Machuca. Patient discharged to LTAC. Poor prognosis. Plan discussed with patient's granddaughter over the bedside in which all questions have been answered Goals of care have been discussed with the patient's granddaughter (Skylar) at the bedside for more than 25 minutes, modified DNR status Critical time including chart review, discussion with the patient's granddaughter ray at the bedside excluding procedures included 43 minutes Plan discussed with: Patient My Orders My Orders Orders - MARIS CASTRO Procedure Category Date Status Time Abg W/ Co-Ox RT 02/29/24 Logged 04:00 Complete Blood Count LAB 02/29/24 In Process 04:00 Manual Differential LAB 02/29/24 In Process 05:16 Dietary Evaluation Review Comments: 1. Nepr @30ml/hr is supporting 100% of pt's protein needs, and 116% of pt's energy needs. 2. Advance to Renal Standard 2 gNa 3K low Phos diet when pt is off vent and pass speech eval. Expected Outcomes/Goals: Improved nutrition status and Gradual weight gains Date of Service: Feb 29, 2024 Billing Provider: PALAK MACHUCA MD Common Visit Codes: 40281-[id number] CARE 30-74 MIN MARIS CASTRO Feb 29, 2024 06:58 PALAK MACHUCA MD Mar 03, 2024 17:25
--- NOTE | 2024-02-29 06:59 | DVHPNRES ---
Progress Note Has the PT tested + for MRSA If YES, has PT been informed?: No Medical Necessity Reason Pt with a Central, PICC or Fol: Yes The following are medically ne: PICC Line, Lowery Catheter Reason for lowery catheter: Strict I&O Objective vital signs Vital Sign Date Time Temp Pulse Resp B/P (MAP) Pulse Ox O2 Delivery O2 Flow Rate FiO2 02/29/24 05:37 152/67 02/29/24 05:00 99.4 82 17 98 99.4 02/29/24 02:34 Trach Collar 6 28 Cool Aerosol 28 Total Intake and Output 02/28/24 02/28/24 02/29/24 15:00 23:00 07:00 Output Total 525 ml 750 ml Balance -525 ml -750 ml medications Current Medications Medications Dose Ordered Sig/Sheila Route Start Time Stop Time Status Last Admin Dose Admin Acetaminophen 650 mg Q6HP PRN PO 02/07/24 19:45 Ipratropium [place] 0.5 mg Q6HPRN PRN NEB 02/08/24 14:30 02/22/24 05:51 0.5 MG Pantoprazole Sodium 40 mg DAILY IV 02/09/24 10:00 02/28/24 09:14 40 MG Enteral Nutritional Formula 1,000 ml 30ML/HR GT 02/09/24 13:30 02/27/24 22:42 1,000 ML Albumin Human 100 ml @ 100 mls/hr Q1HR IV 02/12/24 10:00 02/12/24 11:59 Cancel Heparin Sodium (Porcine) 5,000 units LACIE PRN XX 02/14/24 11:00 Lactulose 30 ml DAILY PO 02/15/24 10:00 02/28/24 09:14 30 ML Epoetin Kuldip-epbx 10,000 unit MoWeFr@2100 SC 02/16/24 21:00 02/28/24 21:31 10,000 UNIT Diagnostic Test (Pha) 1 strip Q6HR 02/16/24 00:00 02/29/24 05:38 1 STRIP Dextrose 50 ml UD PRN IV 02/15/24 18:45 Nystatin 5 ml QID MT 02/15/24 22:00 02/29/24 05:36 5 ML Fluconazole 100 ml @ 100 mls/hr DAILY IV 02/16/24 10:00 UNV Hydralazine HCl 20 mg Q4HPRN PRN IV 02/17/24 12:45 02/27/24 10:48 20 MG Trimethoprim/ Sulfamethoxazole 10 ml Q12HR GT 02/22/24 22:00 02/28/24 21:37 10 ML Bumetanide 1 mg BIDD IV 02/26/24 18:00 02/29/24 05:37 1 MG laboratory and microbiology Laboratory Tests 02/29/24 05:16 Test 02/29/24 05:16 Range/Units Serum Glucose 101 74-106 mg/dL Microbiology Date/Time Source Procedure Growth Status 02/16/24 19:20 Trachea Gram Stain - Final Complete 02/16/24 19:20 Respiratory Culture - Final Bordetella bronchiseptica Stenotrophomonas maltophilia Yeast, not Ellen albicans Complete 02/16/24 18:23 Urine - Lowery [place] Urine Culture - Final Yeast, not Ellen albicans Complete 02/08/24 17:17 Sputum Gram Stain - Final Complete 02/08/24 17:17 Respiratory Culture - Final Enterobacter hormaechei Complete 02/08/24 12:10 Blood Blood Culture - Final NO GROWTH AFTER 5 DAYS OF INCUBATION. 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 Discontinued aspirin 162 mg daily given the positive occult blood and the low hemoglobin Head CT Stable small chronic infarct in the right basal ganglia. No acute intracranial process. Repeat head CT 02/14 shows right cerebellar age indeterminate infarct MRI brain Multiple foci of supratentorial and right cerebellar areas of acute / subacute infarct. Correlate for possible central embolic process. Multiple foci of chronic lacunar infarcts of bilateral cerebellum and right basal ganglia. 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 Moderate degree LV diastolic dysfunction. Moderate degree LVH. Moderately dilated RV. Normal valves. RVSP is 52 mmHg. RESPIRATORY Left-sided lobar pneumonia, possible aspiration, Gram-positive and Gram-negative with Enterobacter, Bordetella, stenotrophomonas, yeast Sepsis secondary to pneumonia and UTI Final respiratory culture 02/07 shows Enterobacter sensitive to Cipro, levofloxacin, meropenem, TMP SMX Repeat respiratory culture 02/15 shows Bordetella, stenotrophomonas, yeast Antibiotics: TMP SMX q.12 Starting 02/21 and fluconazole IV 02/14 G stain shows Gram-positive cocci in chains and pairs, Gram-positive rods DC vanco, discontinue Zosyn starting 02/08 till 02/11 Discontinued meropenem 02/11 till 02/15 Discontinued Levaquin 02/15 till 02/21 MRSA screen negative Continue ipratropium nebulized treatment q.6 p.r.n. On trach collar in a.m.. GI F/U hepatitis panel Hx of 1.0 cm left adrenal nodule Steatosis Positive occult blood Continue pantoprazole 40 mg IV daily Lactulose 30 mL once daily /KIDNEY Acute cystitis JOSE likely secondary to ATN on ESRD undergoing hemodialysis Acute tubular necrosis Prelim urine culture shows greater than 1 lac CFU mixed melissa 3 colony types possible contamination. Repeat urine culture ordered. Repeat urine culture 02/08 shows >100,000 CFU/mL Yeast Identification to follow. FENA greater than 2% Right renal simple appearing cysts measuring up to 3.4 cm. Hemodialysis 02/09 and 02/11, 02/13, 02/15, 02/18 receiving Retacrit 15793 units post dialysis. Bumex 1 mg IV b.i.d. 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 Left-sided thyroid nodule Thyroid ultrasound 02/12 shows heterogeneous left thyroid gland and isthmus with a discrete nodule Corrected Calcium 11, downtrending Nephrology recommended Recommend start patient on Sensipar po daily in outpatient METABOLIC Non-anion gap metabolic acidosis likely secondary to hyperchloremia and uremia with the respiratory alkalosis Hypovolemic hypernatremia Humoral Hypercalcemia of malignancy Secondary hyperphosphatemia due to ESRD Hypomagnesemia, hypokalemia Gout vs CPPD - chondrocalcinosis seen in knee x-ray in 2022 Patient received IV fluid D5W with 50 mEq sodium bicarb at 100 cc/hour on 02/07 morning of 02/08. Discontinued on 02/08 since over-correction of hyponatremia was noticed. Patient received 2 doses of SC calcitonin 200 mg on 02/07. Received calcitonin 200 mg sc twice daily from 01/21 till 02/11 Discontinued IV bicarb at 100 mL/hour Nephrology Started D5W half NS and Bumex 1 mg b.i.d., discontinued 02/21 ID Sepsis secondary to pneumonia and the UTI Oral thrush Started nystatin swish and swallow 5 cc 02/14 02/15 - Repeat urine culture shows yeast 02/15 - Repeat respiratory culture shows Gram-negative rods and yeast HEM-ONCO Right parathyroid mass Thrombocytopenia Anemia, likely normocytic due to ESRD Anemia of Chronic disease - transfused 1 packed RBC 02/12 and 02/10 - low iron low TIBC OBGYN History of Hysterectomy Protein energy malnutrition LINES Intubated on 02/07, tracheostomy 02/18 Right IJ CVC for hemodialysis placed 02/09 till 02/19 Right-sided Femoral dialysis non tunneled placed 02/09 till 02/22 Left Femoral CVC 02/09 till 02/22 Lowery catheter Drips: Levophed 0, off sedation Last bowel movement, 02/18 NUTRITION: Nepro started 02/08 DVT: Renal dosing Lovenox on hold given the low hemoglobin and positive occult Goals of care/advance care planning; discussed with the daughter and granddaughter at the bedside, modified DNR, PUD prophylaxis: Pantoprazole 40 mg IV daily DVT prophylaxis on hold-enoxaparin 50 mg sc daily renal dosing, patient takes Eliquis at home Plan discussed with Dr. Karimi. Bumex 1 mg b.i.d. IV starting 02/25. Nephrology recommended Recommend start patient on Sensipar po daily in outpatient. guest services manager consulted for transfer to LTAC. Poor prognosis Plan discussed with patient's granddaughter over the bedside in which all questions have been answered Goals of care have been discussed with the patient's granddaughter (Skylar) at the bedside for more than 25 minutes, modified DNR status Critical time including chart review, discussion with the patient's granddaughter ray at the bedside excluding procedures included 43 minutes My Orders My Orders Orders - MARIS CASTRO RESIDENT Procedure Category Date Status Time Abg W/ Co-Ox RT 02/29/24 Logged 04:00 Complete Blood Count LAB 02/29/24 In Process 04:00 Manual Differential LAB 02/29/24 In Process 05:16 Dietary Evaluation Review Comments: 1. Nepr @30ml/hr is supporting 100% of pt's protein needs, and 116% of pt's energy needs. 2. Advance to Renal Standard 2 gNa 3K low Phos diet when pt is off vent and pass speech eval. Expected Outcomes/Goals: Improved nutrition status and Gradual weight gains MARIS CASTRO RESIDENT Feb 29, 2024 06:59
[2024-02-29 08:52] LABS: Base Excess -0.2 mmol/L (-2.0-3.0)
[2024-02-29 09:43] LABS: Eosinophils % (manual) 2 (0-7); Lymphocytes % (manual) 20 (10.0-50.0); Monocytes % (manual) 18 (0-12)
[2024-02-29 09:44] LABS: Anisocytosis Slight; Platelet Estimate Decreased
--- NOTE | 2024-02-29 21:43 | DVHPN2 ---
Progress Note - Dictate Date Seen: Feb 29, 2024 Has the PT tested + for MRSA If YES, has PT been informed?: No Medical Necessity Reason Pt with a Central, PICC or Fol: Yes The following are medically ne: PICC Line, Lowery Catheter Reason for lowery catheter: Strict I&O Subjective Patient was seen and evaluated in follow up. Patient is intubated on ventilator on trach collar, 6L. WBC 3.7, HGB 7.3, HCT 22.1, BUN 36, RECYCLABLE MATERIALS SORTER 1.97. Patient is being arranged for transfer to [facility]. vital signs Vital Sign Date Time Temp Pulse Resp B/P (MAP) Pulse Ox O2 Delivery O2 Flow Rate FiO2 02/29/24 12:34 98.1 73 20 145/52 (83) 100 98.1 02/29/24 08:10 T-piece 6 28 Cool Aerosol 28 Total Intake and Output 02/28/24 02/28/24 02/29/24 15:00 23:00 07:00 Output Total 525 ml 750 ml Balance -525 ml -750 ml medications Current Medications Medications Dose Ordered Sig/Sheila Route Start Time Stop Time Status Last Admin Dose Admin Acetaminophen 650 mg Q6HP PRN PO 02/07/24 19:45 Ipratropium [place] 0.5 mg Q6HPRN PRN NEB 02/08/24 14:30 02/29/24 08:07 0.5 MG Pantoprazole Sodium 40 mg DAILY IV 02/09/24 10:00 02/29/24 09:54 40 MG Enteral Nutritional Formula 1,000 ml 30ML/HR GT 02/09/24 13:30 02/27/24 22:42 1,000 ML Albumin Human 100 ml @ 100 mls/hr Q1HR IV 02/12/24 10:00 02/12/24 11:59 Cancel Heparin Sodium (Porcine) 5,000 units LACIE PRN XX 02/14/24 11:00 Lactulose 30 ml DAILY PO 02/15/24 10:00 02/29/24 09:54 30 ML Epoetin Kuldip-epbx 10,000 unit MoWeFr@2100 SC 02/16/24 21:00 02/28/24 21:31 10,000 UNIT Diagnostic Test (Pha) 1 strip Q6HR 02/16/24 00:00 02/29/24 05:38 1 STRIP Dextrose 50 ml UD PRN IV 02/15/24 18:45 Nystatin 5 ml QID MT 02/15/24 22:00 02/29/24 05:36 5 ML Fluconazole 100 ml @ 100 mls/hr DAILY IV 02/16/24 10:00 UNV Hydralazine HCl 20 mg Q4HPRN PRN IV 02/17/24 12:45 02/27/24 10:48 20 MG Trimethoprim/ Sulfamethoxazole 10 ml Q12HR GT 02/22/24 22:00 02/29/24 09:55 10 ML Bumetanide 1 mg BIDD IV 02/26/24 18:00 02/29/24 05:37 1 MG objective GENERAL: Intubated on ventilator. LUNGS: Decreased breath sounds. CARDIOVASCULAR: Heart sounds are good. ABDOMEN: Soft. : Lowery catheter in place. laboratory and microbiology Laboratory Tests 02/29/24 05:16 Test 02/29/24 05:16 Range/Units Serum Glucose 101 74-106 mg/dL Problem List Acute metabolic encephalopathy secondary to uremia. 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 Septic shock secondary to pneumonia and UTI requiring vasopressor support. ESRD on hemodialysis. Positive FIT test. History of multiple strokes, last known stroke August 2023, 12/2021. Residual left-sided weakness. Bed bound. 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 History of CAD status post PTCA LAD by Dr Prieto 2016. Lactic acidosis. Dyslipidemia. Left-sided lobar pneumonia. Acute cystitis. Right parathyroid mass. Hypercalcemia. Left-sided thyroid nodule. Protein energy malnutrition. Assessment/Plan Continued all current supportive medical care. Diuretics with Bumex. IV Hydralazine for SBP > 150. Lactulose. GI prophylactics. Bactrim. Additional plan as per the hospital course. Dietary Evaluation Review Comments: 1. Nepr @30ml/hr is supporting 100% of pt's protein needs, and 116% of pt's energy needs. 2. Advance to Renal Standard 2 gNa 3K low Phos diet when pt is off vent and pass speech eval. Expected Outcomes/Goals: Improved nutrition status and Gradual weight gains Plan discussed with: Patient CARTER FRANCO MD Feb 29, 2024 13:53
== END 2024-02-29 14:00 | DRG 4 ==
LOC: EDUNIT# 15:51 → EDBD 15:51 → ER 15:51 → OVERFLOW 19:31 → EAST 02-08 03:40 → ICU CENTRL 02-08 14:38 → EAST 02-27 13:37 → TELE-EAST 02-27 17:17
PROVIDERS: ADMIT Internal Medicine; ATTEND Emergency Medicine
PROC: 5A1955Z Respiratory Ventilation, Greater than 96 Consecutive Hours (ICD-10-PCS; principal; 2024-02-08)
PROC: 02HV33Z Insertion of Infusion Device into Superior Vena Cava, Percutaneous Approach (ICD-10-PCS; 2024-02-08)
PROC: 0BH17EZ Insertion of Endotracheal Airway into Trachea, Via Natural or Artificial Opening (ICD-10-PCS; 2024-02-08)
PROC: 02HV33Z Insertion of Infusion Device into Superior Vena Cava, Percutaneous Approach (ICD-10-PCS; 2024-02-08)
PROC: B548ZZA Ultrasonography of Superior Vena Cava, Guidance (ICD-10-PCS; 2024-02-08)
PROC: 06HY33Z Insertion of Infusion Device into Lower Vein, Percutaneous Approach (ICD-10-PCS; 2024-02-08)
PROC: B54BZZA Ultrasonography of Right Lower Extremity Veins, Guidance (ICD-10-PCS; 2024-02-08)
PROC: 06HY33Z Insertion of Infusion Device into Lower Vein, Percutaneous Approach (ICD-10-PCS; 2024-02-10)
PROC: 02HV33Z Insertion of Infusion Device into Superior Vena Cava, Percutaneous Approach (ICD-10-PCS; 2024-02-10)
PROC: 06HY33Z Insertion of Infusion Device into Lower Vein, Percutaneous Approach (ICD-10-PCS; 2024-02-10)
PROC: 5A1D70Z Performance of Urinary Filtration, Intermittent, Less than 6 Hours Per Day (ICD-10-PCS; 2024-02-10)
PROC: 5A1D70Z Performance of Urinary Filtration, Intermittent, Less than 6 Hours Per Day (ICD-10-PCS; 2024-02-12)
PROC: 30233N1 Transfusion of Nonautologous Red Blood Cells into Peripheral Vein, Percutaneous Approach (ICD-10-PCS; 2024-02-13)
PROC: 5A1D70Z Performance of Urinary Filtration, Intermittent, Less than 6 Hours Per Day (ICD-10-PCS; 2024-02-14)
PROC: 5A1D70Z Performance of Urinary Filtration, Intermittent, Less than 6 Hours Per Day (ICD-10-PCS; 2024-02-16)
PROC: 0B110F4 Bypass Trachea to Cutaneous with Tracheostomy Device, Open Approach (ICD-10-PCS; 2024-02-19)
PROC: 05H933Z Insertion of Infusion Device into Right Brachial Vein, Percutaneous Approach (ICD-10-PCS; 2024-02-23)
PROC: B54MZZA Ultrasonography of Right Upper Extremity Veins, Guidance (ICD-10-PCS; 2024-02-23)
DX: A41.59 Other Gram-negative sepsis (principal); R65.21 Severe sepsis with septic shock; J96.01 Acute respiratory failure with hypoxia; J18.1 Lobar pneumonia, unspecified organism; N18.6 End stage renal disease; N17.0 Acute kidney failure with tubular necrosis; G92.8 Other toxic encephalopathy; I21.A1 Myocardial infarction type 2; J15.69 Pneumonia due to other Gram-negative bacteria; J15.9 Unspecified bacterial pneumonia; I63.9 Cerebral infarction, unspecified; J69.0 Pneumonitis due to inhalation of food and vomit; E87.0 Hyperosmolality and hypernatremia; R64 Cachexia; E87.20 Acidosis, unspecified; I13.2 Hypertensive heart and chronic kidney disease with heart failure and with stage 5 chronic kidney disease, or end stage renal disease; N25.81 Secondary hyperparathyroidism of renal origin; N30.00 Acute cystitis without hematuria; Z99.11 Dependence on respirator [ventilator] status; E44.0 Moderate protein-calorie malnutrition; B37.0 Candidal stomatitis; I44.2 Atrioventricular block, complete; D63.1 Anemia in chronic kidney disease; E78.5 Hyperlipidemia, unspecified; E86.1 Hypovolemia; E83.52 Hypercalcemia; E83.39 Other disorders of phosphorus metabolism; Z66 Do not resuscitate; E87.6 Hypokalemia; E83.42 Hypomagnesemia; M10.9 Gout, unspecified; E83.41 Hypermagnesemia; E86.0 Dehydration; D69.59 Other secondary thrombocytopenia; I50.9 Heart failure, unspecified; E87.8 Other disorders of electrolyte and fluid balance, not elsewhere classified; D35.1 Benign neoplasm of parathyroid gland; E04.1 Nontoxic single thyroid nodule; I25.10 Atherosclerotic heart disease of native coronary artery without angina pectoris; J98.2 Interstitial emphysema; Z82.3 Family history of stroke; Z88.5 Allergy status to narcotic agent; Z79.2 Long term (current) use of antibiotics; Z79.899 Other long term (current) drug therapy; Z79.82 Long term (current) use of aspirin; Z90.710 Acquired absence of both cervix and uterus; Z95.0 Presence of cardiac pacemaker; I25.2 Old myocardial infarction; Z51.5 Encounter for palliative care; Z98.61 Coronary angioplasty status; Z74.01 Bed confinement status; Z68.23 Body mass index [BMI] 23.0-23.9, adult; Z93.1 Gastrostomy status; Z99.2 Dependence on renal dialysis
CPT/HCPCS: 36415; 36556; 36600; 70450; 70551; 71045; 76536; 76775; 80048; 80053; 80074; 80307; 81001; 82040; 82270; 82306; 82310; 82570; 82805; 82962; 83540; 83550; 83605; 83735; 83880; 83970; 84100; 84132; 84156; 84295; 84300; 84484; 84550; 85007; 85014; 85018; 85025; 85027; 85610; 85730; 86850; 86900; 86901; 86920; 87040; 87070; 87077; 87081; 87086; 87088; 87186; 87205; 87804; 90935; 92610; 93005; 93306; 93970; 94002; 94003; 94640; G0378; J1450; J1642; J2003; J2185; J2250; J2470; J2543; J3480; J7060; P9047